=== PATIENT | male | born 1970 ===

== ENCOUNTER → 2020-02-16 08:06 | Outpatient (BNVA) | payer OTHER, SELFPAY | PROVIDERS: PCP Hospitalist; Referring Provider Internal Medicine; Visit Provider Family Medicine Adult Medicine | DX: M87.052 Idiopathic aseptic necrosis of left femur (principal); M87.051 Idiopathic aseptic necrosis of right femur; Z79.891 Long term (current) use of opiate analgesic | CPT/HCPCS: 99214 ==

== ENCOUNTER → 2020-03-15 09:11 | Outpatient (BNVA) | payer OTHER, SELFPAY | PROVIDERS: PCP Hospitalist; Visit Provider Family Medicine Adult Medicine | DX: M87.052 Idiopathic aseptic necrosis of left femur (principal); Z79.891 Long term (current) use of opiate analgesic | CPT/HCPCS: 99212 ==

== ENCOUNTER → 2020-04-26 12:19 | Outpatient (BNVA) | payer OTHER, SELFPAY | PROVIDERS: PCP Hospitalist; Visit Provider Family Medicine Adult Medicine | DX: M87.052 Idiopathic aseptic necrosis of left femur (principal); M87.051 Idiopathic aseptic necrosis of right femur | CPT/HCPCS: 99212 ==

== ENCOUNTER 2020-04-29 08:39 | Outpatient (REF) | payer OTHER, SELFPAY | END 2020-04-29 08:40 | disposition home or self-care (01) | LOC: HO.HOSX 08:39 | PROVIDERS: Visit Provider Orthopaedic Surgery | DX: Z13.89 Encounter for screening for other disorder (principal) ==

== ENCOUNTER → 2020-06-29 09:12 | Outpatient (BNVA) | payer OTHER, SELFPAY | PROVIDERS: PCP Internal Medicine Rheumatology; Visit Provider Family Medicine Adult Medicine | DX: M87.052 Idiopathic aseptic necrosis of left femur (principal); M87.051 Idiopathic aseptic necrosis of right femur | CPT/HCPCS: 99211 ==

== ENCOUNTER → 2020-07-28 10:29 | Outpatient (BNVA) | payer OTHER, SELFPAY | PROVIDERS: PCP Internal Medicine Rheumatology; Visit Provider Family Medicine Adult Medicine | DX: M87.052 Idiopathic aseptic necrosis of left femur (principal); M87.051 Idiopathic aseptic necrosis of right femur | CPT/HCPCS: 99212 ==

== ENCOUNTER → 2020-08-25 09:25 | Outpatient (BNVA) | payer OTHER, SELFPAY | PROVIDERS: PCP Hospitalist; Visit Provider Family Medicine Adult Medicine | DX: M87.052 Idiopathic aseptic necrosis of left femur (principal); M87.051 Idiopathic aseptic necrosis of right femur | CPT/HCPCS: 99212 ==

== ENCOUNTER 2020-11-01 12:43 | Outpatient (REF) | payer OTHER, SELFPAY ==
[2020-11-01 13:33] LABS: MANUAL DIFF FLAG NO
[2020-11-01 13:41] LABS: Basophils Percent Auto 0.4 % (0-2); Eosinophils Absolute Auto 0.1 X10*3/uL (0.0-0.4); Eosinophils Percent Auto 0.8 % (0-4); Hemoglobin 11.3 g/dl (14.0-18.0); Imm Gran Abs Auto 0.06 X10*3/uL (0.00-0.03); Imm Gran Pct Auto 0.8 % (0.0-0.4); Lymphocytes Absolute Auto 1.5 X10*3/uL (1.2-4.9); Lymphocytes Percent Auto 20.6 % (20-40); Mean Corpuscular HGB Conc 35.3 g/dl (31.0-36.0); Mean Corpuscular Hemoglobin 33.6 pg (27.0-33.0); Mean Corpuscular Volume 95.2 fL (80-98); Mean Platelet Volume 10.2 fL (9.4-12.4); Monocytes Absolute Auto 0.5 X10*3/uL (0.1-1.2); Monocytes Percent Auto 6.4 % (2-11); Neutrophils Absolute Auto 5.1 X10*3/uL (2.0-8.3); Platelet Count 438 X10*3/uL (160-400); Red Blood Count 3.36 X10*6/uL (4.60-5.80); Red Cell Distribution Width 10.7 % (11.0-16.0); White Blood Count 7.1 X10*3/uL (4.8-10.8)
[2020-11-01 14:20] LABS: Alanine Aminotransferase 17 U/L (0-40); Albumin Level 3.8 g/dL (3.5-5.0); Alkaline Phosphatase 83 U/L (39-117); Anion Gap 13 (12-20); Aspartate Amino Transferase 19 U/L (5-37); Bilirubin Total 0.6 mg/dL (0.0-1.0); Blood Urea Nitrogen 6 mg/dL (9-16); Calcium 9.1 mg/dL (8.4-10.2); Carbon Dioxide 27 mmol/L (22-29); Chloride 95 mmol/L (96-108); Estimated Glomerular Filt Rate > 60; Glucose Random 363 mg/dL (60-115); Lipase 18 U/L (8-78); Potassium 4.7 mmol/L (3.3-5.1); Sodium 130 mmol/L (135-145)
[2020-11-01 14:34] LABS: Thyroid Stimulating Hormone 0.22 uIU/mL (0.32-4.0)
== END 2020-11-01 12:44 | disposition home or self-care (01) ==
LOC: HO.WFDLNP 12:43
PROVIDERS: Visit Provider Family Medicine
DX: Z00.00 Encounter for general adult medical examination without abnormal findings (principal); R53.1 Weakness; E03.9 Hypothyroidism, unspecified; Z87.19 Personal history of other diseases of the digestive system
CPT/HCPCS: 80053; 83690; 84443; 85025

== ENCOUNTER 2020-11-18 10:32 | Outpatient (REF) | payer OTHER, SELFPAY ==
[2020-11-18 14:39] LABS: Alanine Aminotransferase 8 U/L (0-40); Albumin Level 4.3 g/dL (3.5-5.0); Alkaline Phosphatase 91 U/L (39-117); Anion Gap 15 (12-20); Aspartate Amino Transferase 13 U/L (5-37); Bilirubin Total 0.7 mg/dL (0.0-1.0); Blood Urea Nitrogen 10 mg/dL (9-16); Calcium 10.2 mg/dL (8.4-10.2); Carbon Dioxide 26 mmol/L (22-29); Chloride 101 mmol/L (96-108); Estimated Glomerular Filt Rate > 60; Glucose Random 371 mg/dL (60-115); Potassium 4.9 mmol/L (3.3-5.1); Sodium 137 mmol/L (135-145); Total Protein 7.3 g/dL (6.5-8.0)
[2020-11-18 14:40] LABS: Free T4 (Free Thyroxine) 1.02 ng/dL (0.71-1.85); Thyroid Stimulating Hormone 0.67 uIU/mL (0.32-4.0)
[2020-11-19 09:27] LABS: Triiodothyronine T3 Total 111 ng/dL (76-181)
== END 2020-11-18 10:33 | disposition home or self-care (01) ==
LOC: HO.WFDLDS 10:32
PROVIDERS: Visit Provider Family Medicine
DX: E03.9 Hypothyroidism, unspecified (principal); R73.9 Hyperglycemia, unspecified
CPT/HCPCS: 36415; 80053; 84439; 84443; 84480

== ENCOUNTER 2020-11-30 08:41 | Outpatient (REF) | payer OTHER, SELFPAY | END 2020-11-30 08:42 | disposition home or self-care (01) | LOC: HO.US 08:41 | PROVIDERS: Visit Provider Family Medicine | DX: Z13.89 Encounter for screening for other disorder (principal) ==

== ENCOUNTER 2021-03-29 13:29 | Outpatient (REF) | payer OTHER, SELFPAY ==
[2021-03-30 13:03] LABS: Amphetamine Screen Urine Not Detected (Not Detect); Barbiturates, Urine Not Detected (Not Detect); Benzodiazepines Screen Urine Not Detected (Not Detect); Cannabinoid Screen Urine POSITIVE (Not Detect); Cocaine Screen Urine Not Detected (Not Detect); Fentanyl, urine Not Detected (Not Detect); Opiate Screen Urine Not Detected (Not Detect); Phencyclidine Screen Urine Not Detected (Not Detect)
== END 2021-03-29 13:30 | disposition home or self-care (01) ==
LOC: HO.LAB 13:29
PROVIDERS: Visit Provider Hospitalist
DX: F19.10 Other psychoactive substance abuse, uncomplicated (principal); M25.559 Pain in unspecified hip; G89.29 Other chronic pain; F11.90 Opioid use, unspecified, uncomplicated; Z51.81 Encounter for therapeutic drug level monitoring
CPT/HCPCS: 80307

== ENCOUNTER 2021-05-08 10:01 | Outpatient (REF) | payer OTHER, SELFPAY ==
[2021-05-08 11:52] LABS: Estimated Average Glucose 103 mg/dL; Hemoglobin A1c % 5.2 %
[2021-05-08 12:00] LABS: Alanine Aminotransferase 30 U/L (0-40); Albumin Level 4.2 g/dL (3.5-5.0); Alkaline Phosphatase 69 U/L (39-117); Anion Gap 11 (12-20); Aspartate Amino Transferase 32 U/L (5-37); Bilirubin Total 0.4 mg/dL (0.0-1.0); Blood Urea Nitrogen 8 mg/dL (9-16); Calcium 9.7 mg/dL (8.4-10.2); Carbon Dioxide 27 mmol/L (22-29); Chloride 103 mmol/L (96-108); Cholesterol 239 mg/dL; Estimated Glomerular Filt Rate > 60; Glucose Fasting 157 mg/dL (60-99); HDL Cholesterol 64 mg/dL; LDL Cholesterol Calculated 132 mg/dl; Potassium 4.3 mmol/L (3.3-5.1); Sodium 137 mmol/L (135-145); Triglycerides 215 mg/dL
[2021-05-08 12:22] LABS: TSH reflex Free T4 0.77 uIU/mL (0.32-4.0)
== END 2021-05-08 10:02 | disposition home or self-care (01) ==
LOC: HO.WFDLDS 10:01
PROVIDERS: Visit Provider Family Medicine
DX: Z00.00 Encounter for general adult medical examination without abnormal findings (principal); R73.01 Impaired fasting glucose
CPT/HCPCS: 36415; 80053; 80061; 83036; 84443

== ENCOUNTER 2021-06-19 13:25 | Outpatient (REF) | payer OTHER, SELFPAY ==
[2021-06-19 14:16] LABS: Amphetamine Screen Urine Not Detected (Not Detect); Barbiturates, Urine Not Detected (Not Detect); Benzodiazepines Screen Urine POSITIVE (Not Detect); Cannabinoid Screen Urine Not Detected (Not Detect); Cocaine Screen Urine Not Detected (Not Detect); Fentanyl, urine Not Detected (Not Detect); Opiate Screen Urine Not Detected (Not Detect); Phencyclidine Screen Urine Not Detected (Not Detect)
== END 2021-06-19 13:26 | disposition home or self-care (01) ==
LOC: HO.LNP 13:25
PROVIDERS: Visit Provider Hospitalist
DX: F11.90 Opioid use, unspecified, uncomplicated (principal); G89.29 Other chronic pain; M25.559 Pain in unspecified hip
CPT/HCPCS: 80307

== ENCOUNTER 2021-07-19 09:14 | Outpatient (REF) | payer OTHER, SELFPAY ==
[2021-07-19 14:32] LABS: Amphetamine Screen Urine Not Detected (Not Detect); Barbiturates, Urine Not Detected (Not Detect); Benzodiazepines Screen Urine POSITIVE (Not Detect); Cannabinoid Screen Urine Not Detected (Not Detect); Cocaine Screen Urine Not Detected (Not Detect); Fentanyl, urine Not Detected (Not Detect); Opiate Screen Urine Not Detected (Not Detect); Phencyclidine Screen Urine Not Detected (Not Detect)
== END 2021-07-19 09:15 | disposition home or self-care (01) ==
LOC: HO.LAB 09:14
PROVIDERS: Visit Provider Hospitalist
DX: F19.10 Other psychoactive substance abuse, uncomplicated (principal)
CPT/HCPCS: 80307

== ENCOUNTER 2021-09-11 10:53 | Outpatient (REF) | payer OTHER, SELFPAY ==
[2021-09-11 13:42] LABS: Alanine Aminotransferase 54 U/L (0-40); Albumin Level 4.9 g/dL (3.5-5.0); Alkaline Phosphatase 65 U/L (39-117); Anion Gap 14 (12-20); Aspartate Amino Transferase 44 U/L (5-37); Bilirubin Total 1.4 mg/dL (0.0-1.0); Blood Urea Nitrogen 7 mg/dL (9-16); Calcium 10.6 mg/dL (8.4-10.2); Carbon Dioxide 28 mmol/L (22-29); Chloride 101 mmol/L (96-108); Estimated Glomerular Filt Rate > 60; Glucose Fasting 146 mg/dL (60-99); Potassium 4.6 mmol/L (3.3-5.1); Sodium 138 mmol/L (135-145); Total Protein 7.7 g/dL (6.5-8.0)
[2021-09-11 13:45] LABS: Appearance Urine HAZY; Color Urine YELLOW; Glucose Urine UA 100 MG/DL (NEG); Leukocyte Esterase Urine NEG (NEG); Nitrite Urine NEG (NEG); PH 6.5 (5.0-8.0); Specific Gravity - Urine 1.015 (1.005-1.025); Urine Blood NEG (NEG); Urine Ketones NEG (NEG); Urine Protein NEG (NEG-TRACE)
== END 2021-09-11 10:54 | disposition home or self-care (01) ==
LOC: HO.WFDLDS 10:53
PROVIDERS: Visit Provider Family Medicine
DX: Z00.00 Encounter for general adult medical examination without abnormal findings (principal); E11.9 Type 2 diabetes mellitus without complications
CPT/HCPCS: 36415; 80053; 81003

== ENCOUNTER 2021-09-21 09:14 | Outpatient (REF) | payer OTHER, SELFPAY ==
[2021-09-21 10:40] LABS: Hematocrit 44.3 % (42.0-52.0); Mean Corpuscular HGB Conc 36.1 g/dl (31.0-36.0); Mean Corpuscular Hemoglobin 33.2 pg (27.0-33.0); Mean Corpuscular Volume 91.9 fL (80.0-98.0); Mean Platelet Volume 10.9 fL (9.4-12.4); Platelet Count 186 X10*3/uL (160-400); Red Blood Count 4.82 X10*6/uL (4.60-5.80); Red Cell Distribution Width 11.9 % (11.0-16.0); White Blood Count 7.4 X10*3/uL (4.8-10.8)
[2021-09-21 10:56] LABS: Alanine Aminotransferase 29 U/L (0-40); Albumin Level 4.5 g/dL (3.5-5.0); Alkaline Phosphatase 70 U/L (39-117); Anion Gap 15 (12-20); Aspartate Amino Transferase 26 U/L (5-37); Bilirubin Total 0.7 mg/dL (0.0-1.0); Blood Urea Nitrogen 6 mg/dL (9-16); Calcium 10.4 mg/dL (8.4-10.2); Carbon Dioxide 25 mmol/L (22-29); Chloride 101 mmol/L (96-108); Cholesterol 223 mg/dL; Estimated Glomerular Filt Rate > 60; Glucose Fasting 190 mg/dL (60-99); HDL Cholesterol 50 mg/dL; LDL Cholesterol Calculated 133 mg/dl; Potassium 4.5 mmol/L (3.3-5.1); Sodium 136 mmol/L (135-145); Total Protein 7.1 g/dL (6.5-8.0); Triglycerides 203 mg/dL
[2021-09-21 11:18] LABS: TSH reflex Free T4 1.09 uIU/mL (0.32-4.0)
== END 2021-09-21 09:15 | disposition home or self-care (01) ==
LOC: HO.WFDLDS 09:14
PROVIDERS: Visit Provider Hospitalist
DX: Z00.00 Encounter for general adult medical examination without abnormal findings (principal); R10.9 Unspecified abdominal pain; Z13.220 Encounter for screening for lipoid disorders; Z13.29 Encounter for screening for other suspected endocrine disorder
CPT/HCPCS: 36415; 80053; 80061; 84443; 85027

== ENCOUNTER 2022-03-22 08:54 | Outpatient (REF) | payer OTHER, SELFPAY ==
--- NOTE | ~2022-03-22 | XR_ITS ---
EXAMINATION: XR pelvis 1-2V CLINICAL INFORMATION: Reason for Exam M25.559 - Pain in unspecified hip COMPARISON: Pelvis radiographs 03/09/2019, MR hip 06/01/2017 TECHNIQUE: One view of the pelvis FINDINGS: No acute fracture or dislocation. Similar appearance of ill-defined sclerosis in the left greater than right femoral heads which may reflect sequelae of avascular necrosis, the extent of which could be better evaluated with pelvic MR. Joint spaces are maintained without significant degenerative change. No soft tissue abnormality. XR/XR pelvis 1-2V IMPRESSION: 1. Similar appearance of ill-defined sclerosis in the left greater than right femoral heads which may reflect sequelae of avascular necrosis, the extent of which could be better evaluated with pelvic MR.
== END 2022-03-22 08:55 | disposition home or self-care (01) ==
LOC: HO.HOSX 08:54
PROVIDERS: Visit Provider Orthopaedic Surgery
DX: M25.551 Pain in right hip (principal); M25.552 Pain in left hip; M87.051 Idiopathic aseptic necrosis of right femur; M87.052 Idiopathic aseptic necrosis of left femur; E11.9 Type 2 diabetes mellitus without complications
CPT/HCPCS: 72170; 99212

== ENCOUNTER 2022-08-16 09:36 | Outpatient (REF) | payer OTHER, SELFPAY ==
[2022-08-16 12:06] LABS: Magnesium 1.8 mg/dL (1.6-2.6); Phosphorus 3.6 mg/dL (2.7-4.5)
[2022-08-16 12:15] LABS: Estimated Average Glucose 120 mg/dL; Hemoglobin A1c % 5.8 %
[2022-08-16 12:33] LABS: Vitamin B12 1178 pg/mL (200-900)
[2022-08-23 12:53] LABS: Vitamin D 25-OH, D2 <4 ng/mL; Vitamin D 25-OH, D3 22 ng/mL; Vitamin D 25-OH, Total 22 ng/mL (30-100)
== END 2022-08-16 09:37 | disposition home or self-care (01) ==
LOC: HO.HMGCLDS 09:36
PROVIDERS: PCP Hospitalist; Visit Provider Hospitalist
DX: Z12.5 Encounter for screening for malignant neoplasm of prostate (principal); R39.198 Other difficulties with micturition; E55.9 Vitamin D deficiency, unspecified; K21.9 Gastro-esophageal reflux disease without esophagitis; I10 Essential (primary) hypertension; E11.9 Type 2 diabetes mellitus without complications; Z86.2 Personal history of diseases of the blood and blood-forming organs and certain disorders involving the immune mechanism
CPT/HCPCS: 36415; 82306; 82607; 83036; 83735; 84100; 84153

== ENCOUNTER 2022-12-05 09:32 | Outpatient (AMB) | payer OTHER, SELFPAY ==
--- NOTE | 2022-12-05 09:34 | A.OFFPC_ITS ---
Vital Signs 12/05/22 09:37 Height 6 ft 1 in Weight 205 lb BMI 27.0 BP 124/62 Blood Pressure Location Rt brachial Position Sitting Respiration 14 Pulse 73 Pulse Source Pulse Oximeter Temp 98.6 F Temp Source Temporal Artery Scan Pulse Oximetry (%) 100 Oxygen Delivery Method Room Air Intake Visit Reasons: f/u diabetes Intake Note: Patient is here today to follow up with diabetes and discuss pain patches and alprazolam. Patient would like to request fluticasone nasal spray. Microarray Analyst Required: No Allergies aspirin [ASPIRIN] Allergy (Severe, Verified 12/05/22 09:42) SWELLING NSAIDS (Non-Steroidal Anti-Inflamma Allergy (Severe, Verified 12/05/22 09:42) infamation penicillin G [PENICILLIN G] Allergy (Severe, Verified 12/05/22 09:42) DIFFICULTY BREATHING Sulfa (Sulfonamide Antibiotics) [SULFA (SULFONAMIDE ANTIBIOTICS)] Allergy (Severe, Verified 12/05/22 09:42) ANAPHYLAXIS tramadol [TRAMADOL] Allergy (Severe, Verified 12/05/22 09:42) DIZZY Medication List - Last Reconciled 12/05/22 by Rico Hope MD adhesive remover As directed to remove adhesive from patches weekly albuterol sulfate 2.5 mg (3 mL) inhalation Q8H PRN 1 month albuterol sulfate 90 mcg/actuation (ProAir HFA) 1 puff inhalation Q4-6H PRN alprazolam 0.5 mg PO BID PRN 28 days amlodipine 10 mg PO DAILY 3 months atenolol 100 mg PO DAILY betamethasone dipropionate 0.05% 1 appl topical BID PRN blood sugar diagnostic (FreeStyle Lite Strips) USE 1 STRIP TWICE A DAY NEEDED...OR MAY USE 3 TIMES IF NEEDED blood-glucose sensor (FreeStyle Jay 3 Sensor device) As directed, 28 days buprenorphine 7.5 mcg/hour 1 patch transdermal Q7D buprenorphine 20 mcg/hour 1 patch topical QWEEK 28 days cholecalciferol (vitamin D3) 1,250 mcg PO QWEEK citalopram 20 mg (2 x 10 mg) PO DAILY 30 days cyclobenzaprine 10 mg PO BID fluticasone propion-salmeterol 113 mcg-14 mcg/actuation 1 inh inhalation BID 1 month fluticasone propionate 50 mcg/actuation 1 spray intranasal DAILY 1 month FreeStyle Lite Meter (blood-glucose meter) TEST blood sugar 2-3 TIMES DAILY NS hydrocortisone 1% (Anti-Itch (hydrocortisone)) 1 appl topical TID PRN insulin glargine (Lantus Solostar U-100 Insulin) 16 units (0.16 mL) subcut QPM lancets (FreeStyle Lancets) USE TO TEST BLOOD SUGAR THREE TIMES A DAY DIRECTED loratadine (Allergy Relief (loratadine)) 10 mg PO DAILY metformin 250 mg (1/2 x 500 mg) PO BID omeprazole 20 mg PO QAM pen needle, diabetic (UltiCare Pen Needle) USE DAILY DIRECTED pen needle, diabetic (Easy Touch) As directed repaglinide 0.5 mg PO BID 30 days tamsulosin (Flomax) 0.4 mg PO DAILY 30 days Tobacco use date assessed: 12/05/22 Dental Screening Dental Screen Date: 12/05/22 Did you have a dental visit in the last 12 months?: Yes Did you have a dental problem in the last 6 months where you did not have access to dental care?: No Was dental information given to patient?: Patient has dentist HPI f/u diabetes HPI Details 51 y/o male presents to f/u diabetes. A1c today 12/05/22 is 4.9%. He is on lantus 16 units and metformin 250mg b.i.d. had prescribed glipizide but changed this to repaglinide due to a sulfa allergy. He notes that this medication does make his blood sugars go low occasionally. He also reports metformin had been causing him some dry mouth but questions whether or not this could be due to patches. 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 Dominick Miller, Koki Buck, Mohan Beavers and colleagues, with an educational nanette from [employer]. Review of Systems Const Denies chills, Denies fatigue, Denies fever(s), Denies headache(s) and Denies weakness ENT Denies dizziness and Denies headache(s) Card Denies dyspnea Resp Denies cough, Denies dyspnea, Denies wheezing and Denies other (shortness of breath) Musc Denies numbness and Denies tingling Neuro Denies dizziness, Denies headache(s), Denies numbness, Denies tingling and Denies weakness Psych Denies anxiety and Denies depression Endo Denies fatigue Aller/Immun Denies wheezing Physical exam (Primary Care) Vital Signs: Last Vital Signs Temp 98.6 F 12/05/22 09:37 Pulse 73 12/05/22 09:37 Resp 14 12/05/22 09:37 BP 124/62 12/05/22 09:37 Pulse Ox 100 12/05/22 09:37 Oxygen Delivery Method Room Air 12/05/22 09:37 BMI result Body Mass Index 27.0 Tobacco/Smoking Status: Tobacco use Status Tobacco use date assessed 12/05/22 12/05/22 09:45 Patient Tobacco Use Status Never used Tobacco 12/05/22 09:49 e-Cigarette/Vaping Use Never Used 12/05/22 09:49 Thrive Assessment: Date of Thrive Assessment Date Thrive assessed 06/20/22 12/05/22 09:36 Const General: well developed; No acute distress Nutritional Appearance: well nourished Orientation/consciousness: patient oriented x3 HENMT Head: Yes normocephalic and Yes atraumatic Eyes General: appearance normal, both eyes and all related structures Pupils: Equal, round and reactive pupils present EOM: EOMs intact bilaterally Resp Effort & Inspection: normal respiratory effort Neuro General: patient oriented x3 and gait normal Cranial nerves: Yes Equal, round and reactive pupils present Psych Affect: normal affect Results AMB Hemoglobin A1c AMB Hemoglobin A1c 4.9 % Last Edit by Meme Maldonado on 12/05/22 09:5 4 Results Reviewed Results Reviewed: Laboratory Last Values Hgb A1c (Clinic) 4.9 % (4.0-6.0) 12/05/22 09:54 Assessment and Plan Assessment & Plan (1) Diabetes: Code(s): E11.9 - Type 2 diabetes mellitus without complications Plan: A1c 4.9% today and he has noted some low blood sugars. He will only use were pad: I had during the day and not in the evenings or at night. Discontinue metformin as he has not been taking this and does not need this added. Continue Lantus as prescribed Medications: Refilled alprazolam 0.5 mg PO BID PRN 14 tabs 0RF anxiety 28 days F41.0 - Panic disorder [episodic paroxysmal anxiety], F41.1 - Generalized anxiety disorder buprenorphine 20 mcg/hour Pt is prescribed both 20mcg patch and 7.5mcg patches concurrently. MassPat verified. Partial refill upon request. 1 patch topical QWEEK 4 patches 0RF 28 days G89.29 - Other chronic pain, M53.3 - Sacrococcygeal disorders, not elsewhere classified, M87.051 - Idiopathic aseptic necrosis of right femur, M87.052 - Idiopathic aseptic necrosis of left femur buprenorphine 7.5 mcg/hour Pt is prescribed both 20mcg patch and 7.5mcg patches concurrently. MassPat verified. Partial refill upon request. 1 patch transdermal Q7D 4 ea 0RF insulin glargine (Lantus Solostar U-100 Insulin) 16 units (0.16 mL) subcut QPM 15 mL 3RF Discontinued metformin Discontinued Reason: Patient no longer taking 250 mg (1/2 x 500 mg) PO BID 90 tabs 3RF Coding Level of Care Code Est Pt Level 3 (34472) Diagnoses Diabetes E11.9
[2022-12-05 09:37] VITALS: BP 124/62; PULSE 73; RESP 14; TEMP 37; O2SAT 100; BMI 27.0
== END 2022-12-05 10:18 | disposition home or self-care (01) ==
PROVIDERS: PCP Hospitalist; Visit Provider Family Medicine
DX: E11.9 Type 2 diabetes mellitus without complications (principal)
CPT/HCPCS: 99213

== ENCOUNTER 2023-01-09 08:09 | Outpatient (REF) | payer OTHER, SELFPAY ==
[2023-01-09 12:05] LABS: Hematocrit 41.5 % (42.0-52.0); Hemoglobin 14.8 g/dl (14.0-18.0); Mean Corpuscular HGB Conc 35.7 g/dl (31.0-36.0); Mean Corpuscular Hemoglobin 33.5 pg (27.0-33.0); Mean Corpuscular Volume 93.9 fL (80.0-98.0); Red Blood Count 4.42 X10*6/uL (4.60-5.80); Red Cell Distribution Width 12.1 % (11.0-16.0); White Blood Count 6.5 X10*3/uL (4.8-10.8)
[2023-01-09 12:25] LABS: Platelet Count 133 X10*3/uL (160-400)
[2023-01-09 12:26] LABS: Alanine Aminotransferase 117 U/L (0-40); Albumin Level 4.2 g/dL (3.5-5.0); Alkaline Phosphatase 62 U/L (39-117); Anion Gap 12 (12-20); Aspartate Amino Transferase 81 U/L (5-37); Bilirubin Total 0.6 mg/dL (0.0-1.0); Blood Urea Nitrogen 8 mg/dL (9-16); Calcium 9.9 mg/dL (8.4-10.2); Carbon Dioxide 28 mmol/L (22-29); Chloride 106 mmol/L (96-108); Cholesterol 229 mg/dL (<200); Estimated Glomerular Filt Rate > 60; Glucose Fasting 103 mg/dL (60-99); HDL Cholesterol 67 mg/dL (>40); LDL Cholesterol Calculated 121 mg/dL (<100); Sodium 142 mmol/L (135-145); Total Protein 6.9 g/dL (6.5-8.0); Triglycerides 208 mg/dL (<150)
[2023-01-09 12:27] LABS: TSH reflex Free T4 0.92 uIU/mL (0.32-4.0)
== END 2023-01-09 08:10 | disposition home or self-care (01) ==
LOC: HO.WFDLDS 08:09
PROVIDERS: Visit Provider Hospitalist
DX: I10 Essential (primary) hypertension (principal); Z86.2 Personal history of diseases of the blood and blood-forming organs and certain disorders involving the immune mechanism
CPT/HCPCS: 36415; 80053; 80061; 84443; 85027

== ENCOUNTER 2023-01-10 09:45 | Outpatient (AMB) | payer OTHER, SELFPAY ==
[2023-01-10 09:51] VITALS: BP 94/60; PULSE 59; RESP 12; TEMP 36.6; O2SAT 98; BMI 27.2
--- NOTE | 2023-01-10 09:51 | MHC.PC.OV ---
Vital Signs 01/10/23 09:51 Height 6 ft 1 in Weight 206 lb 4 oz BMI 27.2 BP 94/60 Blood Pressure Location Lt brachial Position Sitting Respiration 12 Pulse 59 Pulse Source Pulse Oximeter Temp 97.8 F Temp Source Temporal Artery Scan Pulse Oximetry (%) 98 Oxygen Delivery Method Room Air Intake Visit Reasons: f/u labs, Lyme disease Intake Note: Patient states that he needs refills on Citolopram, Vitamin D3, and Repaglinide. 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 Accompanied by: Self / Same As Patient Allergies aspirin [ASPIRIN] Allergy (Severe, Verified 01/10/23 09:56) SWELLING NSAIDS (Non-Steroidal Anti-Inflamma Allergy (Severe, Verified 01/10/23 09:56) infamation penicillin G [PENICILLIN G] Allergy (Severe, Verified 01/10/23 09:56) DIFFICULTY BREATHING Sulfa (Sulfonamide Antibiotics) [SULFA (SULFONAMIDE ANTIBIOTICS)] Allergy (Severe, Verified 01/10/23 09:56) ANAPHYLAXIS tramadol [TRAMADOL] Allergy (Severe, Verified 01/10/23 09:56) DIZZY Tobacco use date assessed: 12/05/22 Dental Screening Dental Screen Date: 01/10/23 Did you have a dental visit in the last 12 months?: Yes Did you have a dental problem in the last 6 months where you did not have access to dental care?: No Was dental information given to patient?: Patient has dentist HPI f/u labs, Lyme disease HPI Details 52 y/o male presents to f/u labs and lyme disease. Labs were drawn 01/09/23. Reviewed labs with pt. Triglycerides 208. TC 229. LDL 121. HDL 67. Elevated AST of 81 and ALT of 117. He is requesting lyme testing due to tick bites from a couple months ago. Pt reports he gets a lot of ticks and does work on prevention. He denies any rashes. He does report joint pain and fatigue - he has hip problems but did note significant ankle pain and knee joint pain. 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 Dominick Miller, Koki Buck, Mohan Beavers and colleagues, with an educational nanette from [employer]. Physical exam (Primary Care) Vital Signs: Last Vital Signs Temp 97.8 F 01/10/23 09:51 Pulse 59 01/10/23 09:51 Resp 12 01/10/23 09:51 BP 94/60 01/10/23 09:51 Pulse Ox 98 01/10/23 09:51 Oxygen Delivery Method Room Air 01/10/23 09:51 BMI result Body Mass Index 27.2 Tobacco/Smoking Status: Tobacco use Status Tobacco use date assessed 12/05/22 01/10/23 10:01 Patient Tobacco Use Status Never used Tobacco 01/10/23 10:01 e-Cigarette/Vaping Use Never Used 01/10/23 10:01 Thrive Assessment: Date of Thrive Assessment Date Thrive assessed 06/20/22 01/10/23 10:01 Assessment and Plan Assessment & Plan (1) Tick bite: Code(s): W57.XXXA - Bitten or stung by nonvenomous insect and other nonvenomous arthropods, initial encounter Plan: Patient gets frequent tick bites. He says he had some left over doxycycline and took this Check Lyme titers (2) Elevated liver enzymes: Code(s): R74.8 - Abnormal levels of other serum enzymes Plan: Patient takes about 1300 mg of Tylenol every day and drinks alcohol as well. Liver enzymes are elevated Advised decreasing Tylenol and alcohol intake. Advised he try to avoid taking both on the same days Will give him some diclofenac gel to help him decrease Tylenol intake (3) Polyarthralgia: Code(s): M25.50 - Pain in unspecified joint Plan: As above, will give him some diclofenac gel Checking Lyme titers Checking uric acid levels as he says he has a history of gout as well. Orders: Orders Lyme IgG/IgM w/reflex to WB Today W57.XXXA - Bitten or stung by nonvenomous insect and other nonvenomous arthropods, initial encounter Uric Acid Today M25.50 - Pain in unspecified joint Medications: Changed From repaglinide administer within 30 minutes of a meal or snack 0.5 mg PO BID 60 tabs 1RF 30 days To repaglinide administer within 30 minutes of a meal or snack 0.5 mg PO BID 180 tabs 2RF 90 days Refilled citalopram 20 mg (2 x 10 mg) PO DAILY 60 tabs 4RF 30 days E11.9 - Type 2 diabetes mellitus without complications cholecalciferol (vitamin D3) 1,250 mcg PO QWEEK 14 caps 1RF E55.9 - Vitamin D deficiency, unspecified repaglinide administer within 30 minutes of a meal or snack 0.5 mg PO BID 60 tabs 1RF 30 days Coding Level of Care Code Est Pt Level 4 (80624) Diagnoses Tick bite W57.XXXA Elevated liver enzymes R74.8 Polyarthralgia M25.50
== END 2023-01-10 10:29 | disposition home or self-care (01) ==
PROVIDERS: PCP Hospitalist; Visit Provider Family Medicine
DX: T63.481A Toxic effect of venom of other arthropod, accidental (unintentional), initial encounter (principal); R74.8 Abnormal levels of other serum enzymes; M25.50 Pain in unspecified joint
CPT/HCPCS: 99214

== ENCOUNTER 2023-01-10 10:32 | Outpatient (REF) | payer OTHER, SELFPAY ==
[2023-01-16 02:29] LABS: Lyme Abs Screen <0.90 index
== END 2023-01-10 10:33 | disposition home or self-care (01) ==
LOC: HO.WFDLDS 10:32
PROVIDERS: Visit Provider Family Medicine
DX: M25.50 Pain in unspecified joint (principal); T14.8XXA Other injury of unspecified body region, initial encounter; W57.XXXA Bitten or stung by nonvenomous insect and other nonvenomous arthropods, initial encounter; Y93.9 Activity, unspecified; Y92.9 Unspecified place or not applicable; Y99.9 Unspecified external cause status
CPT/HCPCS: 36415; 84550; 86617; 86618

== ENCOUNTER 2023-03-05 08:46 | Outpatient (AMB) | payer OTHER, SELFPAY ==
--- NOTE | 2023-03-05 08:52 | MHC.PC.OV ---
Vital Signs 03/05/23 08:55 Height 6 ft 1 in Weight 195 lb BMI 25.7 BP 122/76 Blood Pressure Location Rt brachial Position Sitting Respiration 13 Pulse 84 Pulse Source Pulse Oximeter Temp 97.6 F Temp Source Temporal Artery Scan Pulse Oximetry (%) 98 Oxygen Delivery Method Room Air Intake Visit Reasons: f/u diabetes, chronic conditions Intake Note: Patient states that his cats have been playing with mice and recently hooked onto his back and patient is worried that they may become infected. Patient would also need a work note. Patient states he stopped taking repaglinide due to him urinating blood, which stopped when he stopped taking it. Patient would also like a refill on his Alprazolam and his Lantus as well as the needles for insulin. [employer] Required: No Accompanied by: Self / Same As Patient Allergies aspirin [ASPIRIN] Allergy (Severe, Verified 03/05/23 09:00) SWELLING NSAIDS (Non-Steroidal Anti-Inflamma Allergy (Severe, Verified 03/05/23 09:00) infamation penicillin G [PENICILLIN G] Allergy (Severe, Verified 03/05/23 09:00) DIFFICULTY BREATHING Sulfa (Sulfonamide Antibiotics) [SULFA (SULFONAMIDE ANTIBIOTICS)] Allergy (Severe, Verified 03/05/23 09:00) ANAPHYLAXIS tramadol [TRAMADOL] Allergy (Severe, Verified 03/05/23 09:00) DIZZY Medication List - Last Reviewed 03/05/23 by Sophie Trevizo MA adhesive remover As directed to remove adhesive from patches weekly albuterol sulfate 2.5 mg (3 mL) inhalation Q8H PRN 1 month albuterol sulfate 90 mcg/actuation (ProAir HFA) 1 puff inhalation Q4-6H PRN alprazolam 0.5 mg PO BID PRN 28 days amlodipine 10 mg PO DAILY 3 months atenolol 100 mg PO DAILY betamethasone dipropionate 0.05% 1 appl topical BID PRN bisacodyl (Dulcolax (bisacodyl)) 20 mg (4 x 5 mg) PO ONCE 1 day blood sugar diagnostic (FreeStyle Lite Strips) USE 1 STRIP TWICE A DAY NEEDED...OR MAY USE 3 TIMES IF NEEDED blood-glucose sensor (FreeStyle Jay 3 Sensor device) As directed, 28 days buprenorphine 20 mcg/hour 1 patch topical QWEEK 28 days buprenorphine 7.5 mcg/hour 1 patch transdermal Q7D 28 days cholecalciferol (vitamin D3) 1,250 mcg PO QWEEK citalopram 20 mg (2 x 10 mg) PO DAILY 30 days cyclobenzaprine 10 mg PO BID fluticasone propion-salmeterol 113 mcg-14 mcg/actuation 1 inh inhalation BID 1 month fluticasone propionate 50 mcg/actuation 1 spray intranasal DAILY 1 month FreeStyle Lite Meter (blood-glucose meter) TEST blood sugar 2-3 TIMES DAILY NS hydrocortisone 1% (Anti-Itch (hydrocortisone)) 1 appl topical TID PRN insulin glargine (Lantus Solostar U-100 Insulin) 16 units (0.16 mL) subcut QPM lancets (FreeStyle Lancets) USE TO TEST BLOOD SUGAR THREE TIMES A DAY DIRECTED loratadine (Allergy Relief (loratadine)) 10 mg PO DAILY omeprazole 20 mg PO QAM peg 3350-electrolytes 236-22.74-6.74 -5.86 gram 240 mL PO Q10M pen needle, diabetic (UltiCare Pen Needle) USE DAILY DIRECTED pen needle, diabetic (Easy Touch) As directed tamsulosin (Flomax) 0.4 mg PO DAILY 30 days Tobacco use date assessed: 12/05/22 Dental Screening Dental Screen Date: 03/05/23 Did you have a dental visit in the last 12 months?: Yes Did you have a dental problem in the last 6 months where you did not have access to dental care?: No Was dental information given to patient?: Patient has dentist HPI f/u diabetes, chronic conditions HPI Details 52 y/o male presents to f/u diabetes and chronic conditions such as polysubstance abuse and polyarthralgias. A1c today 03/05/23 is 5.4%. He is on insulin glargine 16 units. He notes the day he is active he does not take insulin. He does note he is able to monitor his sugars carefully. Patient states that his cats have been playing with mice and recently hooked onto his back and patient is worried that they may become infected. Patient would also need a work note. Patient states he stopped taking repaglinide due to him urinating blood. He is requesting a flu shot today. Pt had elevated liver enzymes and lipids from labs drawn in December. 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 Dominick Miller, Koki Buck, Mohan Beavers and colleagues, with an educational nanette from [employer]. Review of Systems Const Denies chills, Denies fatigue, Denies fever(s), Denies headache(s) and Denies weakness ENT Denies dizziness and Denies headache(s) Card Denies chest pain, Denies lightheadedness, Denies dyspnea and Denies other (Palpitations) Resp Denies cough, Denies dyspnea, Denies wheezing and Denies other ( shortness of breath) Musc Denies numbness and Denies tingling Neuro Denies dizziness, Denies headache(s), Denies numbness, Denies tingling, Denies paresthesias and Denies weakness Psych Denies anxiety and Denies depression Endo Denies fatigue Aller/Immun Denies wheezing Physical exam (Primary Care) Vital Signs: Last Vital Signs Temp 97.6 F 03/05/23 08:55 Pulse 84 03/05/23 08:55 Resp 13 03/05/23 08:55 BP 122/76 03/05/23 08:55 Pulse Ox 98 03/05/23 08:55 Oxygen Delivery Method Room Air 03/05/23 08:55 BMI result Body Mass Index 25.7 Tobacco/Smoking Status: Tobacco use Status Tobacco use date assessed 12/05/22 03/05/23 08:55 Patient Tobacco Use Status Never used Tobacco 03/05/23 08:55 e-Cigarette/Vaping Use Never Used 03/05/23 08:55 Thrive Assessment: Date of Thrive Assessment Date Thrive assessed 06/20/22 03/05/23 08:55 Const General: no acute distress and well developed Nutritional Appearance: well nourished Orientation/consciousness: patient oriented x3 HENMT Head: Yes normocephalic and Yes atraumatic Eyes General: appearance normal, both eyes and all related structures Pupils: Equal, round and reactive pupils present EOM: EOMs intact bilaterally Resp Effort & Inspection: normal respiratory effort Auscultation: clear to auscultation bilaterally Cardio Rate: regular rate Rhythm: regular rhythm Heart sounds: S1 normal heart sound present, S2 normal heart sound present, no gallops, no murmurs and no rubs Neuro General: patient oriented x3 and gait normal Cranial nerves: Yes Equal, round and reactive pupils present Psych Affect: normal affect Results AMB Hemoglobin A1c AMB Hemoglobin A1c 5.4 % Last Edit by Meme Maldonado CMA on 03/05/23 09:15 Assessment and Plan Assessment & Plan (1) Diabetes: Code(s): E11.9 - Type 2 diabetes mellitus without complications Plan: A1c?5.4%?today.??Good?control.??Goal?is?less?than?7.0% Continue?current?regimen Recent?eye?exam.??He?is?up-to-date. (2) Wound of back: Code(s): S21.209A - Unspecified open wound of unspecified back wall of thorax without penetration into thoracic cavity, initial encounter Plan: Healing?well.??Does?not?appear?to?require?antibiotic He?can?let?me?know?if?any?worsening. (3) Hyperlipidemia: Code(s): E78.5 - Hyperlipidemia, unspecified Plan: Lipids?were?above?range?for?patient?with?diabetes. He?will?get?this?rechecked?prior?to?her?next?visit (4) Immunization counseling: Code(s): Z71.85 - Encounter for immunization safety counseling Plan: Flu?shot?today (5) Elevated liver enzymes: Code(s): R74.8 - Abnormal levels of other serum enzymes Plan: Liver?enzymes?have?been?elevated.??Will?recheck?this (6) History of gout: Code(s): Z87.39 - Personal history of other diseases of the musculoskeletal system and connective tissue Plan: Patient?has?been?on?allopurinol?300?mg?daily?in?the?past Getting?foot?pain?and?requests?allopurinol Will?start?at?lowest?dose He?will?let?me?know?if?he?has?any?flare-ups. Will?check?uric?acid?with?his?next?blood?draw Orders: Orders Comprehensive [place]. Panel Fast Today R74.8 - Abnormal levels of other serum enzymes, Z00.00 - Encounter for general adult medical examination without abnormal findings Influenza [id number] Immunization Today Z23 - Encounter for immunization, Z71.85 - Encounter for immunization safety counseling AMB Hemoglobin A1c Today Z13.9 - Encounter for screening, unspecified Medications: New allopurinol 100 mg PO DAILY 30 days 30 tabs 1RF flu vacc [id number] 6mos up(PF) 0.5 mL IM ONCE 0.5 mL 0RF Z23 - Encounter for immunization, Z71.85 - Encounter for immunization safety counseling Refilled alprazolam 0.5 mg PO BID 28 days PRN 14 tabs 0RF anxiety F41.0 - Panic disorder [episodic paroxysmal anxiety], F41.1 - Generalized anxiety disorder Coding Level of Care Code Est Pt Level 4 (42519) Diagnoses Diabetes E11.9 Wound of back S21.209A Hyperlipidemia E78.5 Immunization counseling Z71.85 Elevated liver enzymes R74.8 History of gout Z87.39
[2023-03-05 08:55] VITALS: BP 122/76; PULSE 84; RESP 13; TEMP 36.4; O2SAT 98; BMI 25.7
--- NOTE | 2023-03-05 09:36 | AM.OFFVISNUR ---
Intake Vital Signs 03/05/23 08:55 Height 6 ft 1 in Weight 195 lb BMI 25.7 BP 122/76 Blood Pressure Location Rt brachial Position Sitting Respiration 13 Pulse 84 Pulse Source Pulse Oximeter Temp 97.6 F Temp Source Temporal Artery Scan Pulse Oximetry (%) 98 Oxygen Delivery Method Room Air Intake Visit Reasons: f/u diabetes, chronic conditions Allergies aspirin [ASPIRIN] Allergy (Severe, Verified 03/05/23 09:00) SWELLING NSAIDS (Non-Steroidal Anti-Inflamma Allergy (Severe, Verified 03/05/23 09:00) infamation penicillin G [PENICILLIN G] Allergy (Severe, Verified 03/05/23 09:00) DIFFICULTY BREATHING Sulfa (Sulfonamide Antibiotics) [SULFA (SULFONAMIDE ANTIBIOTICS)] Allergy (Severe, Verified 03/05/23 09:00) ANAPHYLAXIS tramadol [TRAMADOL] Allergy (Severe, Verified 03/05/23 09:00) DIZZY Medication List - Last Reviewed 03/05/23 by Sophie Trevizo MA adhesive remover As directed to remove adhesive from patches weekly albuterol sulfate 2.5 mg (3 mL) inhalation Q8H PRN 1 month albuterol sulfate 90 mcg/actuation (ProAir HFA) 1 puff inhalation Q4-6H PRN alprazolam 0.5 mg PO BID PRN 28 days amlodipine 10 mg PO DAILY 3 months atenolol 100 mg PO DAILY betamethasone dipropionate 0.05% 1 appl topical BID PRN bisacodyl (Dulcolax (bisacodyl)) 20 mg (4 x 5 mg) PO ONCE 1 day blood sugar diagnostic (FreeStyle Lite Strips) USE 1 STRIP TWICE A DAY NEEDED...OR MAY USE 3 TIMES IF NEEDED blood-glucose sensor (FreeStyle Jay 3 Sensor device) As directed, 28 days buprenorphine 20 mcg/hour 1 patch topical QWEEK 28 days buprenorphine 7.5 mcg/hour 1 patch transdermal Q7D 28 days cholecalciferol (vitamin D3) 1,250 mcg PO QWEEK citalopram 20 mg (2 x 10 mg) PO DAILY 30 days cyclobenzaprine 10 mg PO BID fluticasone propion-salmeterol 113 mcg-14 mcg/actuation 1 inh inhalation BID 1 month fluticasone propionate 50 mcg/actuation 1 spray intranasal DAILY 1 month FreeStyle Lite Meter (blood-glucose meter) TEST blood sugar 2-3 TIMES DAILY NS hydrocortisone 1% (Anti-Itch (hydrocortisone)) 1 appl topical TID PRN insulin glargine (Lantus Solostar U-100 Insulin) 16 units (0.16 mL) subcut QPM lancets (FreeStyle Lancets) USE TO TEST BLOOD SUGAR THREE TIMES A DAY DIRECTED loratadine (Allergy Relief (loratadine)) 10 mg PO DAILY omeprazole 20 mg PO QAM peg 3350-electrolytes 236-22.74-6.74 -5.86 gram 240 mL PO Q10M pen needle, diabetic (UltiCare Pen Needle) USE DAILY DIRECTED pen needle, diabetic (Easy Touch) As directed tamsulosin (Flomax) 0.4 mg PO DAILY 30 days Office Procedures Flu Questionnaire Does the patient have a severe egg allergy?: No Does the patient have severe life threatening allergies?: No Does the patient have a fever or illness today?: No Has the patient ever had Guillain-[place] Syndrome?: No Has the patient ever had any past reaction to a flu shot?: No Results AMB Hemoglobin A1c AMB Hemoglobin A1c 5.4 % Last Edit by Meme Maldonado CMA on 03/05/23 09:15 Immunizations flu vacc [id number] 6mos up(PF) 60 mcg(15 mcgx4)/0.5 mL IM syringe Performing Provider: Rico Hope MD Performing Location: [facility] [place] [facility] [place] [facility] Administered by: Meme Maldonado CMA on 03/05/23 09:44 Dose Route Admin Location Dispensed Lot Number Expiration Date NDC [facility] 0.5 mL IM Right Deltoid 0.5 mL [id number] 11/10/23 [id number] [employer] VIS Given Date VIS Provided VIS Publication Date 03/05/23 Single Vaccine 20 Eligibility Eligibility Date Funding Source Not [facility] Eligible 03/05/23 Private Coding Diagnoses Diabetes E11.9 Wound of back S21.209A Hyperlipidemia E78.5 Immunization counseling Z71.85 Elevated liver enzymes R74.8 History of gout Z87.39 Assessment & Plan Assessment & Plan (1) Diabetes: Code(s): E11.9 - Type 2 diabetes mellitus without complications (2) Wound of back: Code(s): S21.209A - Unspecified open wound of unspecified back wall of thorax without penetration into thoracic cavity, initial encounter (3) Hyperlipidemia: Code(s): E78.5 - Hyperlipidemia, unspecified (4) Immunization counseling: Code(s): Z71.85 - Encounter for immunization safety counseling (5) Elevated liver enzymes: Code(s): R74.8 - Abnormal levels of other serum enzymes (6) History of gout: Code(s): Z87.39 - Personal history of other diseases of the musculoskeletal system and connective tissue Orders: Orders Comprehensive [place]. Panel Fast Today R74.8 - Abnormal levels of other serum enzymes, Z00.00 - Encounter for general adult medical examination without abnormal findings Influenza [id number] Immunization Today Z23 - Encounter for immunization, Z71.85 - Encounter for immunization safety counseling AMB Hemoglobin A1c Today Z13.9 - Encounter for screening, unspecified Medications: New allopurinol 100 mg PO DAILY 30 tabs 1RF 30 days Refilled alprazolam 0.5 mg PO BID PRN 14 tabs 0RF anxiety 28 days F41.0 - Panic disorder [episodic paroxysmal anxiety], F41.1 - Generalized anxiety disorder
== END 2023-03-05 09:30 | disposition home or self-care (01) ==
PROVIDERS: PCP Hospitalist; Visit Provider Family Medicine
DX: E11.9 Type 2 diabetes mellitus without complications (principal)
CPT/HCPCS: 83036; 90471; 90686; 99214

== ENCOUNTER 2023-03-26 09:30 | Outpatient (AMB) | payer OTHER, SELFPAY ==
[2023-03-26 09:32] VITALS: BP 120/82; PULSE 67; O2SAT 98; BMI 25.7
--- NOTE | 2023-03-26 09:32 | MHC.PC.OV ---
Vital Signs 03/26/23 09:32 Height 6 ft 1 in Weight 194 lb 8 oz BMI 25.7 BP 120/82 Blood Pressure Location Lt brachial Position Sitting Pulse 67 Pulse Source Pulse Oximeter Pulse Oximetry (%) 98 Oxygen Delivery Method Room Air Intake Visit Reasons: Shoulder pain Intake Note: Patient is here with right shoulder pain, due for a x-ray today. He also complains of right wrist pain. States he injured himself about 2 weeks ago. Allergies aspirin [ASPIRIN] Allergy (Severe, Verified 03/26/23 09:36) SWELLING NSAIDS (Non-Steroidal Anti-Inflamma Allergy (Severe, Verified 03/26/23 09:36) infamation penicillin G [PENICILLIN G] Allergy (Severe, Verified 03/26/23 09:36) DIFFICULTY BREATHING Sulfa (Sulfonamide Antibiotics) [SULFA (SULFONAMIDE ANTIBIOTICS)] Allergy (Severe, Verified 03/26/23 09:36) ANAPHYLAXIS tramadol [TRAMADOL] Allergy (Severe, Verified 03/26/23 09:36) DIZZY Tobacco use date assessed: 03/26/23 Dental Screening Dental Screen Date: 03/26/23 HPI Shoulder pain HPI Details 52 y/o male presents today with complaints of R shoulder pain. He also complains of right wrist pain. States he injured himself about 2 weeks ago. He notes he had been following up with orthopedics. He had injection therapy last week and states he did feel a couple days relief before symptoms came back. 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 Dominick Miller, Koki Buck, Mohan Beavers and colleagues, with an educational nanette from [employer] Review of Systems Const Denies chills, Denies fatigue, Denies fever(s), Denies headache(s) and Denies weakness ENT Denies dizziness and Denies headache(s) Card Denies dyspnea Resp Denies cough, Denies dyspnea, Denies wheezing and Denies other (shortness of breath) Musc Details: R shoulder pain Denies numbness and Denies tingling Neuro Denies dizziness, Denies headache(s), Denies numbness, Denies tingling and Denies weakness Psych Denies anxiety and Denies depression Endo Denies fatigue Aller/Immun Denies wheezing Physical exam (Primary Care) Vital Signs: Last Vital Signs Pulse 67 03/26/23 09:32 BP 120/82 03/26/23 09:32 Pulse Ox 98 03/26/23 09:32 Oxygen Delivery Method Room Air 03/26/23 09:32 BMI result Body Mass Index 25.7 Tobacco/Smoking Status: Tobacco use Status Tobacco use date assessed 03/26/23 03/26/23 09:37 Patient Tobacco Use Status Never used Tobacco 03/26/23 09:37 e-Cigarette/Vaping Use Never Used 03/26/23 09:37 Thrive Assessment: Date of Thrive Assessment Date Thrive assessed 06/20/22 03/26/23 09:37 Const General: well developed; No acute distress Nutritional Appearance: well nourished Orientation/consciousness: patient oriented x3 [facility] Head: Yes normocephalic and Yes atraumatic Eyes General: appearance normal, both eyes and all related structures Pupils: Equal, round and reactive pupils present EOM: EOMs intact bilaterally Resp Effort & Inspection: normal respiratory effort Neuro General: patient oriented x3 and gait normal Cranial nerves: Yes Equal, round and reactive pupils present Psych Affect: normal affect Assessment and Plan Assessment & Plan (1) Shoulder pain: Code(s): M25.519 - Pain in unspecified shoulder Plan: Right?shoulder?pain?at?AC?joint?after pushing?object?at?shoulder?level?forward. Likely?AC?joint?strain He?is?s/p shoulder?joint?injection?without?much?relief Will?give?him?a?sling?and?demonstrated?passive?[id number]?exercises Advised?ice/heat Sensitivities?to?NSAIDs Will?give?him?a?2?day?course?of?Percocet He?has?x-rays?ordered?by?Ortho?and?will?follow-up?with?them Medications: New oxycodone-acetaminophen 5-325 mg (Percocet) Partial Fill upon patient request. 1 tab PO BID PRN 4 tabs 0RF pain 2 days Coding Level of Care Code Est Pt Level 3 (69708) Diagnoses Shoulder pain M25.519
== END 2023-03-26 10:31 | disposition home or self-care (01) ==
PROVIDERS: PCP Hospitalist; Visit Provider Family Medicine
DX: M25.511 Pain in right shoulder (principal)
CPT/HCPCS: 99213

== ENCOUNTER 2023-05-29 11:08 | Outpatient (AMB) | payer OTHER, SELFPAY ==
[2023-05-29 11:15] VITALS: BP 132/78; PULSE 77; O2SAT 98; BMI 25.6
--- NOTE | 2023-05-29 11:15 | MHC.PC.OV ---
Vital Signs 05/29/23 11:15 Height 6 ft 1 in Weight 194 lb BMI 25.6 BP 132/78 Blood Pressure Location Rt brachial Position Sitting Pulse 77 Pulse Source Pulse Oximeter Pulse Oximetry (%) 98 Oxygen Delivery Method Room Air Intake Visit Reasons: discuss medication (per mandy) Intake Note: Patient is here to discuss medication. Naltrexone Also needs refill on Atenolol. Allergies aspirin [ASPIRIN] Allergy (Severe, Verified 05/29/23 11:18) SWELLING NSAIDS (Non-Steroidal Anti-Inflamma Allergy (Severe, Verified 05/29/23 11:18) infamation penicillin G [PENICILLIN G] Allergy (Severe, Verified 05/29/23 11:18) DIFFICULTY BREATHING Sulfa (Sulfonamide Antibiotics) [SULFA (SULFONAMIDE ANTIBIOTICS)] Allergy (Severe, Verified 05/29/23 11:18) ANAPHYLAXIS tramadol [TRAMADOL] Allergy (Severe, Verified 05/29/23 11:18) DIZZY Tobacco use date assessed: 03/26/23 HPI discuss medication (per mandy) HPI Details 52 y/o male presents today to discuss medications. Hx of chronic pain. Pt notes he has been self medicating with alcohol for his hip pain. He would like some help with alcohol control. He?is?planning?to?discontinue?drinking. He?has?significant?concerns?about?anxiety?as?well?as?withdrawal?from?alcohol. Pt reports he is on buprenorphine patches. Pt also reports he has left over oxycodone from his surgery. 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 Dominick Miller, Koki Buck, Mohan Beavers and colleagues, with an educational nanette from [employer]. Physical exam (Primary Care) Vital Signs: Last Vital Signs Pulse 77 05/29/23 11:15 BP 132/78 05/29/23 11:15 Pulse Ox 98 05/29/23 11:15 Oxygen Delivery Method Room Air 05/29/23 11:15 BMI result Body Mass Index 25.6 Tobacco/Smoking Status: Tobacco use Status Tobacco use date assessed 03/26/23 05/29/23 11:20 Patient Tobacco Use Status Never used Tobacco 05/29/23 11:20 e-Cigarette/Vaping Use Never Used 05/29/23 11:20 Thrive Assessment: Date of Thrive Assessment Date Thrive assessed 06/20/22 05/29/23 11:20 Assessment and Plan Assessment & Plan (1) Alcohol abuse: Code(s): F10.10 - Alcohol abuse, uncomplicated Plan: Patient?is?planning?to?discontinue?drinking?and?concerned?about?withdrawal?symptoms. He?currently?takes?Xanax.??Going?to?switch?this?to?lorazepam We?discussed?that?if?he?has?tremors?confusion?or?other?withdrawal?symptoms,?he?should?go?to?the?emergency?department. Offered?to?refer?him?to?the[facility]?but?he?wants?to?try?discontinuing?alcohol?on?his?own?1st He?has?appointment?next?week?for?close?follow-up (2) Hip pain: Code(s): M25.559 - Pain in unspecified hip Plan: Continue?buprenorphine Will?give?him?a?script?for?topical?diclofenac He?takes?Tylenol?and?should?discontinue?drinking Follow-up?with?ortho?and?I?recommended?he?follow-up?with?[facility]in[place]as?soon?as?possible. (3) Chronic pain: Code(s): G89.29 - Other chronic pain (4) Diabetes: Code(s): E11.9 - Type 2 diabetes mellitus without complications Orders: Orders Lipid Panel Today E78.5 - Hyperlipidemia, unspecified, Z00.00 - Encounter for general adult medical examination without abnormal findings Drug Screen Urine Today G89.29 - Other chronic pain Opiates GCMS Expanded, Ur Today G89.29 - Other chronic pain Comprehensive [facility]. Panel Fast Today R74.8 - Abnormal levels of other serum enzymes, Z00.00 - Encounter for general adult medical examination without abnormal findings Hemoglobin A1c Today E11.9 - Type 2 diabetes mellitus without complications, R73.01 - Impaired fasting glucose Referrals Physiatry Referral G89.29 - Other chronic pain, M25.559 - Pain in unspecified hip, M53.3 - Sacrococcygeal disorders, not elsewhere classified, M87.051 - Idiopathic aseptic necrosis of right femur, M87.052 - Idiopathic aseptic necrosis of left femur Medications: New lorazepam MassPat Verified. 1 mg PO BID PRN 60 tabs 0RF anxiety 30 days diclofenac sodium 1% apply to single elbow, wrist or hand; for hand includes palm/fingers/back of hand 4 grams topical QID PRN 100 grams 0RF pain 30 days Discontinued alprazolam Discontinued Reason: Doctor's Order 0.5 mg PO BID PRN 14 tabs 0RF anxiety 28 days F41.0 - Panic disorder [episodic paroxysmal anxiety], F41.1 - Generalized anxiety disorder Coding Level of Care Code Est Pt Level 4 (17409) Diagnoses Alcohol abuse F10.10 Hip pain M25.559 Chronic pain G89.29 Diabetes E11.9
== END 2023-05-29 11:45 | disposition home or self-care (01) ==
PROVIDERS: PCP Hospitalist; Visit Provider Family Medicine
DX: E11.9 Type 2 diabetes mellitus without complications (principal); F10.10 Alcohol abuse, uncomplicated; G89.29 Other chronic pain; M25.559 Pain in unspecified hip
CPT/HCPCS: 99214

== ENCOUNTER 2023-05-29 11:44 | Outpatient (REF) | payer OTHER, SELFPAY ==
[2023-05-29 15:12] LABS: Amphetamine Screen Urine Not Detected (Not Detect); Barbiturates, Urine Not Detected (Not Detect); Benzodiazepines Screen Urine Not Detected (Not Detect); Cannabinoid Screen Urine POSITIVE (Not Detect); Cocaine Screen Urine Not Detected (Not Detect); Fentanyl, urine Not Detected (Not Detect); Opiate Screen Urine Not Detected (Not Detect); Phencyclidine Screen Urine Not Detected (Not Detect)
== END 2023-05-29 11:45 | disposition home or self-care (01) ==
LOC: HO.LAB 11:44
PROVIDERS: Visit Provider Family Medicine
DX: G89.29 Other chronic pain (principal)
CPT/HCPCS: 80307

== ENCOUNTER 2023-07-22 08:38 | Outpatient (AMB) | payer OTHER, SELFPAY ==
[2023-07-22 08:41] VITALS: BP 134/86; PULSE 67; RESP 14; TEMP 36.5; O2SAT 99; BMI 25.4
--- NOTE | 2023-07-22 08:41 | A.OFFPC_ITS ---
Vital Signs 07/22/23 08:41 Height 6 ft 1 in Weight 192 lb 8 oz BMI 25.4 BP 134/86 Blood Pressure Location Rt brachial Position Sitting Respiration 14 Pulse 67 Pulse Source Pulse Oximeter Temp 97.7 F Temp Source Temporal Artery Scan Pulse Oximetry (%) 99 Oxygen Delivery Method Room Air Intake Visit Reasons: f/u elevated liver enzymes and lipids Policewoman Required: No Accompanied by: Self / Same As Patient Allergies aspirin [ASPIRIN] Allergy (Severe, Verified 07/22/23 08:47) SWELLING NSAIDS (Non-Steroidal Anti-Inflamma Allergy (Severe, Verified 07/22/23 08:47) infamation penicillin G [PENICILLIN G] Allergy (Severe, Verified 07/22/23 08:47) DIFFICULTY BREATHING Sulfa (Sulfonamide Antibiotics) [SULFA (SULFONAMIDE ANTIBIOTICS)] Allergy (Severe, Verified 07/22/23 08:47) ANAPHYLAXIS tramadol [TRAMADOL] Allergy (Severe, Verified 07/22/23 08:47) DIZZY Tobacco use date assessed: 07/22/23 Dental Screening Dental Screen Date: 07/22/23 Did you have a dental visit in the last 12 months?: Yes Did you have a dental problem in the last 6 months where you did not have access to dental care?: No Was dental information given to patient?: Patient has dentist HPI f/u elevated liver enzymes and lipids HPI Details Patient?was?scheduled?to?follow-up?elevated?liver?enzymes?and?lipids. Had?not?gotten?his?labs?drawn?at?his?last?visit?and?says?that?he?was?unable?do?s o?since?due?to?lack?of?vehicle. Got?a?ride?today. He?is?willing?to?get?his?labs?drawn?this?morning. Also?patient?strained?his?hip?while?moving?a?heavy?object.??Left?hip?pain?is?sev ere.??He?has?been?taking ?ibuprofen?and?is?already?on?buprenorphine?for?chronic?pain. 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 Dominick Miller, Koki Buck, Mohan Beavers and colleagues, with an educational nanette from [employer]. Review of Systems Const Denies chills, Denies fatigue, Denies fever(s), Denies headache(s) and Denies weakness ENT Denies dizziness and Denies headache(s) Card Denies chest pain, Denies lightheadedness, Denies dyspnea and Denies other (Palpitations) Resp Denies cough, Denies dyspnea, Denies wheezing and Denies other ( shortness of breath) Musc Details: Significant?pain?at?left?hip. Denies numbness and Denies tingling Neuro Denies dizziness, Denies headache(s), Denies numbness, Denies tingling, Denies paresthesias and Denies weakness Psych Denies anxiety and Denies depression Endo Denies fatigue Aller/Immun Denies wheezing Physical exam (Primary Care) Vital Signs: Last Vital Signs Temp 97.7 F 07/22/23 08:41 Pulse 67 07/22/23 08:41 Resp 14 07/22/23 08:41 BP 134/86 07/22/23 08:41 Pulse Ox 99 07/22/23 08:41 Oxygen Delivery Method Room Air 07/22/23 08:41 BMI result Body Mass Index 25.4 Tobacco/Smoking Status: Tobacco use Status Tobacco use date assessed 07/22/23 07/22/23 08:48 Patient Tobacco Use Status Never used Tobacco 07/22/23 08:48 e-Cigarette/Vaping Use Never Used 07/22/23 08:48 Thrive Assessment: Date of Thrive Assessment Date Thrive assessed 06/20/22 07/22/23 08:48 Const General: no acute distress and well developed Nutritional Appearance: well nourished Orientation/consciousness: patient oriented x3 [facility] Head: Yes normocephalic and Yes atraumatic Eyes General: appearance normal, both eyes and all related structures Pupils: Equal, round and reactive pupils present EOM: EOMs intact bilaterally Resp Effort & Inspection: normal respiratory effort Auscultation: clear to auscultation bilaterally Cardio Rate: regular rate Rhythm: regular rhythm Heart sounds: S1 normal heart sound present, S2 normal heart sound present, no gallops, no murmurs and no rubs Neuro General: patient oriented x3 and gait normal Cranial nerves: Yes Equal, round and reactive pupils present Extrem Other: Pain?decreased?range?of?motion?at?left?hip Psych Affect: normal affect Assessment and Plan Assessment & Plan (1) Hip pain: Code(s): M25.559 - Pain in unspecified hip Plan: Left?hip?strain And?patient?with?chronic?pain Continue?buprenorphine He?has?been?taking?ibuprofen?which?he?tolerates. Offered?a?script?for?800?mg?ibuprofen?and?he?says?he?will?take?these?at?home. Gave?him?a?short?script?of?Percocet?x5?days. Ice?and?heat Will?refer?to?ortho?if?not?improving. (2) Hyperlipidemia: Code(s): E78.5 - Hyperlipidemia, unspecified Plan: Patient?has?not?gotten?his?labs?drawn. Ordered?a?direct?LDL?and?he?will?get?this?done?today. (3) Elevated liver enzymes: Code(s): R74.8 - Abnormal levels of other serum enzymes Plan: Liver?enzymes?have?been?elevated.??Has? not?gotten?his?labs?drawn?but?will?do?so?today. Orders: Orders LDL Cholesterol Direct Today E78.5 - Hyperlipidemia, unspecified Comprehensive [place]. Panel Fast Today E78.5 - Hyperlipidemia, unspecified, Z00.00 - Encounter for general adult medical examination without abnormal findings Medications: New oxycodone-acetaminophen 5-325 mg (Percocet) MassPat Verified. Partial Fill upon patient request. 1 tab PO DAILY 5 days PRN 5 tabs 0RF pain Coding Level of Care Code Est Pt Level 3 (90070) Diagnoses Hip pain M25.559 Hyperlipidemia E78.5 Elevated liver enzymes R74.8
== END 2023-07-22 09:37 | disposition home or self-care (01) ==
PROVIDERS: PCP Hospitalist; Visit Provider Family Medicine
DX: M25.552 Pain in left hip (principal); E78.5 Hyperlipidemia, unspecified; R74.8 Abnormal levels of other serum enzymes
CPT/HCPCS: 99213

== ENCOUNTER 2023-07-22 09:46 | Outpatient (REF) | payer OTHER, SELFPAY ==
[2023-07-22 12:06] LABS: Estimated Average Glucose 105 mg/dL; Hemoglobin A1c % 5.3 % (<6.0)
[2023-07-22 13:01] LABS: Alanine Aminotransferase 21 U/L (0-40); Albumin Level 4.5 g/dL (3.5-5.0); Alkaline Phosphatase 59 U/L (39-117); Anion Gap 12 (12-20); Aspartate Amino Transferase 33 U/L (5-37); Bilirubin Total 0.7 mg/dL (0.0-1.0); Blood Urea Nitrogen 9 mg/dL (9-16); Calcium 9.7 mg/dL (8.4-10.2); Carbon Dioxide 28 mmol/L (22-29); Chloride 103 mmol/L (96-108); Estimated Glomerular Filt Rate > 60; Glucose Random 130 mg/dL (60-115); Potassium 3.9 mmol/L (3.3-5.1); Sodium 139 mmol/L (135-145)
[2023-07-23 19:34] LABS: LDL Cholesterol Direct 103 mg/dL (<100)
[2023-07-29 08:54] LABS: Codeine, Ur NEGATIVE; Hydrocodone, Ur NEGATIVE; Hydromorphone, Ur NEGATIVE; Morphine, Ur NEGATIVE; Norhydrocodone, Ur NEGATIVE; Noroxycodone, Ur NEGATIVE; Oxycodone, Ur NEGATIVE; Oxymorphone, Ur NEGATIVE
== END 2023-07-22 09:47 | disposition home or self-care (01) ==
LOC: HO.WFDLDS 09:46
PROVIDERS: Visit Provider Family Medicine
DX: E11.65 Type 2 diabetes mellitus with hyperglycemia (principal); E78.5 Hyperlipidemia, unspecified; G89.29 Other chronic pain
CPT/HCPCS: 80053; 80365; 83036; 83721; G0480

== ENCOUNTER 2023-08-08 07:37 | Day surgery (SDC) | payer OTHER, SELFPAY ==
[2023-08-06 10:25] VITALS: BMI 25.3
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
--- NOTE | 2023-08-08 06:25 | MHC.SHP ---
Pre-Procedural Eval Section A - 24 Hr Update-Section A only Date of Service: 08/08/23 Section B - Complete if H&P > 30 days Chief Complaint: screening Relevant Family History (Specify if Yes): No Relevant Social History: None Present Medications: see Short Stay Collaborative assessment Medical History: Significant History ( Chronic SI joint pain Alcoholic pancreatitis Neuropathy Diabetes Anxiety Asthma Polysubstance abuse Gout HTN (hypertension)) History of Previous Operations: Relevant previous surgery/procedure and date(s) (insertion of spinal cord stimulator History of hip surgery) Allergies: Allergies Allergy/AdvReac Type Severity Reaction Status Date / Time aspirin [ASPIRIN] Allergy Severe SWELLING Verified 07/22/23 08:47 NSAIDS (Non-Steroidal Allergy Severe inflamation Verified 08/06/23 10:13 Anti-Inflamma penicillin G [PENICILLIN G] Allergy Severe DIFFICULTY Verified 07/22/23 08:47 BREATHING Sulfa (Sulfonamide Allergy Severe ANAPHYLAXIS Verified 07/22/23 08:47 Antibiotics) [SULFA (SULFONAMIDE ANTIBIOTICS)] tramadol [TRAMADOL] Allergy Severe DIZZY Verified 07/22/23 08:47 Review of Systems Sugical H&P ROS: Negative: Constitution, Cardiovascular, Respiratory, Neurological, Psychiatric, Hem-Onc, Allergic/Immunologic, Gastrointestinal, Genitourinary, Musculoskeletal, Integumentary, Endocrine and Eyes/Ears/Nose/Throat Exam Surgical H&P Exam: Normal: HEENT, Normal: Heart, Normal: Lungs, Normal: Extremities, Normal: Abdomen, Normal: Skin and Normal: Neurological Plan Diagnosis/Plan: Unchanged I have reviewed the history and physical and performed a pertinent physical examination on my patient. No changes have occurred unless specified. Time Spent With Patient Time: Total time managing care of this patient today ____ minutes.
[2023-08-08 07:47] VITALS: BMI 24.6
[2023-08-08 07:51] VITALS: BP 141/84; PULSE 85; RESP 16; TEMP 37.2; O2SAT 99
[2023-08-08 08:02] LABS: Glucose, Whole Blood 109 mg/dL (60-115)
[2023-08-08] MEDS: Lactated Ringers 1,000 ML 100 ML IVCONT (08:03)
--- NOTE | 2023-08-08 08:38 | P.OP_ITS ---
Operative Note Operative Note Date of Service: 08/08/23 Narrative: Operative Information Procedure Description: Colonoscopy Indication: screening Anesthesia: MAC COLONOSCOPY Instrument: Olympus variable stiffness pediatric scope 190L Colonoscopy Monitoring: Vital signs and clinical assessment, continuous EKG monitoring, Pulse oximetry, Carbon Dioxide monitoring and blood pressure monitoring were done throughout the procedure. Colon withdrawal time was 10 minutes. Procedure: The patient was placed in the left lateral decubitis position and pre-procedure medications were administered. After a digital rectal examination of the ano-rectum, the video colonoscope was inserted into the rectum and advanced through the colon to the cecum/TI. The colonoscope was slowly withdrawn in a retrograde panoramic fashion and the colon mucosa was carefully examined including a retroflexed view of the rectum. Findings and interventions are described below. Procedure Difficulty: easy Findings: RECTAL EXAM: prostate enlarged and irregular Terminal Ileum-superficially intubated and normal Cecum:normal Ascending Colon: normal Transverse Colon -normal Descending Colon: few tics noted Sigmoid Colon: moderate diverticulosis Rectum: Retroflexion with medium sized internal hemorrhoids seen, grade II Anorectum - normal Intervention: none Colon preparation: Sidon Bowel Preparation Scale Right colon; 2 Transverse colon: 3 Left colon; 3 (0 = Unprepared colon segment with mucosa not seen due to solid stool that cannot be cleared. 1 = Portion of mucosa of the colon segment seen, but other areas of the colon segment not well seen due to staining, residual stool and/or opaque liquid. 2 = Minor amount of residual staining, small fragments of stool and/or opaque liquid, but mucosa of colon segment seen well. 3 = Entire mucosa of colon segment seen well with no residual staining, small fragments of stool or opaque liquid) Impression and Post Procedure Diagnosis: diverticulosis internal hemorrhoids Plan: High fiber diet leaflet Avoid straining at stool, epsom salts and sitz bath, anusol supps or cream Repeat Colonoscopy in 10 years or earlier if clinically indicated he has been having straining symptoms with urine, advised to see PCP, may need urology assessment and PSA check Above findings were reviewed with the patient and relevant handouts were provided if indicated.
[2023-08-08 09:13] VITALS: BP 108/69; PULSE 82; RESP 18; TEMP 36.3; O2SAT 99
[2023-08-08 09:18] VITALS: BP 113/78; PULSE 88; RESP 18; O2SAT 98
[2023-08-08 09:23] VITALS: BP 116/75; PULSE 87; RESP 18; O2SAT 98
[2023-08-08 09:28] VITALS: BP 115/74; PULSE 85; RESP 18; TEMP 36.8; O2SAT 98
== END 2023-08-08 09:55 | disposition home or self-care (01) ==
PROVIDERS: PCP Family Medicine; Visit Provider Internal Medicine Gastroenterology
PROC: 0DJD8ZZ Inspection of Lower Intestinal Tract, Via Natural or Artificial Opening Endoscopic (ICD-10-PCS; CPT 45378; principal; 2023-08-08 08:40)
DX: Z12.11 Encounter for screening for malignant neoplasm of colon (principal); K57.30 Diverticulosis of large intestine without perforation or abscess without bleeding; K64.1 Second degree hemorrhoids; N40.0 Benign prostatic hyperplasia without lower urinary tract symptoms; G89.29 Other chronic pain; M46.1 Sacroiliitis, not elsewhere classified; M25.552 Pain in left hip; K86.0 Alcohol-induced chronic pancreatitis; F19.10 Other psychoactive substance abuse, uncomplicated; I10 Essential (primary) hypertension; E78.5 Hyperlipidemia, unspecified; J45.909 Unspecified asthma, uncomplicated; E11.9 Type 2 diabetes mellitus without complications; G62.9 Polyneuropathy, unspecified; M10.9 Gout, unspecified; R74.8 Abnormal levels of other serum enzymes; F41.9 Anxiety disorder, unspecified; Z79.4 Long term (current) use of insulin; Z79.51 Long term (current) use of inhaled steroids; Z79.899 Other long term (current) drug therapy; Z88.0 Allergy status to penicillin; Z88.2 Allergy status to sulfonamides; Z88.8 Allergy status to other drugs, medicaments and biological substances; Z98.890 Other specified postprocedural states
CPT/HCPCS: 45378; 82947; J2250; J2704; J3010

== ENCOUNTER → 2023-08-08 07:37 | Outpatient (BNV) | payer OTHER, SELFPAY | PROVIDERS: PCP Family Medicine; Visit Provider Internal Medicine Gastroenterology | DX: Z12.11 Encounter for screening for malignant neoplasm of colon (principal); K57.90 Diverticulosis of intestine, part unspecified, without perforation or abscess without bleeding; K64.1 Second degree hemorrhoids | CPT/HCPCS: 45378 ==

== ENCOUNTER 2023-08-21 09:48 | Outpatient (AMB) | payer OTHER, SELFPAY ==
--- NOTE | 2023-08-21 09:51 | A.OFFPC_ITS ---
Vital Signs 08/21/23 09:52 Height 6 ft 1 in Weight 187 lb 6 oz BMI 24.7 BP 118/74 Blood Pressure Location Lt brachial Position Sitting Pulse 83 Pulse Source Pulse Oximeter Pulse Oximetry (%) 98 Oxygen Delivery Method Room Air Intake Visit Reasons: follow up labs,prostate exam Intake Note: Patient is here with follow up on labs and prostate exam. Allergies aspirin [ASPIRIN] Allergy (Severe, Verified 08/21/23 09:53) SWELLING NSAIDS (Non-Steroidal Anti-Inflamma Allergy (Severe, Verified 08/21/23 09:53) inflamation penicillin G [PENICILLIN G] Allergy (Severe, Verified 08/21/23 09:53) DIFFICULTY BREATHING Sulfa (Sulfonamide Antibiotics) [SULFA (SULFONAMIDE ANTIBIOTICS)] Allergy (Severe, Verified 08/21/23 09:53) ANAPHYLAXIS tramadol [TRAMADOL] Allergy (Severe, Verified 08/21/23 09:53) DIZZY Medication List - Last Reconciled 08/21/23 by Rico Hope MD adhesive remover As directed to remove adhesive from patches weekly albuterol sulfate 2.5 mg (3 mL) inhalation Q8H PRN 1 month albuterol sulfate 90 mcg/actuation (ProAir HFA) 1 puff inhalation Q4-6H PRN allopurinol 100 mg PO DAILY 90 days alprazolam 0.5 mg PO BID PRN amlodipine 10 mg PO DAILY 3 months atenolol 100 mg PO DAILY betamethasone dipropionate 0.05% 1 appl topical BID PRN bisacodyl (Dulcolax (bisacodyl)) 20 mg (4 x 5 mg) PO ONCE 1 day blood sugar diagnostic (FreeStyle Lite Strips) USE 1 STRIP TWICE A DAY NEEDED...OR MAY USE 3 TIMES IF NEEDED blood-glucose sensor (FreeStyle Jay 3 Sensor device) As directed, 28 days buprenorphine 7.5 mcg/hour 1 patch transdermal Q7D 28 days buprenorphine 20 mcg/hour 1 patch topical QWEEK 28 days cholecalciferol (vitamin D3) 1,250 mcg PO QWEEK citalopram 20 mg (2 x 10 mg) PO DAILY 30 days cyclobenzaprine 10 mg PO BID diclofenac sodium 1% 4 grams topical QID PRN 30 days fluticasone propion-salmeterol 113 mcg-14 mcg/actuation 1 inh inhalation BID 1 month fluticasone propionate 50 mcg/actuation 1 spray intranasal DAILY 1 month FreeStyle Lite Meter (blood-glucose meter) TEST blood sugar 2-3 TIMES DAILY NS hydrocortisone 1% (Anti-Itch (hydrocortisone)) 1 appl topical TID PRN insulin glargine (Lantus Solostar U-100 Insulin) 16 units (0.16 mL) subcut QPM 90 days lancets (FreeStyle Lancets) USE TO TEST BLOOD SUGAR THREE TIMES A DAY DIRECTED loratadine (Allergy Relief (loratadine)) 10 mg PO DAILY omeprazole 20 mg PO QAM peg 3350-electrolytes 236-22.74-6.74 -5.86 gram 240 mL PO Q10M pen needle, diabetic (UltiCare Pen Needle) USE DAILY DIRECTED pen needle, diabetic (Easy Touch) As directed tamsulosin (Flomax) 0.4 mg PO DAILY 30 days Tobacco use date assessed: 07/22/23 Dental Screening Dental Screen Date: 07/22/23 HPI follow up labs,prostate exam HPI Details 52 y/o male presents to f/u labs. Also follow up chronic pain. Labs were drawn 07/22/23. Reviewed labs with pt. Liver enzymes are fine - AST 33 and ALT 21. LDL direct 103. Pt especially stressed today due to pain. He continues to struggle with EtOH abuse. Pt reports bladder is not emptying. He also reports blood in urine. [facility] Medical History Chronic SI joint pain Alcoholic pancreatitis Neuropathy Diabetes Anxiety Asthma Polysubstance abuse Gout HTN (hypertension) Surgical History S/P insertion of spinal cord stimulator History of hip surgery Family History Other No pertinent family history Social History Housing: House Alcohol intake: never Patient Tobacco Use Status: Never used Tobacco e-Cigarette/Vaping Use: Never Used service: No Current occupational status: 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 1. Little interest or pleasure in doing things: not at all 2. Feeling down, depressed, or hopeless: not at all 3. Trouble falling or staying asleep, or sleeping too much: not at all 4. Feeling tired or having little energy: not at all 5. Poor appetite or overeating: not at all 6. Feeling bad about yourself - or that you are a failure or have let yourself or your family down: not at all 7. Trouble concentrating on things, such as reading the newspaper or watching television: not at all 8. Moving or speaking so slowly that other people could have noticed. Or the opposite - being so fidgety or restless that you have been moving around a lot more than usual: not at all 9. Thoughts that you would be better off or of hurting yourself in some way: not at all Total score: 0 Depression Screening Interpretation: Negative Depression Screening Done: Yes 58911 - PHQ-9 Billing: Yes Source: Developed by Drs. Dominick Miller, Koki Buck, Mohan Beavers and colleagues, with an educational nanette from [employer]. Thrive Questionnaire Date Thrive assessed: 06/20/22 TUNDE-7 AMB Questionnaire TUNDE-7 Date TUNDE - 7 assessed: 08/21/23 Feeling nervous, anxious, or on edge: 1 = Several days Not being able to stop or control worryin = Several days Worrying too much about different things: 1 = Several days Trouble relaxin = Several days Being so restless that it is hard to sit still: 2 = More than half the days Becoming easily annoyed or irritable: 3 = Nearly every day Feeling afraid as if something awful might happen: 0 = Not at all Total TUNDE-7 score (0-4 normal; 5-9 mild; 10-14 moderate; 15-21 severe): 9 Source: Developed by Drs. Dominick Miller, Koki Buck, Mohan Beavers and colleagues, with an educational nanette from [employer]. TUNDE-7 Assessment Billing TUNDE-7 Assessment Tool: TUNDE-7 Assessment 71460 Review of Systems Const Denies chills, Denies fatigue, Denies fever(s), Denies headache(s) and Denies weakness ENT Denies dizziness and Denies headache(s) Card Denies dyspnea Resp Denies cough, Denies dyspnea, Denies wheezing and Denies other (shortness of breath) Musc Denies numbness and Denies tingling Neuro Denies dizziness, Denies headache(s), Denies numbness, Denies tingling and Denies weakness Psych Reports anxiety and Denies depression Endo Denies fatigue Aller/Immun Denies wheezing Physical exam (Primary Care) Vital Signs: Last Vital Signs Pulse 83 08/21/23 09:52 BP 118/74 08/21/23 09:52 Pulse Ox 98 08/21/23 09:52 Oxygen Delivery Method Room Air 08/21/23 09:52 BMI result Body Mass Index 24.7 Tobacco/Smoking Status: Tobacco use Status Tobacco use date assessed 07/22/23 08/21/23 09:56 Patient Tobacco Use Status Never used Tobacco 08/21/23 09:56 e-Cigarette/Vaping Use Never Used 08/21/23 09:56 PHQ-9: PHQ-9 Score PHQ-9: Total score 0 08/21/23 10:11 Depression Screening Interpretation: Negative Thrive Assessment: Date of Thrive Assessment Date Thrive assessed 06/20/22 08/21/23 09:56 Const General: well developed; No acute distress Nutritional Appearance: well nourished Orientation/consciousness: patient oriented x3 HENMT Head: Yes normocephalic and Yes atraumatic Eyes General: appearance normal, both eyes and all related structures Pupils: Equal, round and reactive pupils present EOM: EOMs intact bilaterally Resp Effort & Inspection: normal respiratory effort Auscultation: clear to auscultation bilaterally Cardio Rate: regular rate Rhythm: regular rhythm Heart sounds: S1 normal heart sound present, S2 normal heart sound present, no gallops, no murmurs and no rubs Neuro General: patient oriented x3 and gait normal Cranial nerves: Yes Equal, round and reactive pupils present Psych Affect: normal affect Assessment and Plan Assessment & Plan (1) Elevated liver enzymes: Code(s): R74.8 - Abnormal levels of other serum enzymes Plan: These?have?improved?and?are?back?within?normal?range Patient?is?still?struggling?with?alcohol?abuse. Encouraged?weaning?and?cessation.??Referred?him?to?the?comprehensive?[facility] Discussed?with?patient?that?although?he?hays s?anxiety?and?benzodiazepine?lorazepam?has?been?use?in?the?past, this?is?not?meant?to?be?an?appropriate?substitute?for cessation?of?alcohol?and?that?I?think?he?needs?supervised?help?with?weaning?and? cessation.??I?referred?him?to?the?comprehensive?Care?Clinic?as?above. (2) Chronic, continuous use of opioids: Code(s): F11.90 - Opioid use, unspecified, uncomplicated Plan: History?of?avascular?necrosis?of?the?hips?and?severe?pain?bilateral?hips?and?thi ghs. Continuing?buprenorphine Will?give?him?a?short?course?of?oxycodone?for?breakthrough?pain We?discussed?that?if?he?continues?to?need?additional?pain?medication?however?jennifer t?I?would?be?referring?him?to?pain?management?for?re-evaluatio n?for?other?modes?of?pain?control. Rechecking?urine?drug?screen?with?GC?MS?for?opiates?and?also?a?buprenorphine?parish t?as?well. (3) Hematuria: Code(s): R31.9 - Hematuria, unspecified Plan: Complaint?of?hematuria?and?some?hesitation. Referred?to?Urology Check?urinalysis?and?urine?culture Check?PSA (4) Anxiety: Code(s): F41.9 - Anxiety disorder, unspecified Plan: Ongoing?anxiety Continue?citalopram?20?mg?daily Last?prescription?for?lorazepam?was?in?May. Had?checked?benzodiazepine?level?in?July?and?this?was?negative?as?is?to?be?expe cted?since?he?has?been?out?of?this. Will?send?a?new?script?for?lorazepam Patient?had?alprazolam?on?his?med?list?but?no?recent?prescriptions (5) Alcohol abuse: Code(s): F10.10 - Alcohol abuse, uncomplicated Plan: As?above (6) Slow urinary stream: Code(s): R39.198 - Other difficulties with micturition Plan: As?above,?referred?to?Urology (7) Hematuria: Code(s): R31.9 - Hematuria, unspecified Plan: Checking?urine?studies?and?referred?to?Urology Orders: Orders Opiates GCMS Expanded, Ur Today F11.90 - Opioid use, unspecified, uncomplicated UA and rflx microscopic Today Z00.00 - Encounter for general adult medical examination without abnormal findings Drug Screen Urine Today F11.90 - Opioid use, unspecified, uncomplicated, M87.051 - Idiopathic aseptic necrosis of right femur, M87.052 - Idiopathic aseptic necrosis of left femur Benzodiazepine,GC/MS Urine Today F11.90 - Opioid use, unspecified, uncomplicated, F19.10 - Other psychoactive substance abuse, uncomplicated, F41.9 - Anxiety disorder, unspecified Urine Culture Today R31.9 - Hematuria, unspecified Prostate Specific Antigen Scr Today Z12.5 - Encounter for screening for malignant neoplasm of prostate Buprenorphine Today F11.90 - Opioid use, unspecified, uncomplicated Referrals Nurse Navigator Referral F41.9 - Anxiety disorder, unspecified Addiction Medicine Referral F19.10 - Other psychoactive substance abuse, uncomplicated Urology Referral R31.9 - Hematuria, unspecified, R39.11 - Hesitancy of micturition Medications: Refilled lorazepam [facility] Verified. 1 mg PO BID 30 days PRN 60 tabs 0RF anxiety oxycodone-acetaminophen 5-325 mg (Percocet) [facility] Verified. Partial Fill upon patient request. 1 tab PO DAILY 5 days PRN 5 tabs 0RF pain Coding Level of Care Code Est Pt Level 4 (91140) Diagnoses Elevated liver enzymes R74.8 Chronic, continuous use of opioids F11.90 Hematuria R31.9 Anxiety F41.9 Alcohol abuse F10.10 Slow urinary stream R39.198 Additional Codes TUNDE-7 Assessment Billing - TUNDE-7 Assessment Tool: TUNDE-7 Assessment [id number] ([id number])
[2023-08-21 09:52] VITALS: BP 118/74; PULSE 83; O2SAT 98; BMI 24.7
== END 2023-08-21 10:47 | disposition home or self-care (01) ==
PROVIDERS: PCP Family Medicine; Visit Provider Family Medicine
DX: R74.8 Abnormal levels of other serum enzymes (principal); F11.90 Opioid use, unspecified, uncomplicated; R31.9 Hematuria, unspecified; F41.9 Anxiety disorder, unspecified; F10.10 Alcohol abuse, uncomplicated; R39.198 Other difficulties with micturition
CPT/HCPCS: 99214

== ENCOUNTER 2023-08-21 10:40 | Outpatient (REF) | payer OTHER, SELFPAY | END 2023-08-21 10:41 | disposition home or self-care (01) | LOC: HO.LAB 10:40 | PROVIDERS: Visit Provider Family Medicine | DX: Z13.89 Encounter for screening for other disorder (principal) ==

== ENCOUNTER 2023-08-22 09:43 | Outpatient (REF) | payer OTHER, SELFPAY ==
[2023-08-22 11:37] LABS: Appearance Urine Clear; Color Urine Yellow; Glucose Urine UA Negative (Negative); Leukocyte Esterase Urine Negative (Negative); Nitrite Urine Negative (Negative); PH 6.5 (5.0-9.0); Specific Gravity - Urine <= 1.005 (1.005-1.025); Urine Blood Negative (Negative); Urine Ketones Negative (Negative); Urine Protein Negative (Neg-Trace)
[2023-08-22 11:46] LABS: Amphetamine Screen Urine Not Detected (Not Detect); Barbiturates, Urine Not Detected (Not Detect); Benzodiazepines Screen Urine Not Detected (Not Detect); Cannabinoid Screen Urine Not Detected (Not Detect); Cocaine Screen Urine Not Detected (Not Detect); Fentanyl, urine Not Detected (Not Detect); Opiate Screen Urine Not Detected (Not Detect); Phencyclidine Screen Urine Not Detected (Not Detect)
[2023-08-22 12:24] LABS: Prostate Specific Antigen Scr 1.16 ng/mL (<0.05-4.0)
[2023-08-28 11:44] LABS: Naloxone NEGATIVE
[2023-08-28 11:50] LABS: Alphahydroxymidazolam,GCMS Ur NEGATIVE; Alphahydroxytriazolam, GCMS Ur NEGATIVE; Alprazolam, GCMS Urine NEGATIVE; Aminoclonazepam, GCMS Urine NEGATIVE; Codeine, Ur NEGATIVE; Flurazepam Metabolite,GCMS Ur NEGATIVE; Hydrocodone, Ur NEGATIVE; Hydromorphone, Ur NEGATIVE; Morphine, Ur NEGATIVE; Nordiazepam, GCMS Urine NEGATIVE; Norhydrocodone, Ur NEGATIVE; Noroxycodone, Ur NEGATIVE; Oxazepam, GCMS Urine NEGATIVE; Oxycodone, Ur NEGATIVE; Oxymorphone, Ur NEGATIVE; Temazepam, GCMS Urine NEGATIVE
== END 2023-08-22 09:44 | disposition home or self-care (01) ==
LOC: HO.WFDLDS 09:43
PROVIDERS: Visit Provider Family Medicine
DX: Z00.00 Encounter for general adult medical examination without abnormal findings (principal); F11.90 Opioid use, unspecified, uncomplicated; F41.9 Anxiety disorder, unspecified; F19.10 Other psychoactive substance abuse, uncomplicated; M87.051 Idiopathic aseptic necrosis of right femur; M87.052 Idiopathic aseptic necrosis of left femur; Z12.5 Encounter for screening for malignant neoplasm of prostate
CPT/HCPCS: 80307; 80346; 80348; 80362; 80365; 81003; 84153; 87086; G0480

== ENCOUNTER 2023-09-25 08:38 | Outpatient (AMB) | payer OTHER, SELFPAY ==
--- NOTE | 2023-09-25 08:42 | A.OFFPC_ITS ---
Vital Signs 09/25/23 08:44 Height 6 ft 1 in Weight 187 lb BMI 24.7 BP 130/70 Blood Pressure Location Lt brachial Position Sitting Pulse 76 Pulse Source Pulse Oximeter Pulse Oximetry (%) 97 Oxygen Delivery Method Room Air Intake Visit Reasons: f/u chronic pain, anxiety Intake Note: Patient is here for follow up on pain and anxiety. Patient would like refills of Oxycodone, Lorazapam, and would like doxycycline due to tick bite. Allergies aspirin [ASPIRIN] Allergy (Severe, Verified 09/25/23 08:44) SWELLING NSAIDS (Non-Steroidal Anti-Inflamma Allergy (Severe, Verified 09/25/23 08:44) inflamation penicillin G [PENICILLIN G] Allergy (Severe, Verified 09/25/23 08:44) DIFFICULTY BREATHING Sulfa (Sulfonamide Antibiotics) [SULFA (SULFONAMIDE ANTIBIOTICS)] Allergy (Severe, Verified 09/25/23 08:44) ANAPHYLAXIS tramadol [TRAMADOL] Allergy (Severe, Verified 09/25/23 08:44) DIZZY Medication List - Last Reconciled 09/25/23 by Rico Hope MD adhesive remover As directed to remove adhesive from patches weekly albuterol sulfate 2.5 mg (3 mL) inhalation Q8H PRN 1 month albuterol sulfate 90 mcg/actuation (ProAir HFA) 1 puff inhalation Q4-6H PRN allopurinol 100 mg PO DAILY 90 days amlodipine 10 mg PO DAILY 3 months atenolol 100 mg PO DAILY betamethasone dipropionate 0.05% 1 appl topical BID PRN bisacodyl (Dulcolax (bisacodyl)) 20 mg (4 x 5 mg) PO ONCE 1 day blood sugar diagnostic (FreeStyle Lite Strips) USE 1 STRIP TWICE A DAY NEEDED...OR MAY USE 3 TIMES IF NEEDED blood-glucose sensor (FreeStyle Jay 3 Sensor device) As directed, 28 days buprenorphine 20 mcg/hour 1 patch topical QWEEK 28 days buprenorphine 7.5 mcg/hour 1 patch transdermal Q7D 28 days cholecalciferol (vitamin D3) 1,250 mcg PO QWEEK citalopram 20 mg (2 x 10 mg) PO DAILY 30 days cyclobenzaprine 10 mg PO BID diclofenac sodium 1% 4 grams topical QID PRN 30 days fluticasone propion-salmeterol 113 mcg-14 mcg/actuation 1 inh inhalation BID 1 month fluticasone propionate 50 mcg/actuation 1 spray intranasal DAILY 1 month FreeStyle Lite Meter (blood-glucose meter) TEST blood sugar 2-3 TIMES DAILY NS hydrocortisone 1% (Anti-Itch (hydrocortisone)) 1 appl topical TID PRN insulin glargine (Lantus Solostar U-100 Insulin) 16 units (0.16 mL) subcut QPM 90 days lancets (FreeStyle Lancets) USE TO TEST BLOOD SUGAR THREE TIMES A DAY DIRECTED loratadine (Allergy Relief (loratadine)) 10 mg PO DAILY lorazepam 1 mg PO BID PRN 30 days omeprazole 20 mg PO QAM peg 3350-electrolytes 236-22.74-6.74 -5.86 gram 240 mL PO Q10M pen needle, diabetic (UltiCare Pen Needle) USE DAILY DIRECTED pen needle, diabetic (Easy Touch) As directed tamsulosin (Flomax) 0.4 mg PO DAILY 30 days Tobacco use date assessed: 09/25/23 Dental Screening Dental Screen Date: 09/25/23 Did you have a dental visit in the last 12 months?: Yes Did you have a dental problem in the last 6 months where you did not have access to dental care?: No Was dental information given to patient?: Patient has dentist HPI f/u chronic pain, anxiety HPI Details 52 y/o male presents to f/u chronic pain , anxiety, and alcohol addiction. Recent urine drug test appropriate. He is on buprenorphine - he notes he has hip surgery scheduled in a few weeks with [facility]. Had referred him to a comprehensive care clinic for alcohol abuse/anxiety. He states no one has gotten back to him in 2 weeks. Pt reports a tick bite. He states he had 3 ticks on him yesterday. Pt states he is on Lantus 16 units. He notes his Jay sensor had recorded a rising A1c of 6.8% and is concerned about this. He has not been able to exercise with his hips/back. 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 80809 - PHQ-9 Billing: Patient declined-do not bill Source: Developed by Drs. Dominick Miller, Mohan Sarah and colleagues, with an educational nanette from [employer]. Thrive Questionnaire Date Thrive assessed: 06/20/22 TUNDE-7 AMB Questionnaire TUNDE-7 Date TUNDE - 7 assessed: 09/25/23 Feeling nervous, anxious, or on edge: 3 = Nearly every day Not being able to stop or control worryin = More than half the days Worrying too much about different things: 0 = Not at all Trouble relaxin = More than half the days Being so restless that it is hard to sit still: 1 = Several days Becoming easily annoyed or irritable: 3 = Nearly every day Feeling afraid as if something awful might happen: 3 = Nearly every day Total TUNDE-7 score (0-4 normal; 5-9 mild; 10-14 moderate; 15-21 severe): 14 Source: Developed by Drs. Dominick Miller, Mohan Sarah and colleagues, with an educational nanette from [employer]. Review of Systems Const Denies chills, Denies fatigue, Denies fever(s), Denies headache(s) and Denies weakness ENT Denies dizziness and Denies headache(s) Card Denies dyspnea Resp Denies cough, Denies dyspnea, Denies wheezing and Denies other (shortness of breath) Musc Denies numbness and Denies tingling Neuro Denies dizziness, Denies headache(s), Denies numbness, Denies tingling and Denies weakness Psych Reports anxiety and Denies depression Endo Denies fatigue Aller/Immun Denies wheezing Physical exam (Primary Care) Vital Signs: Last Vital Signs Pulse 76 09/25/23 08:44 BP 130/70 09/25/23 08:44 Pulse Ox 97 09/25/23 08:44 Oxygen Delivery Method Room Air 09/25/23 08:44 BMI result Body Mass Index 24.7 Tobacco/Smoking Status: Tobacco use Status Tobacco use date assessed 09/25/23 09/25/23 08:52 Patient Tobacco Use Status Never used Tobacco 09/25/23 08:43 e-Cigarette/Vaping Use Never Used 09/25/23 08:43 Thrive Assessment: Date of Thrive Assessment Date Thrive assessed 06/20/22 09/25/23 08:43 Const General: well developed; No acute distress Nutritional Appearance: well nourished Orientation/consciousness: patient oriented x3 HENMT Head: Yes normocephalic and Yes atraumatic Eyes General: appearance normal, both eyes and all related structures Pupils: Equal, round and reactive pupils present EOM: EOMs intact bilaterally Resp Effort & Inspection: normal respiratory effort Neuro General: patient oriented x3 and gait normal Cranial nerves: Yes Equal, round and reactive pupils present Psych Affect: normal affect Assessment and Plan Assessment & Plan (1) Chronic, continuous use of opioids: Code(s): F11.90 - Opioid use, unspecified, uncomplicated Plan: Patient?is?on?buprenorphine?for?a?chronic?pain?and?has?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 He?had?complained?of?greater?pain?at?last?visit?and?I?gave?him?a?short?course?of ?Percocet?as?well?but?explained?that?if?he?needed?further?increased?pain?control ,?he?would?need?a?referral?to?pain?management. Patient?became?angry.??We?had?a?back?and?forth?discussion?about?this?and?I?will? continue?his?buprenorphine?but?if?he?wants?additional?pain?medication,?he?can?di scuss?this?with?his?surgeon?as?he?is?about?to?undergo?surgery?in?about?2?weeks. Furthermore,?patient?says?that?I?interfered?with?a?referral?to?pain?management?a t?[place]?which?does?not?make?any?sense?to?me. Ultimately,?I?will?continue?managing?his?buprenorphine?but?reiterated?that?I?estuardo l?not?be?increasing?this.??Also?explained?to?patient?that?I?would?still?be?bryant ble?to?referring?him?to?pain?manageme nt?if?needed.??At?present?he?should?discuss?further?pain?control?with?his?surgeo n. His?recent?urine?drug?screen?was?appropriate. Will?recheck?this?at?his?next?visit. (2) Alcohol abuse: Code(s): F10.10 - Alcohol abuse, uncomplicated Plan: Had?referred?him?to?the?comprehensive?Care?Clinic. ??He?says?that?he?was?contract?in?once?and?not?contacted?again.??It?is?unclear?w hy?he?does?not?have?an?appointment. Will?ask?the?office?to?help?him?arrange?an?appointment (3) Chronic pain: Code(s): G89.29 - Other chronic pain Plan: As?above,?patient?will?undergo?surgery?in?2?weeks. Pain?control?as?described?above (4) Anxiety: Code(s): F41.9 - Anxiety disorder, unspecified Plan: Had?resumed?lorazepam?for?patient. He?also?has?some?difficulties?with?alcohol?and?I?referred?him?to?the?comprehensi ve?Care?Clinic?as?above Will?recheck?urine?drug?screen?at?next?visit (5) Tick bite: Code(s): W57.XXXA - Bitten or stung by nonvenomous insect and other nonvenomous arthropods, initial encounter Plan: Patient?has?had?a?couple?of?tick?bites?yesterday Will?give?him?a?script?for?prophylaxis?doxycycline Checking?Lyme?titers?and?he?can?come?in?for?this?in?about?a?week (6) Maceration of skin: Code(s): L98.8 - Other specified disorders of the skin and subcutaneous tissue Plan: Maceration?of?skin?on?right?foot. Patient?says?that?his foot?was?in?a?shoe?and?sock?that?stayed?wet?for?a?long?period?of?time. Advised?he?avoid?this?of?course. Should?resolve No?evidence?of?fungal?infection?at?this?time (7) Foot callus: Code(s): L84 - Corns and callosities Plan: Callus?on?medial?aspect?of?his?great?toe Patient?does?have?a?history?of?diabetes?and?I?offered?to?refer?him?to?Podiatry.? ?He?will?think?about?this Orders: Orders Lyme IgG/IgM w/reflex to [facility] Today W57.XXXA - Bitten or stung by nonvenomous insect and other nonvenomous arthropods, initial encounter Medications: New doxycycline hyclate 200 mg (2 x 100 mg) PO ONCE 1 day 2 tabs 0RF Refilled lorazepam [facility] Verified. 1 mg PO BID 30 days PRN 60 tabs 0RF anxiety Coding Level of Care Code Est Pt Level 4 (45210) Diagnoses Chronic, continuous use of opioids F11.90 Alcohol abuse F10.10 Chronic pain G89.29 Anxiety F41.9 Tick bite W57.XXXA Maceration of skin L98.8 Foot callus L84
[2023-09-25 08:44] VITALS: BP 130/70; PULSE 76; O2SAT 97; BMI 24.7
== END 2023-09-25 10:03 | disposition home or self-care (01) ==
LOC: HO.HMGFM 08:38
PROVIDERS: PCP Family Medicine; Visit Provider Family Medicine
DX: G89.29 Other chronic pain (principal); F11.90 Opioid use, unspecified, uncomplicated; F10.10 Alcohol abuse, uncomplicated; F41.9 Anxiety disorder, unspecified; W57.XXXA Bitten or stung by nonvenomous insect and other nonvenomous arthropods, initial encounter; L98.8 Other specified disorders of the skin and subcutaneous tissue; L84 Corns and callosities
CPT/HCPCS: 99214

== ENCOUNTER 2023-10-06 17:01 | Emergency (ER) | payer OTHER, SELFPAY ==
[2023-10-06 17:28] VITALS: BP 141/93; PULSE 97; RESP 18; TEMP 36.6; O2SAT 97; BMI 24.8
--- NOTE | 2023-10-06 17:37 | ED.GENADULT ---
HPI - General Adult General Chief complaint: Animal Bite Stated complaint: Possible exposed to rabies? Time Seen by Provider: 10/06/23 17:29 Source: patient, RN notes reviewed and old records reviewed Mode of arrival: ambulatory Limitations: no limitations History of Present Illness HPI narrative: 62-year-old male presents for evaluation of ?I would like the rabies series. ? Patient was working on a roof for the last 3 days. He reports that there is a bat infestation. He states that there have been at least 3 bats in the house He does not believe he was bit at any time but did catch 1 of the bats with his bare hands He does complain of a headache but no other symptoms The patient has no other complaints or concerns at this time Related Data Home Medications ?Medication ?Instructions ?Recorded ?Confirmed pen needle, diabetic 32 gauge x #50 ea 06/20/22 09/25/2307/26 (Easy Touch) Previous Rx's ?Medication ?Instructions ?Recorded albuterol sulfate 2.5 mg/3 mL 2.5 mg (3 mL) inhalation Q8H PRN 07/04/20 (0.083 %) solution for nebulization shortness of breath or wheezing 1 month #270 mL betamethasone dipropionate 0.05 % 1 appl topical BID PRN skin 07/11/21 topical ointment irritation #15 grams fluticasone 113mcg-salmeterol 1 inh inhalation BID 1 month #1 ea 07/13/21 14mcg/actuation breath act,powder sensor hydrocortisone 1 % topical cream 1 appl topical TID PRN skin 08/15/21 (Anti-Itch (hydrocortisone)) irritation #28.35 grams adhesive remover #50 ea 09/21/21 loratadine 10 mg tablet (Allergy 10 mg PO DAILY #90 tabs 09/21/21 Relief (loratadine)) FreeStyle Lite Meter #1 ea 10/11/21 (blood-glucose meter) blood sugar diagnostic (FreeStyle #100 strips 01/29/22 Lite Strips) lancets 28 gauge (FreeStyle #300 ea 07/31/22 Lancets) fluticasone propionate 50 1 spray intranasal DAILY 1 month 08/13/22 mcg/actuation nasal #9.9 mL spray,suspension cholecalciferol (vitamin D3) 1,250 1,250 mcg PO QWEEK #14 caps 01/10/23 mcg (50,000 unit) capsule albuterol sulfate 90 mcg/actuation 1 puff inhalation Q4-6H PRN for 01/17/23 aerosol inhaler (ProAir HFA) wheezing #8.5 grams bisacodyl 5 mg tablet,delayed 20 mg (4 x 5 mg) PO ONCE 1 day #4 02/04/23 release (Dulcolax (bisacodyl)) tabs omeprazole 20 mg capsule,delayed 20 mg PO QAM #90 caps 02/04/23 release peg 3350-electrolytes 236 240 ml PO Q10M #4,000 mL 02/04/23 gram-22.74 gram-6.74 gram-5.86 gram solution insulin glargine 100 unit/mL (3 16 unit (0.16 mL) subcut QPM 90 03/05/23 mL) subcutaneous pen (Lantus days #15 mL Solostar U-100 Insulin) pen needle, diabetic 32 gauge x #200 ea 03/06/2305/16 (UltiCare Pen Needle) blood-glucose sensor (FreeStyle #2 ea 03/28/23 Jay 3 Sensor device) allopurinol 100 mg tablet 100 mg PO DAILY 90 days #90 tabs 05/09/23 atenolol 100 mg tablet 100 mg PO DAILY #90 tabs 05/29/23 amlodipine 10 mg tablet 10 mg PO DAILY 3 months #90 tabs 06/20/23 citalopram 10 mg tablet 20 mg (2 x 10 mg) PO DAILY 30 days 08/07/23 #60 tabs diclofenac sodium 1 % topical gel 4 g topical QID PRN pain 30 days 08/13/23 #100 grams cyclobenzaprine 10 mg tablet 10 mg PO BID #180 tabs 09/02/23 tamsulosin 0.4 mg capsule (Flomax) 0.4 mg PO DAILY 30 days #30 caps 09/19/23 buprenorphine 20 mcg/hour weekly 1 patch topical QWEEK 28 days #4 09/20/23 transdermal patch patches buprenorphine 7.5 mcg/hour weekly 1 patch transdermal Q7D 28 days #4 09/20/23 transdermal patch ea doxycycline hyclate 100 mg tablet 200 mg (2 x 100 mg) PO ONCE 1 day 09/25/23 #2 tabs lorazepam 1 mg tablet 1 mg PO BID PRN anxiety 30 days 09/25/23 #60 tabs Allergies Allergy/AdvReac Type Severity Reaction Status Date / Time aspirin [ASPIRIN] Allergy Severe SWELLING Verified 10/06/23 17:31 NSAIDS (Non-Steroidal Allergy Severe inflamation Verified 10/06/23 17:31 Anti-Inflamma penicillin G [PENICILLIN G] Allergy Severe DIFFICULTY Verified 10/06/23 17:31 BREATHING Sulfa (Sulfonamide Allergy Severe ANAPHYLAXIS Verified 10/06/23 17:31 Antibiotics) [SULFA (SULFONAMIDE ANTIBIOTICS)] tramadol [TRAMADOL] Allergy Severe DIZZY Verified 10/06/23 17:31 Review of Systems Constitutional: Constitutional: Denies body ache(s), Denies chills, Denies fever(s) and Reports headache(s) Eyes: Eyes: Denies blurry vision, Denies exophthalmos and Denies change in vision ENT: Reports headache(s) and Denies sore throat Cardiovascular: Cardiovascular: Denies chest pain and Denies dyspnea Respiratory: Respiratory: Denies cough and Denies dyspnea Gastrointestinal: Gastrointestinal: Denies abdominal pain, Denies nausea and Denies vomiting Musculoskeletal: Musculoskeletal: Denies back pain Integumentary/Breasts: Skin/Breast: Denies rash Neurologic: Reports headache(s) [facility] Past Medical History Medical History Chronic SI joint pain Alcoholic pancreatitis Neuropathy Diabetes Anxiety Asthma Polysubstance abuse Gout HTN (hypertension) Surgical History S/P insertion of spinal cord stimulator History of hip surgery Family History Family History Other No pertinent family history Social History Social History Housing: House Alcohol intake: never Patient Tobacco Use Status: Never used Tobacco e-Cigarette/Vaping Use: Never Used Advance Directives: No Advance Directives Information Provided: No Do you have a plan to hurt others: No Plan service: No Current occupational status: 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: Yes Hearing needs: No Vision needs: No Physical Exam ED Vital Signs: Vital Signs - 24 hr 10/06/23 17:28 10/06/23 19:54 Temperature 97.9 F 98 F Pulse Rate 97 89 Respiratory Rate 18 19 Blood Pressure 141/93 H 134/88 Pulse Oximetry 97 97 Oxygen Delivery Method Room Air Room Air BMI result Body Mass Index 24.8 Const General: healthy appearing, comfortable, no acute distress, alert and awake Nutritional Appearance: well nourished Orientation/consciousness: patient oriented x3 HENMT Head: Yes normocephalic and Yes atraumatic Throat: Yes posterior oropharynx normal Eyes Eyelids: Yes eyelids normal Conjunctivae: conjunctivae normal Sclerae: sclerae normal Corneas: corneas normal Pupils: Equal, round and reactive pupils present EOM: EOMs intact bilaterally Neck Neck: Yes full ROM Resp Effort & Inspection: normal respiratory effort, able to speak in complete sentences and not labored Skin General skin exam: elasticity normal Neuro General: patient oriented x3 Cranial nerves: Yes CN's II-XII intact bilaterally, Yes Equal, round and reactive pupils present and Yes Bilaterally intact EOM present Cognition (Neuro): normal cognition Extrem Other: Moving all extremities well without any obvious deformities Medical Decision Making Medical Decision Making MDM Narrative: 52-year-old male presents for evaluation requesting rabies vaccine. Given that there were 3 bats in the house and the patient touched 1 of them, I feel it is appropriate to treat the patient with the rabies vaccine and immunoglobulin. Differential Diagnosis Differential Diagnoses: The differential diagnosis associated with the presentation includes Rabies exposure Bat exposure Rabies virus Well visit Discharge Plan Discharge Clinical Impression: Exposure to rabies Patient Disposition: Home, Self-Care Instructions: Rabies (ED) Additional Instructions: You need to return on days 3, 7, 14 from today for the remainder of the rabies series Rabies follow up with the [facility] Infusion Center: Upon discharge from the ED today, you will be contacted by the Infusion Center to schedule your follow up Rabies vaccines. You will need a total of 3 more injections. If for some reason you do not receive a call, please call the Infusion Center directly at [phone]. Follow up with your primary care provider after completion of the vaccine to have a titer drawn to ensure the vaccines effectiveness. Prescriptions: No Action fluticasone propion-salmeterol 113 mcg-14 mcg/actuation aero powdr breath act w/sensor 1 inh inhalation BID 30 Days Qty: 1 6RF (DME) blood-glucose meter [FreeStyle Lite Meter] Kit See Rx Instructions .ROUTE .MEDSUPPLY Qty: 1 0RF Rx Instructions: TEST blood sugar 2-3 TIMES DAILY (DME) FreeStyle Lite Strips Strip See Rx Instructions .ROUTE .COMPLEX Qty: 100 11RF Dose Instruction: USE 1 STRIP TWICE A DAY NEEDED...OR MAY USE 3 TIMES IF NEEDED Rx Instructions: USE 1 STRIP TWICE A DAY NEEDED...OR MAY USE 3 TIMES IF NEEDED (DME) lancets [FreeStyle Lancets] 28 gauge misc See Rx Instructions .ROUTE .COMPLEX Qty: 300 0RF Dose Instruction: USE TO TEST BLOOD SUGAR THREE TIMES A DAY DIRECTED Rx Instructions: USE TO TEST BLOOD SUGAR THREE TIMES A DAY DIRECTED fluticasone propionate 50 mcg/actuation spray,suspension 1 spray intranasal DAILY 30 Days Qty: 9.9 11RF Rx Instructions: administer into each nostril albuterol sulfate [ProAir HFA] 90 mcg/actuation HFA aerosol inhaler 1 puff inhalation Q4-6H PRN (Reason: for wheezing) Qty: 8.5 6RF bisacodyl [Dulcolax (bisacodyl)] 5 mg tablet,delayed release (DR/EC) 20 mg PO ONCE 1 Days Qty: 4 0RF Rx Instructions: take at noon the day before colonoscopy peg 3350-electrolytes 236-22.74-6.74 -5.86 gram recon soln 240 ml PO Q10M Qty: 4000 0RF Rx Instructions: Refer to prep instructions given/ mailed to you from GI OFFICE. drink until fecal effluent is clear omeprazole 20 mg capsule,delayed release(DR/EC) 20 mg PO QAM Qty: 90 2RF (DME) pen needle, diabetic [UltiCare Pen Needle] 32 gauge x 1/4 needle See Rx Instructions .ROUTE .COMPLEX Qty: 200 11RF Dose Instruction: USE DAILY DIRECTED Rx Instructions: USE DAILY DIRECTED (DME) FreeStyle Jay 3 Sensor Device See Rx Instructions .Route Qty: 2 8RF Rx Instructions: As directed, 28 days allopurinol 100 mg tablet 100 mg PO DAILY 90 Days Qty: 90 0RF amlodipine 10 mg tablet 10 mg PO DAILY 90 Days Qty: 90 0RF citalopram 10 mg tablet 20 mg PO DAILY 30 Days Qty: 60 4RF diclofenac sodium 1 % gel 4 g topical QID PRN (Reason: pain) 30 Days Qty: 100 0RF Rx Instructions: apply to single elbow, wrist or hand; for hand includes palm/fingers/back of hand cyclobenzaprine 10 mg tablet 10 mg PO BID Qty: 180 1RF tamsulosin [Flomax] 0.4 mg capsule 0.4 mg PO DAILY 30 Days Qty: 30 2RF buprenorphine 7.5 mcg/hour patch weekly 1 patch transdermal Q7D 28 Days Qty: 4 0RF Rx Instructions: Pt is prescribed both 20mcg patch and 7.5mcg patches concurrently. [facility]Pat verified. Partial refill upon request. buprenorphine 20 mcg/hour patch weekly 1 patch topical QWEEK 28 Days Qty: 4 0RF Rx Instructions: Pt is prescribed both 20mcg patch and 7.5mcg patches concurrently. [facility]Pat verified. Partial refill upon request. albuterol sulfate 2.5 mg /3 mL (0.083 %) solution for nebulization 2.5 mg inhalation Q8H PRN (Reason: shortness of breath or wheezing) 30 Days Qty: 270 4RF (DME) pen needle, diabetic [Easy Touch] 32 gauge x 3/16 needle See Rx Instructions .ROUTE .MEDSUPPLY Qty: 50 Rx Instructions: As directed cholecalciferol (vitamin D3) 1,250 mcg (50,000 unit) capsule 1,250 mcg PO QWEEK Qty: 14 1RF doxycycline hyclate 100 mg tablet 200 mg PO ONCE 1 Days Qty: 2 0RF lorazepam 1 mg tablet 1 mg PO BID PRN (Reason: anxiety) 30 Days Qty: 60 0RF Rx Instructions: [facility]Pat Verified. betamethasone dipropionate 0.05 % ointment 1 appl topical BID PRN (Reason: skin irritation) Qty: 15 5RF hydrocortisone [Anti-Itch (HC)] 1 % cream 1 appl topical TID PRN (Reason: skin irritation) Qty: 28.35 0RF (DME) adhesive remover Misc See Rx Instructions .Route Qty: 50 11RF Rx Instructions: As directed to remove adhesive from patches weekly loratadine [Allergy Relief (loratadine)] 10 mg tablet 10 mg PO DAILY Qty: 90 3RF insulin glargine [Lantus Solostar U-100 Insulin] 100 unit/mL (3 mL) insulin pen 16 unit subcut QPM 90 Days Qty: 15 3RF atenolol 100 mg tablet 100 mg PO DAILY Qty: 90 5RF Print Language: Bahamian
[2023-10-06 19:54] VITALS: BP 134/88; PULSE 89; RESP 19; TEMP 36.6; O2SAT 97
[2023-10-06] MEDS: Acetaminophen 325 MG TABLET 975 MG PO (20:26)
[2023-10-06] MEDS: Rabies Vaccine, Human Diploid (Imovax) 1 ML VIAL IM (20:31)
[2023-10-06] MEDS: Rabies Immune Globulin/PF 900 UNIT/3 ML VIAL 1705.5 UNIT IM (20:33)
[2023-10-06 20:47] VITALS: BP 134/88; PULSE 89; RESP 19; TEMP 36.7; O2SAT 97
== END 2023-10-06 20:49 | disposition home or self-care (01) ==
PROVIDERS: Emergency Provider Internal Medicine; PCP Family Medicine
DX: Z20.3 Contact with and (suspected) exposure to rabies (principal); R51.9 Headache, unspecified; E11.8 Type 2 diabetes mellitus with unspecified complications; I10 Essential (primary) hypertension; J45.909 Unspecified asthma, uncomplicated; Z79.4 Long term (current) use of insulin; Z79.84 Long term (current) use of oral hypoglycemic drugs; Z23 Encounter for immunization
CPT/HCPCS: 90375; 90471; 90675; 96372; 99283; 99284

== ENCOUNTER 2023-10-22 08:50 | Outpatient (AMB) | payer OTHER, SELFPAY ==
--- NOTE | 2023-10-22 09:05 | MHC.OFFVIS ---
Intake Visit Reasons: unspecified hematuria and hesitancy of micturition Intake Note: New Patient presents today for initial visit to establish treatment for : Hematuria Smoker: Never Urology Medications: none Allergies to Antibiotic: PCN and Sulfa Blood Thinner: PVR: 212ml's Nursery Hand Required: No Accompanied by: Self / Same As Patient Allergies aspirin [ASPIRIN] Allergy (Severe, Verified 10/22/23 09:45) SWELLING NSAIDS (Non-Steroidal Anti-Inflamma Allergy (Severe, Verified 10/22/23 09:45) inflamation penicillin G [PENICILLIN G] Allergy (Severe, Verified 10/22/23 09:45) DIFFICULTY BREATHING Sulfa (Sulfonamide Antibiotics) [SULFA (SULFONAMIDE ANTIBIOTICS)] Allergy (Severe, Verified 10/22/23 09:45) ANAPHYLAXIS tramadol [TRAMADOL] Allergy (Severe, Verified 10/22/23 09:45) DIZZY Medication List - Last Reconciled 10/22/23 by SAMAN Nath adhesive remover As directed to remove adhesive from patches weekly albuterol sulfate 2.5 mg (3 mL) inhalation Q8H PRN 1 month albuterol sulfate 90 mcg/actuation (ProAir HFA) 1 puff inhalation Q4-6H PRN allopurinol 100 mg PO DAILY 90 days amlodipine 10 mg PO DAILY 3 months apixaban (Eliquis) 2.5 mg PO BID atenolol 100 mg PO DAILY betamethasone dipropionate 0.05% 1 appl topical BID PRN blood sugar diagnostic (FreeStyle Lite Strips) USE 1 STRIP TWICE A DAY NEEDED...OR MAY USE 3 TIMES IF NEEDED blood-glucose sensor (FreeStyle Jay 3 Sensor device) As directed, 28 days buprenorphine 20 mcg/hour 1 patch topical QWEEK 28 days buprenorphine 7.5 mcg/hour 1 patch transdermal Q7D 28 days cholecalciferol (vitamin D3) 1,250 mcg PO QWEEK citalopram 20 mg (2 x 10 mg) PO DAILY 30 days cyclobenzaprine 10 mg PO BID diclofenac sodium 1% 4 grams topical QID PRN 30 days fluticasone propion-salmeterol 113 mcg-14 mcg/actuation 1 inh inhalation BID 1 month fluticasone propionate 50 mcg/actuation 1 spray intranasal DAILY 1 month FreeStyle Lite Meter (blood-glucose meter) TEST blood sugar 2-3 TIMES DAILY NS hydrocortisone 1% (Anti-Itch (hydrocortisone)) 1 appl topical TID PRN insulin glargine (Lantus Solostar U-100 Insulin) 16 units (0.16 mL) subcut QPM 90 days lancets (FreeStyle Lancets) USE TO TEST BLOOD SUGAR THREE TIMES A DAY DIRECTED lorazepam 1 mg PO BID PRN 30 days omeprazole 20 mg PO QAM pen needle, diabetic (UltiCare Pen Needle) USE DAILY DIRECTED pen needle, diabetic (Easy Touch) As directed HPI Comments Details: Holger is a very pleasant 52-year-old male patient of Dr. Hope. He has a past medical history of chronic SI joint pain, alcoholic pancreatitis, neuropathy, diabetes, anxiety, asthma, polysubstance abuse, gout, and hypertension. He presents to the office today as a new patient for ongoing lower urinary tract symptoms. In discussion with the patient today reports lower urinary tract symptoms have been present for quite some time however feels they are worsening. He reports having had a recent right-sided hip replacement approximately 1 week ago. He reports having been started on Flomax with his PCP however stopped taking this medication as he felt like he was taking too many medications. In office urinalysis results reviewed with the patient today. PVR 212 mL. Discussed at length potential causes and affects of incomplete bladder emptying. He discusses having had an episode of gross hematuria approximately 6 months ago however has not had any other episodes. He also reports a history of microscopic hematuria. He reports a proximally 3 years ago when having had pancreatitis he had an indwelling Salas. He reports feeling of incomplete bladder emptying, nocturia 3 times per night, and weak urinary stream. In review of patient's chart it appears PSA 09/03 1.2. MICHELLE offered however deferred. He otherwise denies any other issues or concerns at this time. 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: Yes Hearing needs: No Vision needs: No Review of Systems Const Reports no additional complaints Eyes Reports no additional complaints ENT Reports no additional complaints Card Reports as per [facility] Resp Reports as per [facility] GI Reports as per [facility] Reports as per [facility] Musc Reports as per [facility] Neuro Reports as per HPI Psych Reports as per HPI Endo Reports as per HPI Charles/Lymph Reports no additional complaints Aller/Immun Reports no additional complaints Physical Exam Const General: cooperative, comfortable, no acute distress, well developed, alert and awake Orientation/consciousness: patient oriented x3 Limitations: no limitations HEENT Head: Yes normal to inspection, Yes normocephalic and Yes atraumatic Ears: hearing grossly normal bilaterally Eyes General: appearance normal, both eyes and all related structures Neck Neck: Yes normal visual inspection and Yes trachea midline Chest Chest palpation & inspection: normal inspection of the chest Resp Effort & Inspection: normal respiratory effort and able to speak in complete sentences Cardio Rate: regular rate GI Inspection: Yes normal to inspection General: Yes no CVA tenderness Back/Spine/Pelvis Back: no CVA tenderness Skin General skin exam: no rashes or lesions noted Neuro General: patient oriented x3 Extrem General: Yes normal to inspection Psych Appearance: grossly normal and well kempt Mental Status: mental status grossly normal Speech and movement: Normal speech and movement present and Clear speech present Affect: normal affect Attitude: cooperative Thought process: Normal thought process present Thought content: Normal thought content present Insight: Fair insight present (Psych) Judgement: Fair judgement present (Psych) Office Procedures Post Void Residual Post Residual Void Post Void Residual (PVR): 212 [id number]-Hfto Void Residual by ultrasound Results AMB Urinalysis, Automated UA Leukoctes 0 Corazon/uL Last Edit by Yani Guillen on 10/22/23 09:29 UA Nitrite Negative Last Edit by Yani Guillen on 10/22/23 09:29 UA Urobilinogen 0.2 mg/dL Last Edit by Yani Guillen on 10/22/23 09:29 UA Protein 0 mg/dL Last Edit by Yani Guillen on 10/22/23 09:29 UA pH 6.0 Last Edit by Pollouche Okeeferonald on 10/22/23 09:29 UA Blood 0 Justin/uL Last Edit by Yani Saryronald on 10/22/23 09:29 UA Specific [place] 1.010 Last Edit by Yani Guillen on 10/22/23 09:29 UA Ketone Negative Last Edit by Yani Saryronald on 10/22/23 09:29 UA Bilirubin 0 mg/dL Last Edit by Yani Saryronald on 10/22/23 09:29 UA Glucose 0 mg/dL Last Edit by Yani Guillen on 10/22/23 09:29 Results Reviewed Results Reviewed: Laboratory Last Values Urine pH (Auto) 6.0 10/22/23 09:13 Specific [place] (Auto) 1.010 10/22/23 09:13 Urine Protein (Auto) 0 mg/dL 10/22/23 09:13 Glucose (UA)(Auto) 0 mg/dL 10/22/23 09:13 Urine Ketones (Auto) Negative 10/22/23 09:13 Urine Blood (Auto) 0 Justin/uL 10/22/23 09:13 Urine Nitrite (Auto) Negative 10/22/23 09:13 Urine Bilirubin (Auto) 0 mg/dL 10/22/23 09:13 Urine Urobilinogen (Auto) 0.2 mg/dL 10/22/23 09:13 Leukocyte Esterase (Auto) 0 Corazon/uL 10/22/23 09:13 Assessment & Plan Assessment & Plan (1) Hematuria: Code(s): R31.9 - Hematuria, unspecified Category: Medical (2) Incomplete bladder emptying: Code(s): R33.9 - Retention of urine, unspecified Category: Medical Plan In office urinalysis results reviewed with the patient today; as noted above; will send for urine cytology. Discussed at length potential causes of hematuria; discussed further workup to include CT urogram, in office cystoscopy, and urine cytology; however patient declines at this time. Will obtain retroperitoneal ultrasound for further assessment evaluation. Discussed at length causes and affects of incomplete bladder emptying. Start flomax as discussed and prescribed. Discussed lifestyle modifications to assist with incomplete bladder emptying. Discussed at length further treatment options of incomplete bladder emptying. Discussed, educated, and stressed the importance of managing diabetes for improvement in lower urinary tract symptoms as well as overall health and well-being. Follow-up in 1-3 months with imaging to be completed prior; or sooner with any issues, concerns, and or questions. Orders: Orders US retroperitoneal comp Today R31.9 - Hematuria, unspecified, R33.9 - Retention of urine, unspecified AMB Urinalysis Automated Today Z13.9 - Encounter for screening, unspecified AMB Post Void Residual by ultrasound Today R39.198 - Other difficulties with micturition Urine Cytology Today R31.9 - Hematuria, unspecified Patient Instructions: The patient had an opportunity to ask questions regarding the treatment plan. All questions were answered. Physical exam, labs, and imaging were discussed and reviewed in detail. As well as risks, benefits, and discussion of treatment choices. No major barriers to understanding were identified. The patient expressed understanding and agreement with the above treatment plan. The patient was made aware they should contact our office by phone for worsening of their current condition, the appearance of new symptoms, or with any questions or concerns. Compliance is encouraged with any medications and follow up testing that is ordered. It is a privilege to be allowed the opportunity to participate in? your urological care.? Again, if you have any questions or concerns If you have any questions or concerns please do not hesitate to contact me. The office is [phone]. This note is constructed using voice recognition software. While every effort has been made to ensure accuracy director of workforce development errors may have been included. Yours sincerely, SAMAN Nath Coding Level of Care Code New Pt Level 4 (61553) Diagnoses Hematuria R31.9 Incomplete bladder emptying R33.9 CPT Codes Post Residual Void - PVR CPT Code: 96805-Yuem Void Residual by ultrasound ([id number]) Time Spent (min) 30
== END 2023-10-22 09:47 | disposition home or self-care (01) ==
PROVIDERS: PCP Family Medicine; Visit Provider Nurse Practitioner Family
DX: R31.9 Hematuria, unspecified (principal); R33.9 Retention of urine, unspecified; Z13.9 Encounter for screening, unspecified
CPT/HCPCS: 99204

== ENCOUNTER 2023-10-22 08:50 | Outpatient (REF) | payer OTHER, SELFPAY ==
[2023-10-22 17:08] LABS: Urine Cytology See Pathology rpt
== END 2023-10-22 08:51 | disposition home or self-care (01) ==
LOC: HO.LNP 08:50
PROVIDERS: PCP Family Medicine; Visit Provider Nurse Practitioner Family
DX: R31.9 Hematuria, unspecified (principal); R39.11 Hesitancy of micturition; R33.9 Retention of urine, unspecified; R39.198 Other difficulties with micturition
CPT/HCPCS: 51798; 81003; 88112; 99202

== ENCOUNTER 2023-11-06 09:15 | Outpatient (AMB) | payer OTHER, SELFPAY ==
--- NOTE | 2023-11-06 09:20 | AM.OFFVISNUR ---
Intake Intake Visit Reasons: urinalysis and PVR Allergies aspirin [ASPIRIN] Allergy (Severe, Verified 10/22/23 09:45) SWELLING NSAIDS (Non-Steroidal Anti-Inflamma Allergy (Severe, Verified 10/22/23 09:45) inflamation penicillin G [PENICILLIN G] Allergy (Severe, Verified 10/22/23 09:45) DIFFICULTY BREATHING Sulfa (Sulfonamide Antibiotics) [SULFA (SULFONAMIDE ANTIBIOTICS)] Allergy (Severe, Verified 10/22/23 09:45) ANAPHYLAXIS tramadol [TRAMADOL] Allergy (Severe, Verified 10/22/23 09:45) DIZZY Office Procedures Post Void Residual Post Residual Void Details: Patient presents to office for urinalysis and PVR bladder scan. Patient able to give urine sample, urinalysis unremarkable. Bladder scanned for 672 mls. Reviewed with Lilliana DAVISON to have patient given option of orozco catheter or [facility]IC. Presented options to patient- patient choosing CIC. Patient had urge to urinate again, used bathroom to void and requested another bladder scan. Bladder scanned for 182 mls Reviewed again with Lilliana DAVISON, have patient begin to double void. Offer trazasoin 5mg or increasing tamsulosin to BID. Patient presented with both options, patient choosing to stay on tamsulosin as he has medication already and it would be easier to stay on a medication he already has and knows . Patient understood all information from visit, has scheduled follow up appointment at this time and will call office with any questions or concerns between now and follow up appointment. Patient agreeable with plan Post Void Residual (PVR): 182 [id number]-Zfxa Void Residual by ultrasound Results AMB Urinalysis, Automated UA Leukoctes 0 Corazon/uL Last Edit by Osbaldo Duff LPN on 11/06/23 09:59 UA Nitrite Negative Last Edit by Osbaldo Duff LPN on 11/06/23 09:59 UA Urobilinogen 0 mg/dL Last Edit by Osbaldo Duff LPN on 11/06/23 09:59 UA Protein 0 mg/dL Last Edit by Osbaldo Duff LPN on 11/06/23 09:59 UA pH 6.0 Last Edit by Osbaldo Duff LPN on 11/06/23 09:59 UA Blood 0 Justin/uL Last Edit by Osbaldo Duff LPN on 11/06/23 09:59 UA Specific [place] 1.010 Last Edit by Osbaldo Duff LPN on 11/06/23 09:59 UA Ketone Last Edit by Osbaldo Duff LPN on 11/06/23 09:59 UA Bilirubin 0 mg/dL Last Edit by Osbaldo Duff LPN on 11/06/23 09:59 UA Glucose 0 mg/dL Last Edit by Osbaldo Duff LPN on 11/06/23 09:59 Coding CPT Codes Post Residual Void - PVR CPT Code: 73968-Pobr Void Residual by ultrasound ([id number]) Assessment & Plan Assessment & Plan Orders: Orders AMB Urinalysis Automated Today R31.9 - Hematuria, unspecified, R33.9 - Retention of urine, unspecified, R39.11 - Hesitancy of micturition, R39.198 - Other difficulties with micturition AMB Post Void Residual by ultrasound Today R31.9 - Hematuria, unspecified, R33.9 - Retention of urine, unspecified, R39.198 - Other difficulties with micturition
== END 2023-11-06 10:21 | disposition home or self-care (01) ==
PROVIDERS: PCP Family Medicine; Visit Provider Nurse Practitioner Family
DX: R33.9 Retention of urine, unspecified (principal); R31.9 Hematuria, unspecified; R39.11 Hesitancy of micturition; R39.198 Other difficulties with micturition

== ENCOUNTER → 2023-11-06 09:15 | Outpatient (BNVA) | payer OTHER, SELFPAY | PROVIDERS: PCP Family Medicine; Visit Provider Nurse Practitioner Family | DX: R31.9 Hematuria, unspecified (principal); R33.9 Retention of urine, unspecified; R39.11 Hesitancy of micturition; R39.198 Other difficulties with micturition | CPT/HCPCS: 51798; 81003 ==

== ENCOUNTER 2023-11-11 09:17 | Outpatient (AMB) | payer OTHER, SELFPAY ==
--- NOTE | 2023-11-11 09:46 | MHC.AM.SUB ---
Vital Signs 11/11/23 09:50 BP 150/80 H Blood Pressure Location Lt brachial Position Sitting Respiration 19 Pulse 98 Pulse Source Pulse Oximeter Pulse Oximetry (%) 93 Oxygen Delivery Method Room Air Intake Visit Reasons: Intake Allergies aspirin [ASPIRIN] Allergy (Severe, Verified 10/22/23 09:45) SWELLING NSAIDS (Non-Steroidal Anti-Inflamma Allergy (Severe, Verified 10/22/23 09:45) inflamation penicillin G [PENICILLIN G] Allergy (Severe, Verified 10/22/23 09:45) DIFFICULTY BREATHING Sulfa (Sulfonamide Antibiotics) [SULFA (SULFONAMIDE ANTIBIOTICS)] Allergy (Severe, Verified 10/22/23 09:45) ANAPHYLAXIS tramadol [TRAMADOL] Allergy (Severe, Verified 10/22/23 09:45) DIZZY HPI HPI Intake: Details: Patient referred for intake by PCP for alcohol use patient reporting significant pain realted to recent hip replacement Very focused on pain and what he feels is poor management of his sx requiring redirection to discuss alcohol use Reports he has been drinking daily for the last 5 years as a way to manage pain Several nips per day --but on average a pint daily He reports he is on several pain medications and is aware he can not have Naltrexone at this time--although he also feels he can take both together because he has done it in the past. Discussed tapering alcohol use as a way to start working towards goal of abstinence --patient agreeable, but also unsure if he is ready to start that yet [facility] Medical History Chronic SI joint pain Alcoholic pancreatitis Neuropathy Diabetes Anxiety Asthma Polysubstance abuse Gout HTN (hypertension) Surgical History S/P insertion of spinal cord stimulator History of hip surgery Family History Other No pertinent family history Social History Housing: House Alcohol intake: never Patient Tobacco Use Status: Never used Tobacco e-Cigarette/Vaping Use: Never Used service: No Current occupational status: 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: 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 Hearing needs: No Vision needs: No Review of Systems Const Details: Pain in hips Reports as per HPI, Reports difficulty sleeping and Reports lethargy Physical Exam Vital Signs: Last Vital Signs Pulse 98 11/11/23 09:50 Resp 19 11/11/23 09:50 BP 150/80 H 11/11/23 09:50 Pulse Ox 93 11/11/23 09:50 Oxygen Delivery Method Room Air 11/11/23 09:50 Const General: alert and awake Nutritional Appearance: average body habitus Limitations: ambulation with cane Psych Speech and movement: Clear speech present Affect: Irritable affect present Attitude: Guarded attititude/behavior present Thought process: Tangential thought process present Thought content: Depressive thoughts present Insight: Fair insight present (Psych) Judgement: Fair judgement present (Psych) Assessment & Plan Assessment & Plan (1) Alcohol use disorder, severe, dependence: Code(s): F10.20 - Alcohol dependence, uncomplicated Category: Medical Plan: risk reduction discussion follow up 6 weeks due to current opioid pain medications, naltrexone not advised MAT Intake Nursing Intake Reason for visit: AUD What are you taking?: Vodka When was your last use?: yesterday How much?: 2 nips Current PCP: Dr Hope Date of last visit: within the month Referral Source: Dr Hope Details: Patient was hesitant to answer many and most questions that I asked him, refusing many, would respond with one word answers and/or 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 Substance Abuse History Details: refused to answer these questions Medical Conditions Endocarditis?: No Skin Infection: No Seizure related to withdrawal or overdose: No Head or brain injury: No Hepatitis A (if yes, have you been treated?): No Hepatitis B (if yes, have you been treated?): No Hepatitis C (if yes, have you been treated?): No HIV (if yes, have you been treated?): No TB (if yes, have you been treated?): No Do you have any chronic pain conditions?: Hip pain, HTN and diabetes
[2023-11-11 09:50] VITALS: BP 150/80; PULSE 98; RESP 19; O2SAT 93
== END 2023-11-11 10:08 | disposition home or self-care (01) ==
PROVIDERS: PCP Family Medicine; Visit Provider Nurse Practitioner Psychiatric/Mental Health
DX: F10.20 Alcohol dependence, uncomplicated (principal)
CPT/HCPCS: 99204

== ENCOUNTER → 2023-11-11 09:17 | Outpatient (BNVA) | payer OTHER, SELFPAY | PROVIDERS: PCP Family Medicine; Visit Provider Nurse Practitioner Psychiatric/Mental Health | DX: F10.20 Alcohol dependence, uncomplicated (principal) | CPT/HCPCS: 99202 ==

== ENCOUNTER 2023-11-19 08:57 | Outpatient (AMB) | payer OTHER, SELFPAY ==
--- NOTE | 2023-11-19 08:51 | MHC.PC.OV ---
Intake Visit Reasons: bad sunbrurn call twice bad service Intake Note: Patient is calling due to really bad sunburn, with blisters upper chest area. Patient tried Aloe vera with no relief. Allergies aspirin [ASPIRIN] Allergy (Severe, Verified 11/19/23 08:55) SWELLING NSAIDS (Non-Steroidal Anti-Inflamma Allergy (Severe, Verified 11/19/23 08:55) inflamation penicillin G [PENICILLIN G] Allergy (Severe, Verified 11/19/23 08:55) DIFFICULTY BREATHING Sulfa (Sulfonamide Antibiotics) [SULFA (SULFONAMIDE ANTIBIOTICS)] Allergy (Severe, Verified 11/19/23 08:55) ANAPHYLAXIS tramadol [TRAMADOL] Allergy (Severe, Verified 11/19/23 08:55) DIZZY Tobacco use date assessed: 11/19/23 Dental Screening Dental Screen Date: 09/25/23 HPI bad sunbrurn call twice bad service HPI Details 52 y/o male presents today via telemedicine with complaints of a sunburn. He reports blisters upper chest area and has trialed Aloe vera with no relief along with cold showers. Also has complaints of swelling in legs & had hip surgery a couple weeks ago. 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 Dominick Miller, Koki Buck, Mohan Beavers and colleagues, with an educational nanette from [employer]. Review of Systems Const Denies chills, Denies fatigue, Denies fever(s), Denies headache(s) and Denies weakness ENT Denies dizziness and Denies headache(s) Card Denies dyspnea Resp Denies cough, Denies dyspnea, Denies wheezing and Denies other (shortness of breath) Musc Denies numbness and Denies tingling Neuro Denies dizziness, Denies headache(s), Denies numbness, Denies tingling and Denies weakness Psych Denies anxiety and Denies depression Endo Denies fatigue Aller/Immun Denies wheezing Physical exam (Primary Care) Tobacco/Smoking Status: Tobacco use Status Tobacco use date assessed 11/19/23 11/19/23 08:57 Patient Tobacco Use Status Never used Tobacco 11/19/23 08:57 e-Cigarette/Vaping Use Never Used 11/19/23 08:57 Thrive Assessment: Date of Thrive Assessment Date Thrive assessed 06/20/22 11/19/23 08:57 Telehealth Telehealth Telehealth Platform: Telephone Location of provider rendering services: practice address Location of patient: other Patient Identification confirmed using: Name, : Yes Telehealth method: voice only Patient verbally consented to treatment: Yes Patient verbally consented to billing insurance company: Yes Patient informed of any privacy concerns related to visit: Yes Minutes spent on Phone/Video with Pt.: 11 Assessment and Plan Assessment & Plan (1) Sunburn: Code(s): L55.9 - Sunburn, unspecified Plan: Moderately?severe?some?burn?with?blistering.??Has?already?been?using?aloe?vera?and?cold?showers. Advised?he?can?continue?using?aloe?vera?or?use?aloe?vera?with?lidocaine?and?continue?cold?showers. Advised?he?increase?hydration He?notes?that?this?is?already?improving.??However?if?this?were?to?worsen?or?improvement?stalls,?he?should?get?checked?out?at?the?ED (2) Swelling of lower extremity: Code(s): M79.89 - Other specified soft tissue disorders Plan: Recent?hip?surgeries Elevate?legs Call?or?return?to?office?if?not?improving (3) Hip pain: Code(s): M25.559 - Pain in unspecified hip Plan: He?is?still?on?buprenorphine Patient?has?been?seen?at?[facility]?and?has?a?follow-up?appointment. He?had?ask?today?for?naloxone?to?help?wean?off?of?alcohol?and?opioids?but?I?recommended?he?follow?the?[facility]?recommendations?as?starting?medication?like?that?when?he?is?still?on?high?doses?of?opioids?could?cause?a?significant?withd amaury.??Patient?understands. Coding Level of Care Code Tele Est Pt Level 2 (69956) Diagnoses Sunburn L55.9 Swelling of lower extremity M79.89 Hip pain M25.559
== END 2023-11-19 10:10 | disposition home or self-care (01) ==
LOC: HO.HMGFM 08:58
PROVIDERS: PCP Family Medicine; Visit Provider Family Medicine
DX: L55.9 Sunburn, unspecified (principal); M79.89 Other specified soft tissue disorders; M25.559 Pain in unspecified hip
CPT/HCPCS: 99212

== ENCOUNTER 2023-12-18 11:07 | Outpatient (AMB) | payer OTHER, SELFPAY ==
--- NOTE | 2023-12-16 13:28 | MHC.AM.SUB ---
Intake Visit Reasons: MAT Tele Follow up Allergies aspirin [ASPIRIN] Allergy (Severe, Verified 11/19/23 08:55) SWELLING NSAIDS (Non-Steroidal Anti-Inflamma Allergy (Severe, Verified 11/19/23 08:55) inflamation penicillin G [PENICILLIN G] Allergy (Severe, Verified 11/19/23 08:55) DIFFICULTY BREATHING Sulfa (Sulfonamide Antibiotics) [SULFA (SULFONAMIDE ANTIBIOTICS)] Allergy (Severe, Verified 11/19/23 08:55) ANAPHYLAXIS tramadol [TRAMADOL] Allergy (Severe, Verified 11/19/23 08:55) DIZZY HPI HPI MAT Tele Follow up: Details: Follow up via telehealth for AUD Reporting worsening pain drank beer yesterday due to pain continues to request naltrexone -t/w declining to prescribe discussed medically supervised withdrawal tx program --patient states he did not think that was an option for him would like to trial Campral first [facility] Medical History Chronic SI joint pain Alcoholic pancreatitis Neuropathy Diabetes Anxiety Asthma Polysubstance abuse Gout HTN (hypertension) Surgical History S/P insertion of spinal cord stimulator History of hip surgery Family History Other No pertinent family history Social History Housing: House Alcohol intake: never Patient Tobacco Use Status: Never used Tobacco e-Cigarette/Vaping Use: Never Used service: No Current occupational status: 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: Yes Hearing needs: No Vision needs: No Review of Systems Const Reports as per HPI Telehealth Telehealth Telehealth Platform: Telephone Location of provider rendering services: practice address Location of patient: address on file Patient Identification confirmed using: Name, : Yes Telehealth method: voice only Patient verbally consented to treatment: Yes Patient verbally consented to billing insurance company: Yes Minutes spent on Phone/Video with Pt.: 20 Assessment & Plan Assessment & Plan (1) Alcohol use disorder, severe, dependence: Code(s): F10.20 - Alcohol dependence, uncomplicated Category: Medical Plan: risk reduction discussion trial campral follow up 4 weeks Medications: New acamprosate 666 mg (2 x 333 mg) PO TID 180 tabs 1RF
== END 2023-12-18 11:09 | disposition home or self-care (01) ==
LOC: HO.HCC 11:07
PROVIDERS: PCP Family Medicine; Visit Provider Nurse Practitioner Psychiatric/Mental Health
DX: F10.20 Alcohol dependence, uncomplicated (principal)
CPT/HCPCS: 99214

== ENCOUNTER → 2023-12-18 11:07 | Outpatient (BNVA) | payer OTHER, SELFPAY | PROVIDERS: PCP Family Medicine; Visit Provider Nurse Practitioner Psychiatric/Mental Health ==

== ENCOUNTER 2023-12-27 10:32 | Outpatient (AMB) | payer OTHER, SELFPAY ==
--- NOTE | 2023-12-27 10:48 | MHC.AM.SUB ---
Intake Visit Reasons: Med Review Allergies aspirin [ASPIRIN] Allergy (Severe, Verified 11/19/23 08:55) SWELLING NSAIDS (Non-Steroidal Anti-Inflamma Allergy (Severe, Verified 11/19/23 08:55) inflamation penicillin G [PENICILLIN G] Allergy (Severe, Verified 11/19/23 08:55) DIFFICULTY BREATHING Sulfa (Sulfonamide Antibiotics) [SULFA (SULFONAMIDE ANTIBIOTICS)] Allergy (Severe, Verified 11/19/23 08:55) ANAPHYLAXIS tramadol [TRAMADOL] Allergy (Severe, Verified 11/19/23 08:55) DIZZY HPI HPI Med Review: Details: Patient presents for follow up Could not tolerate Acamprosate --GI upset No patch since last Saturday Current alcohol intake 1/2 pint and 4 nips Would like trial the nalrexone-very aware of risk of precipitated withdrawal related to ongoing opioid use. Denies. Has not picked up patches Discussed measuring alcohol and tapering gradulally Agreeable to gabapentin to assist with anxiety Much less circumstantial today, less focus on pain. 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: Yes Hearing needs: No Vision needs: No Review of Systems Const Reports as per HPI Physical Exam Const General: alert and awake Nutritional Appearance: average body habitus Limitations: ambulation with cane Psych Speech and movement: Clear speech present Insight: Fair insight present (Psych) Judgement: Fair judgement present (Psych) Assessment & Plan Assessment & Plan (1) Alcohol use disorder, severe, dependence: Code(s): F10.20 - Alcohol dependence, uncomplicated Category: Medical Plan: discussed tapering alcohol every 3-4 days by one shot encouraged to present to ED if withdrawal sx present discussed ATS admission which patient declines at this time gabapetin 100mg TID PRN for anxiety naltrexone 50mg QD Medications: New naltrexone take 1/2 tab daily for 3 days then increase to one tab daily 50 mg PO DAILY 30 tabs 0RF gabapentin 100 mg PO TID 21 caps 0RF Discontinued acamprosate Discontinued Reason: Patient no longer taking 666 mg (2 x 333 mg) PO TID 180 tabs 1RF
== END 2023-12-27 11:04 | disposition home or self-care (01) ==
PROVIDERS: PCP Family Medicine; Visit Provider Nurse Practitioner Psychiatric/Mental Health
DX: F10.20 Alcohol dependence, uncomplicated (principal)
CPT/HCPCS: 99214

== ENCOUNTER → 2023-12-27 10:32 | Outpatient (BNVA) | payer OTHER, SELFPAY | PROVIDERS: PCP Family Medicine; Visit Provider Nurse Practitioner Psychiatric/Mental Health | DX: Z51.81 Encounter for therapeutic drug level monitoring (principal); Z79.899 Other long term (current) drug therapy | CPT/HCPCS: 99212 ==

== ENCOUNTER → 2024-01-10 10:14 | Outpatient (BNVA) | payer OTHER, SELFPAY | PROVIDERS: PCP Family Medicine; Visit Provider Nurse Practitioner Psychiatric/Mental Health ==

== ENCOUNTER 2024-01-23 09:30 | Inpatient (IN) | payer OTHER, SELFPAY ==
--- NOTE | ~2024-01-23 | XR_ITS ---
EXAMINATION: XR CHEST CLINICAL INFORMATION: Fever COMPARISON: Prior chest radiographs, most recently 06/07/2019 TECHNIQUE: Frontal view of the chest was obtained. FINDINGS: No significant abnormality is noted involving the heart, lungs, mediastinum, bony thorax or soft tissues. Incidental note is made of calcific tendinopathy of the right rotator insertion.. XR/XR chest 1V IMPRESSION: No acute findings. Electronically signed by: Anshul Webb MD 01/23/2024 04:04 PM EDT
--- NOTE | ~2024-01-23 | CT_ITS ---
EXAMINATION: CT HEAD WITHOUT CONTRAST CLINICAL INFORMATION: Hallucinations. Agitation. COMPARISON: None available. TECHNIQUE: Contiguous axial imaging was performed from the skull base to vertex without intravenous administration of contrast. This CT examination was performed using dose optimization techniques as appropriate, variously including the following: *Automated exposure control *Adjustment of mA and/or kV according to patient size (this includes techniques or standardized protocols for targeted exams where dose is matched to indication/reason for exam; i.e. extremities or head) *Use of iterative reconstruction technique DLP: 657 mGy-cm FINDINGS: There is no acute intracranial hemorrhage. There is no evidence of acute/subacute cerebral or cerebellar infarction. There is no midline shift or mass effect. No extra-axial fluid collection. The ventricles are normal in size. The orbits are symmetric and within normal limits. There is a mucosal retention cyst within the left maxillary sinus. The visualized paranasal sinuses are otherwise clear. Mastoid air cells are clear. CT/CT head/brain wo IV con IMPRESSION: No acute intracranial pathology. Electronically signed by: Marlon Hardwick DO 01/23/2024 04:49 PM EDT
--- NOTE | ~2024-01-23 | CT_ITS ---
EXAMINATION: CT CHEST, ABDOMEN AND PELVIS WITH CONTRAST CLINICAL INFORMATION: Fever of unknown origin COMPARISON: Chest radiograph 01/23/2024 TECHNIQUE: Multidetector volumetric imaging was performed of the chest, abdomen and pelvis following administration of 85 mL Omnipaque 350 intravenous contrast. Oral contrast was administered. Sagittal and coronal reformatted images were obtained on the technologist's workstation. This CT examination was performed using dose optimization techniques as appropriate, variously including the following: *Automated exposure control *Adjustment of mA and/or kV according to patient size (this includes techniques or standardized protocols for targeted exams where dose is matched to indication/reason for exam; i.e. extremities or head) *Use of iterative reconstruction technique DLP: 660 mGy-cm FINDINGS: CHEST: LUNGS: Tiny left upper lobe pulmonary micronodule, 10:84. PLEURA: No pleural effusion. MEDIASTINUM: No cardiomegaly. Aorta and pulmonary artery normal in caliber. No mediastinal lymphadenopathy. No hilar lymphadenopathy. CORONARY ARTERY CALCIFICATION: Coronary artery calcification is present. CHEST WALL/AXILLA: No axillary or internal mammary lymphadenopathy. ABDOMEN AND PELVIS: ABDOMINAL AND PELVIC WALL: Unremarkable. LIVER AND BILIARY TREE: Unremarkable. GALLBLADDER: Unremarkable. PANCREAS: Unremarkable. SPLEEN: Spleen is enlarged measuring 14.7 cm in span. ADRENAL GLANDS: Unremarkable. KIDNEYS AND URETERS: Striations of the bilateral renal nephrograms with right renal parenchymal edema suspicious for bilateral pyelonephritis. There is mild bilateral hydroureteronephrosis with urothelial thickening and enhancement with the ureters dilated to the level of the pelvis however the ureterovesicular junctions are obscured by streak artifact from bilateral hip arthroplasties limiting evaluation in this region. No appreciable obstructive ureterolithiasis where visualized. GASTROINTESTINAL TRACT: Colonic diverticulosis without evidence of diverticulitis. Appendix is normal in caliber. VASCULAR: Multiple dilated mesenteric collateral vessels. LYMPH NODES: No lymphadenopathy. FREE FLUID: No free fluid. BLADDER: Urinary bladder is thick-walled and trabeculated, recommend correlation with symptoms of cystitis and chronic bladder outlet obstruction. Urinary bladder is moderately distended. PELVIC VISCERA: Unremarkable. OSSEOUS STRUCTURES: Status post bilateral total hip arthroplasties. CT/CT abdomen pelvis w IV con IMPRESSION: 1. Striations of the bilateral renal nephrograms with right renal parenchymal edema suspicious for bilateral pyelonephritis. There is mild bilateral hydroureteronephrosis with urothelial thickening and enhancement with the ureters dilated to the level of the pelvis however the ureterovesicular junctions are obscured by streak artifact from bilateral hip arthroplasties limiting evaluation in this region. No appreciable obstructive ureterolithiasis where visualized. 2. Urinary bladder is thick-walled and trabeculated, recommend correlation with symptoms of cystitis and chronic bladder outlet obstruction. Urinary bladder is moderately distended. 3. Tiny left upper lobe pulmonary micronodule. Assuming patient has no history of malignancy, recommend follow-up per Fleischner Society recommendations. According to the UPDATED 2017 Fleischner Society recommendations, the advised follow-up imaging for nodules <6mm in the upper lobes is not necessarily required in low-risk patients. In high-risk patients with a nodule in the upper lobe and/or demonstrating suspicious morphology, an optional CT follow-up at 12 months may be obtained. If stable at 12 months, no further follow-up is recommended. 4. Findings suggesting portal hypertension with splenomegaly and dilated mesenteric collateral vessels. Electronically signed by: Mana Bolivar MD 01/26/2024 12:50 PM EDT
[2024-01-23 09:39] VITALS: BP 110/75; PULSE 80; RESP 20; TEMP 37.5; O2SAT 96; BMI 24.1
[2024-01-23 10:09] LABS: MANUAL DIFF FLAG NO
[2024-01-23 10:14] LABS: Basophils Absolute Auto 0.1 X10*3/uL (0.0-0.2); Basophils Percent Auto 0.5 % (0-2); Eosinophils Percent Auto 0.1 % (0-4); Hematocrit 36.4 % (42.0-52.0); Hemoglobin 13.2 g/dl (14.0-18.0); Imm Gran Abs Auto 0.08 X10*3/uL (0.00-0.03); Imm Gran Pct Auto 0.8 % (0.0-0.4); Lymphocytes Absolute Auto 0.6 X10*3/uL (1.2-4.9); Lymphocytes Percent Auto 6.3 % (20-40); Mean Corpuscular HGB Conc 36.3 g/dl (31.0-36.0); Mean Corpuscular Hemoglobin 30.9 pg (27.0-33.0); Mean Corpuscular Volume 85.2 fL (80.0-98.0); Mean Platelet Volume 11.4 fL (9.4-12.4); Monocytes Percent Auto 9.6 % (2-11); Neutrophils Absolute Auto 8.4 x10*3/uL (2.0-8.3); Neutrophils Percent Auto 82.7 % (45-73); Platelet Count 102 X10*3/uL (160-400); Red Blood Count 4.27 X10*6/uL (4.60-5.80); Red Cell Distribution Width 11.8 % (11.0-16.0); White Blood Count 10.1 X10*3/uL (4.8-10.8)
[2024-01-23 10:16] LABS: Appearance Urine Clear; Color Urine Yellow; Glucose Urine UA Negative (Negative); Leukocyte Esterase Urine Small (1+) (Negative); Nitrite Urine Negative (Negative); Specific Gravity - Urine 1.015 (1.005-1.025); UMIC TRIGGER UACC YES; Urine Blood Negative (Negative); Urine Ketones 15 mg/dL (Negative); Urine Protein 30 (1+) mg/dL (Neg-Trace)
[2024-01-23 10:30] LABS: Bacteria Urine Trace (None Seen); Hyaline Casts Urine 0-2 /LPF (0-2); RBC Urine 0-2 /HPF (0-2); Squamous Epithelial Cell Urine 0-2 /HPF (0-2); UACC Culture Trigger YES
[2024-01-23 10:38] LABS: Alanine Aminotransferase 42 U/L (0-40); Albumin Level 3.6 g/dL (3.5-5.0); Alkaline Phosphatase 80 U/L (39-117); Aspartate Amino Transferase 53 U/L (5-37); Bilirubin Direct 0.4 mg/dL (0.0-0.5); Blood Urea Nitrogen 17 mg/dL (9-16); Calcium 9.5 mg/dL (8.4-10.2); Creatinine Clr Calc Pharmacy 82.7; Estimated Glomerular Filt Rate > 60; Ethanol < 10 mg/dL; Glucose Random 165 mg/dL (60-115); Lipase 28 U/L (8-78); Total Protein 6.7 g/dL (6.5-8.0)
[2024-01-23 10:51] LABS: Influenza A PCR NEGATIVE (Negative); Influenza B PCR NEGATIVE (Negative); Resp Syncy Virus RNA Qual PCR NEGATIVE (Negative); SARS COV2 PCR INHOUSE NEGATIVE (Negative)
[2024-01-23 10:56] LABS: Anion Gap 15 (12-20); Carbon Dioxide 26 mmol/L (22-29); Chloride 91 mmol/L (96-108); Potassium 3.3 mmol/L (3.3-5.1); Sodium 129 mmol/L (135-145)
[2024-01-23 13:55] VITALS: BP 117/77; PULSE 68; RESP 16; O2SAT 100
[2024-01-23 14:16] LABS: Magnesium 1.6 mg/dL (1.6-2.6)
[2024-01-23 14:47] LABS: Venous Blood Gas Refer to POC result
[2024-01-23 14:50] LABS: VBG Base Excess 6.5 mmol/L; VBG HCO3 30 mmol/L (22-26); VBG pCO2 41 mmHg; VBG pH 7.47 (7.32-7.43); VBG pO2 38 mmHg
[2024-01-23] MEDS: Lactated Ringers 500 ML 999 ML IV (14:59)
[2024-01-23 15:04] LABS: Salicylate < 5.0 mg/dL (15-30)
[2024-01-23 15:42] LABS: Amphetamine Screen Urine Not Detected (Not Detect); Barbiturates, Urine Not Detected (Not Detect); Benzodiazepines Screen Urine Not Detected (Not Detect); Buprenorphine Scr Positive (Not Detect); Cannabinoid Screen Urine Not Detected (Not Detect); Cocaine Screen Urine Not Detected (Not Detect); Fentanyl, urine Not Detected (Not Detect); Methadone Screen, Urine Not Detected (Not Detect); Opiate Screen Urine Not Detected (Not Detect); Oxycodone Screen Urine Not Detected (Not Detect); Phencyclidine Screen Urine Not Detected (Not Detect)
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
[2024-01-23 15:45] LABS: Ammonia 25 umol/L (13-55)
[2024-01-23 15:46] VITALS: TEMP 36.8
[2024-01-23 16:11] LABS: Creatinine Urine 103.18 mg/dL
[2024-01-23] MEDS: Acetaminophen 325 MG TABLET 650 MG PO (17:02)
[2024-01-23 17:13] LABS: Lactic Acid 2.2 mmol/L (0.5-2.0)
[2024-01-23 17:31] VITALS: BP 149/88; PULSE 76; RESP 20; TEMP 39.3; O2SAT 96
[2024-01-23] MEDS: Lactated Ringers 1,000 ML 100 ML IVCONT (17:32)
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
[2024-01-23] MEDS: levoFLOXacin/D5W 750 MG/150 ML PIGGYBACK 100 MG IV (17:37)
[2024-01-23 18:51] LABS: Reflex Lactate? Lactic Acid Added
[2024-01-23 18:58] VITALS: BP 149/88; PULSE 81; RESP 18; TEMP 39.3; O2SAT 99
[2024-01-23] MEDS: LORazepam 1 MG TABLET 2 MG PO (19:29)
--- NOTE | 2024-01-23 19:50 | PC.NURSE ---
this RN asked pt when his last drink was. He refused to answer.
[2024-01-23] MEDS: Enoxaparin Sodium 40 MG/0.4 ML SYRINGE SUBCUT (20:04)
[2024-01-23] MEDS: cefTRIAXone sodium 1 GM in 0.9 % Sodium Chloride 50 ML IV (20:06)
[2024-01-23] MEDS: vancomycin/NS 2,000 MG/500 ML PLAST..BAG 250 MG IV (21:03)
[2024-01-23 21:27] LABS: Glucose, Whole Blood 199 mg/dL (60-115)
[2024-01-23] MEDS: Insulin Lispro 100 UNIT/ML 3 ML VIAL SUBCUT (21:33)
[2024-01-23] MEDS: Melatonin 3 MG TABLET 6 MG PO (21:40)
--- NOTE | 2024-01-23 22:19 | PHA.MEDREC ---
Pharmacy Consult ? Medication Reconciliation Pharmacy has completed the medication reconciliation. Spoke to patient and confirmed medication list. Patient verified that he is taking butran 20 mcg and 7.5 mcg patches, last application was a few days ago . He said he has been using lantus more (up to 20 units now) because he's not taking good care of his diabetes. He confirmed that he takes tamsulosin bid. He doesn't take eliquis 2.5 mg anymore because it was only for his hip surgery months ago. He also doesn't take acamprosate because it makes him feel sick.
--- NOTE | 2024-01-23 22:29 | PHA.PROG ---
Admission Date/Time: January 23, 2024 18:31 Indication: OTHER Weight in k.9 kg Adjusted body weight in Kg: [place]y body weight in Kg: Obesity Dosing Indication % IBW: Serum Creatinine - Last 168 Hours 01/23/24 10:05 Creatinine 1.18 Estimated CrCl and GFR - Last 168 Hours 01/23/24 10:05 Estim Creat Clear Calc 82.7 Estimated GFR > 60 Vancomycin Loading Dose: 2000 MG Current Vancomycin Dosing Regimen: 1000 MG Q12H Vancomycin Monitoring using AUC goal of 400 - 600 range with trough as surrogate marker: JQT=204 TROUGH=18.7 Date and Time for next Vancomycin Level to be drawn: 01/25/24 @0700 Pharmacist Comments on Vancomycin Plan: Vancomycin dosing will take advantage of [employer] as a clinical decision support tool that uses Bayesian modeling to calculate individual patient's pharmacokinetic parameters and forecast the patient's drug concentration time course with the target goal AUC 24 range of 400 - 600 mg/L/hr.
--- NOTE | 2024-01-23 23:16 | MHC.EDTECH ---
walked into pt room to have him sign belongings list, pt had iv ripped out and leaking on the floor. pt was putting things into the sharps container. pt states its that time of the day assisted the patient back into bed and RN informed.
[2024-01-23 23:57] VITALS: BP 150/78; PULSE 88; RESP 27; TEMP 39.1; O2SAT 99
--- NOTE | 2024-01-23 23:59 | MHC.EDTECH ---
This pct assumed care of f patient at 2300 ,vitals taken Patient was re connected to cleaner laboratory equipment KASSANDRA Vilchis is aware of patient temp of 102.4 ,Telle camera was Placed into Patient room for safety reason .and red sock put on and red sock on wall .
[2024-01-24] VITALS (11 sets, daily range): BP systolic 110–164; BP diastolic 59–93; PULSE 72–91; RESP 15–30; TEMP 36.4–39.9; O2SAT 96–100; BMI 24.1
--- NOTE | 2024-01-24 00:30 | PC.NURSE ---
pt requesting to leave, called his partner to tell her he was discharged and to come get him. he was not. hospitalist here to speak to pt. pt is confused. partner states he is normally a nice man, this is not him . section [address] camera at bedside
--- NOTE | 2024-01-24 00:32 | PC.NURSE ---
pt self removed IV to L forearm, new IV placed. 20g L forearm, RAC still intact.
--- NOTE | 2024-01-24 01:38 | MHC.EDTECH ---
Patient urine sample collected and sent to lab.
[2024-01-24 01:41] LABS: Appearance Urine Clear; Color Urine Yellow; Glucose Urine UA 100 mg/dL (Negative); Leukocyte Esterase Urine Trace (Negative); Nitrite Urine Negative (Negative); PH 6.5 (5.0-9.0); Specific Gravity - Urine <= 1.005 (1.005-1.025); UMIC TRIGGER UACC YES; Urine Blood Negative (Negative); Urine Ketones Negative (Negative); Urine Protein Negative (Neg-Trace)
[2024-01-24 01:46] LABS: Bacteria Urine None Seen (None Seen); Hyaline Casts Urine 0-2 /LPF (0-2); RBC Urine 0-2 /HPF (0-2); Squamous Epithelial Cell Urine 0-2 /HPF (0-2); WBC Urine 0-5 /HPF (0-5)
--- NOTE | 2024-01-24 01:52 | PM.EVENT ---
Event Note Date of Service: 01/24/24 Event Note: The patient is confused with a fever and has threatened to leave against medical advice. His reports that he is not at his baseline mental status. He is not lucid enough to make a sound medical decision, and therefore, a Section 12 was singed for safety and further evaluation Time Spent With Patient Time: Total time managing care of this patient today ____ minutes.
--- NOTE | 2024-01-24 02:17 | MHC.EDTECH ---
0200 rounding done ,vitals taken ,Patient awake ,but resting in bed ,Vitals taken ,RN Mame is aware of Patient high temp od 103 .8 and high resp .all safety measure in Place .
[2024-01-24] MEDS: LORazepam 1 MG TABLET 2 MG PO ×3 (02:41→17:26)
[2024-01-24] MEDS: Lactated Ringers 1,000 ML 100 ML IVCONT ×2 (02:44→13:13)
--- NOTE | 2024-01-24 02:53 | PC.NURSE ---
MD aware of elevated temp >103
--- NOTE | 2024-01-24 04:20 | MHC.EDTECH ---
0400 rounding done ,patient attempting to climb out of bed vitals ,RN beatrice aware of pt high temp and resp ,Patient was incontinent of urine ,care given and bedding change ,gown change ,all safety measure in Place .
--- NOTE | 2024-01-24 04:35 | PC.NURSE ---
provider at bedside to eval high temp and increasing AMS. noticed sores on mouth and nose at this time.
[2024-01-24 04:54] LABS: Anion Gap 14 (12-20); Blood Urea Nitrogen 15 mg/dL (9-16); Calcium 8.9 mg/dL (8.4-10.2); Carbon Dioxide 24 mmol/L (22-29); Chloride 97 mmol/L (96-108); Creatinine Clr Calc Pharmacy 109.7; Estimated Glomerular Filt Rate > 60; Glucose Random 208 mg/dL (60-115); Potassium 3.2 mmol/L (3.3-5.1); Sodium 132 mmol/L (135-145)
[2024-01-24] MEDS: Acetaminophen 1,000 MG/100 ML PIGGYBACK 400 MG IV (05:01)
--- NOTE | 2024-01-24 05:16 | MHC.EDTECH ---
This pct set up and assist Provider Stokes with Patient lp ,sample collected and sent to lab .Per Dr Duffy Patient was hooked up to cooling blanket to decrease Pt fever .
--- NOTE | 2024-01-24 05:19 | PM.EVENT ---
Event Note Date of Service: 01/24/24 Event Note: Pt has been persistently febrile and confused, fever presently 102.9, reevaluated and noted some blisters on lips (see pic) and tip of nose, raising concern for herpes encephalitis. ED doc has performed a bed side LP, adding Acyclovir 10 mg/ke q8. IV tylenol, cooling blanket and ID consult Time Spent With Patient Time: Total time managing care of this patient today ____ minutes.
--- NOTE | 2024-01-24 05:24 | PC.NURSE ---
LP done at bedside by MD venegas. samples sent to lab. cooling blanket initiated, rectal probe in place. temp 102.0, 10 mins after IV Tylenol infusion and cooling blanket. 3rd IV placed to R upper arm, 20g
[2024-01-24 05:34] LABS: Glucose CSF 104 mg/dL; Total Protein CSF 26.6 mg/dL (15-45)
[2024-01-24 05:43] LABS: CSF Appearance Clear, Colorless; CSF Tube # 2
[2024-01-24 05:55] LABS: Appearance CSF CLEAR; CSF Tube # 1; Color CSF COLORLESS; Lymphocytes CSF 100 %; Red Blood Cell CSF 3 MM*3; White Blood Cell CSF 1 MM*3
[2024-01-24 05:56] LABS: Appearance CSF CLEAR; CSF Tube # 4; Color CSF COLORLESS; Red Blood Cell CSF 0 MM*3; White Blood Cell CSF 0 MM*3
--- NOTE | 2024-01-24 05:57 | PC.NURSE ---
pt incont of urine, trying to get out of bed, assist with changing and washing, assist back into bed. pt more alert at this time. knows the month and year compared to earlier when he did not. temp 101.1 according to cooling blanket
--- NOTE | 2024-01-24 05:59 | PC.NURSE ---
CIWA done, disorientation and sweating could be d/t fever. scored 6
[2024-01-24] MEDS: Potassium Chloride Packet 20 MEQ PACKET 40 MEQ PO (06:05)
[2024-01-24 06:35] LABS: Cryptococcus neoformans/gattii Not Detected (Not Detect.); Enterovirus Not Detected (Not Detect.); Escherichia coli K1 Not Detected (Not Detect.); Haemophilus influenzae Not Detected (Not Detect.); Herpes simplex virus 1 Not Detected (Not Detect.); Herpes simplex virus 2 Not Detected (Not Detect.); Human herpesvirus 6 Not Detected (Not Detect.); Human parechovirus Not Detected (Not Detect.); Listeria monocytogenes Not Detected (Not Detect.); Neisseria meningitidis Not Detected (Not Detect.); Streptococcus agalactiae Not Detected (Not Detect.); Streptococcus pneumoniae Not Detected (Not Detect.); Varicella zoster virus Not Detected (Not Detect.)
--- NOTE | 2024-01-24 07:05 | PC.NURSE ---
spoke with pt's partner. she is concerned about his alcohol w/d hallucinations, and would also like him to see urology while here. reports he had an appt on Saturday but they did not go because of his high fever. reporting inability to empty bladder and is newly incontinent at night . she also thinks he is taking to many medications at home for pain for old surgeries that he no longer needs . she will be in later today to see pt.
--- NOTE | 2024-01-24 07:11 | PC.NURSE ---
temp 99.6
--- NOTE | 2024-01-24 07:21 | PC.NURSE ---
Assumed care of patient, patient had slid cooling blanket out from under him. Cooling blanket placed back under patient. Asked patient about any pain patches he uses at home states i took patches off a few days ago states did not put new ones on because he has not been home for weeks. Patient alert but slow to respond. VSS
[2024-01-24 07:33] LABS: Glucose, Whole Blood 195 mg/dL (60-115)
[2024-01-24] MEDS: Insulin Lispro 100 UNIT/ML 3 ML VIAL SUBCUT ×4 (08:04→21:36)
[2024-01-24] MEDS: Escitalopram Oxalate 5 MG TABLET PO (08:05)
[2024-01-24] MEDS: atenoloL 100 MG TABLET PO (08:05)
[2024-01-24] MEDS: 0.9 % Sodium Chloride Flush 3 ML SYRINGE IVFLUSH ×2 (08:05→17:26)
[2024-01-24] MEDS: Tamsulosin HCL 0.4 MG CAPSULE PO ×2 (08:06→21:36)
[2024-01-24] MEDS: allopurinoL 100 MG TABLET PO (08:06)
[2024-01-24] MEDS: Naltrexone HCl 50 MG TABLET PO (08:08)
[2024-01-24] MEDS: vancomycin HCL 1,000 MG in 0.9 % Sodium Chloride 250 ML 270 MG IV ×2 (09:09→22:40)
--- NOTE | 2024-01-24 09:25 | PC.NURSE ---
Patients gf called stating patient caught a bat in his hands in july and received the rabies series. states that she is also concerned that he could have an infection in his hip after his last hip surgery. also stating he needs to be seen by urology. Provider at bedside aware of gf`s requests.Gf called to bring in home medication patches- stating she will bring them in when she come to visit
--- NOTE | 2024-01-24 10:56 | P.PNIM_ITS ---
Subjective Subjective Date of Service: 01/24/24 Interval History: fevers overnight, increased confusion Physical Exam 2 Vital Signs: Vital Signs: Last Vital Signs Temp 99 F 01/24/24 07:20 Pulse 76 01/24/24 08:33 Resp 15 01/24/24 08:33 BP 116/65 01/24/24 07:20 Pulse Ox 98 01/24/24 08:33 O2 Del Method Room Air 01/24/24 08:33 BMI result Body Mass Index 24.1 alert, strange affect, not participatory, no focal deficit, refusing to answer questions Objective Data Active Medications Acetaminophen (Acetaminophen 325 Mg Tablet) 650 mg PO Q6H PRN PRN Reason: Pain, Mild (Pain Scale 1-3), fever or headache Allopurinol (Allopurinol 100 Mg Tablet) 100 mg PO DAILY [facility] Last Admin: 01/24/24 08:06 Dose: 100 mg Documented By: MICHELLE Atenolol (Atenolol 100 Mg Tablet) 100 mg PO DAILY [facility]; Protocol Last Admin: 01/24/24 08:05 Dose: 100 mg Documented By: MICHELLE Benzonatate (Benzonatate 100 Mg Capsule) 100 mg PO TID PRN PRN Reason: Cough Cyclobenzaprine HCl (Cyclobenzaprine Hcl 10 Mg Tablet) 10 mg PO BID PRN PRN Reason: Muscle Spasm Enoxaparin Sodium (Enoxaparin Sodium 40 Mg/0.4 Ml Syringe) 40 mg SUBCUT Q24H [facility] Last Admin: 01/23/24 20:04 Dose: 40 mg Documented By: RAIZA Escitalopram Oxalate (Escitalopram Oxalate 5 Mg Tablet) 5 mg PO DAILY [facility] Last Admin: 01/24/24 08:05 Dose: 5 mg Documented By: MICHELLE Fluticasone/Vilanterol (Fluticasone/Vilanterol 100/25 Blst.W.Dev) 1 puff INHALE RDAILY [facility] Glucose (Glucose Gel 15 Gm Gel..Gram.) 15 gm PO Q15M PRN; Protocol PRN Reason: per Hypoglycemia Standing Ord. Lactated Ringer's (Lr) 1,000 mls @ 100 mls/hr IVCONT .Q10H [facility] Last Admin: 01/24/24 02:44 Dose: 100 mls/hr Documented By: RAIZA Ceftriaxone Sodium 1 gm/ (Sodium Chloride) 50 mls @ 100 mls/hr IV Q24H [facility] Last Infusion: 01/23/24 21:03 Dose: Infused Documented By: RAIZA Dextrose (D10) 250 mls @ 750 mls/hr IV Q15M PRN; Protocol PRN Reason: per Hypoglycemia Standing Ord. Vancomycin HCl 1,000 mg/ (Sodium Chloride) 270 mls @ 270 mls/hr IV Q12H [facility] Last Infusion: 01/24/24 10:22 Dose: Infused Documented By: MICHELLE Insulin Human Lispro (Insulin Lispro 100 Unit/Ml 3 Ml Vial) 0 unit SUBCUT QIDACHS [facility]; Protocol Last Admin: 01/24/24 08:04 Dose: 2 unit Documented By: MICHELLE Lorazepam (Lorazepam 1 Mg Tablet) 2 mg PO Q8H [facility] Last Admin: 01/24/24 02:41 Dose: 2 mg Documented By: RAIZA Magnesium Hydroxide (Milk Of Magnesia 30 Ml Oral.Susp) 30 ml PO DAILY PRN PRN Reason: Constipation Melatonin (Melatonin 3 Mg Tablet) 6 mg PO BEDTIME PRN PRN Reason: Insomnia Last Admin: 01/23/24 21:40 Dose: 6 mg Documented By: RAIZA Non-Formulary Medication (Buprenorphine) 1 patch TOPICAL Q7D [facility] Non-Formulary Medication (Buprenorphine) 1 patch TRANSDERMA Q7D [facility] Omeprazole (Omeprazole 20 Mg Capsule.Dr) 20 mg PO DAILY@0630 [facility] Ondansetron HCl (Ondansetron Hcl 4 Mg/2 Ml Vial) 4 mg IVPUSH Q8H PRN PRN Reason: Nausea and Vomiting Pharmacy Consult (Consult Rx Vancomycin Dosing) 1 each MISCELLANE DAILY PRN PRN Reason: Consult order Sodium Chloride (0.9 % Sodium Chloride Flush 3 Ml Syringe) 3 ml IVFLUSH QSHIFT [facility] Last Admin: 01/24/24 08:05 Dose: 3 ml Documented By: MICHELLE Tamsulosin HCl (Tamsulosin Hcl 0.4 Mg Capsule) 0.4 mg PO BID [facility] Last Admin: 01/24/24 08:06 Dose: 0.4 mg Documented By: MICHELLE Labs 01/23/24 10:05 01/24/24 04:32 Labs: Laboratory Results - last 24 hr 01/23/24 01/23/24 01/23/24 10:05 14:41 14:46 Hold Purple Top SEE NOTE VBG pH 7.47 H VBG pCO2 41 VBG pO2 38 VBG HCO3 30 H VBG O2 Saturation 69.0 VBG Base Excess 6.5 Anion Gap 15 Estim Creat Clear Calc Estimated GFR POC Glucose Random Glucose Lactic Acid Lactic Acid F/U @ 2Hr Calcium Magnesium 1.6 Ammonia Urine Color Yellow Urine Appearance Clear Urine pH 6.0 Ur Specific [place] 1.015 Urine Protein 30 (1+) H Urine Glucose (UA) Negative Urine Ketones 15 Urine Blood Negative Urine Nitrite Negative Ur Leukocyte Esterase Small (1+) H Urine RBC 0-2 Urine WBC 6-10 H Ur Squamous Epith Cells 0-2 Urine Bacteria Trace Hyaline Casts 0-2 Ur Random Sodium 51.0 Urine Creatinine 103.18 CSF Tube Number CSF Volume CSF Appearance CSF Color CSF WBC CSF RBC CSF Lymphocytes CSF Appearance (b) CSF Glucose CSF Total Protein CSF C.neoform/gat PCR CSF CMV DNA (PCR) CSF Enterovirus (PCR) CSF E. coli K1 (PCR) CSF H. influenzae (PCR) CSF HSV I (PCR) CSF HSV II (PCR) CSF HHV 6 (PCR) CSF L.monocytogenes PCR CSF N. meningitidis PCR CSF Parechovirus (PCR) CSF S. agalactiae (PCR) CSF S. pneumoniae (PCR) CSF VZV (PCR) Salicylates < 5.0 L Urine Opiates Screen Not Detected Ur Buprenorphine Scrn Positive H Ur Oxycodone Screen Not Detected Urine Methadone Screen Not Detected Urine Fentanyl Screen Not Detected Ur Barbiturates Screen Not Detected Ur Phencyclidine Scrn Not Detected Ur Amphetamines Screen Not Detected U Benzodiazepines Scrn Not Detected Urine Cocaine Screen Not Detected U Marijuana (THC) Screen Not Detected 01/23/24 01/23/24 01/23/24 15:24 16:46 19:07 Hold Purple Top VBG pH VBG pCO2 VBG pO2 VBG HCO3 VBG O2 Saturation VBG Base Excess Anion Gap Estim Creat Clear Calc Estimated GFR POC Glucose Random Glucose Lactic Acid 2.2 H* Lactic Acid F/U @ 2Hr 1.0 Calcium Magnesium Ammonia 25 Urine Color Urine Appearance Urine pH Ur Specific [place] Urine Protein Urine Glucose (UA) Urine Ketones Urine Blood Urine Nitrite Ur Leukocyte Esterase Urine RBC Urine WBC Ur Squamous Epith Cells Urine Bacteria Hyaline Casts Ur Random Sodium Urine Creatinine CSF Tube Number CSF Volume CSF Appearance CSF Color CSF WBC CSF RBC CSF Lymphocytes CSF Appearance (b) CSF Glucose CSF Total Protein CSF C.neoform/gat PCR CSF CMV DNA (PCR) CSF Enterovirus (PCR) CSF E. coli K1 (PCR) CSF H. influenzae (PCR) CSF HSV I (PCR) CSF HSV II (PCR) CSF HHV 6 (PCR) CSF L.monocytogenes PCR CSF N. meningitidis PCR CSF Parechovirus (PCR) CSF S. agalactiae (PCR) CSF S. pneumoniae (PCR) CSF VZV (PCR) Salicylates Urine Opiates Screen Ur Buprenorphine Scrn Ur Oxycodone Screen Urine Methadone Screen Urine Fentanyl Screen Ur Barbiturates Screen Ur Phencyclidine Scrn Ur Amphetamines Screen U Benzodiazepines Scrn Urine Cocaine Screen U Marijuana (THC) Screen 01/23/24 01/24/24 01/24/24 21:24 01:33 04:32 Hold Purple Top VBG pH VBG pCO2 VBG pO2 VBG HCO3 VBG O2 Saturation VBG Base Excess Anion Gap 14 Estim Creat Clear Calc 109.7 Estimated GFR > 60 POC Glucose 199 H Random Glucose 208 H Lactic Acid Lactic Acid F/U @ 2Hr Calcium 8.9 D Magnesium Ammonia Urine Color Yellow Urine Appearance Clear Urine pH 6.5 Ur Specific [place] <= 1.005 Urine Protein Negative Urine Glucose (UA) 100 H Urine Ketones Negative Urine Blood Negative Urine Nitrite Negative Ur Leukocyte Esterase Trace H Urine RBC 0-2 Urine WBC 0-5 Ur Squamous Epith Cells 0-2 Urine Bacteria None Seen Hyaline Casts 0-2 Ur Random Sodium Urine Creatinine CSF Tube Number CSF Volume CSF Appearance CSF Color CSF WBC CSF RBC CSF Lymphocytes CSF Appearance (b) CSF Glucose CSF Total Protein CSF C.neoform/gat PCR CSF CMV DNA (PCR) CSF Enterovirus (PCR) CSF E. coli K1 (PCR) CSF H. influenzae (PCR) CSF HSV I (PCR) CSF HSV II (PCR) CSF HHV 6 (PCR) CSF L.monocytogenes PCR CSF N. meningitidis PCR CSF Parechovirus (PCR) CSF S. agalactiae (PCR) CSF S. pneumoniae (PCR) CSF VZV (PCR) Salicylates Urine Opiates Screen Ur Buprenorphine Scrn Ur Oxycodone Screen Urine Methadone Screen Urine Fentanyl Screen Ur Barbiturates Screen Ur Phencyclidine Scrn Ur Amphetamines Screen U Benzodiazepines Scrn Urine Cocaine Screen U Marijuana (THC) Screen 01/24/24 01/24/24 01/24/24 04:54 04:54 04:55 Hold Purple Top VBG pH VBG pCO2 VBG pO2 VBG HCO3 VBG O2 Saturation VBG Base Excess Anion Gap Estim Creat Clear Calc Estimated GFR POC Glucose Random Glucose Lactic Acid Lactic Acid F/U @ 2Hr Calcium Magnesium Ammonia Urine Color Urine Appearance Urine pH Ur Specific [place] Urine Protein Urine Glucose (UA) Urine Ketones Urine Blood Urine Nitrite Ur Leukocyte Esterase Urine RBC Urine WBC Ur Squamous Epith Cells Urine Bacteria Hyaline Casts Ur Random Sodium Urine Creatinine CSF Tube Number 2 1 4 CSF Volume 3.0 3.0 CSF Appearance CLEAR CLEAR CSF Color COLORLESS COLORLESS CSF WBC 1 0 CSF RBC 3 0 CSF Lymphocytes 100 CSF Appearance (b) Clear, Colorless CSF Glucose 104 CSF Total Protein 26.6 CSF C.neoform/gat PCR Not Detected CSF CMV DNA (PCR) Not Detected CSF Enterovirus (PCR) Not Detected CSF E. coli K1 (PCR) Not Detected CSF H. influenzae (PCR) Not Detected CSF HSV I (PCR) Not Detected CSF HSV II (PCR) Not Detected CSF HHV 6 (PCR) Not Detected CSF L.monocytogenes PCR Not Detected CSF N. meningitidis PCR Not Detected CSF Parechovirus (PCR) Not Detected CSF S. agalactiae (PCR) Not Detected CSF S. pneumoniae (PCR) Not Detected CSF VZV (PCR) Not Detected Salicylates Urine Opiates Screen Ur Buprenorphine Scrn Ur Oxycodone Screen Urine Methadone Screen Urine Fentanyl Screen Ur Barbiturates Screen Ur Phencyclidine Scrn Ur Amphetamines Screen U Benzodiazepines Scrn Urine Cocaine Screen U Marijuana (THC) Screen 01/24/24 07:28 Hold Purple Top VBG pH VBG pCO2 VBG pO2 VBG HCO3 VBG O2 Saturation VBG Base Excess Anion Gap Estim Creat Clear Calc Estimated GFR POC Glucose 195 H Random Glucose Lactic Acid Lactic Acid F/U @ 2Hr Calcium Magnesium Ammonia Urine Color Urine Appearance Urine pH Ur Specific [place] Urine Protein Urine Glucose (UA) Urine Ketones Urine Blood Urine Nitrite Ur Leukocyte Esterase Urine RBC Urine WBC Ur Squamous Epith Cells Urine Bacteria Hyaline Casts Ur Random Sodium Urine Creatinine CSF Tube Number CSF Volume CSF Appearance CSF Color CSF WBC CSF RBC CSF Lymphocytes CSF Appearance (b) CSF Glucose CSF Total Protein CSF C.neoform/gat PCR CSF CMV DNA (PCR) CSF Enterovirus (PCR) CSF E. coli K1 (PCR) CSF H. influenzae (PCR) CSF HSV I (PCR) CSF HSV II (PCR) CSF HHV 6 (PCR) CSF L.monocytogenes PCR CSF N. meningitidis PCR CSF Parechovirus (PCR) CSF S. agalactiae (PCR) CSF S. pneumoniae (PCR) CSF VZV (PCR) Salicylates Urine Opiates Screen Ur Buprenorphine Scrn Ur Oxycodone Screen Urine Methadone Screen Urine Fentanyl Screen Ur Barbiturates Screen Ur Phencyclidine Scrn Ur Amphetamines Screen U Benzodiazepines Scrn Urine Cocaine Screen U Marijuana (THC) Screen Microbiology Microbiology Results: Microbiology 01/23/24 Unknown Urine Culture - Preliminary Urine clean catch - Clean Catch Midstream Culture in progress. 01/24/24 04:54 Gram Stain - Final Cerebrospinal Fluid CSF Examination - Final Fluid Description - Final CSF Culture - Preliminary No growth after 1 day Assessment and Plan (1) OZZIE (acute kidney injury): Status: Acute Plan 53M PMH hypertension, diabetes, gout, mild intermittent asthma, alcohol dependence, polysubstance dependence, mood disorder presented with fevers and hallucinations Acute toxic metabolic encephalopathy Differential includes urinary tract infection, unspecified viral infection, arthropod borne CSF essentially negative, acyclovir discontinued Continue vancomycin and ceftriaxone Follow-up cultures and ID Alcohol dependence with withdrawal Taper ativan OZZIE Improved DM insulin dvt prophylaxis - lovenox full code reason for continued hospitalization:ams, fevers Quality Stroke Does the patient have a stroke diagnosis?: No VTE Prior VTE?: No VTE Risk Level:: Medical - moderate - high VTE Device Contraindication: Treatment Not Indicated VTE Drug Contraindication: N/A - Med Ordered
[2024-01-24 11:22] LABS: Glucose, Whole Blood 261 mg/dL (60-115)
--- NOTE | 2024-01-24 11:51 | PC.NURSE ---
Girlfriend at bedside , patient continues to be impulsive and needing frequent re-direction, had episode of fecal incontinence while using urinal , has periods of confusion where he states he needs to go upstairs , able to be re-directed for short periods of time
--- NOTE | 2024-01-24 12:53 | PC.NURSE ---
Repositioned in recliner chair, patient calm and cooperative at this time
[2024-01-24 13:24] LABS: Glucose, Whole Blood 239 mg/dL (60-115)
--- NOTE | 2024-01-24 14:31 | PC.NURSE ---
Patient reports that for the last few months he has been having a harder time swallowing meds and food. Provider aware
--- NOTE | 2024-01-24 16:29 | PC.NURSE ---
infection control recommends respiratory viral panel, Dr. Peng stating to swab in ED and patient okay to be admitted upstairs after being swabbed
[2024-01-24 17:37] LABS: Glucose, Whole Blood 223 mg/dL (60-115)
[2024-01-24 21:14] LABS: Lyme Abs Screen <0.90 index
[2024-01-24 21:26] LABS: Glucose, Whole Blood 197 mg/dL (60-115)
[2024-01-24] MEDS: LORazepam 0.5 MG TABLET 1.5 MG PO (21:35)
[2024-01-24] MEDS: Enoxaparin Sodium 40 MG/0.4 ML SYRINGE SUBCUT (21:35)
[2024-01-24] MEDS: cefTRIAXone sodium 1 GM in 0.9 % Sodium Chloride 50 ML IV (21:36)
[2024-01-25 02:53] LABS: A. Phagocytphilium DNA,RT-PCR NOT DETECTED (NOT DETECTED); Babesia Microti DNA, RT-PCR NOT DETECTED (NOT DETECTED); Borrelia Miyamotoi,DNA RT-PCR NOT DETECTED (NOT DETECTED); E.Chaffeensis DNA RT-PCR NOT DETECTED (NOT DETECTED); Lyme(Borrelia ssp)DNA RT-PCR NOT DETECTED (NOT DETECTED)
[2024-01-25 03:33] VITALS: BP 139/82; PULSE 84; RESP 20; TEMP 38.3; O2SAT 97
[2024-01-25] MEDS: LORazepam 0.5 MG TABLET 1.5 MG PO (05:40)
[2024-01-25] MEDS: Acetaminophen 325 MG TABLET 650 MG PO (05:40)
[2024-01-25] MEDS: Omeprazole 20 MG CAPSULE.DR PO (05:40)
[2024-01-25 06:40] VITALS: TEMP 37.3
[2024-01-25 07:27] LABS: Hematocrit 31.3 % (42.0-52.0); Hemoglobin 11.3 g/dl (14.0-18.0); Mean Corpuscular HGB Conc 36.1 g/dl (31.0-36.0); Mean Corpuscular Hemoglobin 30.7 pg (27.0-33.0); Mean Corpuscular Volume 85.1 fL (80.0-98.0); Mean Platelet Volume 10.6 fL (9.4-12.4); Platelet Count 125 X10*3/uL (160-400); Red Blood Count 3.68 X10*6/uL (4.60-5.80); Red Cell Distribution Width 11.9 % (11.0-16.0); White Blood Count 7.6 X10*3/uL (4.8-10.8)
[2024-01-25 07:39] LABS: Glucose, Whole Blood 257 mg/dL (60-115)
[2024-01-25] MEDS: allopurinoL 100 MG TABLET PO (07:48)
[2024-01-25] MEDS: atenoloL 100 MG TABLET PO (07:48)
[2024-01-25] MEDS: Lactated Ringers 1,000 ML 100 ML IVCONT ×2 (07:48)
[2024-01-25] MEDS: Tamsulosin HCL 0.4 MG CAPSULE PO ×2 (07:48→20:20)
[2024-01-25] MEDS: Insulin Lispro 100 UNIT/ML 3 ML VIAL SUBCUT ×4 (07:49→21:21)
[2024-01-25] MEDS: 0.9 % Sodium Chloride Flush 3 ML SYRINGE IVFLUSH ×3 (07:49→20:21)
[2024-01-25] MEDS: Escitalopram Oxalate 5 MG TABLET PO (07:49)
[2024-01-25 07:54] VITALS: BP 155/91; PULSE 74; RESP 18; TEMP 37.3; O2SAT 97
[2024-01-25 07:59] LABS: Alanine Aminotransferase 39 U/L (0-40); Albumin Level 2.7 g/dL (3.5-5.0); Alkaline Phosphatase 61 U/L (39-117); Anion Gap 12 (12-20); Aspartate Amino Transferase 36 U/L (5-37); Bilirubin Direct 0.3 mg/dL (0.0-0.5); Bilirubin Total 0.6 mg/dL (0.0-1.0); Blood Urea Nitrogen 11 mg/dL (9-16); Calcium 8.7 mg/dL (8.4-10.2); Carbon Dioxide 25 mmol/L (22-29); Chloride 102 mmol/L (96-108); Creatinine Clr Calc Pharmacy 116.2; Estimated Glomerular Filt Rate > 60; Glucose Fasting 289 mg/dL (60-99); Glucose Random 287 mg/dL (60-115); Potassium 3.2 mmol/L (3.3-5.1); Sodium 136 mmol/L (135-145); Total Protein 5.2 g/dL (6.5-8.0)
[2024-01-25 08:30] LABS: Lactate Dehydrogenase 157 U/L (118-273)
--- NOTE | 2024-01-25 10:59 | P.PNIM_ITS ---
Subjective Subjective Date of Service: 01/25/24 Interval History: fevers overnight, increased confusion Physical Exam 2 Vital Signs: Vital Signs: Last Vital Signs Temp 99.2 F 01/25/24 07:54 Pulse 74 01/25/24 07:54 Resp 18 01/25/24 07:54 BP 155/91 H 01/25/24 07:54 Pulse Ox 97 01/25/24 07:54 O2 Del Method Room Air 01/25/24 07:54 BMI result Body Mass Index 24.1 alert, strange affect, not participatory, no focal deficit, refusing to answer questions Objective Data Active Medications Acetaminophen (Acetaminophen 325 Mg Tablet) 650 mg PO Q6H PRN PRN Reason: Pain, Mild (Pain Scale 1-3), fever or headache Last Admin: 01/25/24 05:40 Dose: 650 mg Documented By: RELL Allopurinol (Allopurinol 100 Mg Tablet) 100 mg PO DAILY [facility] 234 BEDS AT THE [facility] Last Admin: 01/25/24 07:48 Dose: 100 mg Documented By: RICKEY Atenolol (Atenolol 100 Mg Tablet) 100 mg PO DAILY [facility]S [facility]CLUDE 234 BEDS AT THE [facility]; Protocol Last Admin: 01/25/24 07:48 Dose: 100 mg Documented By: RICKEY Benzonatate (Benzonatate 100 Mg Capsule) 100 mg PO TID PRN PRN Reason: Cough Cyclobenzaprine HCl (Cyclobenzaprine Hcl 10 Mg Tablet) 10 mg PO BID PRN PRN Reason: Muscle Spasm Enoxaparin Sodium (Enoxaparin Sodium 40 Mg/0.4 Ml Syringe) 40 mg SUBCUT Q24H [facility]S INCLUDE 234 BEDS AT THE [facility] Last Admin: 01/24/24 21:35 Dose: 40 mg Documented By: RELL Escitalopram Oxalate (Escitalopram Oxalate 5 Mg Tablet) 5 mg PO DAILY [facility]S [facility]CLUDE 234 BEDS AT THE [facility] Last Admin: 01/25/24 07:49 Dose: 5 mg Documented By: RICKEY Fluticasone/Vilanterol (Fluticasone/Vilanterol 100/25 Blst.W.Dev) 1 puff INHALE RDAILY [facility]S [facility]CLUDE 234 BEDS AT THE [facility] Last Admin: 01/25/24 07:53 Dose: Not Given Documented By: PAOLO Non-Admin Reason: Med Not Available Glucose (Glucose Gel 15 Gm Gel..Gram.) 15 gm PO Q15M PRN; Protocol PRN Reason: per Hypoglycemia Standing Ord. Lactated Ringer's (Lr) 1,000 mls @ 100 mls/hr IVCONT .Q10H [facility]S [facility]CLUDE 234 BEDS AT THE [facility] Last Admin: 01/25/24 07:48 Dose: 100 mls/hr Documented By: RICKEY Dextrose (D10) 250 mls @ 750 mls/hr IV Q15M PRN; Protocol PRN Reason: per Hypoglycemia Standing Ord. Ceftriaxone Sodium 1 gm/ (Sodium Chloride) 50 mls @ 100 mls/hr IV Q24H [facility]S INCLUDE 234 BEDS AT THE [facility] Last Infusion: 01/24/24 23:37 Dose: Infused Documented By: RELL Insulin Human Lispro (Insulin Lispro 100 Unit/Ml 3 Ml Vial) 0 unit SUBCUT QIDACHS COUNTS INCLUDE 234 BEDS AT THE [facility]; Protocol Last Admin: 01/25/24 07:49 Dose: 6 unit Documented By: RICKEY Lorazepam (Lorazepam 0.5 Mg Tablet) 1.5 mg PO Q8H [facility]S INCLUDE 234 BEDS AT THE [facility] Last Admin: 01/25/24 05:40 Dose: 1.5 mg Documented By: RELL Magnesium Hydroxide (Milk Of Magnesia 30 Ml Oral.Susp) 30 ml PO DAILY PRN PRN Reason: Constipation Melatonin (Melatonin 3 Mg Tablet) 6 mg PO BEDTIME PRN PRN Reason: Insomnia Last Admin: 01/23/24 21:40 Dose: 6 mg Documented By: RAIZA Non-Formulary Medication (Buprenorphine) 1 patch TOPICAL Q7D COUNTS INCLUDE 234 BEDS AT THE [facility] Non-Formulary Medication (Buprenorphine) 1 patch TRANSDERMA Q7D COUNTS INCLUDE 234 BEDS AT THE [facility] Omeprazole (Omeprazole 20 Mg Capsule.Dr) 20 mg PO DAILY@0630 COUNTS INCLUDE 234 BEDS AT THE [facility] Last Admin: 01/25/24 05:40 Dose: 20 mg Documented By: RELL Ondansetron HCl (Ondansetron Hcl 4 Mg/2 Ml Vial) 4 mg IVPUSH Q8H PRN PRN Reason: Nausea and Vomiting Sodium Chloride (0.9 % Sodium Chloride Flush 3 Ml Syringe) 3 ml IVFLUSH QSHIFT COUNTS INCLUDE 234 BEDS AT THE [facility] Last Admin: 01/25/24 07:49 Dose: 3 ml Documented By: RICKEY Tamsulosin HCl (Tamsulosin Hcl 0.4 Mg Capsule) 0.4 mg PO BID COUNTS INCLUDE 234 BEDS AT THE [facility] Last Admin: 01/25/24 07:48 Dose: 0.4 mg Documented By: RICKEY Valacyclovir HCl (Valacyclovir Hcl 1,000 Mg Tablet) 1,000 mg PO Q8H [facility] 01/25/24 07:06 01/25/24 07:06 Labs: Laboratory Results - last 24 hr 01/23/24 01/24/24 01/24/24 14:41 11:18 13:08 MCV MCH MCHC RDW Plt Count MPV Absolute Nucleated RBC Nucleated RBC % (auto) Anion Gap Estim Creat Clear Calc Estimated GFR POC Glucose 261 H 239 H Random Glucose Fasting Glucose Calcium Total Bilirubin Direct Bilirubin AST ALT Alkaline Phosphatase Lactate Dehydrogenase Total Protein Albumin Random Vancomycin A.phagocytophil DNA PCR NOT DETECTED Babesia microti DNA PCR NOT DETECTED Borrelia sp DNA (PCR) NOT DETECTED Lyme Screen IgG & IgM <0.90 Borrelia miyamotoi (PCR) NOT DETECTED E.chaffeensis DNA (PCR) NOT DETECTED Tick-borne Disease PCR SEE NOTE 01/24/24 01/24/24 01/25/24 17:16 21:18 07:06 MCV 85.1 MCH 30.7 MCHC 36.1 H RDW 11.9 Plt Count 125 L MPV 10.6 Absolute Nucleated RBC 0.000 Nucleated RBC % (auto) 0.0 Anion Gap 12 Estim Creat Clear Calc 116.2 Estimated GFR > 60 POC Glucose 223 H 197 H Random Glucose 287 H Fasting Glucose 289 H Calcium 8.7 Total Bilirubin 0.6 Direct Bilirubin 0.3 AST 36 ALT 39 Alkaline Phosphatase 61 Lactate Dehydrogenase 157 Total Protein 5.2 L Albumin 2.7 L Random Vancomycin 8.0 L A.phagocytophil DNA PCR Babesia microti DNA PCR Borrelia sp DNA (PCR) Lyme Screen IgG & IgM Borrelia miyamotoi (PCR) E.chaffeensis DNA (PCR) Tick-borne Disease PCR 01/25/24 07:14 MCV MCH MCHC RDW Plt Count MPV Absolute Nucleated RBC Nucleated RBC % (auto) Anion Gap Estim Creat Clear Calc Estimated GFR POC Glucose 257 H Random Glucose Fasting Glucose Calcium Total Bilirubin Direct Bilirubin AST ALT Alkaline Phosphatase Lactate Dehydrogenase Total Protein Albumin Random Vancomycin A.phagocytophil DNA PCR Babesia microti DNA PCR Borrelia sp DNA (PCR) Lyme Screen IgG & IgM Borrelia miyamotoi (PCR) E.chaffeensis DNA (PCR) Tick-borne Disease PCR Microbiology Microbiology Results: Microbiology 01/23/24 Unknown Urine Culture - Preliminary Urine clean catch - Clean Catch Midstream Enterococcus/Streptococcus sp 01/24/24 04:54 Gram Stain - Final Cerebrospinal Fluid CSF Examination - Final Fluid Description - Final CSF Culture - Preliminary No growth after 2 days 01/23/24 16:46 Blood Culture - Preliminary Blood - Venous No growth after 24 hours. 01/23/24 16:46 Blood Culture - Preliminary Blood - Venous No growth after 24 hours. Assessment and Plan (1) OZZIE (acute kidney injury): Status: Acute Plan 53M PMH hypertension, diabetes, gout, mild intermittent asthma, alcohol dependence, polysubstance dependence, mood disorder presented with fevers and hallucinations Acute toxic metabolic encephalopathy Differential includes urinary tract infection, unspecified viral infection, arthropod borne - tick screen negative CSF essentially negative, acyclovir discontinued Continue ceftriaxone blood cultures negative - vancomycin stopped ID check gladis, RF, ct abd pelvis and chest herpes oralis valacyclovir Alcohol dependence with withdrawal Taper ativan OZZIE Improved DM insulin dvt prophylaxis - lovenox full code reason for continued hospitalization:ams, fevers Quality Stroke Does the patient have a stroke diagnosis?: No VTE Prior VTE?: No VTE Risk Level:: Medical - moderate - high VTE Device Contraindication: Treatment Not Indicated VTE Drug Contraindication: N/A - Med Ordered
[2024-01-25 11:20] LABS: Adenovirus PCR Not Detected (Not Detect.); Bordetella parapertussis PCR Not Detected (Not Detect.); Bordetella pertussis PCR Not Detected (Not Detect.); Chlamydia pneumoniae PCR Not Detected (Not Detect.); Coronavirus 229E PCR Not Detected (Not Detect.); Coronavirus HKU1 PCR Not Detected (Not Detect.); Coronavirus NL63 PCR Not Detected (Not Detect.); Coronavirus OC43 PCR Not Detected (Not Detect.); Human metapneumovirus PCR Not Detected (Not Detect.); Influenza A PCR Not Detected (Not Detect.); Influenza B PCR Not Detected (Not Detect.); Mycoplasma pneumoniae PCR Not Detected (Not Detect.); Parainfluenza 1 PCR Not Detected (Not Detect.); Parainfluenza 2 PCR Not Detected (Not Detect.); Parainfluenza 3 PCR Not Detected (Not Detect.); Parainfluenza 4 PCR Not Detected (Not Detect.); RSV PCR Not Detected (Not Detect.); Rhino/Enterovirus PCR Not Detected (Not Detect.)
[2024-01-25 11:29] LABS: SARS-CoV-2 PCR Not Detected (Not Detect.)
[2024-01-25 11:33] LABS: Glucose, Whole Blood 211 mg/dL (60-115)
[2024-01-25 12:00] VITALS: BP 123/71; PULSE 72; RESP 20; TEMP 37.4; O2SAT 96
[2024-01-25] MEDS: LORazepam 1 MG TABLET PO ×2 (12:12→20:20)
[2024-01-25] MEDS: valACYclovir HCL 1,000 MG TABLET 1000 MG PO ×2 (12:12→20:20)
[2024-01-25] MEDS: iohexoL 350 MG/ML 75 ML INFUS..BTL 85 ML IV (13:42)
[2024-01-25 15:18] LABS: Lyme (B. burgdorferi) PCR NOT DETECTED (NOT DETECTED)
[2024-01-25 15:41] VITALS: BP 159/90; PULSE 80; RESP 19; TEMP 37.6; O2SAT 97
[2024-01-25 16:30] LABS: Glucose, Whole Blood 235 mg/dL (60-115)
[2024-01-25 19:17] VITALS: BP 157/90; PULSE 81; RESP 18; TEMP 36.6; O2SAT 96
[2024-01-25] MEDS: cefTRIAXone sodium 1 GM in 0.9 % Sodium Chloride 50 ML IV (20:20)
[2024-01-25] MEDS: Enoxaparin Sodium 40 MG/0.4 ML SYRINGE SUBCUT (20:21)
[2024-01-25 21:02] LABS: Glucose, Whole Blood 192 mg/dL (60-115)
[2024-01-26] VITALS (7 sets, daily range): BP systolic 114–172; BP diastolic 70–91; PULSE 71–89; RESP 17–22; TEMP 36.1–36.9; O2SAT 96–100
[2024-01-26] MEDS: valACYclovir HCL 1,000 MG TABLET 1000 MG PO ×3 (03:16→21:00)
[2024-01-26] MEDS: LORazepam 1 MG TABLET PO (03:16)
[2024-01-26] MEDS: Omeprazole 20 MG CAPSULE.DR PO (05:53)
[2024-01-26 06:26] LABS: Hematocrit 32.9 % (42.0-52.0); Hemoglobin 11.4 g/dl (14.0-18.0); Mean Corpuscular HGB Conc 34.7 g/dl (31.0-36.0); Mean Corpuscular Hemoglobin 30.2 pg (27.0-33.0); Mean Platelet Volume 10.5 fL (9.4-12.4); Platelet Count 158 X10*3/uL (160-400); Red Blood Count 3.78 X10*6/uL (4.60-5.80); Red Cell Distribution Width 11.7 % (11.0-16.0)
[2024-01-26 07:42] LABS: Rheumatoid Factor < 13.0 IU/mL (<15.0)
[2024-01-26 07:47] LABS: Alanine Aminotransferase 48 U/L (0-40); Albumin Level 2.7 g/dL (3.5-5.0); Alkaline Phosphatase 68 U/L (39-117); Anion Gap 15 (12-20); Aspartate Amino Transferase 40 U/L (5-37); Bilirubin Direct 0.3 mg/dL (0.0-0.5); Bilirubin Total 0.7 mg/dL (0.0-1.0); Blood Urea Nitrogen 10 mg/dL (9-16); C Reactive Protein 15.46 mg/dL (< or = 0.50); Calcium 8.4 mg/dL (8.4-10.2); Carbon Dioxide 24 mmol/L (22-29); Chloride 101 mmol/L (96-108); Creatinine Clr Calc Pharmacy 107.3; Estimated Glomerular Filt Rate > 60; Glucose Fasting 187 mg/dL (60-99); Magnesium 1.4 mg/dL (1.6-2.6); Potassium 3.1 mmol/L (3.3-5.1); Sodium 137 mmol/L (135-145); Total Protein 5.4 g/dL (6.5-8.0)
[2024-01-26 07:59] LABS: Glucose, Whole Blood 190 mg/dL (60-115)
[2024-01-26] MEDS: Fluticasone/Vilanterol 100/25 BLST.W.DEV 1 PUFF INHALE (07:59)
[2024-01-26] MEDS: Magnesium Sulfate/H2O 2 GM/50 ML PIGGYBACK IV (08:21)
[2024-01-26] MEDS: 0.9 % Sodium Chloride Flush 3 ML SYRINGE IVFLUSH ×3 (08:21→20:58)
[2024-01-26] MEDS: Insulin Lispro 100 UNIT/ML 3 ML VIAL SUBCUT ×4 (08:21→21:00)
[2024-01-26] MEDS: Escitalopram Oxalate 5 MG TABLET PO (08:21)
[2024-01-26] MEDS: atenoloL 100 MG TABLET PO (08:22)
[2024-01-26] MEDS: allopurinoL 100 MG TABLET PO (08:22)
[2024-01-26] MEDS: Tamsulosin HCL 0.4 MG CAPSULE PO ×2 (08:22→21:00)
[2024-01-26 09:20] LABS: Thyroid Stimulating Hormone 0.16 uIU/mL (0.32-4.0)
--- NOTE | 2024-01-26 09:28 | HO.PM.IMPN ---
Subjective Subjective Date of Service: 01/26/24 Interval History: still confused, 24hr afebrile Review of Systems Review of Systems: Yes all other systems are reviewed and are negative Physical Exam Vital Signs: Vital Signs: Last Vital Signs Temp 98.5 F 01/26/24 08:00 Pulse 89 01/26/24 08:03 Resp 17 01/26/24 08:03 BP 152/91 H 01/26/24 08:00 Pulse Ox 96 01/26/24 08:00 O2 Del Method Room Air 01/26/24 08:00 BMI result Body Mass Index 24.1 alert, strange affect, not participatory, no focal deficit, refusing to answer questions Objective Data Active Medications Acetaminophen (Acetaminophen 325 Mg Tablet) 650 mg PO Q6H PRN PRN Reason: Pain, Mild (Pain Scale 1-3), fever or headache Last Admin: 01/25/24 05:40 Dose: 650 mg Documented By: RELL Allopurinol (Allopurinol 100 Mg Tablet) 100 mg PO DAILY [facility] Last Admin: 01/26/24 08:22 Dose: 100 mg Documented By: RICKEY Atenolol (Atenolol 100 Mg Tablet) 100 mg PO DAILY [facility]; Protocol Last Admin: 01/26/24 08:22 Dose: 100 mg Documented By: RICKEY Benzonatate (Benzonatate 100 Mg Capsule) 100 mg PO TID PRN PRN Reason: Cough Cyclobenzaprine HCl (Cyclobenzaprine Hcl 10 Mg Tablet) 10 mg PO BID PRN PRN Reason: Muscle Spasm Enoxaparin Sodium (Enoxaparin Sodium 40 Mg/0.4 Ml Syringe) 40 mg SUBCUT Q24H [facility] Last Admin: 01/25/24 20:21 Dose: 40 mg Documented By: RELL Escitalopram Oxalate (Escitalopram Oxalate 5 Mg Tablet) 5 mg PO DAILY [facility] Last Admin: 01/26/24 08:21 Dose: 5 mg Documented By: RICKEY Fluticasone/Vilanterol (Fluticasone/Vilanterol 100/25 Blst.W.Dev) 1 puff INHALE RDAILY [facility] Last Admin: 01/26/24 07:59 Dose: 1 puff Documented By: RAFA Glucose (Glucose Gel 15 Gm Gel..Gram.) 15 gm PO Q15M PRN; Protocol PRN Reason: per Hypoglycemia Standing Ord. Dextrose (D10) 250 mls @ 750 mls/hr IV Q15M PRN; Protocol PRN Reason: per Hypoglycemia Standing Ord. Ceftriaxone Sodium 1 gm/ (Sodium Chloride) 50 mls @ 100 mls/hr IV Q24H [facility] Last Infusion: 01/25/24 21:22 Dose: Infused Documented By: RELL Magnesium Sulfate (Magnesium Sulfate/H2o) 2 gm in 50 mls @ 25 mls/hr IV ONCE ONE Stop: 01/26/24 09:45 Last Admin: 01/26/24 08:21 Dose: 25 mls/hr Documented By: RICKEY Insulin Human Lispro (Insulin Lispro 100 Unit/Ml 3 Ml Vial) 0 unit SUBCUT QIDACHS [facility]; Protocol Last Admin: 01/26/24 08:21 Dose: 2 unit Documented By: RICKEY Lorazepam (Lorazepam 1 Mg Tablet) 1 mg PO Q8H [facility] Last Admin: 01/26/24 03:16 Dose: 1 mg Documented By: RELL Magnesium Hydroxide (Milk Of Magnesia 30 Ml Oral.Susp) 30 ml PO DAILY PRN PRN Reason: Constipation Melatonin (Melatonin 3 Mg Tablet) 6 mg PO BEDTIME PRN PRN Reason: Insomnia Last Admin: 01/23/24 21:40 Dose: 6 mg Documented By: RAIZA Non-Formulary Medication (Buprenorphine) 1 patch TOPICAL Q7D [facility] Non-Formulary Medication (Buprenorphine) 1 patch TRANSDERMA Q7D [facility] Omeprazole (Omeprazole 20 Mg Capsule.) 20 mg PO DAILY@0630 [facility] Last Admin: 01/26/24 05:53 Dose: 20 mg Documented By: RELL Ondansetron HCl (Ondansetron Hcl 4 Mg/2 Ml Vial) 4 mg IVPUSH Q8H PRN PRN Reason: Nausea and Vomiting Sodium Chloride (0.9 % Sodium Chloride Flush 3 Ml Syringe) 3 ml IVFLUSH QSHIFT [facility] Last Admin: 01/26/24 08:21 Dose: 3 ml Documented By: RICKEY Tamsulosin HCl (Tamsulosin Hcl 0.4 Mg Capsule) 0.4 mg PO BID [facility] Last Admin: 01/26/24 08:22 Dose: 0.4 mg Documented By: RICKEY Valacyclovir HCl (Valacyclovir Hcl 1,000 Mg Tablet) 1,000 mg PO Q8H [facility] Last Admin: 01/26/24 03:16 Dose: 1,000 mg Documented By: RELL Labs 01/26/24 05:53 01/26/24 05:53 Labs: Laboratory Results - last 24 hr 01/24/24 01/24/24 01/25/24 04:54 16:37 11:01 MCV MCH MCHC RDW Plt Count MPV Absolute Nucleated RBC Nucleated RBC % (auto) Anion Gap Estim Creat Clear Calc Estimated GFR POC Glucose 211 H Fasting Glucose Calcium Magnesium Total Bilirubin Direct Bilirubin AST ALT Alkaline Phosphatase C-Reactive Protein Total Protein Albumin TSH Fld Lyme DNA (PCR) Rheumatoid Factor Respiratory Panel Hall See Note Adenovirus (Rapid PCR) Not Detected B.pert (TEM-PCR) Not Detected B.parapertussis DNA PCR Not Detected Lyme Disease DNA (PCR) NOT DETECTED C. pneumoniae DNA (PCR) Not Detected Coronavirus OC43 (PCR) Not Detected Coronavirus HKU1 (PCR) Not Detected Coronavirus 229E (PCR) Not Detected Coronavirus NL63 (PCR) Not Detected Human Metapneumovir PCR Not Detected Influenza A (RT-PCR) Not Detected Influenza B (RT-PCR) Not Detected M. pneumoniae (PCR) Not Detected Parainfluenza 1 (PCR) Not Detected Parainfluenza 2 (PCR) Not Detected Parainfluenza 3 (PCR) Not Detected Parainfluenza 4 (PCR) Not Detected RSV (PCR) Not Detected Entero/Rhino (PCR) Not Detected SARS-CoV-2 RNA (RT-PCR) Not Detected 01/25/24 01/25/24 01/26/24 16:16 20:58 05:53 MCV 87.0 MCH 30.2 MCHC 34.7 RDW 11.7 Plt Count 158 L D MPV 10.5 Absolute Nucleated RBC 0.000 Nucleated RBC % (auto) 0.0 Anion Gap 15 Estim Creat Clear Calc 107.3 Estimated GFR > 60 POC Glucose 235 H 192 H Fasting Glucose 187 H Calcium 8.4 Magnesium 1.4 L* Total Bilirubin 0.7 Direct Bilirubin 0.3 AST 40 H ALT 48 H Alkaline Phosphatase 68 C-Reactive Protein 15.46 H Total Protein 5.4 L Albumin 2.7 L TSH 0.16 L Fld Lyme DNA (PCR) Rheumatoid Factor < 13.0 Respiratory Panel Hall Adenovirus (Rapid PCR) B.pert (TEM-PCR) B.parapertussis DNA PCR Lyme Disease DNA (PCR) C. pneumoniae DNA (PCR) Coronavirus OC43 (PCR) Coronavirus HKU1 (PCR) Coronavirus 229E (PCR) Coronavirus NL63 (PCR) Human Metapneumovir PCR Influenza A (RT-PCR) Influenza B (RT-PCR) M. pneumoniae (PCR) Parainfluenza 1 (PCR) Parainfluenza 2 (PCR) Parainfluenza 3 (PCR) Parainfluenza 4 (PCR) RSV (PCR) Entero/Rhino (PCR) SARS-CoV-2 RNA (RT-PCR) 01/26/24 07:21 MCV MCH MCHC RDW Plt Count MPV Absolute Nucleated RBC Nucleated RBC % (auto) Anion Gap Estim Creat Clear Calc Estimated GFR POC Glucose 190 H Fasting Glucose Calcium Magnesium Total Bilirubin Direct Bilirubin AST ALT Alkaline Phosphatase C-Reactive Protein Total Protein Albumin TSH Fld Lyme DNA (PCR) Rheumatoid Factor Respiratory Panel Hall Adenovirus (Rapid PCR) B.pert (TEM-PCR) B.parapertussis DNA PCR Lyme Disease DNA (PCR) C. pneumoniae DNA (PCR) Coronavirus OC43 (PCR) Coronavirus HKU1 (PCR) Coronavirus 229E (PCR) Coronavirus NL63 (PCR) Human Metapneumovir PCR Influenza A (RT-PCR) Influenza B (RT-PCR) M. pneumoniae (PCR) Parainfluenza 1 (PCR) Parainfluenza 2 (PCR) Parainfluenza 3 (PCR) Parainfluenza 4 (PCR) RSV (PCR) Entero/Rhino (PCR) SARS-CoV-2 RNA (RT-PCR) Microbiology Microbiology Results: Microbiology 01/23/24 Unknown Urine Culture - Final Urine clean catch - Clean Catch Midstream Enterococcus faecalis 01/23/24 16:46 Blood Culture - Preliminary Blood - Venous No growth after 48 hours. 01/23/24 16:46 Blood Culture - Preliminary Blood - Venous No growth after 48 hours. 01/24/24 04:54 Gram Stain - Final Cerebrospinal Fluid CSF Examination - Final Fluid Description - Final CSF Culture - Preliminary No growth after 2 days Assessment and Plan (1) OZZIE (acute kidney injury): Status: Acute Plan 53M PMH hypertension, diabetes, gout, mild intermittent asthma, alcohol dependence, polysubstance dependence, mood disorder presented with fevers and hallucinations Acute toxic metabolic encephalopathy Differential includes urinary tract infection, unspecified viral infection, arthropod borne - tick screen negative CSF essentially negative, acyclovir discontinued Continue ceftriaxone urine culture - e faecalis blood cultures negative - vancomycin stopped ID eval check gladis, RF, ct abd pelvis and chest tsh mildly low, check t4 crp elevated - 15 herpes oralis valacyclovir Alcohol dependence with withdrawal Taper ativan OZZIE Improved DM insulin dvt prophylaxis - lovenox full code reason for continued hospitalization:ams Quality Stroke Does the patient have a stroke diagnosis?: No VTE Prior VTE?: No VTE Risk Level:: Medical - moderate - high VTE Device Contraindication: Treatment Not Indicated VTE Drug Contraindication: N/A - Med Ordered
[2024-01-26] MEDS: Potassium Chloride ER 20 MEQ TAB.ER.PRT 40 MEQ PO (09:45)
[2024-01-26 10:41] LABS: Free T4 (Free Thyroxine) 1.24 ng/dL (0.71-1.85)
--- NOTE | 2024-01-26 10:47 | MHC.CM.PN ---
Pt confused at this time, from record, he lives with sig. other, he does not have home health services or DME. No HCP on file, CM to approach later for pt to complete if he is willing and confusion is cleared. DCP: home via family transport, self care. CM to follow for DC needs.
[2024-01-26 11:49] LABS: Glucose, Whole Blood 199 mg/dL (60-115)
[2024-01-26] MEDS: Doxycycline Monohydrate 100 MG CAPSULE PO ×2 (12:58→21:00)
[2024-01-26] MEDS: LORazepam 0.5 MG TABLET PO ×2 (12:58→21:00)
[2024-01-26 16:16] LABS: Glucose, Whole Blood 220 mg/dL (60-115)
[2024-01-26 20:51] LABS: Glucose, Whole Blood 166 mg/dL (60-115)
[2024-01-26] MEDS: cefTRIAXone sodium 1 GM in 0.9 % Sodium Chloride 50 ML IV (20:56)
[2024-01-26] MEDS: Benzonatate 100 MG CAPSULE PO (20:59)
[2024-01-26] MEDS: Enoxaparin Sodium 40 MG/0.4 ML SYRINGE SUBCUT (20:59)
[2024-01-26] MEDS: Melatonin 3 MG TABLET 6 MG PO (20:59)
[2024-01-26] MEDS: Acetaminophen 325 MG TABLET 650 MG PO (20:59)
[2024-01-26] MEDS: Cyclobenzaprine HCl 10 MG TABLET PO (20:59)
[2024-01-27] VITALS (8 sets, daily range): BP systolic 108–165; BP diastolic 60–93; PULSE 66–79; RESP 16–20; TEMP 36.2–37.6; O2SAT 96–98
[2024-01-27] MEDS: valACYclovir HCL 1,000 MG TABLET 1000 MG PO ×2 (05:34→11:29)
[2024-01-27] MEDS: Omeprazole 20 MG CAPSULE.DR PO (05:34)
[2024-01-27 06:27] LABS: Hematocrit 32.3 % (42.0-52.0); Hemoglobin 11.4 g/dl (14.0-18.0); Mean Corpuscular HGB Conc 35.3 g/dl (31.0-36.0); Mean Corpuscular Hemoglobin 30.6 pg (27.0-33.0); Mean Corpuscular Volume 86.6 fL (80.0-98.0); Mean Platelet Volume 10.2 fL (9.4-12.4); Platelet Count 187 X10*3/uL (160-400); Red Blood Count 3.73 X10*6/uL (4.60-5.80); Red Cell Distribution Width 11.7 % (11.0-16.0); White Blood Count 7.8 X10*3/uL (4.8-10.8)
[2024-01-27 06:39] LABS: Anion Gap 13 (12-20); Blood Urea Nitrogen 10 mg/dL (9-16); Calcium 8.5 mg/dL (8.4-10.2); Carbon Dioxide 25 mmol/L (22-29); Chloride 102 mmol/L (96-108); Creatinine Clr Calc Pharmacy 109.7; Estimated Glomerular Filt Rate > 60; Glucose Fasting 223 mg/dL (60-99); Magnesium 1.6 mg/dL (1.6-2.6); Potassium 3.4 mmol/L (3.3-5.1); Sodium 137 mmol/L (135-145)
[2024-01-27 07:28] LABS: Glucose, Whole Blood 204 mg/dL (60-115)
[2024-01-27] MEDS: Fluticasone/Vilanterol 100/25 BLST.W.DEV 1 PUFF INHALE (07:59)
[2024-01-27 08:53] LABS: HIV AB/AG Nonreactive (Nonreactive); HIV Num 1 0.15 S/CO (0.00-0.99)
[2024-01-27 08:56] LABS: Syphilis Screen Nonreactive (Nonreactive)
[2024-01-27] MEDS: atenoloL 100 MG TABLET PO (09:07)
[2024-01-27] MEDS: 0.9 % Sodium Chloride Flush 3 ML SYRINGE IVFLUSH ×3 (09:07→23:04)
[2024-01-27] MEDS: Escitalopram Oxalate 5 MG TABLET PO (09:07)
[2024-01-27] MEDS: allopurinoL 100 MG TABLET PO (09:07)
[2024-01-27] MEDS: Tamsulosin HCL 0.4 MG CAPSULE PO ×2 (09:07→21:21)
[2024-01-27] MEDS: Insulin Lispro 100 UNIT/ML 3 ML VIAL SUBCUT ×4 (09:07→21:24)
[2024-01-27 11:08] LABS: Glucose, Whole Blood 280 mg/dL (60-115)
--- NOTE | 2024-01-27 11:20 | P.PNIM_ITS ---
Subjective Subjective Date of Service: 01/27/24 Interval History: waxing and waning mental status, but overall improved, afebrile Physical Exam 2 Vital Signs: Vital Signs: Last Vital Signs Temp 98.4 F 01/27/24 10:53 Pulse 77 01/27/24 10:53 Resp 18 01/27/24 10:53 BP 108/60 01/27/24 10:53 Pulse Ox 97 01/27/24 10:53 O2 Del Method Room Air 01/27/24 10:53 O2 Flow Rate 1.5 01/26/24 12:00 BMI result Body Mass Index 24.1 alert, strange affect, much more conversational, though at times confused Objective Data Active Medications Acetaminophen (Acetaminophen 325 Mg Tablet) 650 mg PO Q6H PRN PRN Reason: Pain, Mild (Pain Scale 1-3), fever or headache Last Admin: 01/26/24 20:59 Dose: 650 mg Documented By: SAEID Allopurinol (Allopurinol 100 Mg Tablet) 100 mg PO DAILY [facility] BY [facility] Last Admin: 01/27/24 09:07 Dose: 100 mg Documented By: RICKEY Atenolol (Atenolol 100 Mg Tablet) 100 mg PO DAILY [facility]; Protocol Last Admin: 01/27/24 09:07 Dose: 100 mg Documented By: RICKEY Benzonatate (Benzonatate 100 Mg Capsule) 100 mg PO TID PRN PRN Reason: Cough Last Admin: 01/26/24 20:59 Dose: 100 mg Documented By: SAEID Cyclobenzaprine HCl (Cyclobenzaprine Hcl 10 Mg Tablet) 10 mg PO BID PRN PRN Reason: Muscle Spasm Last Admin: 01/26/24 20:59 Dose: 10 mg Documented By: SAEID Doxycycline Monohydrate (Doxycycline Monohydrate 100 Mg Capsule) 100 mg PO Q12H [facility]PL[facility] BY [facility] Last Admin: 01/26/24 21:00 Dose: 100 mg Documented By: SAEID Enoxaparin Sodium (Enoxaparin Sodium 40 Mg/0.4 Ml Syringe) 40 mg SUBCUT Q24H [facility] Last Admin: 01/26/24 20:59 Dose: 40 mg Documented By: SAEID Escitalopram Oxalate (Escitalopram Oxalate 5 Mg Tablet) 5 mg PO DAILY [facility] Last Admin: 01/27/24 09:07 Dose: 5 mg Documented By: RICKEY Fluticasone/Vilanterol (Fluticasone/Vilanterol 100/25 Blst.W.Dev) 1 puff INHALE RDAILY REPL[facility] BY [facility] Last Admin: 01/27/24 07:59 Dose: 1 puff Documented By: RAFA Glucose (Glucose Gel 15 Gm Gel..Gram.) 15 gm PO Q15M PRN; Protocol PRN Reason: per Hypoglycemia Standing Ord. Dextrose (D10) 250 mls @ 750 mls/hr IV Q15M PRN; Protocol PRN Reason: per Hypoglycemia Standing Ord. Ceftriaxone Sodium 1 gm/ (Sodium Chloride) 50 mls @ 100 mls/hr IV Q24H [facility] Last Infusion: 01/26/24 23:03 Dose: Infused Documented By: SAEID Insulin Human Lispro (Insulin Lispro 100 Unit/Ml 3 Ml Vial) 0 unit SUBCUT QIDACHS [facility]; Protocol Last Admin: 01/27/24 09:07 Dose: 4 unit Documented By: RICKEY Lorazepam (Lorazepam 0.5 Mg Tablet) 0.5 mg PO Q8H [facility] Last Admin: 01/27/24 04:55 Dose: Not Given Documented By: SAEID Non-Admin Reason: Patient Refused Magnesium Hydroxide (Milk Of Magnesia 30 Ml Oral.Susp) 30 ml PO DAILY PRN PRN Reason: Constipation Melatonin (Melatonin 3 Mg Tablet) 6 mg PO BEDTIME PRN PRN Reason: Insomnia Last Admin: 01/26/24 20:59 Dose: 6 mg Documented By: SAEID Non-Formulary Medication (Buprenorphine) 1 patch TOPICAL Q7D [facility] BY [facility] Non-Formulary Medication (Buprenorphine) 1 patch TRANSDERMA Q7D REPLAC[facility] BY [facility] Omeprazole (Omeprazole 20 Mg Capsule.Dr) 20 mg PO DAILY@0630 [facility] Last Admin: 01/27/24 05:34 Dose: 20 mg Documented By: SAEID Ondansetron HCl (Ondansetron Hcl 4 Mg/2 Ml Vial) 4 mg IVPUSH Q8H PRN PRN Reason: Nausea and Vomiting Sodium Chloride (0.9 % Sodium Chloride Flush 3 Ml Syringe) 3 ml IVFLUSH QSHIFT REPLACED BY [facility] Last Admin: 01/27/24 09:07 Dose: 3 ml Documented By: RICKEY Tamsulosin HCl (Tamsulosin Hcl 0.4 Mg Capsule) 0.4 mg PO BID REPL[facility]ED BY [facility] Last Admin: 01/27/24 09:07 Dose: 0.4 mg Documented By: RICKEY Valacyclovir HCl (Valacyclovir Hcl 1,000 Mg Tablet) 1,000 mg PO Q8H [facility]PL[facility] BY [facility] Last Admin: 01/27/24 05:34 Dose: 1,000 mg Documented By: SAEID Labs 01/27/24 06:09 01/27/24 06:09 Labs: Laboratory Results - last 24 hr 01/26/24 01/26/24 01/26/24 11:22 15:50 20:43 MCV MCH MCHC RDW Plt Count MPV Absolute Nucleated RBC Nucleated RBC % (auto) Anion Gap Estim Creat Clear Calc Estimated GFR POC Glucose 199 H 220 H 166 H Fasting Glucose Calcium Magnesium T.pallidum Ab (EIA) HIV 1&2 Ab/P24 Ag 4thGn 01/27/24 01/27/24 01/27/24 06:09 07:13 10:53 MCV 86.6 MCH 30.6 MCHC 35.3 RDW 11.7 Plt Count 187 MPV 10.2 Absolute Nucleated RBC 0.000 Nucleated RBC % (auto) 0.0 Anion Gap 13 Estim Creat Clear Calc 109.7 Estimated GFR > 60 POC Glucose 204 H 280 H Fasting Glucose 223 H Calcium 8.5 Magnesium 1.6 T.pallidum Ab (EIA) Nonreactive HIV 1&2 Ab/P24 Ag 4thGn Nonreactive Microbiology Microbiology Results: Microbiology 01/24/24 04:54 Gram Stain - Final Cerebrospinal Fluid CSF Examination - Final Fluid Description - Final CSF Culture - Final No growth after 3 days. 01/23/24 Unknown Urine Culture - Final Urine clean catch - Clean Catch Midstream Enterococcus faecalis Assessment and Plan (1) OZZIE (acute kidney injury): Status: Acute Plan 53M PMH hypertension, diabetes, gout, mild intermittent asthma, alcohol dependence, polysubstance dependence, mood disorder presented with fevers and hallucinations Acute toxic metabolic encephalopathy and SIRS Differential includes urinary tract infection, unspecified viral infection, arthropod borne - tick screen negative but added empiric doxy CSF essentially negative, acyclovir discontinued Continue ceftriaxone urine culture - e faecalis blood cultures negative - vancomycin stopped ID eval check gladis, RF crp elevated - 15 herpes oralis valacyclovir Alcohol dependence with withdrawal Taper ativan OZZIE Improved DM insulin dvt prophylaxis - lovenox full code reason for continued hospitalization:ams Quality Stroke Does the patient have a stroke diagnosis?: No VTE Prior VTE?: No VTE Risk Level:: Medical - moderate - high VTE Device Contraindication: Treatment Not Indicated VTE Drug Contraindication: N/A - Med Ordered
[2024-01-27] MEDS: Doxycycline Monohydrate 100 MG CAPSULE PO (11:29)
--- NOTE | 2024-01-27 11:51 | MHC.CLN ---
NUTRITION CONSULT FOR POOR PO. CONTRIBUTORS TO DECREASE IN PO INCLUDE CHANGE IN MENTAL STATUS, ETOH WD AND ORAL HERPES. DIET=DIABETIC 2000 KCALS. ADDING ENSURE MAX PROTEIN BID TO IMPROVE NUTRITIONAL INTAKE. SUPPLEMENT PROVIDES 300 KCALS, [address] TO MONITOR WEEKLY.
--- NOTE | 2024-01-27 13:37 | MHC.CM.PN ---
EMR reviewed and per MD rounds, pt is not medically cleared for discharge due to ongoing management of altered mental status and ETOH withdrawl.
--- NOTE | 2024-01-27 14:07 | HO.WOUND ---
Wound Consult: Initial 53yr old?[place] [facility] [place] - See progress notes and H&P for detailed history.? Wound consult placed for Injury to lip and nose.? Patient agreeable to assessment and photo documentation.? Patient reports he was unaware they were present - no pain or tenderness noted. Dried stable scabs noted to tip of nose and lower lip. There are no vesicles or blisters noted. No open wounds and no moisture. 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 No topical treatments needed at this time. Re-consult wound care Nurse for wound deterioration or wound changes.
[2024-01-27 15:49] LABS: Glucose, Whole Blood 198 mg/dL (60-115)
[2024-01-27] MEDS: Magnesium Oxide 400 MG TABLET PO (16:30)
[2024-01-27] MEDS: Linezolid 600 MG TABLET PO (16:30)
--- NOTE | 2024-01-27 16:38 | P.CNID_ITS ---
History of Present Illness Data of Consult Service Date: 01/27/24 Requesting physician: Joe Peng Primary Care Provider: Rico Hope MD HPI Reason for consult: fever of unknown origin He presents with fever and confusion. He was exposed to rabies possibly from bat in September but received immune globulins and full shot series. He has urine enterococcus faecalis but no urinary symptoms now. He is HIV negative. He had temperature last two days ago and temperature had been 102.9 with tachycardia. Review of Systems 2 Review of Systems: Yes all other systems are reviewed and are negative [facility] Past Medical History Medical History Chronic SI joint pain Alcoholic pancreatitis Neuropathy Diabetes Anxiety Asthma Polysubstance abuse Gout HTN (hypertension) Family History Family History Other No pertinent family history Surgical History Surgical History S/P insertion of spinal cord stimulator History of hip surgery Social History Social History Household Members: Significant Other Housing: House Do you presently have visiting nurse or other home services: No Alcohol intake: never Patient Tobacco Use Status: Never used Tobacco e-Cigarette/Vaping Use: Never Used service: No Current occupational status: 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: Yes Hearing needs: No Vision needs: No Meds Allergies Allergy/AdvReac Type Severity Reaction Status Date / Time aspirin [ASPIRIN] Allergy Severe SWELLING Verified 01/23/24 09:48 NSAIDS (Non-Steroidal Allergy Severe inflamation Verified 01/23/24 09:48 Anti-Inflamma penicillin G [PENICILLIN G] Allergy Severe DIFFICULTY Verified 01/23/24 09:48 BREATHING Sulfa (Sulfonamide Allergy Severe ANAPHYLAXIS Verified 01/23/24 09:48 Antibiotics) [SULFA (SULFONAMIDE ANTIBIOTICS)] tramadol [TRAMADOL] Allergy Severe DIZZY Verified 01/23/24 09:48 Active Medications: Current Medications Acetaminophen (Acetaminophen 325 Mg Tablet) 650 mg PO Q6H PRN PRN Reason: Pain, Mild (Pain Scale 1-3), fever or headache Last Admin: 01/26/24 20:59 Dose: 650 mg Allopurinol (Allopurinol 100 Mg Tablet) 100 mg PO DAILY [facility] Last Admin: 01/27/24 09:07 Dose: 100 mg Atenolol (Atenolol 100 Mg Tablet) 100 mg PO DAILY [facility]; Protocol Last Admin: 01/27/24 09:07 Dose: 100 mg Benzonatate (Benzonatate 100 Mg Capsule) 100 mg PO TID PRN PRN Reason: Cough Last Admin: 01/26/24 20:59 Dose: 100 mg Cyclobenzaprine HCl (Cyclobenzaprine Hcl 10 Mg Tablet) 10 mg PO BID PRN PRN Reason: Muscle Spasm Last Admin: 01/26/24 20:59 Dose: 10 mg Enoxaparin Sodium (Enoxaparin Sodium 40 Mg/0.4 Ml Syringe) 40 mg SUBCUT Q24H [facility] Last Admin: 01/26/24 20:59 Dose: 40 mg Escitalopram Oxalate (Escitalopram Oxalate 5 Mg Tablet) 5 mg PO DAILY [facility] Last Admin: 01/27/24 09:07 Dose: 5 mg Fluticasone/Vilanterol (Fluticasone/Vilanterol 100/25 Blst.W.Dev) 1 puff INHALE RDAILY [facility] Last Admin: 01/27/24 07:59 Dose: 1 puff Glucose (Glucose Gel 15 Gm Gel..Gram.) 15 gm PO Q15M PRN; Protocol PRN Reason: per Hypoglycemia Standing Ord. Dextrose (D10) 250 mls @ 750 mls/hr IV Q15M PRN; Protocol PRN Reason: per Hypoglycemia Standing Ord. Insulin Human Lispro (Insulin Lispro 100 Unit/Ml 3 Ml Vial) 0 unit SUBCUT QIDACHS [facility]; Protocol Last Admin: 01/27/24 16:30 Dose: 2 unit Linezolid (Linezolid 600 Mg Tablet) 600 mg PO Q12H [facility] Last Admin: 01/27/24 16:30 Dose: 600 mg Lorazepam (Lorazepam 0.5 Mg Tablet) 0.5 mg PO Q12H [facility] Last Admin: 01/27/24 11:36 Dose: Not Given Magnesium Hydroxide (Milk Of Magnesia 30 Ml Oral.Susp) 30 ml PO DAILY PRN PRN Reason: Constipation Magnesium Oxide (Magnesium Oxide 400 Mg Tablet) 400 mg PO BIDPC [facility] Last Admin: 01/27/24 16:30 Dose: 400 mg Melatonin (Melatonin 3 Mg Tablet) 6 mg PO BEDTIME PRN PRN Reason: Insomnia Last Admin: 01/26/24 20:59 Dose: 6 mg Non-Formulary Medication (Buprenorphine) 1 patch TOPICAL Q7D [facility] Non-Formulary Medication (Buprenorphine) 1 patch TRANSDERMA Q7D [facility] Omeprazole (Omeprazole 20 Mg Capsule.) 20 mg PO DAILY@06 [facility] Last Admin: 01/27/24 05:34 Dose: 20 mg Ondansetron HCl (Ondansetron Hcl 4 Mg/2 Ml Vial) 4 mg IVPUSH Q8H PRN PRN Reason: Nausea and Vomiting Sodium Chloride (0.9 % Sodium Chloride Flush 3 Ml Syringe) 3 ml IVFLUSH QSHIFT [facility] Last Admin: 01/27/24 16:30 Dose: 3 ml Tamsulosin HCl (Tamsulosin Hcl 0.4 Mg Capsule) 0.4 mg PO BID [facility] Last Admin: 01/27/24 09:07 Dose: 0.4 mg Home Medications ?Medication ?Instructions ?Recorded ?Confirmed ?Last Taken ?Type pen needle, diabetic 32 gauge x #50 ea 06/20/22 09/25/23 Unknown History 07/26 (Easy Touch) albuterol sulfate 90 mcg/actuation 1 inh inhalation QID PRN Shortness 01/23/24 01/23/24 Unknown History aerosol inhaler Of Breath Or Wheezing cholecalciferol (vitamin D3) 10 10 mcg PO DAILY 01/23/24 01/23/24 01/22/24 History mcg (400 unit) tablet (Vitamin D3) cyclobenzaprine 10 mg tablet 10 mg PO BID PRN Muscle Spasm 01/23/24 01/23/24 Unknown History fluticasone 113mcg-salmeterol 1 inh inhalation BID PRN Shortness 01/23/24 01/23/24 Unknown History 14mcg/actuation breath act,powder Of Breath Or Wheezing sensor insulin glargine 100 unit/mL (3 20 unit subcut QNOON 01/23/24 01/23/24 01/22/24 History mL) subcutaneous pen (Lantus Solostar U-100 Insulin) omeprazole 20 mg capsule,delayed 20 mg PO DAILY@0630 01/23/24 01/23/24 01/22/24 History release Physical Exam 2 Vital Signs: Vital Signs: Last Vital Signs Temp 97.1 F 01/27/24 16:00 Pulse 66 01/27/24 16:00 Resp 18 01/27/24 16:00 BP 165/93 H 01/27/24 16:00 Pulse Ox 97 01/27/24 16:00 O2 Del Method Room Air 01/27/24 16:00 O2 Flow Rate 1.5 01/26/24 12:00 BMI result Body Mass Index 24.1 Const: General: cooperative HEENT: Head: Yes normal to inspection Face and sinus: Yes normal facial exam Mouth: Normal oral and palatal mucosa present Teeth and gingiva: d entition normal Eyes: General: appearance normal, both eyes and all related structures P upils: Equal, round and reactive pupils present Resp: Effort & Inspection: normal respiratory effort Cardio: Rate: regular rate Rhythm: regular rhythm GI: Palpation (GI): Soft to palpation and nontender : General: Yes no CVA tenderness Back/Spine/Pelvis: Back: no CVA tenderness Skin: Other: some herpes labialis lips General skin exam: no rashes or lesions noted Neuro: General: moves all extremities Cranial nerves: Yes Equal, round and reactive pupils present Extrem: General: Yes normal to inspection Psych: Appearance: grossly normal Results Labs 01/27/24 06:09 01/27/24 06:09 Labs: Short CBC 01/27/24 Range/Units 06:09 WBC 7.8 (4.8-10.8) X10*3/uL Hgb 11.4 L (14.0-18.0) g/dl Hct 32.3 L (42.0-52.0) % Plt Count 187 (160-400) X10*3/uL BMP 01/27/24 06:09 Sodium 137 Potassium 3.4 Chloride 102 Carbon Dioxide 25 BUN 10 Creatinine 0.89 Calcium 8.5 Microbiology Microbiology Results: Microbiology 01/24/24 04:54 Cerebrospinal Fluid Gram Stain - Final 01/24/24 04:54 Cerebrospinal Fluid CSF Examination - Final 01/24/24 04:54 Cerebrospinal Fluid Fluid Description - Final 01/24/24 04:54 Cerebrospinal Fluid CSF Culture - Final No growth after 3 days. 01/23/24 Unknown Urine clean catch - Clean Catch Midstream Urine Culture - Final Enterococcus faecalis 01/23/24 16:46 Blood - Venous Blood Culture - Preliminary No growth after 48 hours. 01/23/24 16:46 Blood - Venous Blood Culture - Preliminary No growth after 48 hours. Assessment and Plan (1) OZZIE (acute kidney injury): Status: Acute (2) Fever: Status: Acute (3) Hallucination, visual: Status: Acute Plan Possible enterococcus UTI. ?alcohol w/d or other cause of fever HIV is negative Would give po Linezolid 600 mg bid for 10 d Neurology if not improving,no neurologic infection seen particularly/
[2024-01-27 21:12] LABS: Glucose, Whole Blood 194 mg/dL (60-115)
[2024-01-27] MEDS: Enoxaparin Sodium 40 MG/0.4 ML SYRINGE SUBCUT (21:21)
[2024-01-27] MEDS: Cyclobenzaprine HCl 10 MG TABLET PO (21:21)
[2024-01-27] MEDS: Insulin Glargine,Hum.rec.anlog 100 UNIT/ML 10 ML VIAL 20 UNIT SUBCUT (21:23)
[2024-01-27] MEDS: Acetaminophen 325 MG TABLET 650 MG PO (21:35)
[2024-01-27] MEDS: LORazepam 0.5 MG TABLET PO (23:01)
[2024-01-28] MEDS: Linezolid 600 MG TABLET PO (03:42)
[2024-01-28 04:00] VITALS: BP 122/73; PULSE 68; RESP 20; TEMP 36.6; O2SAT 97
[2024-01-28] MEDS: Omeprazole 20 MG CAPSULE.DR PO (06:34)
--- NOTE | 2024-01-28 06:36 | PC.NURSE ---
Patient AAOX4 with no complaints overnight. Observed walking in the hallway with stand by assist before going to bed. Mental status and behavior have improved over 24 hours. Afebrile. VSS. Insulin Glargine (Lantus ) 20 units given at HS. No signs and symptoms of respiratory distress noted.
[2024-01-28 07:17] LABS: Folate 12.2 ng/mL (> or = 4.0)
[2024-01-28 07:18] LABS: Vitamin B12 > 2000 pg/mL (200-900)
[2024-01-28 07:49] LABS: Glucose, Whole Blood 197 mg/dL (60-115)
[2024-01-28] MEDS: Insulin Lispro 100 UNIT/ML 3 ML VIAL SUBCUT (07:54)
[2024-01-28 08:00] VITALS: BP 149/85; PULSE 69; RESP 16; TEMP 36.4; O2SAT 97
--- NOTE | 2024-01-28 08:33 | PM.EVENT ---
Event Note Date of Service: 01/28/24 Event Note: mental status at baseline, can dc sitter Time Spent With Patient Time: Total time managing care of this patient today ____ minutes.
[2024-01-28] MEDS: Escitalopram Oxalate 5 MG TABLET PO (09:06)
[2024-01-28] MEDS: allopurinoL 100 MG TABLET PO (09:06)
[2024-01-28] MEDS: 0.9 % Sodium Chloride Flush 3 ML SYRINGE IVFLUSH (09:06)
[2024-01-28] MEDS: Magnesium Oxide 400 MG TABLET PO (09:06)
[2024-01-28] MEDS: Tamsulosin HCL 0.4 MG CAPSULE PO (09:06)
[2024-01-28] MEDS: atenoloL 100 MG TABLET PO (09:06)
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
[2024-01-28 11:00] VITALS: BP 105/70; PULSE 66; RESP 16; TEMP 36.4; O2SAT 98
[2024-01-28 11:04] LABS: Glucose, Whole Blood 226 mg/dL (60-115)
--- NOTE | 2024-01-28 11:59 | MHC.CM.PN ---
Pt is medically cleared for discharge home self-care today, he will transport home via family transport.
[2024-01-29 13:13] LABS: Anti Nuclear Antibody Screen NEGATIVE (NEGATIVE)
== END 2024-01-28 11:45 | disposition home or self-care (01) | DRG 463 ==
LOC: HO.ED 16:18 → HO.EDOVER 18:48 → HO.IMC 01-24 13:28
PROVIDERS: Emergency Medicine; Internal Medicine; Admitting Provider Student in an Organized Health Care Education/Training Program; Emergency Provider Internal Medicine; PCP Family Medicine; Visit Provider Internal Medicine
DX: N10 Acute pyelonephritis (principal); G92.8 Other toxic encephalopathy; N17.9 Acute kidney failure, unspecified; E87.1 Hypo-osmolality and hyponatremia; E87.20 Acidosis, unspecified; E11.40 Type 2 diabetes mellitus with diabetic neuropathy, unspecified; B00.1 Herpesviral vesicular dermatitis; B95.2 Enterococcus as the cause of diseases classified elsewhere; F10.239 Alcohol dependence with withdrawal, unspecified; J45.20 Mild intermittent asthma, uncomplicated; E86.0 Dehydration; Z79.4 Long term (current) use of insulin; Z79.899 Other long term (current) drug therapy
CPT/HCPCS: 0241U; 36415; 70450; 71045; 71260; 74177; 80048; 80076; 80179; 80202; 80307; 81001; 82140; 82570; 82607; 82746; 82803; 82945; 82947; 83605; 83615; 83690; 83735; 84157; 84300; 84439; 84443; 85025; 85027; 86038; 86140; 86431; 86617; 86618; 86780; 87015; 87040; 87070; 87086; 87088; 87186; 87205; 87389; 87468; 87469; 87476; 87478; 87483; 87484; 87633; 87798; 89051; 99285; J0131; J0133; J0696; J1650; J1956; J3370; J3475; J7120; Q9967

== ENCOUNTER → 2024-01-23 18:31 | Outpatient (BNV) | payer OTHER, SELFPAY | PROVIDERS: Admitting Provider Student in an Organized Health Care Education/Training Program; Emergency Provider Internal Medicine; PCP Family Medicine; Visit Provider Internal Medicine | DX: N17.9 Acute kidney failure, unspecified (principal); R50.9 Fever, unspecified; R44.1 Visual hallucinations | CPT/HCPCS: 99222 ==

== ENCOUNTER → 2024-01-23 18:31 | Outpatient (BNV) | payer OTHER, SELFPAY | PROVIDERS: Admitting Provider Student in an Organized Health Care Education/Training Program; Emergency Provider Internal Medicine; PCP Family Medicine; Visit Provider Internal Medicine | DX: N17.9 Acute kidney failure, unspecified (principal) | CPT/HCPCS: 99223; 99232; 99239; 99499 ==

== ENCOUNTER 2024-01-30 10:29 | Outpatient (REF) | payer OTHER, SELFPAY ==
--- NOTE | ~2024-01-30 | US_ITS ---
EXAMINATION: US RETROPERITONEAL COMPLETE (RENAL) CLINICAL INFORMATION: Retention of urine. COMPARISON: CT scan of 01/25/2024. TECHNIQUE: Real-time imaging of the kidneys and bladder. FINDINGS: RIGHT KIDNEY: 12.6 x 6.8 x 5.7 cm (SAG x AP x TRV). The right kidney is prominent with indistinctness of the cortical medullary junction, which can be seen with pyelonephritis. There is collecting system fullness with dilated proximal ureter. No calculi or focal parenchymal lesions. LEFT KIDNEY: 13.0 x 6.3 x 7.0 cm (SAG x AP x TRV). Left kidney is prominent in size with indistinctness of the cortical medullary junction. No calculi or focal parenchymal lesions. No hydronephrosis. BLADDER: Bladder wall is trabeculated and thickened to about 1 cm in diameter and there is fluid seen within the wall. There is an echogenic mass present about the bladdder wall measuring 2.5 x 1.6 x 2.0 cm in size. Bilateral ureteral jets are demonstrated. Prevoid bladder volume is 205 mL. Postvoid bladder volume is 49 mL. 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 No focal mass identified. Mild right hydronephrosis. Thickened gallbladder wall with some fluid within it as well as an echogenic mass measuring 2.5 x 1.6 x 2.0 cm in size. Small postvoid residual. Electronically signed by: French Dc MD 01/30/2024 03:42 PM EDT
== END 2024-01-30 10:30 | disposition home or self-care (01) ==
LOC: HO.US 10:29
PROVIDERS: PCP Family Medicine; Visit Provider Nurse Practitioner Family
DX: R33.9 Retention of urine, unspecified (principal); R31.9 Hematuria, unspecified
CPT/HCPCS: 76770

== ENCOUNTER 2024-01-31 08:35 | Outpatient (AMB) | payer OTHER, SELFPAY ==
--- NOTE | 2024-01-31 08:46 | A.OFFPC_ITS ---
Vital Signs 01/31/24 08:57 Height 6 ft 1 in Weight 176 lb 4 oz BMI 23.3 BP 89/56 L Blood Pressure Location Rt brachial Position Sitting Respiration 16 Pulse 74 Pulse Source Pulse Oximeter Temp 98.6 F Temp Source Tympanic Pulse Oximetry (%) 99 Oxygen Delivery Method Room Air Intake Visit Reasons: follow up chronic conditions Intake Note: follow chronic pain and diabetes pt was also discharged from the hospital on 01/28/24 Allergies aspirin [ASPIRIN] Allergy (Severe, Verified 01/31/24 08:51) SWELLING NSAIDS (Non-Steroidal Anti-Inflamma Allergy (Severe, Verified 01/31/24 08:51) inflamation penicillin G [PENICILLIN G] Allergy (Severe, Verified 01/31/24 08:51) DIFFICULTY BREATHING Sulfa (Sulfonamide Antibiotics) [SULFA (SULFONAMIDE ANTIBIOTICS)] Allergy (Severe, Verified 01/31/24 08:51) ANAPHYLAXIS tramadol [TRAMADOL] Allergy (Severe, Verified 01/31/24 08:51) DIZZY Tobacco use date assessed: 11/19/23 Dental Screening Dental Screen Date: 09/25/23 HPI follow up chronic conditions HPI Details 53 y/o male [facility] Had been to hospital 01/28/24 for acute toxic metabolic encephalopathy. Most of workup was negative. CT abdomen and pelvis showed evidence of bilateral acute pyelonephritis and urine culture grew Enterococcus faecalis. Gave him 10 days of Zyvox for the UTI. For acute kidney injury, resolved with IV fluids. Blood pressure today is 89/56. He is on atenolol 100mg, amlodipine 10mg daily. Fever has resolved. A1c today 01/31/24 6.7%. Per Hospital d/c summary: Patient was admitted for acute toxic metabolic encephalopathy, fever of unknown origin. Underwent extensive workup including lumbar puncture, CT abdomen pelvis and chest, tick screen, cultures, autoimmune workup. Was put on broad-spectrum antibiotics. Most of workup was negative, CT abdomen and pelvis did show evidence of bilateral acute pyelonephritis and urine culture grew Enterococcus faecalis. This was likely source of fever. Altered mental status was likely due to fever in the background of underlying mild cognitive impairment due to chronic alcohol dependence. Patient was seen by infectious disease who recommended 10 days of linezolid. That time of discharge patient's fevers have resolved and his mental status has returned to baseline. He is able to demonstrate full understanding of his course of hospitalization is no longer having delusions or hallucinations. For alcohol dependence with withdrawal was given Ativan taper and this has resolved. For acute kidney injury, this resolved with IV fluids. For diabetes he was given insulin sliding scale. Patient is back to baseline and will be discharged home. HPI Comments History of Present Illness Details Documentation assistance for Rico Hope MD, was provided by Feliciano Hartmann,? Obstetrics Teacher on 01/31/2024 at 9:35 AM EST. I, Dr. Hope, have read, observ ed, and verified documentation. [facility] Medical History Chronic SI joint pain Alcoholic pancreatitis Neuropathy Diabetes Anxiety Asthma Polysubstance abuse Gout HTN (hypertension) Surgical History S/P insertion of spinal cord stimulator History of hip surgery Family History Other No pertinent family history Social History Household Members: Significant Other Housing: House Do you presently have visiting nurse or other home services: No Alcohol intake: never Patient Tobacco Use Status: Never used Tobacco e-Cigarette/Vaping Use: Never Used service: No Current occupational status: 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: Yes Hearing needs: No Vision needs: No Questionnaire Thrive Questionnaire Date Thrive assessed: 01/26/24 TUNDE-7 AMB Questionnaire TUNDE-7 Date TUNDE - 7 assessed: 09/25/23 Source: Developed by Drs. Dominick Miller, Koki Buck, Mohan Beavers and colleagues, with an educational nanette from [employer]. Physical exam (Primary Care) Vital Signs: Last Vital Signs Temp 98.6 F 01/31/24 08:57 Pulse 74 01/31/24 08:57 Resp 16 01/31/24 08:57 BP 89/56 L 01/31/24 08:57 Pulse Ox 99 01/31/24 08:57 Oxygen Delivery Method Room Air 01/31/24 08:57 BMI result Body Mass Index 23.3 Tobacco/Smoking Status: Tobacco use Status Tobacco use date assessed 11/19/23 01/31/24 08:46 Patient Tobacco Use Status Never used Tobacco 01/31/24 08:46 e-Cigarette/Vaping Use Never Used 01/31/24 08:46 Thrive Assessment: Date of Thrive Assessment Date Thrive assessed 01/26/24 01/31/24 08:46 Assessment and Plan Assessment & Plan (1) UTI (urinary tract infection): Code(s): N39.0 - Urinary tract infection, site not specified Plan: UTI?with?pyelonephritis?and?patient?was?discharged?on?linezolid?whic h?he?is?completing. No?further?fevers Resolved/resolving Finish?all?antibiotic (2) HTN (hypertension): Code(s): I10 - Essential (primary) hypertension Qualifiers: Hypertension type: essential hypertension Qualified Code(s): I10 - Es sential (primary) hypertension Plan: Blood?pressure?is?low?in?this?may?be?partly?due?to?recent?illness and?consequent?weight?loss. Will?have?him?decrease?atenolol from 100?mg?daily?to?50?mg?daily He?follows?his?blood?pressures?at?home?as?well?and?will?let?me?know?if?he?has?a? problem. (3) Alcohol use disorder, severe, dependence: Code(s): F10.20 - Alcohol dependence, uncomplicated Plan: Still?working?on?this?with?the?comprehensive?Care?Clinic Follow-up?as?recommended (4) Polysubstance abuse: Code(s): F19.10 - Other psychoactive substance abuse, uncomplicated Plan: As?above (5) Diabetes: Code(s): E11.9 - Type 2 diabetes mellitus without complications Plan: A1c?6.7%.??Patient?notes?that?his?blood?sugars?were?not?well?controlled?while?in ?the?hospital?but?patient?had?significant?infection Continue?current?diabetes?medication?regimen (6) Elevated liver enzymes: Code(s): R74.8 - Abnormal levels of other serum enzymes Plan: Mild?elevation?in?his?liver?enzymes. History?of?alcohol?abuse?and?also?recent?illness?and?significant?swings?in?his?w eight. Recheck?liver?enzyme (7) Avascular necrosis of bones of both hips: Code(s): M87.051 - Idiopathic aseptic necrosis of right femur; M87.052 - Idiopathic aseptic necrosis of left femur Plan: Now?s/p?hip?replacement?and?pain?is?improved Follow-up?with?ortho?as?recommended (8) Chronic pain: Code(s): G89.29 - Other chronic pain Plan: As?above,?pain?is?improved?though?still?has?significant?pain?at?bilateral?hips?a nd?low?back He?has?been?off?buprenorphine?due?to?antibiotic Had?been?on?doses?greater?than?20?mcg?per?weekly?patches When?he?is?off?the?antibiotic?he?may?resume?the?7.5mcg patch. He?is also?followed?at?physiatry?for?pain?management. Orders: Orders Comprehensive Met. Panel Today N17.9 - Acute kidney failure, unspecified Complete Blood Count Auto Diff Today R50.9 - Fever, unspecified, Z00.00 - Encounter for general adult medical examination without abnormal findings UA and rflx microscopic Today N39.0 - Urinary tract infection, site not specified, Z00.00 - Encounter for general adult medical examination without abnormal findings Medications: Changed From atenolol 100 mg PO DAILY 90 tabs 5RF I10 - Essential (primary) hypertension To atenolol 50 mg (1/2 x 100 mg) PO DAILY 90 tabs 5RF I10 - Essential (primary) hypertension Refilled lorazepam MassPat Verified. 1 mg PO BID 30 days PRN 60 tabs 0RF anxiety Discontinued buprenorphine 20 mcg/hour Pt is prescribed both 20mcg patch and 7.5mcg patches concurrently. MassPat verified. Partial refill upon request. Discontinued Reason: Patient no longer taking 1 patch topical QWEEK 28 days 4 patches 0RF G89.29 - Other chronic pain, M53.3 - Sacrococcygeal disorders, not elsewhere classified, M87.051 - Idiopathic aseptic necrosis of right femur, M87.052 - Idiopathic aseptic necrosis of left femur Coding Level of Care Code Est Pt Level 4 (91345) Diagnoses UTI (urinary tract infection) N39.0 Essential hypertension I10 Hypertension type: essential hypertension Alcohol use disorder, severe, dependence F10.20 Polysubstance abuse F19.10 Diabetes E11.9 Elevated liver enzymes R74.8 Avascular necrosis of bones of both hips M87.051; M87.052 Chronic pain G89.29
[2024-01-31 08:57] VITALS: BP 89/56; PULSE 74; RESP 16; TEMP 37; O2SAT 99; BMI 23.3
== END 2024-01-31 09:30 | disposition home or self-care (01) ==
PROVIDERS: PCP Family Medicine; Visit Provider Family Medicine
DX: E11.9 Type 2 diabetes mellitus without complications (principal); F10.20 Alcohol dependence, uncomplicated; F19.10 Other psychoactive substance abuse, uncomplicated; M87.051 Idiopathic aseptic necrosis of right femur; M87.052 Idiopathic aseptic necrosis of left femur; N39.0 Urinary tract infection, site not specified; I10 Essential (primary) hypertension; R74.8 Abnormal levels of other serum enzymes; G89.29 Other chronic pain

== ENCOUNTER → 2024-01-31 08:35 | Outpatient (BNVA) | payer OTHER, SELFPAY | PROVIDERS: PCP Family Medicine; Visit Provider Family Medicine | DX: N39.0 Urinary tract infection, site not specified (principal); G89.29 Other chronic pain; I10 Essential (primary) hypertension; E11.9 Type 2 diabetes mellitus without complications; R74.8 Abnormal levels of other serum enzymes | CPT/HCPCS: 99212 ==

== ENCOUNTER 2024-01-31 09:40 | Outpatient (REF) | payer OTHER, SELFPAY ==
[2024-01-31 11:20] LABS: MANUAL DIFF FLAG NO
[2024-01-31 11:33] LABS: Appearance Urine Clear; Color Urine Yellow; Glucose Urine UA Negative (Negative); Leukocyte Esterase Urine Moderate (2+) (Negative); Nitrite Urine Negative (Negative); UMIC TRIGGER UA YES; Urine Blood Moderate (2+) (Negative); Urine Ketones Negative (Negative); Urine Protein Trace mg/dL (Neg-Trace)
[2024-01-31 11:38] LABS: Basophils Absolute Auto 0.1 X10*3/uL (0.0-0.2); Basophils Percent Auto 0.5 % (0-2); Eosinophils Absolute Auto 0.2 X10*3/uL (0.0-0.4); Eosinophils Percent Auto 1.7 % (0-4); Hematocrit 37.5 % (42.0-52.0); Hemoglobin 12.8 g/dl (14.0-18.0); Imm Gran Abs Auto 0.08 X10*3/uL (0.00-0.03); Imm Gran Pct Auto 0.9 % (0.0-0.4); Lymphocytes Absolute Auto 1.8 X10*3/uL (1.2-4.9); Lymphocytes Percent Auto 19.5 % (20-40); Mean Corpuscular HGB Conc 34.1 g/dl (31.0-36.0); Mean Corpuscular Hemoglobin 30.3 pg (27.0-33.0); Mean Corpuscular Volume 88.7 fL (80.0-98.0); Mean Platelet Volume 9.9 fL (9.4-12.4); Monocytes Absolute Auto 0.4 X10*3/uL (0.1-1.2); Monocytes Percent Auto 4.8 % (2-11); Neutrophils Absolute Auto 6.7 x10*3/uL (2.0-8.3); Neutrophils Percent Auto 72.6 % (45-73); Platelet Count 464 X10*3/uL (160-400); Red Blood Count 4.23 X10*6/uL (4.60-5.80); Red Cell Distribution Width 11.9 % (11.0-16.0); White Blood Count 9.2 X10*3/uL (4.8-10.8)
[2024-01-31 11:53] LABS: Bacteria Urine Trace (None Seen); Hyaline Casts Urine 0-2 /LPF (0-2); RBC Urine 0-2 /HPF (0-2); Squamous Epithelial Cell Urine 0-2 /HPF (0-2); WBC Urine 21-50 /HPF (0-5)
[2024-01-31 12:08] LABS: Alanine Aminotransferase 50 U/L (0-40); Albumin Level 3.6 g/dL (3.5-5.0); Alkaline Phosphatase 71 U/L (39-117); Anion Gap 12 (12-20); Aspartate Amino Transferase 35 U/L (5-37); Bilirubin Total 0.5 mg/dL (0.0-1.0); Blood Urea Nitrogen 7 mg/dL (9-16); Calcium 9.9 mg/dL (8.4-10.2); Carbon Dioxide 27 mmol/L (22-29); Chloride 102 mmol/L (96-108); Estimated Glomerular Filt Rate > 60; Glucose Random 195 mg/dL (60-115); Potassium 4.4 mmol/L (3.3-5.1); Sodium 137 mmol/L (135-145); Total Protein 7.5 g/dL (6.5-8.0)
== END 2024-01-31 09:41 | disposition home or self-care (01) ==
LOC: HO.WFDLDS 09:40
PROVIDERS: Visit Provider Family Medicine
DX: Z00.00 Encounter for general adult medical examination without abnormal findings (principal); N17.9 Acute kidney failure, unspecified; R50.9 Fever, unspecified
CPT/HCPCS: 36415; 80053; 81001; 85025

== ENCOUNTER 2024-03-11 07:38 | Outpatient (AMB) | payer OTHER, SELFPAY ==
--- NOTE | 2024-03-11 07:44 | A.OFFVIS_ITS ---
Intake Visit Reasons: Med Review f/up/ US(set) Intake Note: Patient presents today for follow up visit on: Hematuria, incomplete bladder emptying, and ultrasound results Imaging Completed: 01/30/24 Smoker: Never Urology Medications: Tamsulosin Allergies to Antibiotic: PCN and Sulfa Blood Thinner: PVR: 186ml's L Securities Settlement Processor Required: No Accompanied by: Unknown Allergies aspirin [ASPIRIN] Allergy (Severe, Verified 03/11/24 09:36) SWELLING NSAIDS (Non-Steroidal Anti-Inflamma Allergy (Severe, Verified 03/11/24 09:36) inflamation penicillin G [PENICILLIN G] Allergy (Severe, Verified 03/11/24 09:36) DIFFICULTY BREATHING Sulfa (Sulfonamide Antibiotics) [SULFA (SULFONAMIDE ANTIBIOTICS)] Allergy (Severe, Verified 03/11/24 09:36) ANAPHYLAXIS tramadol [TRAMADOL] Allergy (Severe, Verified 03/11/24 09:36) DIZZY Medication List - Last Reconciled 03/11/24 by SAMAN Nath adhesive remover As directed to remove adhesive from patches weekly albuterol sulfate 90 mcg/actuation 1 inh inhalation QID PRN albuterol sulfate 2.5 mg (3 mL) inhalation Q8H PRN 1 month allopurinol 100 mg PO DAILY 90 days amlodipine 10 mg PO DAILY 3 months atenolol 50 mg (1/2 x 100 mg) PO DAILY betamethasone dipropionate 0.05% 1 appl topical BID PRN blood sugar diagnostic (FreeStyle Lite Strips) USE 1 STRIP TWICE A DAY NEEDED...OR MAY USE 3 TIMES IF NEEDED blood-glucose sensor (FreeStyle Jay 3 Sensor device) As directed, 28 days buprenorphine 7.5 mcg/hour 1 patch transdermal Q7D 28 days cholecalciferol (vitamin D3) (Vitamin D3) 10 mcg PO DAILY citalopram 20 mg (2 x 10 mg) PO DAILY 30 days cyclobenzaprine 10 mg PO BID PRN 90 days fluticasone propion-salmeterol 113 mcg-14 mcg/actuation 1 inh inhalation BID PRN fluticasone propionate 50 mcg/actuation 1 spray intranasal DAILY 1 month FreeStyle Lite Meter (blood-glucose meter) TEST blood sugar 2-3 TIMES DAILY NS insulin glargine (Lantus Solostar U-100 Insulin) 20 units subcut QNOON lancets (FreeStyle Lancets) USE TO TEST BLOOD SUGAR THREE TIMES A DAY DIRECTED linezolid 600 mg PO Q12H lorazepam 1 mg PO BID PRN 30 days magnesium oxide 400 mg PO BIDPC omeprazole 20 mg PO DAILY@0630 pen needle, diabetic (UltiCare Pen Needle) USE DAILY DIRECTED pen needle, diabetic (Easy Touch) As directed terazosin 5 mg PO BEDTIME 90 days HPI Comments Details: Holger is a very pleasant 52-year-old male patient of Dr. Hope. He has a past medical history of chronic SI joint pain, alcoholic pancreatitis, neuropathy, diabetes, anxiety, asthma, polysubstance abuse, gout, and hypertension. He presents to the office today for a follow up. Of note, janneth was seen approximately 4 months ago as a new patient for ongoing lower urinary tract symptoms at which time a retroperitoneal ultrasound was ordered for further assessment evaluation in the patient's Flomax was increased to 0.8 mg daily due to incomplete bladder emptying. In discussion with the patient today reports since his last office visit here 4 months ago he was hospitalized for acute toxic metabolic encephalopathy with fever of unknown origin. He underwent extensive workup including lumbar puncture, CT of the abdomen and pelvis and chest, tick screen, cultures, autoimmune workup. Was put on broad-spectrum antibiotics. Most of workup was negative, CT abdomen and pelvis did show evidence of bilateral acute pyelonephritis and urine culture grew Enterococcus faecalis. This was likely source of fever per hospital records. Altered mental status was likely due to fever in the background of underlying mild cognitive impairment due to chronic alcohol dependence. Patient was seen by infectious disease who recommended 10 days of linezolid. That time of discharge patient's fevers have resolved and his mental status has returned to baseline. Patient reports status post hospitalization he has been doing and feeling well. He continues to experience incomplete bladder emptying as well as nocturia up to 3 times per night. In office urinalysis results reviewed with the patient today. PVR 186 mL. We discussed change in alpha-brian to assist with incomplete bladder emptying. Recent retroperitoneal ultrasound results reviewed with the patient today. 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 The bladder wall is trabeculated and thickened to about 1 cm in diameter and there is fluid seen within the wall. There is a echogenic mass present about the bladder wall measuring 2.5 cm in size. Bilateral ureteral jets are demonstrated. Pre void bladder volume is approximately 200 mL. Postvoid bladder volume is approximately 50 mL. Prostate volume is approximately 30 mL. PSA 09/03 1.2. Urine cytology 11/03 Negative for high-grade urothelial carcinoma. Patient with recent CT imaging 02/03 while hospitalized that noted mild bilateral hydroureteronephrosis with no appreciable obstructive urolithiasis. The urinary bladder is thick walled and trabeculated recommendations for correlation with symptoms of cystitis or chronic bladder outlet obstruction. We discussed in office cystoscopy for further assessment evaluation given retroperitoneal ultrasound noting potential for bladder mass. He otherwise denies visible/gross hematuria, dysuria, foul smelling urine, changes to urinary stream, flank pain, fever, and or chills. Patient does discuss episodes of gross hematuria a proximally 10 months ago. He otherwise denies any other issues or concerns at this time. 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: Yes Hearing needs: No Vision needs: No Review of Systems Const Reports no additional complaints Eyes Reports no additional complaints ENT Reports no additional complaints Card Reports as per HPI Resp Reports as per HPI GI Reports as per HPI Reports as per HPI Musc Reports as per HPI Neuro Reports as per HPI Psych Reports as per HPI Endo Reports as per HPI Charles/Lymph Reports no additional complaints Aller/Immun Reports no additional complaints Physical Exam Const General: cooperative, healthy appearing, comfortable, no acute distress, well developed, alert and awake Orientation/consciousness: patient oriented x3 Limitations: no limitations HEENT Head: Yes normal to inspection, Yes normocephalic and Yes atraumatic Ears: hearing grossly normal bilaterally Eyes General: appearance normal, both eyes and all related structures Neck Neck: Yes normal visual inspection and Yes trachea midline Chest Chest palpation & inspection: normal inspection of the chest Resp Effort & Inspection: normal respiratory effort and able to speak in complete sen tences Cardio Rate: regular rate GI Inspection: Yes normal to inspection General: Yes no CVA tenderness Back/Spine/Pelvis Back: no CVA tenderness Skin General skin exam: no rashes or lesions noted Neuro General: patient oriented x3 Extrem General: Yes normal to inspection Psych Appearance: grossly normal and well kempt Mental Status: mental status grossly normal Speech and movement: Normal speech and movement present and Clear speech present Affect: normal affect Attitude: cooperative Thought process: Normal thought process present Thought content: Normal thought content present Insight: Fair insight present (Psych) Judgement: Fair judgement present (Psych) Office Procedures Post Void Residual Post Residual Void Post Void Residual (PVR): 186 [id number] Void Residual by ultrasound Results AMB Urinalysis, Automated UA Leukoctes 15 Corazon/uL Last Edit by [employer] on 03/11/24 07:50 UA Nitrite Last Edit by [employer] on 03/11/24 07:50 UA Urobilinogen 0.2 mg/dL Last Edit by [employer] on 03/11/24 07:50 UA Protein 0 mg/dL Last Edit by [employer] on 03/11/24 07:50 UA pH 6.0 Last Edit by [employer] on 03/11/24 07:50 UA Blood 0 Justin/uL Last Edit by [employer] on 03/11/24 07:50 UA Specific [place] 1.020 Last Edit by [employer] on 03/11/24 07:50 UA Ketone Last Edit by [employer] on 03/11/24 07:50 UA Bilirubin 0 mg/dL Last Edit by [employer] on 03/11/24 07:50 UA Glucose 0 mg/dL Last Edit by [employer] on 03/11/24 07:50 Results Reviewed Results Reviewed: Laboratory Last Values Urine pH (Auto) 6.0 03/11/24 07:49 Specific [place] (Auto) 1.020 03/11/24 07:49 Urine Protein (Auto) 0 mg/dL 03/11/24 07:49 Glucose (UA)(Auto) 0 mg/dL 03/11/24 07:49 Urine Blood (Auto) 0 Justin/uL 03/11/24 07:49 Urine Bilirubin (Auto) 0 mg/dL 03/11/24 07:49 Urine Urobilinogen (Auto) 0.2 mg/dL 03/11/24 07:49 Leukocyte Esterase (Auto) 15 Corazon/uL 03/11/24 07:49 Date of Service: 01/30/24 EXAMINATION: US RETROPERITONEAL COMPLETE (RENAL) FINDINGS: RIGHT KIDNEY: 12.6 x 6.8 x 5.7 cm (SAG x AP x TRV). The right kidney is prominent with indistinctness of the cortical medullary junction, which can be seen with pyelonephritis. There is collecting system fullness with dilated proximal ureter. No calculi or focal parenchymal lesions. LEFT KIDNEY: 13.0 x 6.3 x 7.0 cm (SAG x AP x TRV). Left kidney is prominent in size with indistinctness of the cortical medullary junction. No calculi or focal parenchymal lesions. No hydronephrosis. BLADDER: Bladder wall is trabeculated and thickened to about 1 cm in diameter and there is fluid seen within the wall. There is an echogenic mass present about the bladdder wall measuring 2.5 x 1.6 x 2.0 cm in size. Bilateral ureteral jets are demonstrated. Prevoid bladder volume is 205 mL. Postvoid bladder volume is 49 mL. 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 No focal mass identified. Mild right hydronephrosis. Thickened gallbladder wall with some fluid within it as well as an echogenic mass measuring 2.5 x 1.6 x 2.0 cm in size. Small postvoid residual. Assessment & Plan Assessment & Plan (1) Incomplete bladder emptying: Code(s): R33.9 - Retention of urine, unspecified Category: Medical (2) Hematuria: Code(s): R31.9 - Hematuria, unspecified Category: Medical (3) History of pyelonephritis: Code(s): Z87.448 - Personal history of other diseases of urinary system Category: Medical (4) Bladder wall thickening: Code(s): N32.89 - Other specified disorders of bladder Category: Medical (5) Bladder trabeculation: Code(s): N32.89 - Other specified disorders of bladder Category: Medical Plan In office urinalysis results reviewed with the patient today; as noted above. Recent CT and retroperitoneal ultrasound results reviewed with the patient today; as noted above. We discussed at length potential causes of pyelonephritis, gross hematuria, and incomplete bladder emptying. Discussed obtaining in office cystoscopy for further assessment evaluation. Stop Flomax Start terazosin 5 mg as discussed and prescribed. Discussed possible initiation of finasteride given prostate enlargement on r etroperitoneal ultrasound Previous urine cytology results reviewed with the patient today; as noted above. Discussed, educated, and stressed the importance of adequate hydration in relation to history of pyelonephritis as well as overall health and well-being. Orders: Orders AMB Urinalysis Automated Today Z13.9 - Encounter for screening, unspecified AMB Post Void Residual by ultrasound Today R33.9 - Retention of urine, unspecified Medications: New terazosin 5 mg PO BEDTIME 90 days 90 caps 0RF N40.1 - Benign prostatic hyperplasia with lower urinary tract symptoms, R35.0 - Frequency of micturition Discontinued tamsulosin (Flomax) Discontinued Reason: Doctor's Order 0.4 mg PO BID 30 days 60 caps 2RF Patient Instructions: The patient had an opportunity to ask questions regarding the treatment plan. All questions were answered. Physical exam, labs, and imaging were discussed and reviewed in detail. As well as risks, benefits, and discussion of treatment choices. No major barriers to understanding were identified. The patient exp ressed understanding and agreement with the above treatment plan. The patient was made aware they should contact our office by phone for worsening of their current condition, the appearance of new symptoms, or with any questions or concerns. Compliance is encouraged with any medications and follow up testing that is ordered. It is a privilege to be allowed the opportunity to participate in? your urological care.? Again, if you have any questions or concerns If you have any questions or concerns please do not hesitate to contact me. The office is [phone]. This note is constructed using voice recognition software. While every effort has been made to ensure accuracy pipe caulker errors may have been included. Yours sincerely, SAMAN Nath Coding Level of Care Code Est Pt Level 4 (66004) Complex EM visit Add On G2211 Diagnoses Incomplete bladder emptying R33.9 Hematuria R31.9 History of pyelonephritis Z87.448 Bladder wall thickening N32.89 Bladder trabeculation N32.89 CPT Codes Post Residual Void - PVR CPT Code: 97496-Lspr Void Residual by ultrasound ([id number])
== END 2024-03-11 08:28 | disposition home or self-care (01) ==
LOC: HO.HUSH 07:39
PROVIDERS: PCP Family Medicine; Visit Provider Nurse Practitioner Family
DX: R33.9 Retention of urine, unspecified (principal); R31.9 Hematuria, unspecified; Z87.448 Personal history of other diseases of urinary system; N32.89 Other specified disorders of bladder; Z13.9 Encounter for screening, unspecified
CPT/HCPCS: 99214; G2211

== ENCOUNTER → 2024-03-11 07:38 | Outpatient (BNVA) | payer OTHER, SELFPAY | PROVIDERS: PCP Family Medicine; Visit Provider Nurse Practitioner Family | DX: N40.1 Benign prostatic hyperplasia with lower urinary tract symptoms (principal); R31.9 Hematuria, unspecified; R33.8 Other retention of urine; N32.89 Other specified disorders of bladder; R35.0 Frequency of micturition; Z87.448 Personal history of other diseases of urinary system | CPT/HCPCS: 51798; 81003; 99212 ==

== ENCOUNTER 2024-04-15 09:45 | Outpatient (AMB) | payer OTHER, SELFPAY ==
--- NOTE | 2024-04-15 09:50 | A.OFFVIS_ITS ---
Intake Visit Reasons: cysto Intake Note: Patient is present for Cystoscopy Urology Medication:ALLOPURINOL,TERAZOSIN Antibiotic Allergy:PENICILLIN,SULFA Blood Thinner:NONE Lot:[id number] Exp:03/16/27 Volunteer Services Coordinator Required: No Allergies aspirin [ASPIRIN] Allergy (Severe, Verified 04/15/24 09:52) SWELLING NSAIDS (Non-Steroidal Anti-Inflamma Allergy (Severe, Verified 04/15/24 09:52) inflamation penicillin G [PENICILLIN G] Allergy (Severe, Verified 04/15/24 09:52) DIFFICULTY BREATHING Sulfa (Sulfonamide Antibiotics) [SULFA (SULFONAMIDE ANTIBIOTICS)] Allergy (Severe, Verified 04/15/24 09:52) ANAPHYLAXIS tramadol [TRAMADOL] Allergy (Severe, Verified 04/15/24 09:52) DIZZY HPI Comments Details: Holger is a very pleasant 52-year-old male patient of Dr. Hope. He has a past medical history of chronic SI joint pain, alcoholic pancreatitis, neuropathy, diabetes, anxiety, asthma, polysubstance abuse, gout, and hypertension. He presents to the office today for a follow up. Of note, janneth was seen approximately 4 months ago as a new patient for ongoing lower urinary tract symptoms at which time a retroperitoneal ultrasound was ordered for further assessment evaluation in the patient's Flomax was increased to 0.8 mg daily due to incomplete bladder emptying. In discussion with the patient today reports since his last office visit here 4 months ago he was hospitalized for acute toxic metabolic encephalopathy with fever of unknown origin. He underwent extensive workup including lumbar puncture, CT of the abdomen and pelvis and chest, tick screen, cultures, autoimmune workup. Was put on broad-spectrum antibiotics. Most of workup was negative, CT abdomen and pelvis did show evidence of bilateral acute pyelonephritis and urine culture grew Enterococcus faecalis. This was likely source of fever per hospital records. Altered mental status was likely due to fever in the background of underlying mild cognitive impairment due to chronic alcohol dependence. Patient was seen by infectious disease who recommended 10 days of linezolid. That time of discharge patient's fevers have resolved and his mental status has returned to baseline. Patient reports status post hospitalization he has been doing and feeling well. He continues to experience incomplete bladder emptying as well as nocturia up to 3 times per night. In office urinalysis results reviewed with the patient today. PVR 186 mL. We discussed change in alpha-brian to assist with incomplete bladder emptying. Recent retroperitoneal ultrasound results reviewed with the patient today. 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 The bladder wall is trabeculated and thickened to about 1 cm in diameter and there is fluid seen within the wall. There is a echogenic mass present about the bladder wall measuring 2.5 cm in size. Bilateral ureteral jets are demonstrated. Pre void bladder volume is approximately 200 mL. Postvoid bladder volume is approximately 50 mL. Prostate volume is approximately 30 mL. PSA 09/03 1.2. Urine cytology 11/03 Negative for high-grade urothelial carcinoma. Patient with recent CT imaging 02/03 while hospitalized t [facility] noted mild bilateral hydroureteronephrosis with no appreciable obstructive urolithiasis. The urinary bladder is thick walled and trabeculated recommendations for correlation with symptoms of cystitis or chronic bladder outlet obstruction. We discussed in office cystoscopy for further assessment evaluation given retroperitoneal ultrasound noting potential for bladder mass. He otherwise denies visible/gross hematuria, dysuria, foul smelling urine, changes to urinary stream, flank pain, fever, and or chills. Patient does discuss episodes of gross hematuria a proximally 10 months ago. He otherwise denies any other issues or concerns at this time. Large prostate polyp [facility] Medical History Chronic SI joint pain Alcoholic pancreatitis Neuropathy Diabetes Anxiety Asthma Polysubstance abuse Gout HTN (hypertension) Surgical History S/P insertion of spinal cord stimulator History of hip surgery Family History Other No pertinent family history Social History Household Members: Significant Other Housing: House Do you presently have visiting nurse or other home services: No Alcohol intake: never Patient Tobacco Use Status: Never used Tobacco e-Cigarette/Vaping Use: Never Used service: No Current occupational status: 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: Yes Hearing needs: No Vision needs: No Results AMB Urinalysis, Automated UA Leukoctes 0 Corazon/uL Last Edit by [employer]TAR [employer] on 04/15/24 10:10 UA Nitrite Negative Last Edit by [employer]TAR [employer]iz on 04/15/24 10:10 UA Urobilinogen 0.2 mg/dL Last Edit by [employer]iz on 04/15/24 10:1 0 UA Protein 0 mg/dL Last Edit by [employer]TAR Veliz on 04/15/24 10:10 UA pH 6.0 Last Edit by Kiet Gan CCM on 04/15/24 10:10 UA Blood 0 Justin/uL Last Edit by Kiet Gan CCM on 04/15/24 10:10 UA Specific [place] 1.015 Last Edit by AVTAR Veliz on 04/15/24 10: 10 UA Ketone Positive Last Edit by [employer]TAR Veliz on 04/15/24 10:10 UA Bilirubin 0 mg/dL Last Edit by [employer]TAR Veliz on 04/15/24 10:10 UA Glucose 0 mg/dL Last Edit [facility] on 04/15/24 10:10 Results Reviewed Results Reviewed: Laboratory Last Values Urine pH (Auto) 6.0 04/15/24 10:10 Specific [place] (Auto) 1.015 04/15/24 10:10 Urine Protein (Auto) 0 mg/dL 04/15/24 10:10 Glucose (UA)(Auto) 0 mg/dL 04/15/24 10:10 Urine Ketones (Auto) Positive 04/15/24 10:10 Urine Blood (Auto) 0 Justin/uL 04/15/24 10:10 Urine Nitrite (Auto) Negative 04/15/24 10:10 Urine Bilirubin (Auto) 0 mg/dL 04/15/24 10:10 Urine Urobilinogen (Auto) 0.2 mg/dL 04/15/24 10:10 Leukocyte Esterase (Auto) 0 Corazon/uL 04/15/24 10:10 Assessment & Plan Assessment & Plan Orders: Orders AMB Urinalysis Automated Today Z13.9 - Encounter for screening, unspecified Coding
== END 2024-04-15 10:53 | disposition home or self-care (01) ==
PROVIDERS: PCP Family Medicine; Visit Provider Urology
DX: Z13.9 Encounter for screening, unspecified (principal)

== ENCOUNTER → 2024-04-15 09:45 | Outpatient (BNVA) | payer OTHER, SELFPAY | PROVIDERS: PCP Family Medicine; Visit Provider Urology | DX: N40.1 Benign prostatic hyperplasia with lower urinary tract symptoms (principal); N13.8 Other obstructive and reflux uropathy; N32.89 Other specified disorders of bladder | CPT/HCPCS: 52000; 81003; 99212 ==

== ENCOUNTER 2024-05-15 11:50 | Outpatient (AMB) | payer OTHER, SELFPAY ==
--- NOTE | 2024-05-15 12:25 | MHC.PC.OV ---
Vital Signs 05/15/24 12:35 Height 6 ft 1 in Weight 209 lb 8 oz BMI 27.6 BP 100/70 Blood Pressure Location Rt brachial Position Sitting Respiration 16 Pulse 71 Pulse Source Pulse Oximeter Pulse Oximetry (%) 97 Oxygen Delivery Method Room Air Intake Visit Reasons: DM & Chronic?conditions Intake Note: dm f/u Allergies aspirin [ASPIRIN] Allergy (Severe, Verified 04/15/24 09:52) SWELLING NSAIDS (Non-Steroidal Anti-Inflamma Allergy (Severe, Verified 04/15/24 09:52) inflamation penicillin G [PENICILLIN G] Allergy (Severe, Verified 04/15/24 09:52) DIFFICULTY BREATHING Sulfa (Sulfonamide Antibiotics) [SULFA (SULFONAMIDE ANTIBIOTICS)] Allergy (Severe, Verified 04/15/24 09:52) ANAPHYLAXIS tramadol [TRAMADOL] Allergy (Severe, Verified 04/15/24 09:52) DIZZY Tobacco use date assessed: 11/19/23 Dental Screening Dental Screen Date: 09/25/23 HPI DM & Chronic?conditions HPI Details 53 y/o male presents to f/u diabetes & chronic conditions. Blood pressure today 100/70, 71p. He is on amlodipine 10mg, atenolol 50mg daily. Prior A1c in July 5.3%. Pt notes blood sugar control had worsened. A1c today 05/15/24 is 6.0%. He states he is unable to exercise much due to back pain. HPI Comments History of Present Illness Details Documentation assistance for Rico Hope MD, was provided by Feliciano Hartmann, Nurse Manager on 05/15/2024 at 1:11 PM EST. I, Dr. Hope, have read, observed, and verified documentation. 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: Yes Hearing needs: No Vision needs: No Questionnaire Thrive Questionnaire Date Thrive assessed: 01/26/24 I am a: Patient What is your living situation today?: I have a steady place to live Within the past 12 months, did the food you bought not last and you didn't have the money to get more?: Sometimes True Within the past 12 months, did you worry whether your food would run out before you got money to buy more?: Often true Do you have trouble paying for medicines?: No Do you have trouble getting transportation to medical appointments?: Yes Do you have trouble paying your heating and electricity bill?: Yes Do you have trouble taking care of your child, family member or friend?: I choose not to answer this question Do you have trouble with day-to-day activities such as bathing, preparing meals, shopping, managing finances, etc.?: Yes Are you currently unemployed and looking for a job?: Yes Are you interested in more education?: Yes Please select the resources that you would like help with: Housing/Detention, Transportation, Utilities and Job search/training Currently or been in a relationship where the following occur: No concerns reported THRIVE Score: 4 AUDIT C Alcohol Use Questionnaire (AUDIT-C) 1. How often do you have a drink containing alcohol?: Monthly or less 2. How many drinks containing alcohol do you have on a typical day when you are drinking?: 1 or 2 3. How often do you have six or more drinks on one occasion?: Never Total Score: 1 TUDNE-7 AMB Questionnaire TUNDE-7 Date TUNDE - 7 assessed: 09/25/23 Feeling nervous, anxious, or on edge: 1 = Several days Not being able to stop or control worryin = Several days Worrying too much about different things: 1 = Several days Trouble relaxin = Several days Being so restless that it is hard to sit still: 1 = Several days Becoming easily annoyed or irritable: 0 = Not at all Feeling afraid as if something awful might happen: 1 = Several days Total TUNDE-7 score (0-4 normal; 5-9 mild; 10-14 moderate; 15-21 severe): 6 Source: Developed by Drs. Dominick Miller, Koki Buck, Mohan Beavers and colleagues, with an educational nanette from [employer]. Review of Systems Const Denies chills, Denies fatigue, Denies fever(s), Denies headache(s) and Denies weakness ENT Denies dizziness and Denies headache(s) Card Denies dyspnea Resp Denies cough, Denies dyspnea, Denies wheezing and Denies other (shortness of breath) Musc Reports back pain, Denies numbness and Denies tingling Neuro Denies dizziness, Denies headache(s), Denies numbness, Denies tingling and Denies weakness Psych Denies anxiety and Denies depression Endo Denies fatigue Aller/Immun Denies wheezing Physical exam (Primary Care) Vital Signs: Last Vital Signs Pulse 71 05/15/24 12:35 Resp 16 05/15/24 12:35 BP 100/70 05/15/24 12:35 Pulse Ox 97 05/15/24 12:35 Oxygen Delivery Method Room Air 05/15/24 12:35 BMI result Body Mass Index 27.6 Tobacco/Smoking Status: Tobacco use Status Tobacco use date assessed 11/19/23 05/15/24 12:26 Patient Tobacco Use Status Never used Tobacco 05/15/24 12:26 e-Cigarette/Vaping Use Never Used 05/15/24 12:26 Thrive Assessment: Date of Thrive Assessment Date Thrive assessed 01/26/24 05/15/24 12:26 Currently or been in a relationship where the following occur: No concerns reported Const General: well developed; No acute distress Nutritional Appearance: well nourished Orientation/consciousness: patient oriented x3 HENMT Head: Yes normocephalic and Yes atraumatic Eyes General: appearance normal, both eyes and all related structures Pupils: Equal, round and reactive pupils present EOM: EOMs intact bilaterally Resp Effort & Inspection: normal respiratory effort Neuro General: patient oriented x3 and gait normal Cranial nerves: Yes Equal, round and reactive pupils present Psych Affect: normal affect Coding Level of Care Code Est Pt Level 4 (21990) Diagnoses Diabetes E11.9 Back pain M54.9 Essential hypertension I10 Hypertension type: essential hypertension Alcohol abuse F10.10 Assessment & Plan Assessment & Plan (1) Diabetes: Code(s): E11.9 - Type 2 diabetes mellitus without complications Category: Medical Plan: Patient?is?struggling?with?fluctuating?blood?sugars. He?notes?blood?sugars?are?rather?high?and?various?times?a?day,?especially?when?he?does?not?get?a?chance?to?walker?exercise. He?can?try?glipizide?when?blood?sugars?are?high?and?with?high?carbohydrate?meals Continue?Lantus Referred?to?endocrinology?for?fluctuating?blood?sugars. (2) Back pain: Code(s): M54.9 - Dorsalgia, unspecified Category: Medical Plan: Patient?continues?buprenorphine. He?is?followed?by?[facility]?and?they?intend?a?nerve?ablation (3) HTN (hypertension): Code(s): I10 - Essential (primary) hypertension Category: Medical Qualifiers: Hypertension type: essential hypertension Qualified Code(s): I10 - Essential (primary) hypertension Plan: Blood?pressure?is?controlled.??It?was?too?low?at?last?visit?and?released?off?his?atenolol. Hydrate?well Continue?current?medication?regimen (4) Alcohol abuse: Code(s): F10.10 - Alcohol abuse, uncomplicated Category: Social Hx Plan Patient?requests?naltrexone?for?alcohol?abuse. We?discussed?that?he?is?on?buprenorphine?and?naltrexone?could?interfere?with?its?effect.??Patient?has?been?on?both?same?time?for?understands?this?possibility. Discussed?with?patient?that?if?he?is?having?worse?control?of?his?pain?management?that?we?would?discontinue?the?naltrexone?rather?increasing?the?buprenorphine.?? Furthermore?would?refer?him?the?comprehensive?Care?Clinic?to?help?with?alcohol?abuse. Orders: Referrals Endocrinology Referral E11.9 - Type 2 diabetes mellitus without complications Medications: New naltrexone 50 mg PO DAILY 30 days 30 tabs 0RF glipizide 2.5 mg PO DAILY 30 days 30 tabs 0RF Changed From insulin glargine (Lantus Solostar U-100 Insulin) 20 units subcut QNOON To insulin glargine (Lantus Solostar U-100 Insulin) 22 units (0.22 mL) subcut DAILY 30 days 9 mL 2RF
[2024-05-15 12:35] VITALS: BP 100/70; PULSE 71; RESP 16; O2SAT 97; BMI 27.6
== END 2024-05-15 16:00 | disposition home or self-care (01) ==
PROVIDERS: PCP Family Medicine; Visit Provider Family Medicine
DX: E11.9 Type 2 diabetes mellitus without complications (principal); M54.9 Dorsalgia, unspecified; I10 Essential (primary) hypertension; F10.10 Alcohol abuse, uncomplicated

== ENCOUNTER → 2024-05-15 11:50 | Outpatient (BNVA) | payer OTHER, SELFPAY | PROVIDERS: PCP Family Medicine; Visit Provider Family Medicine | DX: E11.9 Type 2 diabetes mellitus without complications (principal); M54.9 Dorsalgia, unspecified; I10 Essential (primary) hypertension; F10.10 Alcohol abuse, uncomplicated | CPT/HCPCS: 83036; 99212 ==

== ENCOUNTER 2024-05-22 08:58 | Outpatient (AMB) | payer OTHER, SELFPAY ==
--- NOTE | 2024-05-22 09:02 | MHC.OFFVIS ---
Vital Signs 05/22/24 09:05 Height 6 ft 1 in Weight 208 lb 12.444 oz BMI 27.5 BP 110/76 Blood Pressure Location Lt brachial Position Sitting Pulse 76 Pulse Source Pulse Oximeter Intake Visit Reasons: T2DM w/o complications Intake Note: New patient internally referred by PCP for T2DM. Last Diabetic Eye exam: Due, almost 2 years Last Podiatry Visit: Does not see a Investment Broker Random Glucose: 161 mg/dl, patient declined Jay view. 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 Required: No Accompanied by: Self / Same As Patient Allergies aspirin [ASPIRIN] Allergy (Severe, Verified 05/22/24 09:06) SWELLING NSAIDS (Non-Steroidal Anti-Inflamma Allergy (Severe, Verified 05/22/24 09:06) inflamation penicillin G [PENICILLIN G] Allergy (Severe, Verified 05/22/24 09:06) DIFFICULTY BREATHING Sulfa (Sulfonamide Antibiotics) [SULFA (SULFONAMIDE ANTIBIOTICS)] Allergy (Severe, Verified 05/22/24 09:06) ANAPHYLAXIS tramadol [TRAMADOL] Allergy (Severe, Verified 05/22/24 09:06) DIZZY HPI Comments Details: This is a 53-year-old male with a past medical history of pyelonephritis, portal hypertension, type 2 diabetes, severe alcohol use disorder, avascular necrosis of the hips, hematuria, hyperlipidemia, GERD, pancreatitis, asthma and hypertension presenting for diabetic management. This is his initial consult. He was diagnosed with diabetes three years ago when he had pacreatitis. Denies family history of diabetes. I reviewed today's CGM download: GMI x 14 days is 6.8% Very high (>250): 1% High (181-250): 8% Target range (70-180): 91% Low (55-69): 0% Very low (<55): 0% Trend: postprandial hyperglycemia Hemoglobin A1c 05/15/2024 is 6%. Current medication regimen: Lantus 22 units every evening, he's used short acting insulin in the past but not currently, never started glipizide which was prescribed recently due to fluctuations in blood sugar Past medication: Patient tried metformin but it was discontinued because it caused excessive thirst. No weight loss. Diet: low carb Breakfast- eggs and 1 piece of toast, decaf coffee (creamer and milk) Lunch-soups Dinner-protein and veggies Snacks/desserts: hummus and carrots, peppers, celery, sometimes cheese and crackers He does try to exercise. He is limited by chronic back pain. The patient admits he is still abusing alcohol. His concern is higher sugars that he sees after eating sometimes. Hypoglycemia symptoms: rarely Hyperglycemia symptoms: vision Eye exam: overdue, eye exam is scheduled Microvascular complications: neuropathy Macrovascular complications: Diabetic ulcers, CAD, CVA, PAD Patient's last TSH level is low. Denies history of thyroid disease. Denies dysphagia. Denies sweating, palpitations, dizziness or increased anxiety. ROS: Constitutional: No fevers or chills Cardiovascular: No chest pain or pedal edema. Gastrointestinal: No anorexia, nausea, vomiting or diarrhea. No abdominal pain Neurologic: No headache, dizziness, syncope. +numbness and tingling in his feet Endocrine: No cold or heat intolerance. No polyuria or polydipsia. Physical exam: Constitutional: Alert, in no distress. Head: Normocephalic. Neck: Supple, Full range of motion. No lymphadenopathy. No palpable thyroid masses. Respiratory: Clear to auscultation. Cardiovascular: S1 S2 regular. No murmurs. Right foot: Warm and well perfused. No clubbing, cyanosis or edema. DP pulse 3+. moderately decreased vibratory sensation. Intact sensation to monofilament. No open wounds. Left foot: Warm and well perfused. No clubbing, cyanosis or edema. DP pulse 3+. moderaly decreased vibratory sensation. Intact sensation to monofilament. No open wounds. [facility] Medical History (Updated 05/22/24 @ 11:58 by KEILA Obregon) Type II diabetes with long-term use of insulin Type II diabetes mellitus Chronic SI joint pain Alcoholic pancreatitis Neuropathy Diabetes Anxiety Asthma Polysubstance abuse Gout HTN (hypertension) Surgical History S/P insertion of spinal cord stimulator History of hip surgery Family History Other No pertinent family history Social History Household Members: Significant Other Housing: House Do you presently have visiting nurse or other home services: No Alcohol intake: never Patient Tobacco Use Status: Never used Tobacco e-Cigarette/Vaping Use: Never Used service: No Current occupational status: 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: Yes Hearing needs: No Vision needs: No Physical Exam Vital Signs: Last Vital Signs Pulse 76 05/22/24 09:05 BP 110/76 05/22/24 09:05 BMI result Body Mass Index 27.5 Office Procedures Glucose Monitoring Details Details: See HPI 83442 - Glucose monitoring, continuous-physician I&R Procedure code (CPT) selection complete Results Reviewed Results Reviewed: Laboratory Tests 11/01/20 11/18/20 07/19/21 12:48 10:40 09:09 Creatinine Estimated GFR Hgb A1c (Clinic) 5.9 5.0 AST ALT Alkaline Phosphatase Triglycerides Cholesterol LDL Cholesterol Direct HDL Cholesterol Total T3 111 TSH Free T4 01/18/22 12/05/22 01/09/23 09:51 09:54 08:15 Creatinine Estimated GFR Hgb A1c (Clinic) 5.8 4.9 AST ALT Alkaline Phosphatase Triglycerides 208 H Cholesterol 229 H LDL Cholesterol Direct HDL Cholesterol 67 Total T3 TSH 0.92 Free T4 03/05/23 07/22/23 01/26/24 09:14 09:49 05:53 Creatinine Estimated GFR Hgb A1c (Clinic) 5.4 AST ALT Alkaline Phosphatase Triglycerides Cholesterol LDL Cholesterol Direct 103 H HDL Cholesterol Total T3 TSH 0.16 L Free T4 1.24 01/31/24 05/15/24 09:43 16:40 Creatinine 1.14 Estimated GFR > 60 Hgb A1c (Clinic) 6.0 AST 35 ALT 50 H Alkaline Phosphatase 71 Triglycerides Cholesterol LDL Cholesterol Direct HDL Cholesterol Total T3 TSH Free T4 Assessment & Plan Assessment & Plan (1) Type II diabetes mellitus: Code(s): E11.9 - Type 2 diabetes mellitus without complications Category: Medical Qualifiers: Diabetes mellitus long-term insulin use: with long-term use Diabetes mellitus complication status: with neurologic complications Diabetes mellitus complication detail: with autonomic neuropathy Qualified Code(s): E11.43 - Type 2 diabetes mellitus with diabetic autonomic (poly)neuropathy; Z79.4 - adjunct faculty for medical terminology (current) use of insulin Plan: In summary this is a 53-year-old male with diabetes with possible prior pancreatic injury (history of pancreatitis and severe alcohol abuse). Check C-peptide. I also ordered islet cell and TUNDE antibodies given lack of family history of diabetes and relatively normal BMI. He is also due for testing for microalbumin. Ordered. Patient has concerns about the fluctuations in blood sugars. We will switch him from Lantus to Tresiba 22 units daily. He is not a candidate for GLP 1 given history of pancreatitis. Metformin discontinued in the past due to excessive thirst and would increase risk of lactic acidosis with active alcohol use disorder.. He will hold off on initiating glipizide and use sliding scale for Humalog to improve postprandial fluctuations. Written sliding scale provided to patient. Refer to prosthodontist/educator. Prescribed backup glucometer. Prescribed glucose tablets. If you experience low blood sugar, treat this by eating a chewable fruit candy like skittles or jelly beans (about 8 pieces), 4 ounces (1/2 cup) of fruit juice (not diet), 1 tablespoon of honey or 4 glucose tablets. If your blood sugar is under 50, take double the amount of one of the above. Recheck your blood sugar in 15 minutes. Discussed pathophysiology of Type II Diabetes Mellitus with the patient in detail.? I explained the director long term care risks and complications associated with uncontrolled diabetes including nephropathy, neuropathy, peripheral vascular disease, retinopathy, increased risk of heart disease and stroke.? Follow up in 4-6 weeks for diabetes. (2) Low TSH level: Code(s): R79.89 - Other specified abnormal findings of blood chemistry Category: Medical Plan: Repeat TSH/reflux T4. Plan Follow up in 4-6 weeks for type 2 diabetes. Orders: Orders Microalbumin, Random (w Creat) Today E11.9 - Type 2 diabetes mellitus without complications Glutamic acid decarboxylase Ab Today E11.9 - Type 2 diabetes mellitus without complications TSH reflex Free T4 Today E11.9 - Type 2 diabetes mellitus without complications Islet Cell Antibody Scrn/Titer Today E11.9 - Type 2 diabetes mellitus without complications C Peptide Today E11.9 - Type 2 diabetes mellitus without complications AMB Glucose Monitoring Today E11.9 - Type 2 diabetes mellitus without complications Referrals Diabetes Education Referral E11.65 - Type 2 diabetes mellitus with hyperglycemia Medications: New glucose (Dex4 Glucose) until blood sugar is >70 16 grams (4 x 4 gram) PO Q15M PRN 10 tabs 3RF hypoglycemia (hipoglucemia) insulin degludec (Tresiba FlexTouch U-100 insulin) Replaces Lantus. 22 units (0.22 mL) subcut BEDTIME 15 mL 5RF blood-glucose meter (FreeStyle Lite Meter kit) To check glucose three times daily 1 ea 0RF E11.9 - Type 2 diabetes mellitus without complications, Z79.4 - FDC (current) use of insulin insulin lispro (Humalog KwikPen (U-100) Insulin) 1 sliding scale dose subcut .before meals 15 mL 5RF Changed From blood sugar diagnostic (FreeStyle Lite Strips) USE 1 STRIP TWICE A DAY NEEDED...OR MAY USE 3 TIMES IF NEEDED 100 strips 11RF E11.9 - Type 2 diabetes mellitus without complications, Z79.4 - adjunct faculty for medical terminology (current) use of insulin To blood sugar diagnostic (FreeStyle Lite Strips) use three times daily to check blood sugar 100 strips 5RF E11.9 - Type 2 diabetes mellitus without complications, Z79.4 - adjunct faculty for medical terminology (current) use of insulin Refilled lancets (FreeStyle Lancets) USE TO TEST BLOOD SUGAR THREE TIMES A DAY DIRECTED 300 ea 5RF E11.9 - Type 2 diabetes mellitus without complications, Z79.4 - FDC (current) use of insulin Discontinued glipizide Discontinued Reason: Doctor's Order 2.5 mg PO DAILY 30 days 30 tabs 0RF Patient Instructions: If you experience low blood sugar, treat this by eating a chewable fruit candy like skittles or jelly beans (about 8 pieces), 4 ounces (1/2 cup) of fruit juice (not diet), 1 tablespoon of honey or 4 glucose tablets. If your blood sugar is under 50, take double the amount of one of the above. Recheck your blood sugar in 15 minutes. Switch Lantus to Tresiba 22 units daily. Blood sugar under 150 mg/dL: take no Humalog Blood sugar 150-199 mg/dL take 2 units Blood sugar 200-249 mg/dL take 4 units Blood sugar 250-299 mg/dL take 6 units Blood sugar 300-349 mg/dL take 8 units Blood sugar 350-399 mg/dL take 10 units Blood sugar >/=400 mg /dL take 12 units Administration timing of short-acting/mealtime insulin Insulin Lispro Humalog: Administer within 15 minutes before a meal. Coding Level of Care Code New Pt Level 4 (80847) Diagnoses Type 2 diabetes mellitus with diabetic autonomic neuropathy, with long-term current use of insulin E11.43; Z79.4 Diabetes mellitus director long term care insulin use: with director long term care use Diabetes mellitus complication status: with neurologic complications Diabetes mellitus complication detail: with autonomic neuropathy Low TSH level R79.89 CPT Codes Details - CPT: 15816 - Glucose monitoring, continuous-physician I&R ([id number])
[2024-05-22 09:05] VITALS: BP 110/76; PULSE 76; BMI 27.5
== END 2024-05-22 10:01 | disposition home or self-care (01) ==
PROVIDERS: PCP Family Medicine; Visit Provider Physician Assistant Medical
DX: E11.43 Type 2 diabetes mellitus with diabetic autonomic (poly)neuropathy (principal); Z79.4 Long term (current) use of insulin; R79.89 Other specified abnormal findings of blood chemistry

== ENCOUNTER → 2024-05-22 08:58 | Outpatient (BNVA) | payer OTHER, SELFPAY | PROVIDERS: PCP Family Medicine; Visit Provider Physician Assistant Medical | DX: E11.43 Type 2 diabetes mellitus with diabetic autonomic (poly)neuropathy (principal); R79.89 Other specified abnormal findings of blood chemistry; Z79.4 Long term (current) use of insulin | CPT/HCPCS: 99202 ==

== ENCOUNTER 2024-06-01 09:04 | Day surgery (SDC) | payer OTHER, SELFPAY ==
[2024-05-28 12:04] VITALS: BMI 27.6
[2024-06-01 10:16] LABS: Glucose, Whole Blood 123 mg/dL (60-115)
[2024-06-01 10:17] VITALS: BP 133/89; PULSE 58; RESP 18; TEMP 36.9; O2SAT 96; BMI 26.4
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
[2024-06-01] MEDS: Lactated Ringers 1,000 ML 100 ML IVCONT (11:35)
--- NOTE | 2024-06-01 11:44 | MHC.SHP ---
Pre-Procedural Eval Section A - 24 Hr Update-Section A only Date of Service: 06/01/24 The patient is an INPATIENT: No Changes since office visit: No Cold of Flu in the past 2 weeks, No New Medical Problems, No Changes in Medication and No Patient answered all questions The patient has been examined within 24 hours of the surgical procedure. The History & Physical has been completed within 30 days and I have reviewed it.: Yes Section B - Complete if H&P > 30 days Chief Complaint: Benign neoplasm of prostate Details of Present Illness: Prostate polyp, Plan for bipolar resection with plasma button Relevant Family History (Specify if Yes): No Present Medications: see Short Stay Collaborative assessment Medical History: No relevant PMH History of Previous Operations: No relevant previous surgery Allergies: Allergies Allergy/AdvReac Type Severity Reaction Status Date / Time aspirin [ASPIRIN] Allergy Severe SWELLING Verified 05/22/24 09:06 NSAIDS (Non-Steroidal Allergy Severe inflamation Verified 05/22/24 09:06 Anti-Inflamma penicillin G [PENICILLIN G] Allergy Severe DIFFICULTY Verified 05/22/24 09:06 BREATHING Sulfa (Sulfonamide Allergy Severe ANAPHYLAXIS Verified 05/22/24 09:06 Antibiotics) [SULFA (SULFONAMIDE ANTIBIOTICS)] tramadol [TRAMADOL] Allergy Severe DIZZY Verified 05/22/24 09:06 Review of Systems Sugical H&P ROS: Negative: Constitution, Cardiovascular, Respiratory, Neurological, Psychiatric, Hem-Onc, Allergic/Immunologic, Gastrointestinal, Genitourinary, Musculoskeletal, Integumentary, Endocrine and Eyes/Ears/Nose/Throat Exam Surgical H&P Exam: Normal: HEENT, Normal: Heart, Normal: Lungs, Normal: Extremities, Normal: Abdomen, Normal: Skin and Normal: Neurological Plan Diagnosis/Plan: Unchanged (As above) I have reviewed the history and physical and performed a pertinent physical examination on my patient. No changes have occurred unless specified. Time Spent With Patient Time: Total time managing care of this patient today ____ minutes.
--- NOTE | 2024-06-01 12:55 | P.OP_ITS ---
Operative Note Operative Note Date of Service: 06/01/24 Narrative: PreOperative Diagnosis: Prostatic polyp Post Operative Diagnosis: Bladder neck polyp - Tumor size 5 cm, location midline bladder neck Procedure: TURBT - bipolar prostate plasma button Surgeon: Dr Mac Caceres Anesthesia: general Indications for procedure: Initial presentation with obstructive voiding symptoms. Failure to respond to tamsulosin. Office cystoscopy showed large 5 cm x 2 cm bladder neck prostate polyp. Recommend resection. Procedure: After informed consent was verified the patient was brought to the operating room and placed in a supine position. Anesthesia was administered per protocol. The patient was placed in a modified dorsal lithotomy position and prepped and draped in a sterile fashion. Safety pause time-out was performed. Antibiotics were confirmed. A 26 Upper [place] continuous flow resectoscope was inserted per urethra. The visual obturator was used in order to minimize potential for urethral damage. Using the bipolar prostate plasma button the polyp was resected and ablated. We ended up initially working on the distal aspect before taking it off at the root which was in the midline of the bladder neck. Specimen was collected. Prostatic polyp tissue was removed and sent for pathology. The patient tolerated the procedure well. They were extubated in the operating room and transferred in stable condition to the recovery area. Pathology: Prostate polyp Drains: []
[2024-06-01 13:05] VITALS: BP 152/97; PULSE 62; RESP 16; TEMP 36.4; O2SAT 98
[2024-06-01 13:10] VITALS: BP 147/93; PULSE 65; RESP 16; O2SAT 98
[2024-06-01 13:15] VITALS: BP 145/91; PULSE 65; RESP 16; O2SAT 98
[2024-06-01] MEDS: Phenazopyridine HCL 100 MG TABLET PO (13:19)
[2024-06-01 13:20] VITALS: BP 147/85; PULSE 65; RESP 16; O2SAT 98
[2024-06-01 13:27] VITALS: BP 150/92; PULSE 59; RESP 16; O2SAT 98
== END 2024-06-01 14:22 | disposition home or self-care (01) ==
PROVIDERS: Visit Provider Urology
PROC: 0VT08ZZ Resection of Prostate, Via Natural or Artificial Opening Endoscopic (ICD-10-PCS; CPT 52601; principal; 2024-06-01 11:20)
DX: D29.1 Benign neoplasm of prostate (principal); N32.89 Other specified disorders of bladder; K85.20 Alcohol induced acute pancreatitis without necrosis or infection; E11.9 Type 2 diabetes mellitus without complications; J45.909 Unspecified asthma, uncomplicated; I10 Essential (primary) hypertension; G62.9 Polyneuropathy, unspecified; M10.9 Gout, unspecified; Z96.82 Presence of neurostimulator; F19.10 Other psychoactive substance abuse, uncomplicated; F10.90 Alcohol use, unspecified, uncomplicated; Z79.899 Other long term (current) drug therapy; Z79.4 Long term (current) use of insulin; Z88.0 Allergy status to penicillin; Z88.2 Allergy status to sulfonamides; Z88.6 Allergy status to analgesic agent; Z88.8 Allergy status to other drugs, medicaments and biological substances; Z98.890 Other specified postprocedural states
CPT/HCPCS: 52601; 82947; 88305; A4649; J0131; J1100; J1956; J2003; J2250; J2405; J2704; J3010

== ENCOUNTER → 2024-06-01 09:04 | Outpatient (BNV) | payer OTHER, SELFPAY | PROVIDERS: Visit Provider Urology | DX: D30.3 Benign neoplasm of bladder (principal) | CPT/HCPCS: 52235 ==

== ENCOUNTER → 2024-06-17 10:53 | Outpatient (BNVA) | payer OTHER, SELFPAY | PROVIDERS: PCP Family Medicine; Visit Provider Urology ==

== ENCOUNTER 2024-07-02 12:34 | Outpatient (REF) | payer OTHER, SELFPAY ==
--- OUTSIDE RECORDS SUMMARY | 2024-07-02 13:28 | XMS_ITS | Clinical Summary ---
Author Organization [facility] Address [address] [facility] [address] [place] [address] Phone Care Team Providers Care Herbologist Name Role Phone Alia Arellano NP Primary Care Provider [phone] Medications ProAir HFA 108 (90 Base) MCG/ACT inhaler 12/08/2020 Act maria ines allopurinol (ZYLOPRIM) 300 MG tablet 11/25/2020 Active ALPRAZolam (XANAX) 0.5 MG tablet 11/07/2020 Active atenolol (TENORMIN) 100 MG tablet 09/19/2020 Active Buprenorphine 7.5 MCG/HR patch weekly 12/14/2020 Active Belbuca 300 MCG film 10/03/2020 Active fluticasone (FLONASE) 50 MCG/ACT nasal spray 11/30/2020 Active glipiZIDE (GLUCOTROL) 5 MG tablet TAKE 1 TABLET BY MOUTH TWICE DAILY 15 MINUTES BEFORE MEALS 11/04/2020 Active FREESTYLE LITE test strip 11/25/2020 Active indomethacin (INDOCIN) 50 MG capsule 12/03/2020 Active Lantus SoloStar 100 UNIT/ML injection 11/19/2020 Active metFORMIN (GLUCOPHAGE) 500 MG tablet Take 250 mg by mouth 2 (two) times a day 12/15/2020 Active omeprazole (PriLOSEC) [address] capsule 12/10/2020 Activ e oxyCODONE-aceta minophen (PERCOCET) 5-325 MG per tablet 09/19/2020 Active Social History Tobacco Use Types Packs/Day Years Used Date Smoking Tobacco: Never Assessed Sex and Gender Information Value Date Recorded Sex Assigned at Not on file Legal Sex Male 11:52 AM EDT Gender Identity Not on file Sexual Orientation Not on file Plan of Treatment Health Maintenance Due Date Last Done Comments Hepatitis B Vaccine (1 of 3 - 19+ 3-dose series) 12/20/1990 Colorectal Cancer Screening: Annual FOBT 12/20/2020 Colorectal Cancer Screening: Colonoscopy 12/20/2020 Colorectal Cancer Screening: Sigmoidoscopy 12/20/2020 Influenza Vaccine (#1) 2024 Pneumococcal Vaccine: Pediat rics (0 to 5 Years) and At-Risk Patients (6 to 64 Years) Aged Out No longer eligible b ased on patient's age to complete this topic Insurance Care Teams Herbologist Relationship Specialty Start Date End Date Alia Arellano NP [address] [place] [id number] PCP - General Nurse Practitioner 12/22/20
[2024-07-10 15:38] LABS: Testosterone, Free 89.3 pg/mL (35.0-155.0); Testosterone, Total 744 ng/dL (250-1100)
== END 2024-07-02 12:35 | disposition home or self-care (01) ==
LOC: HO.WFDLDS 12:34
PROVIDERS: Visit Provider Urology
DX: N32.89 Other specified disorders of bladder (principal)
CPT/HCPCS: 36415; 84402; 84403

== ENCOUNTER 2024-09-02 08:36 | Outpatient (AMB) | payer OTHER, SELFPAY ==
--- NOTE | 2024-09-02 08:40 | A.OFFPC_ITS ---
Vital Signs 09/02/24 08:49 Height 6 ft 0.75 in Weight 213 lb BMI 28.3 BP 110/70 Blood Pressure Location Rt brachial Position Sitting Respiration 14 Pulse 63 Pulse Source Pulse Oximeter Temp 97.4 F Temp Source Oral Pulse Oximetry (%) 99 Oxygen Delivery Method Room Air Intake Visit Reasons: f/u diabetes, chronic conditions Intake Note: patient is scheduled for dm follow Business Machines Teacher Required: No Allergies penicillin G [PENICILLIN G] Allergy (Severe, Verified 09/02/24 08:46) DIFFICULTY BREATHING Sulfa (Sulfonamide Antibiotics) [SULFA (SULFONAMIDE ANTIBIOTICS)] Allergy (Severe, Verified 09/02/24 08:46) ANAPHYLAXIS Medication List - Last Reconciled 09/02/24 by Rico Hope MD adhesive remover As directed to remove adhesive from patches weekly albuterol sulfate 90 mcg/actuation 1 inh inhalation QID PRN albuterol sulfate 2.5 mg (3 mL) inhalation Q8H PRN 1 month amlodipine 10 mg PO DAILY 3 months atenolol 50 mg (1/2 x 100 mg) PO DAILY betamethasone dipropionate 0.05% 1 appl topical BID PRN blood sugar diagnostic (FreeStyle Lite Strips) use three times daily to check blood sugar blood-glucose meter (FreeStyle Lite Meter kit) To check glucose three times daily blood-glucose sensor (FreeStyle Jay 3 Sensor device) As directed, 28 days buprenorphine 7.5 mcg/hour 1 patch transdermal Q7D 28 days cholecalciferol (vitamin D3) (Vitamin D3) 10 mcg PO DAILY citalopram 20 mg (2 x 10 mg) PO DAILY 30 days cyclobenzaprine 10 mg PO BID PRN 90 days fluticasone propion-salmeterol 113 mcg-14 mcg/actuation 1 inh inhalation BID PRN fluticasone propionate 50 mcg/actuation 1 spray intranasal DAILY 1 month FreeStyle Lite Meter (blood-glucose meter) TEST blood sugar 2-3 TIMES DAILY NS glucose (Dex4 Glucose) 16 grams (4 x 4 gram) PO Q15M PRN insulin degludec (Tresiba FlexTouch U-100 insulin) 22 units (0.22 mL) subcut BEDTIME insulin lispro (Humalog KwikPen (U-100) Insulin) Administer SC TID 15 minutes before meals per sliding scale: Blood sugar under 150 mg/dL take 0 units; Blood sugar 150-199 mg/dL take 2 units; Blood sugar 200-249 mg/dL take 4 units; Blood sugar 250-299 mg/dL take 6 units; Blood sugar 300-349 mg/dL take 8 units; Blood sugar 350-399 mg/dL take 10 units; Blood sugar >/=400 mg /dL take 12 units lancets (FreeStyle Lancets) USE TO TEST BLOOD SUGAR THREE TIMES A DAY DIRECTED lorazepam 1 mg PO BID PRN magnesium oxide 400 mg PO BIDPC omeprazole 20 mg PO DAILY@0630 pen needle, diabetic (Easy Touch) Use as directed to inject insulin 4 times daily. pen needle, diabetic (Comfort EZ Pen [place]) As directed to inject insulin 4 times daily tadalafil 5 mg PO DAILY 90 days Tobacco use date assessed: 11/19/23 Dental Screening Dental Screen Date: 09/25/23 [facility] Medical History GERD (gastroesophageal reflux disease) Hyperlipidemia Type II diabetes with exterminator use of insulin Chronic SI joint pain Alcoholic pancreatitis Neuropathy Diabetes Anxiety Asthma Polysubstance abuse Gout HTN (hypertension) Surgical History H/O colonoscopy S/P insertion of spinal cord stimulator History of hip surgery Family History Other No pertinent family history Social History Household Members: Significant Other Housing: House Do you presently have visiting nurse or other home services: No Alcohol intake: never Patient Tobacco Use Status: Never used Tobacco e-Cigarette/Vaping Use: Never Used service: No Current occupational status: 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 1. Little interest or pleasure in doing things: several days 2. Feeling down, depressed, or hopeless: several days 3. Trouble falling or staying asleep, or sleeping too much: nearly every day 4. Feeling tired or having little energy: more than half the days 5. Poor appetite or overeating: several days 6. Feeling bad about yourself - or that you are a failure or have let yourself or your family down: several days 7. Trouble concentrating on things, such as reading the newspaper or watching television: nearly every day 8. Moving or speaking so slowly that other people could have noticed. Or the opposite - being so fidgety or restless that you have been moving around a lot more than usual: nearly every day 9. Thoughts that you would be better off or of hurting yourself in some way: not at all Total score: 15 Source: Developed by Drs. Dominick Miller, Koki Buck, Mohan Beavers and colleagues, with an educational nanette from [employer]. Thrive Questionnaire Date Thrive assessed: 05/15/24 I am a: Patient What is your living situation today?: I have a steady place to live Within the past 12 months, did the food you bought not last and you didn't have the money to get more?: Sometimes True Within the past 12 months, did you worry whether your food would run out before you got money to buy more?: Often true Do you have trouble paying for medicines?: No Do you have trouble getting transportation to medical appointments?: Yes Do you have trouble paying your heating and electricity bill?: Yes Do you have trouble taking care of your child, family member or friend?: I choose not to answer this question Do you have trouble with day-to-day activities such as bathing, preparing meals, shopping, managing finances, etc.?: Yes Are you currently unemployed and looking for a job?: Yes Are you interested in more education?: Yes Currently or been in a relationship where the following occur: No concerns reported THRIVE Score: 4 TUNDE-7 AMB Questionnaire TUNDE-7 Date TUNDE - 7 assessed: 09/25/23 Source: Developed by Drs. Dominick Miller, Koki Buck, Mohan Beavers and colleagues, with an educational nanette from [employer]. Physical exam (Primary Care) Vital Signs: Last Vital Signs Temp 97.4 F 09/02/24 08:49 Pulse 63 09/02/24 08:49 Resp 14 09/02/24 08:49 BP 110/70 09/02/24 08:49 Pulse Ox 99 09/02/24 08:49 Oxygen Delivery Method Room Air 09/02/24 08:49 BMI result Body Mass Index 28.3 Tobacco/Smoking Status: Tobacco use Status Tobacco use date assessed 11/19/23 09/02/24 08:41 Patient Tobacco Use Status Never used Tobacco 09/02/24 08:41 e-Cigarette/Vaping Use Never Used 09/02/24 08:41 PHQ-9: PHQ-9 Score PHQ-9: Total score 15 09/02/24 08:41 Thrive Assessment: Date of Thrive Assessment Date Thrive assessed 05/15/24 09/02/24 08:41 Currently or been in a relationship where the following occur: No concerns reported Coding Level of Care Code Est Pt Level 5 (07291) Diagnoses Back pain M54.9 Right shoulder pain M25.511 Essential hypertension I10 Hypertension type: essential hypertension Type II diabetes with usp use of insulin E11.9; Z79.4 Assessment & Plan Assessment & Plan (1) Back pain: Code(s): M54.9 - Dorsalgia, unspecified Category: Medical Plan: About?1?week?s/p L3, L4 and L5 medial branch radiofrequency neurotomy with radiofrequency ablation. Complaints?of?worsened?back?pain. He?says?much?of?his?pain?is?at?SI?joints?when?walking. He?is?also?on buprenorphine?7.5?mcg patches. Continue?buprenorphine?7.5?mcg?patches Will?add?tramadol?1?tablet?daily?p.r.n.?breakthrough?pain. He?will?also?use?some?diclofenac or?pain?and?swelling?and?SI?joints. He?says?when?he?takes?this?mo re?than?a?few?days?in?row?he?gets?adverse?effects.??He?will?use?for?up?to?3?days ?at?a?time?and?in?take?a?holiday?from it. (2) Right shoulder pain: Code(s): M25.511 - Pain in right shoulder Category: Medical Plan: Anterior?right?shoulder?pain. Possible?AC?joint?strain Referred?for?physical?therapy Pain?medications?as?above (3) HTN (hypertension): Code(s): I10 - Essential (primary) hypertension Category: Medical Qualifiers: Hypertension type: essential hypertension Qualified Code(s): I10 - Essential (primary) hypertension Plan: Blood?pressure?is?controlled.??Goal?is?less?than?140/90 Continue?amlodipine (4) Type II diabetes with exterminator use of insulin: Code(s): E11.9 - Type 2 diabetes mellitus without complications; Z79.4 - extermination supervisor (current) use of insulin Category: Medical Plan: A1c?is?5.9%.??Good?control.??Goal?is?less?than?7.0% Continue?current?medications Orders: Orders PT Evaluation and Treatment Today M25.511 - Pain in right shoulder Comprehensive Met. Panel Today E11.43 - Type 2 diabetes mellitus with diabetic autonomic (poly)neuropathy, Z79.4 - extermination supervisor (current) use of insulin TSH reflex Free T4 Today E11.43 - Type 2 diabetes mellitus with diabetic autonomic (poly)neuropathy, Z00.00 - Encounter for general adult medical examination without abnormal findings, Z79.4 - extermination supervisor (current) use of insulin UA CC w/rflx Micro + Cult Today E11.43 - Type 2 diabetes mellitus with diabetic autonomic (poly)neuropathy, Z00.00 - Encounter for general adult medical examination without abnormal findings, Z79.4 - extermination supervisor (current) use of insulin Complete Blood Count Auto Diff Today Z00.00 - Encounter for general adult medical examination without abnormal findings Microalbumin, Random (w Creat) Today E11.43 - Type 2 diabetes mellitus with diabetic autonomic (poly)neuropathy, I10 - Essential (primary) hypertension, Z79.4 - extermination supervisor (current) use of insulin Medications: New diclofenac potassium 50 mg PO BID 90 days PRN 180 tabs 3RF pain tramadol [facility]Pat Verified. Partial Refill on Request 50 mg PO DAILY 30 days PRN 30 tabs 0RF pain Changed From buprenorphine 7.5 mcg/hour Pt is prescribed both 20mcg patch and 7.5mcg patches concurrently. MassPat verified. Partial refill upon request. 1 patch transdermal Q7D 28 days 4 ea 0RF To buprenorphine 7.5 mcg/hour [facility]Pat verified. Partial refill upon request. 1 patch transdermal Q7D 28 days 4 ea 0RF
[2024-09-02 08:49] VITALS: BP 110/70; PULSE 63; RESP 14; TEMP 36.3; O2SAT 99; BMI 28.3
--- OUTSIDE RECORDS SUMMARY | 2024-09-02 08:59 | XMS_ITS | Clinical Summary ---
Author Organization [facility] Address [address] [facility] [address] [place] [address] Phone Care Team Providers Care Certified Court/Medical Interpreter Name Role Phone Alia Arellano NP Primary Care Provider [phone] Medications ProAir HFA 108 (90 Base) MCG/ACT [...] (1 of 3 - 19+ 3-dose series) 12/20 Colorectal Cancer Screening: Annual FOBT 12/20/2020 Colorectal Cancer Screening: Colonoscopy 12/20/2020 Colorectal Cancer Screening: Sigmoidoscopy 12/20/2020 Pneumococcal Vaccine: 50+ Years (1 of 1 - PCV) 022 Influenza Vaccine (Season Ended) 2025 Insurance [place] [address] [place] [address] Medicaid [place] [id number]/Medical Interpreter Relationship Specialty Start Date End Date Alia Arellano NP [address] [place] [id number] PCP - General Nurse Practitioner 12/22/20
== END 2024-09-02 09:17 | disposition home or self-care (01) ==
LOC: HO.HMCFM 08:37
PROVIDERS: PCP Family Medicine; Visit Provider Family Medicine
DX: M54.9 Dorsalgia, unspecified (principal); E11.9 Type 2 diabetes mellitus without complications; Z79.4 Long term (current) use of insulin; M25.511 Pain in right shoulder; I10 Essential (primary) hypertension

== ENCOUNTER → 2024-09-02 08:36 | Outpatient (BNVA) | payer OTHER, SELFPAY | PROVIDERS: PCP Family Medicine; Visit Provider Family Medicine | DX: M54.9 Dorsalgia, unspecified (principal); M25.511 Pain in right shoulder; I10 Essential (primary) hypertension; E11.9 Type 2 diabetes mellitus without complications; Z79.4 Long term (current) use of insulin; Z79.899 Other long term (current) drug therapy | CPT/HCPCS: 99212 ==

== ENCOUNTER 2024-09-02 09:28 | Outpatient (REF) | payer OTHER, SELFPAY ==
--- OUTSIDE RECORDS SUMMARY | 2024-09-02 10:30 | XMS_ITS | Clinical Summary ---
Author Organization [facility] Address [address] [facility] [address] [place] [address] Phone Care Team Providers Care Wood Machinist Name Role Phone Alia Arellano NP Primary Care Provider [phone]- [phone] Medications ProAir HFA 108 (90 Base) MCG/ACT [...] 022 Influenza Vaccine (Season Ended) 2025 Insurance [place] [address] [place] [address] Medicaid [place] [id number] Care Teams Wood Machinist Relationship Specialty Start Date End Date Alia Arellano NP [address] [place] [id number] PCP - General Nurse Practitioner 12/22/20
[2024-09-02 11:43] LABS: MANUAL DIFF FLAG NO
[2024-09-02 11:52] LABS: Basophils Percent Auto 0.6 % (0-2); Eosinophils Absolute Auto 0.3 X10*3/uL (0.0-0.4); Eosinophils Percent Auto 5.7 % (0-4); Hematocrit 42.7 % (42.0-52.0); Hemoglobin 14.4 g/dl (14.0-18.0); Imm Gran Abs Auto 0.02 X10*3/uL (0.00-0.03); Imm Gran Pct Auto 0.4 % (0.0-0.4); Mean Corpuscular HGB Conc 33.7 g/dl (31.0-36.0); Mean Corpuscular Hemoglobin 29.8 pg (27.0-33.0); Mean Corpuscular Volume 88.2 fL (80.0-98.0); Mean Platelet Volume 10.4 fL (9.4-12.4); Monocytes Absolute Auto 0.3 X10*3/uL (0.1-1.2); Monocytes Percent Auto 6.2 % (2-11); Neutrophils Absolute Auto 2.3 x10*3/uL (2.0-8.3); Neutrophils Percent Auto 47.1 % (45-73); Platelet Count 171 X10*3/uL (160-400); Red Blood Count 4.84 X10*6/uL (4.60-5.80); White Blood Count 4.9 X10*3/uL (4.8-10.8)
[2024-09-02 11:55] LABS: Appearance Urine Clear; Color Urine Yellow; Glucose Urine UA Negative (Negative); Leukocyte Esterase Urine Negative (Negative); Nitrite Urine Negative (Negative); Specific Gravity - Urine <= 1.005 (1.005-1.025); Urine Blood Negative (Negative); Urine Ketones Negative (Negative); Urine Protein Negative (Neg-Trace)
[2024-09-02 12:22] LABS: Alanine Aminotransferase 28 U/L (0-40); Albumin Level 4.6 g/dL (3.5-5.0); Alkaline Phosphatase 64 U/L (39-117); Anion Gap 12 (12-20); Aspartate Amino Transferase 42 U/L (5-37); Bilirubin Total 0.4 mg/dL (0.0-1.0); Blood Urea Nitrogen 11 mg/dL (9-16); Calcium 9.7 mg/dL (8.4-10.2); Carbon Dioxide 26 mmol/L (22-29); Chloride 105 mmol/L (96-108); Estimated Glomerular Filt Rate > 60; Glucose Random 109 mg/dL (60-115); Potassium 3.9 mmol/L (3.3-5.1); Sodium 139 mmol/L (135-145); Total Protein 7.3 g/dL (6.5-8.0)
[2024-09-02 12:24] LABS: TSH reflex Free T4 1.27 uIU/mL (0.32-4.0)
[2024-09-02 12:26] LABS: Creatinine Urine 24.74 mg/dL; Microalbumin Urine < 5.0 mg/L
[2024-09-03 07:58] LABS: C Peptide 2.18 ng/mL (0.80-3.85)
[2024-09-03 09:04] LABS: Lyme Abs Screen <0.90 index
[2024-09-05 16:04] LABS: Glutamic acid decarboxylase Ab <5 IU/mL (<5)
[2024-09-08 23:08] LABS: Islet Cell Antibody Screen NEGATIVE (NEGATIVE)
== END 2024-09-02 09:29 | disposition home or self-care (01) ==
LOC: HO.WFDLDS 09:28
PROVIDERS: Referring Provider Physician Assistant Medical; Visit Provider Family Medicine
DX: Z00.00 Encounter for general adult medical examination without abnormal findings (principal); E11.9 Type 2 diabetes mellitus without complications; E11.43 Type 2 diabetes mellitus with diabetic autonomic (poly)neuropathy; I10 Essential (primary) hypertension; M25.511 Pain in right shoulder; T14.8XXA Other injury of unspecified body region, initial encounter; W57.XXXA Bitten or stung by nonvenomous insect and other nonvenomous arthropods, initial encounter; Y93.9 Activity, unspecified; Y92.9 Unspecified place or not applicable; Y99.9 Unspecified external cause status; Z79.4 Long term (current) use of insulin
CPT/HCPCS: 36415; 80053; 81003; 82043; 82570; 84443; 84681; 85025; 86341; 86617; 86618

== ENCOUNTER 2024-09-15 08:55 | Outpatient (AMB) | payer OTHER, SELFPAY ==
--- NOTE | 2024-09-15 08:56 | MHC.OFFVIS ---
Intake Visit Reasons: 3M testosterone follow up Intake Note: Patient is present for 3M/TESTOSTERONE F/U Urology Medication:TADALAFIL Antibiotic Allergy:PENICILLING,SULFA Blood Thinner:NONE Network Director Required: No Allergies penicillin G [PENICILLIN G] Allergy (Severe, Verified 09/15/24 08:57) DIFFICULTY BREATHING Sulfa (Sulfonamide Antibiotics) [SULFA (SULFONAMIDE ANTIBIOTICS)] Allergy (Severe, Verified 09/15/24 08:57) ANAPHYLAXIS HPI Comments Details: Alpesh is a pleasant male. He is seen for the following urologic conditions - lower urinary tract symptoms - pyelonephritis - erectile dysfunction in setting of diabetes mellitus Telemedicine Evaluation 15 min Consultation [facility] On daily tadalafil Significantly improved voiding function Good response for ED Erectile dysfunction in setting of diabetes Initiate tadalafil Testosterone 07/07 744 Lower urinary tract symptoms Prior pyelonephritis Imaging shows thickened bladder wall with increased postvoid residual, mild hydro uretero nephrosis bilateral 30 cc prostate Cytology negative PFSH Medical History GERD (gastroesophageal reflux disease) Hyperlipidemia Type II diabetes with long term care pharmacist use of insulin Chronic SI joint pain Alcoholic pancreatitis Neuropathy Diabetes Anxiety Asthma Polysubstance abuse Gout HTN (hypertension) Surgical History H/O colonoscopy S/P insertion of spinal cord stimulator History of hip surgery Family History Other No pertinent family history Social History Household Members: Significant Other Housing: House Do you presently have visiting nurse or other home services: No Alcohol intake: never Patient Tobacco Use Status: Never used Tobacco e-Cigarette/Vaping Use: Never Used service: No Current occupational status: 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: Yes Hearing needs: No Vision needs: No Review of Systems Const All systems reviewed & are unremarkable except as noted in HPI and below Reports no additional complaints Resp Reports no additional complaints GI Reports no additional complaints Reports as per HPI Musc Reports no additional complaints Physical Exam Telemedicine evaluation Appropriate responses Regular breathing rate and rhythm HEENT Head: Yes normal to inspection Ears: hearing grossly normal bilaterally Eyes General: appearance normal, both eyes and all related structures Neck Neck: Yes normal visual inspection Chest Chest palpation & inspection: normal inspection of the chest Resp Effort & Inspection: normal respiratory effort and able to speak in complete sentences Telehealth Telehealth Location of provider rendering services: practice address Location of patient: address on file Patient Identification confirmed using: Name, : Yes Telehealth method: voice only Patient verbally consented to treatment: Yes Patient verbally consented to billing insurance company: Yes Patient informed of any privacy concerns related to visit: Yes Assessment & Plan Assessment & Plan (1) Bladder trabeculation: Code(s): N32.89 - Other specified disorders of bladder Category: Medical (2) Bladder outlet obstruction: Code(s): N32.0 - Bladder-neck obstruction Category: Medical Plan 6m f/u PVR Orders: Orders Prostate Specific Antigen 6 Months R33.9 - Retention of urine, unspecified Medications: Refilled tadalafil 5 mg PO DAILY 90 days 90 tabs 1RF N32.0 - Bladder-neck obstruction, N32.89 - Other specified disorders of bladder Patient Instructions: This note is constructed using voice recognition software. While every effort has been made to ensure accuracy director regulatory affairs errors may have been included. Imaging studies, laboratory and physical exam results were discussed and reviewed in detail. No major barriers to patient understanding were identified. An opportunity to ask questions regarding the treatment plan was provided. All questions were answered. The patient expressed understanding and agreement with the above treatment plan. The patient is aware they should contact our office by phone for worsening of their current condition or the appearance of new urologic symptoms. Compliance is encouraged with any medications and followup testing that is ordered. It is a privilege to participate in the urologic care of your patient. If you have any questions or concerns regarding treatment for the above conditions, or other urologic issues, please do not hesitate to contact me. The office telephone contact is [phone]. Sincerely, Dr Mac Caceres MD, [facility] - Urology Compassionate Specialist Care for the Genitourinary System Coding Level of Care Code Tele Est Pt Level 3 (09715) Complex EM visit Add On G2211 Diagnoses Bladder trabeculation N32.89 Bladder outlet obstruction N32.0
--- OUTSIDE RECORDS SUMMARY | 2024-09-15 09:28 | XMS_ITS | Clinical Summary ---
Author Organization [facility] Address [address] [facility] [address] [place] [address] Phone Care Team Providers Care Flower Machine Operator Name Role Phone Alia Arellano NP Primary Care Provider [phone] Medications ProAir HFA 108 (90 Base) MCG/ACT [...] 022 Influenza Vaccine (Season Ended) 2025 [place] [address] [place] [address] Medicaid [place] [id number] Care Teams Flower Machine Operator Relationship Specialty Start Date End Date Alia Arellano NP [address] [place] [id number] PCP - General Nurse Practitioner 12/22/20
== END 2024-09-15 09:54 | disposition home or self-care (01) ==
LOC: HO.HUSH 08:55
PROVIDERS: PCP Family Medicine; Visit Provider Urology
DX: N32.89 Other specified disorders of bladder (principal); N32.0 Bladder-neck obstruction
CPT/HCPCS: 99213; G2211

== ENCOUNTER 2024-09-18 08:10 | Outpatient (AMB) | payer OTHER, SELFPAY ==
--- OUTSIDE RECORDS SUMMARY | 2024-09-18 08:13 | XMS_ITS | Clinical Summary ---
Author Organization [facility] Address [address] [facility] [address] [place] [address] Phone Care Team Providers Care Thread Spooler Name Role Phone Alia Arellano NP Primary Care Provider [phone] Medications ProAir HFA 108 (90 Base) MCG/ACT [...] 022 Influenza Vaccine (Season Ended) 2025 Insurance [place] [address] [place] [address] Medicaid [place] [id number] Care Teams Thread Spooler Relationship Specialty Start Date End Date Alia Arellano NP [address] [place] [id number] PCP - General Nurse Practitioner 12/22/20
--- NOTE | 2024-09-18 08:26 | A.OFFVIS_ITS ---
Intake Visit Reasons: medication questions Allergies penicillin G [PENICILLIN G] Allergy (Severe, Verified 09/15/24 08:57) DIFFICULTY BREATHING Sulfa (Sulfonamide Antibiotics) [SULFA (SULFONAMIDE ANTIBIOTICS)] Allergy (Severe, Verified 09/15/24 08:57) ANAPHYLAXIS HPI Comments Details: Alpesh is a pleasant male. He is seen for the following urologic conditions - lower urinary tract symptoms - pyelonephritis - erectile dysfunction in setting of diabetes mellitus Telemedicine Evaluation 15 min Consultation [facility] Follow-up from September visit Had questions regarding medications Confirmed good effect from daily tadalafil Had also noted benefit from daily tamsulosin would like to go back on medications Prescriptions refilled Erectile dysfunction in setting of diabetes Initiate tadalafil Testosterone 07/07 744 Lower urinary tract symptoms Prior pyelonephritis Imaging shows thickened bladder wall with increased postvoid residual, mild hydro uretero nephrosis bilateral 30 cc prostate Cytology negative [facility] Medical History GERD (gastroesophageal reflux disease) Hyperlipidemia Type II diabetes with prison use of insulin Chronic SI joint pain Alcoholic pancreatitis Neuropathy Diabetes Anxiety Asthma Polysubstance abuse Gout HTN (hypertension) Surgical History H/O colonoscopy S/P insertion of spinal cord stimulator History of hip surgery Family History Other No pertinent family history Social History Household Members: Significant Other Housing: House Do you presently have visiting nurse or other home services: No Alcohol intake: never Patient Tobacco Use Status: Never used Tobacco e-Cigarette/Vaping Use: Never Used service: No Current occupational status: 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: Yes Hearing needs: No Vision needs: No Review of Systems Const All systems reviewed & are unremarkable except as noted in HPI and below Reports no additional complaints Resp Reports no additional complaints GI Reports no additional complaints Reports as per HPI Musc Reports no additional complaints Physical Exam Telemedicine evaluation Appropriate responses Regular breathing rate and rhythm HEENT Head: Yes normal to inspection Ears: hearing grossly normal bilaterally Eyes General: appearance normal, both eyes and all related structures Neck Neck: Yes normal visual inspection Chest Chest palpation & inspection: normal inspection of the chest Resp Effort & Inspection: normal respiratory effort and able to speak in complete sentences Telehealth Telehealth Telehealth Platform: [facility] Location of provider rendering services: practice address Location of patient: address on file Patient Identification confirmed using: Name, : Yes Telehealth method: video Patient verbally consented to treatment: Yes Patient verbally consented to billing insurance company: Yes Patient informed of any privacy concerns related to visit: Yes Minutes spent on Phone/Video with Pt.: 15 Assessment & Plan Assessment & Plan (1) Slow urinary stream: Code(s): R39.198 - Other difficulties with micturition Category: Medical (2) Bladder trabeculation: Code(s): N32.89 - Other specified disorders of bladder Category: Medical Plan Six-month follow-up with plan Patient Instructions: This note is constructed using voice recognition software. While every effort has been made to ensure accuracy hydroelectric station operator errors may have been included. Imaging studies, laboratory and physical exam results were discussed and reviewed in detail. No major barriers to patient understanding were identified. An opportunity to ask questions regarding the treatment plan was provided. All questions were answered. The patient expressed understanding and agreement with the above treatment plan. The patient is aware they should contact our office by phone for worsening of their current condition or the appearance of new urologic symptoms. Compliance is encouraged with any medications and followup testing that is ordered. It is a privilege to participate in the urologic care of your patient. If you have any questions or concerns regarding treatment for the above conditions, or other urologic issues, please do not hesitate to contact me. The office telephone contact is [phone]. Sincerely, Dr Mac Caceres MD, [facility] - Urology Compassionate Specialist Care for the Genitourinary System Coding Level of Care Code Tele Est Pt Level 3 (86742) Diagnoses Slow urinary stream R39.198 Bladder trabeculation N32.89
== END 2024-09-18 09:37 | disposition home or self-care (01) ==
LOC: HO.HUSH 08:10
PROVIDERS: PCP Family Medicine; Visit Provider Urology
DX: R39.198 Other difficulties with micturition (principal); N32.89 Other specified disorders of bladder
CPT/HCPCS: 99213

== ENCOUNTER 2024-10-09 08:31 | Outpatient (AMB) | payer OTHER, SELFPAY ==
--- OUTSIDE RECORDS SUMMARY | 2024-10-09 08:34 | XMS_ITS | Clinical Summary ---
Author Organization [facility] Address [address] [facility] [address] [place] [address] Phone Care Team Providers Care Reprographics Associate Name Role Phone Alia Arellano NP Primary Care Provider [phone] Medications ProAir HFA 108 (90 Base) MCG/ACT [...] 022 Influenza Vaccine (Season Ended) 2025 Insurance [place] [address] [place] [address] Medicaid [place] [id number] Care Teams Reprographics Associate Relationship Specialty Start Date End Date Alia Arellano NP [address] [place] [id number] PCP - General Nurse Practitioner 12/22/20
--- NOTE | 2024-10-09 08:38 | MHC.OFFVIS ---
Vital Signs 10/09/24 08:39 Height 6 ft 0.7 in Weight 211 lb 10.3 oz BMI 28.2 BP 124/82 Blood Pressure Location Rt brachial Position Sitting Pulse 66 Pulse Oximetry (%) 98 Oxygen Delivery Method Room Air Intake Visit Reasons: Diabetes Type 2 Intake Note: Patient presents today for a follow-up on Type 2 Diabetes Mellitus: Last Diabetic Eye exam: 07/05/2024 [facility] Last Podiatry Visit: Does not see a Telemarketing Agent Random Glucose: 121 mg/dl HgA1C: 5.8%, 10/09/2024 Photolettering Machine Operator Required: No Accompanied by: Self / Same As Patient Allergies penicillin G [PENICILLIN G] Allergy (Severe, Verified 09/15/24 08:57) DIFFICULTY BREATHING Sulfa (Sulfonamide Antibiotics) [SULFA (SULFONAMIDE ANTIBIOTICS)] Allergy (Severe, Verified 09/15/24 08:57) ANAPHYLAXIS Medication List - Last Reconciled 10/09/24 by KEILA Obregon adhesive remover As directed to remove adhesive from patches weekly albuterol sulfate 2.5 mg (3 mL) inhalation Q8H PRN 1 month albuterol sulfate 90 mcg/actuation 1 inh inhalation QID PRN amlodipine 10 mg PO DAILY 3 months atenolol 50 mg (1/2 x 100 mg) PO DAILY betamethasone dipropionate 0.05% 1 appl topical BID PRN blood sugar diagnostic (FreeStyle Lite Strips) use three times daily to check blood sugar blood-glucose meter (FreeStyle Lite Meter kit) To check glucose three times daily blood-glucose sensor (FreeStyle Jay 3 Plus Sensor device) Apply 1 new sensor every 15 days as directed to monitor blood glucose continuously. blood-glucose,director of restaurant operations,cont (FreeStyle Jay 3 Hanson) Use daily to monitor blood glucose levels continuously. buprenorphine 7.5 mcg/hour 1 patch transdermal Q7D 28 days cholecalciferol (vitamin D3) (Vitamin D3) 10 mcg PO DAILY citalopram 20 mg (2 x 10 mg) PO DAILY 30 days cyclobenzaprine 10 mg PO BID PRN 90 days diclofenac potassium 50 mg PO BID PRN 90 days doxycycline hyclate 200 mg (2 x 100 mg) PO ONCE 1 day fluticasone propion-salmeterol 113 mcg-14 mcg/actuation 1 inh inhalation BID PRN fluticasone propionate 50 mcg/actuation 1 spray intranasal DAILY 1 month FreeStyle Lite Meter (blood-glucose meter) TEST blood sugar 2-3 TIMES DAILY NS glucose (Dex4 Glucose) 16 grams (4 x 4 gram) PO Q15M PRN insulin degludec (Tresiba FlexTouch U-100 insulin) 25 units subcut BEDTIME insulin lispro (Humalog KwikPen (U-100) Insulin) Administer SC TID 15 minutes before meals per sliding scale: Blood sugar under 150 mg/dL take 0 units; Blood sugar 150-199 mg/dL take 2 units; Blood sugar 200-249 mg/dL take 4 units; Blood sugar 250-299 mg/dL take 6 units; Blood sugar 300-349 mg/dL take 8 units; Blood sugar 350-399 mg/dL take 10 units; Blood sugar >/=400 mg /dL take 12 units lancets (FreeStyle Lancets) USE TO TEST BLOOD SUGAR THREE TIMES A DAY DIRECTED lorazepam 1 mg PO BID PRN magnesium oxide 400 mg PO BIDPC omeprazole 20 mg PO DAILY@0630 pen needle, diabetic (Easy Touch) Use as directed to inject insulin 4 times daily. pen needle, diabetic (Comfort EZ Pen [place]) As directed to inject insulin 4 times daily tadalafil 5 mg PO DAILY 90 days tamsulosin (Flomax) 0.4 mg PO BEDTIME 90 days tramadol 50 mg PO DAILY PRN 30 days HPI Comments Details: This is a 53-year-old male with a past medical history of pyelonephritis, portal hypertension, type 2 diabetes, severe alcohol use disorder, avascular necrosis of the hips, hematuria, hyperlipidemia, GERD, pancreatitis, asthma and hypertension presenting for diabetic management. He was diagnosed with diabetes three years ago. Denies family history of diabetes. He was seen in the emergency department this month for abdominal pain and urinary frequency. He had a CT of the abdomen and pelvis which showed possible sequela of pancreatitis however MRI of the abdomen could be considered for further evaluation. He has an appointment with his primary care provider next week for follow up. He denies abdominal pain today, fevers, chills, vomiting or diarrhea. I reviewed today's CGM download x last 14 days: 88% active sensor GMI x 14 days is 6.3% Very high (>250): 1% High (181-250): 10% Target range (70-180): 89% Low (55-69): 0% Very low (<55): 0% Trend: postprandial hyperglycemia occasionally, but the majority of sugars are in target range Hemoglobin A1c Today is 5.8%. Current medication regimen: Tresiba 25 units and Humalog sliding scale: Blood sugar under 150 mg/dL: take no Humalog Blood sugar 150-199 mg/dL take 2 units Blood sugar 200-249 mg/dL take 4 units Blood sugar 250-299 mg/dL take 6 units Blood sugar 300-349 mg/dL take 8 units Blood sugar 350-399 mg/dL take 10 units Blood sugar >/=400 mg /dL take 12 units Past medication: Metformin was discontinued due to excessive thirst. Lantus switch to Tresiba due to fluctuations in blood sugar on Lantus. Diet: low carb Breakfast- eggs and 1 piece of toast, decaf coffee (creamer and milk) Lunch-soups Dinner-protein and veggies Snacks/desserts: hummus and carrots, peppers, celery, sometimes cheese and crackers He does try to exercise. He is limited by chronic back pain. The patient is still abusing alcohol. We discussed a referral to addiction Medicine, but he says he has gone through this before, and it does not help him anymore. Hypoglycemia symptoms: None since last visit. Hyperglycemia symptoms: vision Eye exam: June 2024-no retinopathy. Diabetic complications: neuropathy Which impacts his balance. Patient is referred to physical therapy for gait coordination and fall prevention. Patient's TSH level normalized. Screenings for type 1 diabetes are negative/normal. The patient had a CT of the abdomen and pelvis in January 2024 which showed no liver abnormalities. ROS: Constitutional: No fevers or chills Cardiovascular: No chest pain or pedal edema. Gastrointestinal: No anorexia, nausea, vomiting or diarrhea. No abdominal pain Neurologic: No headache, dizziness, syncope. +numbness and tingling in his feet Endocrine: No cold or heat intolerance. No polyuria or polydipsia. Physical exam: Constitutional: Alert, in no distress. Head: Normocephalic. Neck: Supple, Full range of motion. No lymphadenopathy. No palpable thyroid masses. Respiratory: Clear to auscultation. Cardiovascular: S1 S2 regular. No murmurs. Abdomen: Soft, nontender, no organomegaly or palpable masses, no rebound or guarding. : No CVA tenderness. Right foot: Warm and well perfused. No clubbing, cyanosis or edema. Intact DP pulse. moderately decreased vibratory sensation. Intact sensation to monofilament. No open wounds. Left foot: Warm and well perfused. No clubbing, cyanosis or edema. intact DP pulse. moderaly decreased vibratory sensation. Intact sensation to monofilament. No open wounds. COUNTS INCLUDE 234 BEDS AT THE [facility] Medical History GERD (gastroesophageal reflux disease) Hyperlipidemia Type II diabetes with retirement use of insulin Chronic SI joint pain Alcoholic pancreatitis Neuropathy Diabetes Anxiety Asthma Polysubstance abuse Gout HTN (hypertension) Surgical History H/O colonoscopy S/P insertion of spinal cord stimulator History of hip surgery Family History Other No pertinent family history Social History Household Members: Significant Other Housing: House Do you presently have visiting nurse or other home services: No Alcohol intake: never Patient Tobacco Use Status: Never used Tobacco e-Cigarette/Vaping Use: Never Used service: No Current occupational status: 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: Yes Hearing needs: No Vision needs: No Physical Exam Vital Signs: Last Vital Signs Pulse 66 10/09/24 08:39 BP 124/82 10/09/24 08:39 Pulse Ox 98 10/09/24 08:39 Oxygen Delivery Method Room Air 10/09/24 08:39 BMI result Body Mass Index 28.2 Results AMB Hemoglobin A1c AMB Hemoglobin A1c 5.8 % Last Edit by LATISHA Cummings on 10/09/24 08:56 Results Reviewed Results Reviewed: Laboratory Last Values Glucose (Clinic) 121 mg/dL (60-115) H 10/09/24 08:44 Hgb A1c (Clinic) 5.8 % (4.0-6.0) 10/09/24 08:56 Laboratory Tests 09/02/24 09/02/24 09:30 09:39 Plt Count 171 D Creatinine 0.82 Estimated GFR > 60 C-Peptide 2.18 AST 42 H ALT 28 TSH 1.27 Urine Creatinine 24.74 Urine Microalbumin < 5.0 Microalb/Creat Ratio TNP Islet Cell Ab Screen NEGATIVE TUNDE Antibody <5 Assessment & Plan Assessment & Plan (1) Type II diabetes mellitus: Code(s): E11.9 - Type 2 diabetes mellitus without complications Category: Medical Qualifiers: Diabetes mellitus complication detail: with autonomic neuropathy Diabetes mellitus complication status: with neurologic complications 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 Continue Tresiba and Humalog sliding scale. Defers referral to nutrition educator. He has a backup glucometer. He has glucose tablets. Submitted prescription for Jay 3+ as they are discontinuing the Jay 3. Patient says neuropathy is causing some balance issues. Refer to physical therapy for gait coordination and fall prevention. If you experience low blood sugar, treat this by eating a chewable fruit candy like skittles or jelly beans (about 8 pieces), 4 ounces (1/2 cup) of fruit juice (not diet), 1 tablespoon of honey or 4 glucose tablets. If your blood sugar is under 50, take double the amount of one of the above. Recheck your blood sugar in 15 minutes. Discussed pathophysiology of Type II Diabetes Mellitus with the patient in detail.? I explained the longshore equipment operator risks and complications associated with uncontrolled diabetes including nephropathy, neuropathy, peripheral vascular disease, retinopathy, increased risk of heart disease and stroke.? Plan Follow up in 3 months for type 2 diabetes. Orders: Orders AMB Hemoglobin A1c Today E11.43 - Type 2 diabetes mellitus with diabetic autonomic (poly)neuropathy, Z79.4 - penitentiary (current) use of insulin Medications: New blood-glucose sensor (FreeStyle Jay 3 Plus Sensor device) Apply 1 new sensor every 15 days as directed to monitor blood glucose continuously. 2 ea 11RF blood-glucose,director of restaurant operations,cont (FreeStyle Jay 3 Hanson) Use daily to monitor blood glucose levels continuously. 1 ea 0RF blood-glucose sensor (FreeStyle Jay 3 Plus Sensor device) Apply 1 new sensor every 15 days as directed to monitor blood glucose continuously. 2 ea 11RF E16.2 - Hypoglycemia, unspecified, R73.03 - Prediabetes Changed From insulin degludec (Tresiba FlexTouch U-100 insulin) Replaces Lantus. 25 units subcut BEDTIME To insulin degludec (Tresiba FlexTouch U-100 insulin) 25 units subcut BEDTIME Discontinued blood-glucose sensor (FreeStyle Jay 3 Sensor device) Discontinued Reason: Doctor's Order As directed, 28 days 2 ea 11RF E11.9 - Type 2 diabetes mellitus without complications, R73.9 - Hyperglycemia, unspecified Coding Level of Care Code Est Pt Level 4 (00117) Diagnoses Type 2 diabetes mellitus with diabetic autonomic neuropathy, with long-term current use of insulin E11.43; Z79.4 Diabetes mellitus complication detail: with autonomic neuropathy Diabetes mellitus complication status: with neurologic complications 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
[2024-10-09 08:39] VITALS: BP 124/82; PULSE 66; O2SAT 98; BMI 28.2
[2024-10-09 08:47] LABS: Glucose, Whole Blood 121 mg/dL (60-115)
== END 2024-10-09 09:13 | disposition home or self-care (01) ==
LOC: HO.ENCR 08:32
PROVIDERS: PCP Family Medicine; Visit Provider Physician Assistant Medical
DX: E11.43 Type 2 diabetes mellitus with diabetic autonomic (poly)neuropathy (principal); Z79.4 Long term (current) use of insulin

== ENCOUNTER → 2024-10-09 08:31 | Outpatient (BNVA) | payer OTHER, SELFPAY | PROVIDERS: PCP Family Medicine; Visit Provider Physician Assistant Medical | DX: E11.43 Type 2 diabetes mellitus with diabetic autonomic (poly)neuropathy (principal); E11.65 Type 2 diabetes mellitus with hyperglycemia; E78.5 Hyperlipidemia, unspecified; Z79.4 Long term (current) use of insulin | CPT/HCPCS: 82947; 83036; 99212 ==

== ENCOUNTER 2024-10-14 09:39 | Outpatient (AMB) | payer OTHER, SELFPAY ==
--- NOTE | 2024-10-14 09:51 | A.OFFPC_ITS ---
Vital Signs 10/14/24 09:55 Height 6 ft 0.7 in Weight 215 lb BMI 28.6 BP 120/80 Blood Pressure Location Rt brachial Position Sitting Respiration 12 Pulse 61 Pulse Source Pulse Oximeter Temp 97.5 F Temp Source Oral Pulse Oximetry (%) 97 Oxygen Delivery Method Room Air Intake Visit Reasons: Follow-up?acute?on?chronic?pain Intake Note: patient is scheduled for chronic pain follow up patent was seen in [id number] ago and would like a mri referral to get his pancreas checked Systems Software Specialist Required: No Allergies penicillin G [PENICILLIN G] Allergy (Severe, Verified 10/14/24 09:53) DIFFICULTY BREATHING Sulfa (Sulfonamide Antibiotics) [SULFA (SULFONAMIDE ANTIBIOTICS)] Allergy (Severe, Verified 10/14/24 09:53) ANAPHYLAXIS Tobacco use date assessed: 11/19/23 Dental Screening Dental Screen Date: 09/25/23 HPI Follow-up?acute?on?chronic?pain HPI Details Recent?hospital?visit?at?[facility]?with?discharge?on?09/28/2024 Patient?was?seen?for?abdominal?pain. CT?scan?showed?some?bladder?wall?thickening?consistent?with?history?of?cystitis. 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 Otherwise,?radiology?gave?recommendation?of?MRI?if?no?history?of?pancreatitis. Lipase?was?low?at?11 Patient?presents?with?concern?of?pancreatitis. Still?getting?a?right?upper?and?lower?quadrant?pain?and?epigastric?pain. No?diarrhea?or?constipation?currently [facility] Medical History GERD (gastroesophageal reflux disease) Hyperlipidemia Type II diabetes with intermediate manager use of insulin Chronic SI joint pain Alcoholic pancreatitis Neuropathy Diabetes Anxiety Asthma Polysubstance abuse Gout HTN (hypertension) Surgical History H/O colonoscopy S/P insertion of spinal cord stimulator History of hip surgery Family History Other No pertinent family history Social History Household Members: Significant Other Housing: House Do you presently have visiting nurse or other home services: No Alcohol intake: never Patient Tobacco Use Status: Never used Tobacco e-Cigarette/Vaping Use: Never Used service: No Current occupational status: 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: Yes Hearing needs: No Vision needs: No Questionnaire Thrive Questionnaire Date Thrive assessed: 05/15/24 I am a: Patient What is your living situation today?: I have a steady place to live Within the past 12 months, did the food you bought not last and you didn't have the money to get more?: Sometimes True Within the past 12 months, did you worry whether your food would run out before you got money to buy more?: Often true Do you have trouble paying for medicines?: No Do you have trouble getting transportation to medical appointments?: Yes Do you have trouble paying your heating and electricity bill?: Yes Do you have trouble taking care of your child, family member or friend?: I choose not to answer this question Do you have trouble with day-to-day activities such as bathing, preparing meals, shopping, managing finances, etc.?: Yes Are you currently unemployed and looking for a job?: Yes Are you interested in more education?: Yes Currently or been in a relationship where the following occur: No concerns reported THRIVE Score: 4 TUNDE-7 AMB Questionnaire TUNDE-7 Date TUNDE - 7 assessed: 09/25/23 Source: Developed by Drs. Dominick Miller, Koki Buck, Mohan Beavers and colleagues, with an educational nanette from [employer]. Review of Systems Const Denies chills, Denies fatigue, Denies fever(s), Denies headache(s) and Denies weakness ENT Denies dizziness and Denies headache(s) Card Denies chest pain, Denies lightheadedness, Denies dyspnea and Denies other (Palpitations) Resp Denies cough, Denies dyspnea, Denies wheezing and Denies other ( shortness of breath) GI Details: Epigastric?and?right?upper?and?lower?quadrants?pain, migratory?abdominal?pain Details: Urinary?retention Musc Details: Chronic back?and?hip?pain Denies numbness and Denies tingling Neuro Denies dizziness, Denies headache(s), Denies numbness, Denies tingling, Denies paresthesias and Denies weakness Psych Denies anxiety and Denies depression Endo Denies fatigue Aller/Immun Denies wheezing Physical exam (Primary Care) Vital Signs: Last Vital Signs Temp 97.5 F 10/14/24 09:55 Pulse 61 10/14/24 09:55 Resp 12 10/14/24 09:55 BP 120/80 10/14/24 09:55 Pulse Ox 97 10/14/24 09:55 Oxygen Delivery Method Room Air 10/14/24 09:55 BMI result Body Mass Index 28.6 Tobacco/Smoking Status: Tobacco use Status Tobacco use date assessed 11/19/23 10/14/24 09:54 Patient Tobacco Use Status Never used Tobacco 10/14/24 09:54 e-Cigarette/Vaping Use Never Used 10/14/24 09:54 Thrive Assessment: Date of Thrive Assessment Date Thrive assessed 05/15/24 10/14/24 09:54 Currently or been in a relationship where the following occur: No concerns reported Const General: no acute distress and well developed Nutritional Appearance: well nourished Orientation/consciousness: patient [facility]: Yes normocephalic and Yes atraumatic Eyes General: appearance normal, both eyes and all related structures Pupils: Equal, round and reactive pupils present EOM: EOMs intact bilaterally Resp Effort & Inspection: normal respiratory effort Auscultation: clear to auscultation bilaterally Cardio Rate: regular rate Rhythm: regular rhythm Heart sounds: S1 normal heart sound present, S2 normal heart sound present, no gallops, no murmurs and no rubs GI Other: Mild?epigastric?discomfort Right?abdominal?discomfort?without?Rahman's?sign?or?rebound?tenderness Back/Spine/Pelvis Other: Chronic?pain?with?range?of?motion Normal?straight?leg?raise Neuro General: patient oriented x3 and gait normal Cranial nerves: Yes Equal, round and reactive pupils present Psych Affect: normal affect Coding Level of Care Code Est Pt Level 4 (29938) Diagnoses Abdominal pain R10.9 Bladder wall thickening N32.89 Avascular necrosis of bones of both hips M87.051; M87.052 Chronic SI joint pain M53.3; G89.29 Assessment & Plan Assessment & Plan (1) Abdominal pain: Code(s): R10.9 - Unspecified abdominal pain Category: Medical Plan: Patient?with?history?of?pancreatitis?and?new?abdominal?pain?and?recent?hospital? visit CT?and?lab?work?unremarkable?and?strongly?suggest?no?active?pancreatitis Patient?does?have?abdominal?pain?however?and?I?will?refer?him?to?Gastroenterolog y?at?his?request Hydrate?well (2) Bladder wall thickening: Code(s): N32.89 - Other specified disorders of bladder Category: Medical Plan: Followed?by??Morris?and?I?recommended?he?follow- up?with?him?if?any?low?abdominal?or?pelvic?symptoms (3) Avascular necrosis of bones of both hips: Code(s): M87.051 - Idiopathic aseptic necrosis of right femur; M87.052 - Idiopathic aseptic necrosis of left femur Category: Medical (4) Chronic SI joint pain: Code(s): M53.3 - Sacrococcygeal disorders, not elsewhere classified; G89.29 - Other chronic pain Category: Medical Plan Chronic?low?back?pain?and?avascular?necrosis?of?bilateral?hips?with?severe?pain? controlled?with?tramadol Patient?is?compliant?with?medication He?will?get?a?urine?drug?screen?today?or?tomorrow Continue?current?medication?regimen Orders: Orders Drug Screen Urine Today F11.90 - Opioid use, unspecified, uncomplicated
[2024-10-14 09:55] VITALS: BP 120/80; PULSE 61; RESP 12; TEMP 36.4; O2SAT 97; BMI 28.6
--- OUTSIDE RECORDS SUMMARY | 2024-10-14 10:09 | XMS_ITS | Clinical Summary ---
Author Organization [facility] Address [address] [facility] [facility] [address] [place] [address] Phone Care Team Providers Care Machinist/Machine Builder Name Role Phone Alia Arellano NP Primary Care Provider [phone]- [phone] Medications ProAir HFA 108 (90 Base) MCG/ACT [...] 022 Influenza Vaccine (Season Ended) 2025 Insurance [place] [address] [place] [address] Medicaid [place] [id number] Care Teams Machinist/Machine Builder Relationship Specialty Start Date End Date Alia Arellano NP [address] [place] [phone] PCP - General Nurse Practitioner 12/22/20
== END 2024-10-14 10:55 | disposition home or self-care (01) ==
LOC: HO.HMCFM 09:40
PROVIDERS: PCP Family Medicine; Visit Provider Family Medicine
DX: R10.9 Unspecified abdominal pain (principal); N32.89 Other specified disorders of bladder; M87.051 Idiopathic aseptic necrosis of right femur; M87.052 Idiopathic aseptic necrosis of left femur; M53.3 Sacrococcygeal disorders, not elsewhere classified; G89.29 Other chronic pain

== ENCOUNTER → 2024-10-14 09:39 | Outpatient (BNVA) | payer OTHER, SELFPAY | PROVIDERS: PCP Family Medicine; Visit Provider Family Medicine | DX: G89.29 Other chronic pain (principal); R10.11 Right upper quadrant pain; R10.31 Right lower quadrant pain; N32.89 Other specified disorders of bladder; M87.051 Idiopathic aseptic necrosis of right femur; M87.052 Idiopathic aseptic necrosis of left femur; M53.3 Sacrococcygeal disorders, not elsewhere classified; F11.90 Opioid use, unspecified, uncomplicated | CPT/HCPCS: 99212 ==

== ENCOUNTER → 2024-10-15 10:32 | Outpatient (BNVA) | payer OTHER, SELFPAY | PROVIDERS: PCP Family Medicine ==

== ENCOUNTER 2024-12-08 08:53 | Outpatient (AMB) | payer OTHER, SELFPAY ==
[2024-12-08 08:59] VITALS: BP 128/78; PULSE 76; O2SAT 98; BMI 29.0
--- NOTE | 2024-12-08 08:59 | A.OFFVIS_ITS ---
<Statement entered by Roxana Sumner RN - 12/08/24 11:32> Holger presented for appointment today to inquire about inpatient detox for AUD, he has not been seen in the office since December of last year. He had trialed Naltrexone however felt that it was inconsistent in helping him with reduce alcohol use. While in office, TW called [facility] to inquire about IPLOC Ray at [facility] provided the informration for their facilit in [place] that accepted is insurance and had contacted [facility], who will also take his insurance. Holger was presented with the information to follow up with for when his affairs are in order. He was asked to update the office. Vital Signs 12/08/24 08:59 Height 6 ft 1 in Weight 220 lb BMI 29.0 BP 128/78 Pulse 76 Pulse Oximetry (%) 98 Intake Visit Reasons: MAT Intake Allergies penicillin G (PENICILLIN G) Allergy (Severe, Verified 12/08/24 09:01) DIFFICULTY BREATHING Sulfa (Sulfonamide Antibiotics) (SULFA (SULFONAMIDE ANTIBIOTICS)) Allergy (Severe, Verified 12/08/24 09:01) ANAPHYLAXIS HPI Comments Details: The patient is a 53-year-old male presents looking for a detox program for alcohol use disorder. The patient is on buprenorphine-naloxone patch for pain management prescribed by primary care provider. Reports naltrexone has not worked well for him in the past on his looking to enter an inpatient setting due to prior history of seizure activities. [facility] Medical History (Updated 12/08/24 @ 12:53 by Riya Lock, BOXING INSTRUCTOR-C) Lower extremity weakness Gait instability GERD (gastroesophageal reflux disease) Hyperlipidemia Type II diabetes with long term care phlebotomist use of insulin Chronic SI joint pain Alcoholic pancreatitis Neuropathy Diabetes Anxiety Asthma Polysubstance abuse Gout HTN (hypertension) Surgical History H/O colonoscopy S/P insertion of spinal cord stimulator History of hip surgery Family History Other No pertinent family history Social History Household Members: Significant Other Housing: House Do you presently have visiting nurse or other home services: No Alcohol intake: never Patient Tobacco Use Status: Never used Tobacco e-Cigarette/Vaping Use: Never Used service: No Current occupational status: 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 The patient reported he would be calling as soon as he is able to get care for cats. Encouraged to follow-up with [facility] post inpatient detox or to call with questions or concers. Patient Instructions: - Call [facility] as soon as possible. - Reduce alcohol consumption. - Follow up with [facility] post inpatient detox or with questions and concerns. - The patient verbalized understanding and agreed with plan of care. Coding Level of Care Code Est Pt Level 4 (11795) Diagnoses Alcohol use disorder F10.90
--- OUTSIDE RECORDS SUMMARY | 2024-12-08 09:09 | XMS_ITS | Clinical Summary ---
Author Organization [facility] Address [address] [facility] [address] [place] [address] Phone Care Team Providers Care Mirror Polisher Name Role Phone Alia Arellano NP Primary Care Provider [phone]- [phone] Medications ProAir HFA 108 (90 Base) MCG/ACT [...] of 1 - PCV) 022 Influenza Vaccine (#1) 2025 Insurance [place] [id number] [place] [address] Medicaid Care Teams Mirror Polisher Relationship Specialty Start Date End Date Alia Arellano NP [address] [place] [id number] PCP - General Nurse Practitioner 12/22/20
== END 2024-12-08 09:33 | disposition home or self-care (01) ==
LOC: HO.HCC 08:53
PROVIDERS: PCP Family Medicine; Visit Provider Clinical Nurse Specialist Psychiatric/Mental Health
DX: F10.90 Alcohol use, unspecified, uncomplicated (principal)
CPT/HCPCS: 99214

== ENCOUNTER → 2024-12-08 08:53 | Outpatient (BNVA) | payer OTHER, SELFPAY | PROVIDERS: PCP Family Medicine; Visit Provider Clinical Nurse Specialist Psychiatric/Mental Health | DX: F10.90 Alcohol use, unspecified, uncomplicated (principal); Y90.9 Presence of alcohol in blood, level not specified | CPT/HCPCS: 99212 ==

== ENCOUNTER 2024-12-28 13:38 | Outpatient (AMB) | payer OTHER, SELFPAY ==
--- NOTE | 2024-12-28 13:44 | A.OFFVISCC_ITS ---
<Statement entered by Roxana Sumner RN - 12/28/24 14:17> Called patient to see if he had gone to inpatient detox as discussed. He stated that he had gone to [facility] from 12/13-12/18 and has not had any alcohol since. He was open to Acamprosate which was prescribed while inpatient at [facility] however his pharmacy was not able to stock it. Telehealth appointment arranged and attended with TUBE BACKER Riya Lock same day. Intake Visit Reasons: MAT Allergies penicillin G (PENICILLIN G) Allergy (Severe, Verified 12/08/24 09:01) DIFFICULTY BREATHING Sulfa (Sulfonamide Antibiotics) (SULFA (SULFONAMIDE ANTIBIOTICS)) Allergy (Severe, Verified 12/08/24 09:01) ANAPHYLAXIS HPI Comments Details: The patient is a 54-year-old male presents for a telehealth follow-up visit r/t AUD. Reports inpatient detox at [facility] at the beginning of December and continues in remission, denies use of alcohol or other substances. Notes naltrexone tablets and disulfiram have not proven to be benefecial and is interested in a trial of acamprosate. 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 In the process of being connected with a addictions recovery specialist. Physical Exam Psych Attitude: cooperative Thought process: Normal thought process present Thought content: Normal thought content present Insight: Good insight present (Psych) Judgement: Good judgement present (Psych) [facility] Medical History (Updated 12/08/24 @ 12:53 by Riya Lock, TUBE BACKER-C) Lower extremity weakness Gait instability GERD (gastroesophageal reflux disease) Hyperlipidemia Type II diabetes with director long term care use of insulin Chronic SI joint pain Alcoholic pancreatitis Neuropathy Diabetes Anxiety Asthma Polysubstance abuse Gout HTN (hypertension) Surgical History H/O colonoscopy S/P insertion of spinal cord stimulator History of hip surgery Family History Other No pertinent family history Social History Household Members: Significant Other Housing: House Do you presently have visiting nurse or other home services: No Alcohol intake: never Patient Tobacco Use Status: Never used Tobacco e-Cigarette/Vaping Use: Never Used service: No Current occupational status: 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 Education provided re: side effects, purpose, and general medication information. Follow up in one months or sooner if needed. Medications: New acamprosate Take two tablets by mouth three times per day. 666 mg (2 x 333 mg) PO TID 180 tabs 0RF 30 days folic acid Take one tablet by mouth daily 1 mg PO DAILY 30 tabs 0RF 30 days thiamine mononitrate (vit B1) Take one tablet by mouth daily 100 mg PO DAILY 30 tabs 0RF 30 days Patient Instructions: - Start on acamprosate as prescribed. - Start on thiamine and folic acid daily. - Follow up in one month or sooner if needed. - Call with questions, concerns, or to report side effects/new onset of symptoms to [facility]. - The patient verbalized understanding and agreed with plan of care.
--- OUTSIDE RECORDS SUMMARY | 2024-12-28 14:32 | XMS_ITS | Clinical Summary ---
Author Organization [facility] Address [address] [facility] [address] [place] [address] Phone Care Team Providers Care Weight Loss Consultant Name Role Phone Alia Arellano NP Primary Care Provider [phone]- [phone] Medications ProAir HFA 108 (90 Base) MCG/ACT [...] PCV) 022 Influenza Vaccine (#1) 2025 Insurance [place] [id number] [place] [address] Medicaid Care Teams Weight Loss Consultant Relationship Specialty Start Date End Date Alia Arellano NP [address] [place] [id number] PCP - General Nurse Practitioner 12/22/20
== END 2024-12-28 13:50 | disposition home or self-care (01) ==
LOC: HO.HCC 13:38
PROVIDERS: PCP Family Medicine; Visit Provider Clinical Nurse Specialist Psychiatric/Mental Health
DX: F10.90 Alcohol use, unspecified, uncomplicated (principal)
CPT/HCPCS: 99213

== ENCOUNTER 2025-01-08 08:37 | Outpatient (AMB) | payer OTHER, SELFPAY ==
--- NOTE | 2025-01-08 08:39 | MHC.OFFVIS ---
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 Random Glucose: 107 mg/dl HgA1C: 6.9% 01/08/2025 Veterinary Epidemiologist Required: No Accompanied by: Self / Same As Patient Allergies penicillin G (PENICILLIN G) Allergy (Severe, Verified 01/08/25 08:42) DIFFICULTY BREATHING Sulfa (Sulfonamide Antibiotics) (SULFA (SULFONAMIDE ANTIBIOTICS)) Allergy (Severe, Verified 01/08/25 08:42) ANAPHYLAXIS Medication List - Last Reconciled 01/08/25 by KEILA Obregon acamprosate 666 mg (2 x 333 mg) PO TID 30 days adhesive remover As directed to remove adhesive from patches weekly albuterol sulfate 2.5 mg (3 mL) inhalation Q8H PRN 1 month albuterol sulfate 90 mcg/actuation 1 inh inhalation QID PRN amlodipine 10 mg PO DAILY 3 months atenolol 50 mg PO DAILY 90 days betamethasone dipropionate 0.05% 1 appl topical BID PRN blood sugar diagnostic (FreeStyle Lite Strips) use three times daily to check blood sugar blood-glucose meter (FreeStyle Lite Meter kit) To check glucose three times daily blood-glucose sensor (FreeStyle Jay 3 Plus Sensor device) Apply 1 new sensor every 15 days as directed to monitor blood glucose continuously. blood-glucose,hydration plant operator,cont (FreeStyle Jay 3 [place]) Use daily to monitor blood glucose levels continuously. buprenorphine 7.5 mcg/hour 1 patch transdermal Q7D 28 days cholecalciferol (vitamin D3) (Vitamin D3) 10 mcg PO DAILY citalopram 20 mg (2 x 10 mg) PO DAILY 30 days clonidine HCl 0.1 mg PO BID PRN 30 days cyclobenzaprine 10 mg PO BID PRN 90 days diclofenac potassium 50 mg PO BID PRN 90 days fluticasone propion-salmeterol 113 mcg-14 mcg/actuation 1 inh inhalation BID PRN fluticasone propionate 50 mcg/actuation 1 spray intranasal DAILY 1 month folic acid 1 mg PO DAILY 30 days FreeStyle Lite Meter (blood-glucose meter) TEST blood sugar 2-3 TIMES DAILY NS glucose (Dex4 Glucose) 16 grams (4 x 4 gram) PO Q15M PRN insulin degludec (Tresiba FlexTouch U-100 insulin) 25 units subcut BEDTIME insulin lispro (Humalog KwikPen (U-100) Insulin) Administer SC TID 15 minutes before meals per sliding scale: Blood sugar under 150 mg/dL take 0 units; Blood sugar 150-199 mg/dL take 2 units; Blood sugar 200-249 mg/dL take 4 units; Blood sugar 250-299 mg/dL take 6 units; Blood sugar 300-349 mg/dL take 8 units; Blood sugar 350-399 mg/dL take 10 units; Blood sugar >/=400 mg /dL take 12 units lancets (FreeStyle Lancets) USE TO TEST BLOOD SUGAR THREE TIMES A DAY DIRECTED lorazepam 1 mg PO BID PRN magnesium oxide 400 mg PO BIDPC omeprazole 20 mg PO DAILY@0630 pen needle, diabetic (Easy Touch) Use as directed to inject insulin 4 times daily. pen needle, diabetic (Comfort EZ Pen [place]) As directed to inject insulin 4 times daily tadalafil 5 mg PO DAILY 90 days tamsulosin (Flomax) 0.4 mg PO BEDTIME 90 days thiamine mononitrate (vit B1) 100 mg PO DAILY 30 days tramadol 50 mg PO DAILY PRN 30 days HPI Comments Details: This is a 53-year-old male with a past medical history of pyelonephritis, portal hypertension, type 2 diabetes, severe alcohol use disorder, avascular necrosis of the hips, hematuria, hyperlipidemia, GERD, pancreatitis, asthma and hypertension presenting for diabetic management. He was diagnosed with diabetes three years ago. Denies family history of diabetes. I reviewed today's CGM download x last 14 days: 88% active sensor GMI x 14 days is 6.9% Very high (>250): 2% High (181-250): 31% Target range (70-180): 66% Low (55-69): 1% Very low (<55): 0% Trend: postprandial hyperglycemia occasionally, but the majority of sugars are in target range Hemoglobin A1c today is 6.9%. Current medication regimen: Tresiba 25 units and Humalog sliding scale: Blood sugar under 150 mg/dL: take no Humalog Blood sugar 150-199 mg/dL take 2 units Blood sugar 200-249 mg/dL take 4 units Blood sugar 250-299 mg/dL take 6 units Blood sugar 300-349 mg/dL take 8 units Blood sugar 350-399 mg/dL take 10 units Blood sugar >/=400 mg /dL take 12 units Past medication: Metformin was discontinued due to excessive thirst. Lantus switch to Tresiba due to fluctuations in blood sugar on Lantus. He is currently sober. Hypoglycemia symptoms: Denies symptoms Hyperglycemia symptoms: vision Eye exam: June 2024-no retinopathy. Screenings for type 1 diabetes are negative/normal. The patient had a CT of the abdomen and pelvis in January 2024 which showed no liver abnormalities. He is a nonsmoker. He has bilateral varicose veins. There is mottling on the bottom of his feet and slow capillary refill on the right. He has chronic pain in his feet. His blood pressure is mildly elevated, but he did not take his amlodipine today. ROS: Constitutional: No fevers or chills Cardiovascular: No chest pain or pedal edema. Gastrointestinal: No anorexia, nausea, vomiting or diarrhea. No abdominal pain Neurologic: No headache, dizziness, syncope. +numbness and tingling in his feet Endocrine: No cold or heat intolerance. No polyuria or polydipsia. Physical exam: Constitutional: Alert, in no distress. Head: Normocephalic. Neck: Supple, Full range of motion. No lymphadenopathy. No palpable thyroid masses. Respiratory: Clear to auscultation. Cardiovascular: S1 S2 regular. No murmurs. Feet: distal plantar surfaces mottled and mildly cool to touch with slow capillary refill R>L. Intact dorsalis pedis pulses. Moderately decreased vibratory sensation and sensation to monofilament. No open wounds. 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 Chronic SI joint pain Alcoholic pancreatitis Neuropathy Diabetes Anxiety Asthma Polysubstance abuse Gout HTN (hypertension) Surgical History H/O colonoscopy S/P insertion of spinal cord stimulator History of hip surgery Family History Other No pertinent family history Social History Household Members: Significant Other Housing: House Do you presently have visiting nurse or other home services: No Alcohol intake: never Patient Tobacco Use Status: Never used Tobacco e-Cigarette/Vaping Use: Never Used service: No Current occupational status: 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 [id number] - Glucose monitoring, continuous-physician I&R Procedure code (CPT) selection complete Results AMB Hemoglobin A1c AMB Hemoglobin A1c 6.9 % Last Edit by LATISHA Phillips on 01/08/25 08:58 Results Reviewed Results Reviewed: Laboratory Last Values Glucose (Clinic) 107 mg/dL (60-115) 01/08/25 08:46 Laboratory Tests 09/02/24 09/02/24 09:30 09:39 Plt Count 171 D Creatinine 0.82 Estimated GFR > 60 C-Peptide 2.18 AST 42 H ALT 28 TSH 1.27 Urine Creatinine 24.74 Urine Microalbumin < 5.0 Microalb/Creat Ratio TNP Islet Cell Ab Screen NEGATIVE TUNDE Antibody <5 Assessment & Plan Assessment & Plan (1) Type II diabetes with salvage determiner use of insulin: Code(s): E11.9 - Type 2 diabetes mellitus without complications; Z79.4 - custodial (current) use of insulin Category: Medical Qualifiers: Diabetes mellitus complication status: with circulatory complication Diabetes mellitus complication detail: with other circulatory complications Qualified Code(s): E11.59 - Type 2 diabetes mellitus with other circulatory complications; Z79.4 - intermediate teacher (current) use of insulin (2) PVD (peripheral vascular disease): Code(s): I73.9 - Peripheral vascular disease, unspecified Category: Medical Plan In summary this is a 54-year-old male with type 2 diabetes which is controlled. Continue Tresiba and Humalog sliding scale. Defers referral to consumer educator. He has a backup glucometer. He has glucose tablets. Bring CGM to all appointments. We discussed neuropathy at his last visit and recommended physical therapy for gait coordination and fall prevention. He defers at this time. Patient agreeable to US RICKEY. If you experience low blood sugar, treat this by eating a chewable fruit candy like skittles or jelly beans (about 8 pieces), 4 ounces (1/2 cup) of fruit juice (not diet), 1 tablespoon of honey or 4 glucose tablets. If your blood sugar is under 50, take double the amount of one of the above. Recheck your blood sugar in 15 minutes. Discussed pathophysiology of Type II Diabetes Mellitus with the patient in detail.? I explained the fci risks and complications associated with uncontrolled diabetes including nephropathy, neuropathy, peripheral vascular disease, retinopathy, increased risk of heart disease and stroke.? Follow up in 3 months for type 2 diabetes. Orders: Orders AMB Hemoglobin A1c Today E11.43 - Type 2 diabetes mellitus with diabetic autonomic (poly)neuropathy, Z79.4 - intermediate teacher (current) use of insulin US RICKEY complete Today I73.9 - Peripheral vascular disease, unspecified AMB Glucose Monitoring Today E11.9 - Type 2 diabetes mellitus without complications Medications: New insulin degludec (Tresiba FlexTouch U-100 insulin) 25 units (0.25 mL) subcut BEDTIME 15 mL 5RF Refilled insulin lispro (Humalog KwikPen (U-100) Insulin) Administer SC TID 15 minutes before meals per sliding scale: Blood sugar under 150 mg/dL take 0 units; Blood sugar 150-199 mg/dL take 2 units; Blood sugar 200-249 mg/dL take 4 units; Blood sugar 250-299 mg/dL take 6 units; Blood sugar 300-349 mg/dL take 8 units; Blood sugar 350-399 mg/dL take 10 units; Blood sugar >/=400 mg /dL take 12 units 15 mL 5RF Coding Level of Care Code Est Pt Level 4 (77289) Diagnoses Type 2 diabetes mellitus with other circulatory complication, with long-term current use of insulin E11.59; Z79.4 Diabetes mellitus complication status: with circulatory complication Diabetes mellitus complication detail: with other circulatory complications PVD (peripheral vascular disease) I73.9 CPT Codes Details - CPT: 02421 - Glucose monitoring, continuous-physician I&R ([id number])
[2025-01-08 08:41] VITALS: BP 136/88; PULSE 88; O2SAT 97; BMI 29.1
[2025-01-08 08:51] LABS: Glucose, Whole Blood 107 mg/dL (60-115)
--- OUTSIDE RECORDS SUMMARY | 2025-01-08 09:34 | XMS_ITS | Clinical Summary ---
Author Organization [facility] Address [address] [facility] [address] [place] [address] Phone Care Team Providers Care Screening Unit Registered Nurse Name Role Phone Alia Arellano NP Primary Care Provider [phone] Medications ProAir HFA 108 (90 Base) MCG/ACT [...] PCV) 022 Influenza Vaccine (#1) 2025 Insurance [place] [id number] [place] [address] Medicaid Care Teams Screening Unit Registered Nurse Relationship Specialty Start Date End Date Alia Arellano NP [address] [place] [id number] PCP - General Nurse Practitioner 12/22/20
== END 2025-01-08 09:07 | disposition home or self-care (01) ==
LOC: HO.ENCR 08:38
PROVIDERS: PCP Family Medicine; Visit Provider Physician Assistant Medical
DX: E11.59 Type 2 diabetes mellitus with other circulatory complications (principal); Z79.4 Long term (current) use of insulin; I73.9 Peripheral vascular disease, unspecified; E11.43 Type 2 diabetes mellitus with diabetic autonomic (poly)neuropathy

== ENCOUNTER → 2025-01-08 08:37 | Outpatient (BNVA) | payer OTHER, SELFPAY | PROVIDERS: PCP Family Medicine; Visit Provider Physician Assistant Medical | DX: E11.43 Type 2 diabetes mellitus with diabetic autonomic (poly)neuropathy (principal); E11.59 Type 2 diabetes mellitus with other circulatory complications; I73.9 Peripheral vascular disease, unspecified; Z79.4 Long term (current) use of insulin | CPT/HCPCS: 82947; 83036; 99212 ==

== ENCOUNTER 2025-01-15 10:25 | Outpatient (REF) | payer OTHER, SELFPAY | END 2025-01-15 10:26 | disposition home or self-care (01) | LOC: HO.LAB 10:25 | PROVIDERS: PCP Family Medicine; Visit Provider Family Medicine | DX: Z00.00 Encounter for general adult medical examination without abnormal findings (principal); E11.9 Type 2 diabetes mellitus without complications; G89.29 Other chronic pain; G62.9 Polyneuropathy, unspecified; F10.90 Alcohol use, unspecified, uncomplicated; M25.519 Pain in unspecified shoulder; F11.90 Opioid use, unspecified, uncomplicated; Z87.39 Personal history of other diseases of the musculoskeletal system and connective tissue | CPT/HCPCS: 36415; 80307; 85025; 99212 ==

== ENCOUNTER 2025-01-15 10:25 | Outpatient (AMB) | payer OTHER, SELFPAY ==
--- NOTE | 2025-01-15 10:27 | MHC.PC.OV ---
Vital Signs 01/15/25 10:34 Height 6 ft 1 in Weight 220 lb 4 oz BMI 29.1 BP 120/78 Blood Pressure Location Rt brachial Position Sitting Respiration 12 Pulse 67 Pulse Source Pulse Oximeter Temp 97.8 F Temp Source Temporal Artery Scan Pulse Oximetry (%) 98 Oxygen Delivery Method Room Air Intake Visit Reasons: Follow up acute on chronic pain Intake Note: Holger presents in the office today to follow up to acute chronic pain. Patient needs refill of his Buprenorphine patches. Allergies penicillin G (PENICILLIN G) Allergy (Severe, Verified 01/15/25 10:30) DIFFICULTY BREATHING Sulfa (Sulfonamide Antibiotics) (SULFA (SULFONAMIDE ANTIBIOTICS)) Allergy (Severe, Verified 01/15/25 10:30) ANAPHYLAXIS Tobacco use date assessed: 01/15/25 Dental Screening Dental Screen Date: 01/15/25 Did you have a dental visit in the last 12 months?: Yes Did you have a dental problem in the last 6 months where you did not have access to dental care?: No Was dental information given to patient?: Patient has dentist HPI Follow up acute on chronic pain HPI Details 54 y/o male presents to f/u chronic pain. Had been following up with endocrinology. Recent A1c 6.9%. Continues to work on EtOH use. 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 Chronic SI joint pain Alcoholic pancreatitis Neuropathy Diabetes Anxiety Asthma Polysubstance abuse Gout HTN (hypertension) Surgical History H/O colonoscopy S/P insertion of spinal cord stimulator History of hip surgery Family History Other No pertinent family history Social History (Updated 01/15/25 @ 10:34 by Shefali Oneal MA) Household Members: Significant Other Housing: House Do you presently have visiting nurse or other home services: No Alcohol intake: never Patient Tobacco Use Status: Never used Tobacco e-Cigarette/Vaping Use: Never Used Use of substances other than those prescribed or required for medical reasons: Yes service: No Current occupational status: 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: Yes Hearing needs: No Vision needs: No Questionnaire Thrive Questionnaire Date Thrive assessed: 05/15/24 I am a: Patient What is your living situation today?: I have a steady place to live Within the past 12 months, did the food you bought not last and you didn't have the money to get more?: Sometimes True Within the past 12 months, did you worry whether your food would run out before you got money to buy more?: Often true Do you have trouble paying for medicines?: No Do you have trouble getting transportation to medical appointments?: Yes Do you have trouble paying your heating and electricity bill?: Yes Do you have trouble taking care of your child, family member or friend?: I choose not to answer this question Do you have trouble with day-to-day activities such as bathing, preparing meals, shopping, managing finances, etc.?: Yes Are you currently unemployed and looking for a job?: Yes Are you interested in more education?: Yes Currently or been in a relationship where the following occur: No concerns reported THRIVE Score: 4 TUNDE-7 AMB Questionnaire TUNDE-7 Date TUNDE - 7 assessed: 09/25/23 Source: Developed by Drs. Dominick Miller, Koki Buck, Mohan Beavers and colleagues, with an educational nanette from [employer]. Review of Systems Const Denies chills, Denies fatigue, Denies fever(s), Denies headache(s) and Denies weakness ENT Denies dizziness and Denies headache(s) Card Denies dyspnea Resp Denies cough, Denies dyspnea, Denies wheezing and Denies other (shortness of breath) Musc Denies numbness and Denies tingling Neuro Denies dizziness, Denies headache(s), Denies numbness, Denies tingling and Denies weakness Psych Denies anxiety and Denies depression Endo Denies fatigue Aller/Immun Denies wheezing Physical exam (Primary Care) Vital Signs: Last Vital Signs Temp 97.8 F 01/15/25 10:34 Pulse 67 01/15/25 10:34 Resp 12 01/15/25 10:34 BP 120/78 01/15/25 10:34 Pulse Ox 98 01/15/25 10:34 Oxygen Delivery Method Room Air 01/15/25 10:34 BMI result Body Mass Index 29.1 Tobacco/Smoking Status: Tobacco use Status Tobacco use date assessed 01/15/25 01/15/25 10:36 Patient Tobacco Use Status Never used Tobacco 01/15/25 10:36 e-Cigarette/Vaping Use Never Used 01/15/25 10:36 Thrive Assessment: Date of Thrive Assessment Date Thrive assessed 05/15/24 01/15/25 10:36 Currently or been in a relationship where the following occur: No concerns reported Const General: well developed; No acute distress Nutritional Appearance: well nourished Orientation/consciousness: patient oriented x3 HENMT Head: Yes normocephalic and Yes atraumatic Eyes General: appearance normal, both eyes and all related structures Pupils: Equal, round and reactive pupils present EOM: EOMs intact bilaterally Resp Effort & Inspection: normal respiratory effort Neuro General: patient oriented x3 and gait normal Cranial nerves: Yes Equal, round and reactive pupils present Psych Affect: normal affect Coding Level of Care Code Est Pt Level 4 (02776) Diagnoses Chronic pain G89.29 Diabetes E11.9 Alcohol use disorder F10.90 Shoulder pain M25.519 Assessment & Plan Assessment & Plan (1) Chronic pain: Code(s): G89.29 - Other chronic pain Category: Medical Plan: Patient is using buprenorphine and diclofenac as well as cyclobenzaprine Fair control of his pain though he does note more pain at right shoulder and right flank. Continue buprenorphine He can try celecoxib is that of diclofenac as he is getting some adverse effects from diclofenac Continue cyclobenzaprine Followed by Dr. Montemayor at [facility] and anticipates shoulder injection therapy next visit He will also discuss physical therapy Checking urine drug screen today. (2) Diabetes: Code(s): E11.9 - Type 2 diabetes mellitus without complications Category: Medical Plan: A1c remains controlled at 6.9% Follow-up with endocrinology as recommended (3) Alcohol use disorder: Code(s): F10.90 - Alcohol use, unspecified, uncomplicated Category: Medical Plan: [facility] He does note some indiscretions with alcohol but he says he is still working at this and I encouraged him (4) Shoulder pain: Code(s): M25.519 - Pain in unspecified shoulder Category: Medical Plan: As above, follow-up with Dr. Montemayor He can continue passive range of motion exercises Orders: Orders Opiates GCMS Expanded, Ur Today F11.90 - Opioid use, unspecified, uncomplicated Comprehensive Met. Panel Today Z87.39 - Personal history of other diseases of the musculoskeletal system and connective tissue Complete Blood Count Auto Diff Today Z00.00 - Encounter for general adult medical examination without abnormal findings, Z87.39 - Personal history of other diseases of the musculoskeletal system and connective tissue Buprenorphine Scr Today F1.90 - Opioid use, unspecified, uncomplicated Drug Screen Urine Today F1.90 - Opioid use, unspecified, uncomplicated Uric Acid Today Z87.39 - Personal history of other diseases of the musculoskeletal system and connective tissue TSH reflex Free T4 Today G62.9 - Polyneuropathy, unspecified, Z00.00 - Encounter for general adult medical examination without abnormal findings Medications: New allopurinol 100 mg PO BID 180 tabs 2RF 90 days celecoxib 200 mg PO BID PRN 180 caps 2RF pain 90 days Refilled buprenorphine 7.5 mcg/hour [facility] verified. Partial refill upon request. 1 patch transdermal Q7D 4 ea 0RF 28 days G62.9 - Polyneuropathy, unspecified
[2025-01-15 10:34] VITALS: BP 120/78; PULSE 67; RESP 12; TEMP 36.6; O2SAT 98; BMI 29.1
--- OUTSIDE RECORDS SUMMARY | 2025-01-15 11:28 | XMS_ITS | Clinical Summary ---
Author Organization [facility] Address [address] [facility] [address] [place] [address] Phone Care Team Providers Care Grainer Machine Name Role Phone Alia Arellano NP Primary Care Provider [phone]- [phone] Medications ProAir HFA 108 (90 Base) MCG/ACT [...] PCV) 022 Influenza Vaccine (#1) 2025 Insurance [place] [id number] [place] [address] Medicaid Care Teams Grainer Machine Relationship Specialty Start Date End Date Alia Arellano NP [address] [place] [id number] PCP - General Nurse Practitioner 12/22/20
== END 2025-01-15 11:45 | disposition home or self-care (01) ==
LOC: HO.HMCFM 10:26
PROVIDERS: PCP Family Medicine; Visit Provider Family Medicine
DX: G89.29 Other chronic pain (principal); E11.9 Type 2 diabetes mellitus without complications; F10.90 Alcohol use, unspecified, uncomplicated; M25.519 Pain in unspecified shoulder

== ENCOUNTER 2025-01-15 11:28 | Outpatient (REF) | payer OTHER, SELFPAY ==
[2025-01-15 14:28] LABS: Cannabinoid Screen Urine Not Detected (Not Detect)
[2025-01-16 09:51] LABS: MANUAL DIFF FLAG NO
[2025-01-16 09:53] LABS: Hematocrit 40.4 % (42.0-52.0); Hemoglobin 14.0 g/dl (14.0-18.0); Imm Gran Abs Auto 0.01 X10*3/uL (0.00-0.03); Imm Gran Pct Auto 0.1 % (0.0-0.4); Lymphocytes Absolute Auto 2.3 X10*3/uL (1.2-4.9); Mean Corpuscular HGB Conc 34.7 g/dl (31.0-36.0); Mean Corpuscular Hemoglobin 29.6 pg (27.0-33.0); Mean Corpuscular Volume 85.4 fL (80.0-98.0); NRBC Abs Auto 0.000 X10*3/uL (0.0-0.012); NRBC Pct Auto 0.0 /100WBC (0.0-0.2); Platelet Count 165 X10*3/uL (160-400); Red Blood Count 4.73 X10*6/uL (4.60-5.80); White Blood Count 6.7 X10*3/uL (4.8-10.8)
== END 2025-01-15 11:29 | disposition home or self-care (01) ==
LOC: HO.WFDLDS 11:28
PROVIDERS: Visit Provider Family Medicine
DX: Z13.89 Encounter for screening for other disorder (principal)
CPT/HCPCS: 36415; 80307; 85025

== ENCOUNTER 2025-03-08 11:06 | Outpatient (AMB) | payer OTHER, SELFPAY ==
--- NOTE | 2025-03-08 11:09 | A.OFFPC_ITS ---
Vital Signs 03/08/25 11:13 03/08/25 11:20 Height 6 ft 1 in Weight 224 lb 4 oz BMI 29.6 BP 134/96 H 124/90 H Blood Pressure Location Lt brachial Lt brachial Position Sitting Sitting Respiration 14 Pulse 61 Pulse Source Pulse Oximeter Temp 97.6 F Temp Source Oral Pulse Oximetry (%) 98 Oxygen Delivery Method Room Air Intake Visit Reasons: disability paperwork /swollen ankles Intake Note: Swollen ankles. Discuss disability paperwork. Takes Amlodipine and insulin as needed. Harp Regulator Required: No Allergies penicillin G (PENICILLIN G) Allergy (Severe, Verified 03/08/25 11:10) DIFFICULTY BREATHING Sulfa (Sulfonamide Antibiotics) (SULFA (SULFONAMIDE ANTIBIOTICS)) Allergy (Severe, Verified 03/08/25 11:10) ANAPHYLAXIS Medication List - Last Reconciled 03/08/25 by Rico Hope MD acamprosate 666 mg (2 x 333 mg) PO TID 30 days adhesive remover As directed to remove adhesive from patches weekly albuterol sulfate 2.5 mg (3 mL) inhalation Q8H PRN 1 month albuterol sulfate 90 mcg/actuation 1 inh inhalation QID PRN allopurinol 100 mg PO BID 90 days amlodipine 10 mg PO DAILY 3 months atenolol 50 mg PO DAILY 90 days blood sugar diagnostic (FreeStyle Lite Strips) use three times daily to check blood sugar blood-glucose meter (FreeStyle Lite Meter kit) To check glucose three times daily blood-glucose sensor (FreeStyle Jay 3 Plus Sensor device) Apply 1 new sensor every 15 days as directed to monitor blood glucose continuously. blood-glucose,commercial loan assistant,cont (FreeStyle Jay 3 [place]) Use daily to monitor blood glucose levels continuously. buprenorphine 7.5 mcg/hour 1 patch transdermal Q7D 28 days cholecalciferol (vitamin D3) (Vitamin D3) 10 mcg PO DAILY citalopram 20 mg (2 x 10 mg) PO DAILY 30 days clonidine HCl 0.1 mg PO BID PRN 30 days cyclobenzaprine 10 mg PO BID PRN 90 days diclofenac potassium 50 mg PO BID PRN 90 days fluticasone propionate 50 mcg/actuation 1 spray intranasal DAILY 1 month folic acid 1 mg PO DAILY 30 days FreeStyle Lite Meter (blood-glucose meter) TEST blood sugar 2-3 TIMES DAILY NS glucose (Dex4 Glucose) 16 grams (4 x 4 gram) PO Q15M PRN insulin degludec (Tresiba FlexTouch U-100 insulin) 25 units (0.25 mL) subcut BEDTIME insulin lispro (Humalog KwikPen (U-100) Insulin) Administer SC TID 15 minutes before meals per sliding scale: Blood sugar under 150 mg/dL take 0 units; Blood sugar 150-199 mg/dL take 2 units; Blood sugar 200-249 mg/dL take 4 units; Blood sugar 250-299 mg/dL take 6 units; Blood sugar 300-349 mg/dL take 8 units; Blood sugar 350-399 mg/dL take 10 units; Blood sugar >/=400 mg /dL take 12 units lancets (FreeStyle Lancets) USE TO TEST BLOOD SUGAR THREE TIMES A DAY DIRECTED lorazepam 1 mg PO BID PRN magnesium oxide 400 mg PO BIDPC omeprazole 20 mg PO DAILY@0630 pen needle, diabetic (Easy Touch) Use as directed to inject insulin 4 times daily. 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 A1c today 6.9%. BP today 124/90, 61p. He is on amlodipine 10mg, atenolol 50mg daily. Ongoing EtOH use disorder. Ongoing chronic pain, back, hips and diffuse polyarthralgia. 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 Chronic SI joint pain Alcoholic pancreatitis Neuropathy Diabetes Anxiety Asthma Polysubstance abuse Gout HTN (hypertension) Surgical History H/O colonoscopy S/P insertion of spinal cord stimulator History of hip surgery Family History Other No pertinent family history Social History (Updated 03/08/25 @ 11:26 by Chela Campo CMA) Household Members: Significant Other Housing: House Do you presently have visiting nurse or other home services: No Alcohol intake: current Alcohol intake frequency: does not drink Patient Tobacco Use Status: Never used Tobacco e-Cigarette/Vaping Use: Never Used service: No Current occupational status: 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: Yes Hearing needs: No Vision needs: No Questionnaire Thrive Questionnaire Date Thrive assessed: 05/15/24 I am a: Patient What is your living situation today?: I have a steady place to live Within the past 12 months, did the food you bought not last and you didn't have the money to get more?: Sometimes True Within the past 12 months, did you worry whether your food would run out before you got money to buy more?: Often true Do you have trouble paying for medicines?: No Do you have trouble getting transportation to medical appointments?: Yes Do you have trouble paying your heating and electricity bill?: Yes Do you have trouble taking care of your child, family member or friend?: I choose not to answer this question Do you have trouble with day-to-day activities such as bathing, preparing meals, shopping, managing finances, etc.?: Yes Are you currently unemployed and looking for a job?: Yes Are you interested in more education?: Yes Currently or been in a relationship where the following occur: No concerns reported THRIVE Score: 4 AUDIT C Alcohol Use Questionnaire (AUDIT-C) 1. How often do you have a drink containing alcohol?: 4 or more times a week 2. How many drinks containing alcohol do you have on a typical day when you are drinking?: 10 or more 3. How often do you have six or more drinks on one occasion?: Daily or almost daily Total Score: 12 TUNDE-7 AMB Questionnaire TUNDE-7 Date TUNDE - 7 assessed: 09/25/23 Source: Developed by Drs. Dominick Miller, Koki Buck, Mohan Beavers and colleagues, with an educational nanette from [employer]. Review of Systems Const Denies chills, Denies fatigue, Denies fever(s), Denies headache(s) and Denies weakness ENT Denies dizziness and Denies headache(s) Card Denies dyspnea Resp Denies cough, Denies dyspnea, Denies wheezing and Denies other (shortness of breath) Musc Denies numbness and Denies tingling Neuro Denies dizziness, Denies headache(s), Denies numbness, Denies tingling and Denies weakness Psych Reports anxiety and Reports depression Endo Denies fatigue Aller/Immun Denies wheezing Physical exam (Primary Care) Vital Signs: Last Vital Signs Temp 97.6 F 03/08/25 11:13 Pulse 61 03/08/25 11:13 Resp 14 03/08/25 11:13 BP 124/90 H 03/08/25 11:20 Pulse Ox 98 03/08/25 11:13 Oxygen Delivery Method Room Air 03/08/25 11:13 BMI result Body Mass Index 29.6 Tobacco/Smoking Status: Tobacco use Status Tobacco use date assessed 01/15/25 03/08/25 11:13 Patient Tobacco Use Status Never used Tobacco 03/08/25 11:26 e-Cigarette/Vaping Use Never Used 03/08/25 11:26 Thrive Assessment: Date of Thrive Assessment Date Thrive assessed 05/15/24 03/08/25 11:13 Currently or been in a relationship where the following occur: No concerns reported Const General: well developed; No acute distress Nutritional Appearance: well nourished Orientation/consciousness: patient oriented x3 [facility] Head: Yes normocephalic and Yes atraumatic Eyes General: appearance normal, both eyes and all related structures Pupils: Equal, round and reactive pupils present EOM: EOMs intact bilaterally Resp Effort & Inspection: normal respiratory effort Neuro General: patient oriented x3 and gait normal Cranial nerves: Yes Equal, round and reactive pupils present Psych Affect: normal affect Results AMB Hemoglobin A1c AMB Hemoglobin A1c 6.9 % Last Edit by Chela Campo CMA on 03/08/25 11:24 Results Reviewed Results Reviewed: Laboratory Last Values Hgb A1c (Clinic) 6.9 % (4.0-6.0) H 03/08/25 11:21 Coding Level of Care Code Est Pt Level 5 (04760) Diagnoses Essential hypertension I10 Hypertension type: essential hypertension Alcohol abuse F10.10 Anxiety with depression F41.8 Chronic SI joint pain M53.3; G89.29 Polyarthralgia M25.50 Assessment & Plan Assessment & Plan (1) HTN (hypertension): Code(s): I10 - Essential (primary) hypertension Category: Medical Qualifiers: Hypertension type: essential hypertension Qualified Code(s): I10 - Essential (primary) hypertension Plan: Blood pressure is fairly well controlled. Goal is less than 140/90 Continue current medications (2) Alcohol abuse: Code(s): F10.10 - Alcohol abuse, uncomplicated Category: Social Hx Plan: Recent detox in [facility] He feels that his alcohol dependence is quite tenuous right now regarding abstinence Agrees to a referral to the [facility] - referred (3) Anxiety with depression: Code(s): F41.8 - Other specified anxiety disorders Category: Medical Plan: Longstanding anxiety depression, affected by his alcohol abuse and also in underlying cause. Referring him to the comprehensive [facility] outpatient psychiatric consultation for further evaluation and treatment (4) Chronic SI joint pain: Code(s): M53.3 - Sacrococcygeal disorders, not elsewhere classified; G89.29 - Other chronic pain Category: Medical (5) Polyarthralgia: Code(s): M25.50 - Pain in unspecified joint Category: Medical Plan Ongoing chronic pain in back and hips as well as diffuse polyarthralgia He is currently on buprenorphine and breakthrough pain is treated with Tramadol Patient requesting increasing and dosing of his medications but I declined to do this at this time. Will refer him back to Dr. Montemayor at [facility] to request pain management Ultimately given patient's psychological issues, substance abuse issues and pain, patient is completely disabled and unable to maintain a gained from work. He will obtain paperwork for disability and will complete this together. Orders: Orders AMB Hemoglobin A1c Today E11.9 - Type 2 diabetes mellitus without complications Referrals Addiction Medicine Referral F10.90 - Alcohol use, unspecified, uncomplicated Pain Management Referral F11.90 - Opioid use, unspecified, uncomplicated, G89.29 - Other chronic pain, M53.3 - Sacrococcygeal disorders, not elsewhere classified, M54.9 - Dorsalgia, unspecified, M87.051 - Idiopathic aseptic necrosis of right femur, M87.052 - Idiopathic aseptic necrosis of left femur Psychiatry Outpatient Consultation Service F41.8 - Other specified anxiety disorders
[2025-03-08 11:13] VITALS: BP 134/96; PULSE 61; RESP 14; TEMP 36.4; O2SAT 98; BMI 29.6
[2025-03-08 11:20] VITALS: BP 124/90
--- OUTSIDE RECORDS SUMMARY | 2025-03-08 14:09 | XMS_ITS | Clinical Summary ---
Author Organization [facility] Address [address] [facility] [address] [place] [address] Phone Care Team Providers Care Rubber Stamp Die Inspector Name Role Phone Alia Arellano NP Primary Care Provider [phone] Medications ProAir HFA 108 (90 Base) MCG/ACT [...] PCV) 022 Influenza Vaccine (#1) 2025 Insurance [place] [phone] [place] [address] Medicaid Care Teams Rubber Stamp Die Inspector Relationship Specialty Start Date End Date Alia Arellano NP [address] [place] [id number] PCP - General Nurse Practitioner 12/22/20
== END 2025-03-08 11:46 | disposition home or self-care (01) ==
LOC: HO.HMCFM 11:07
PROVIDERS: PCP Family Medicine; Visit Provider Family Medicine
DX: I10 Essential (primary) hypertension (principal); E11.9 Type 2 diabetes mellitus without complications; F10.10 Alcohol abuse, uncomplicated; F41.8 Other specified anxiety disorders; M53.3 Sacrococcygeal disorders, not elsewhere classified; G89.29 Other chronic pain; M25.50 Pain in unspecified joint

== ENCOUNTER → 2025-03-08 11:06 | Outpatient (BNVA) | payer OTHER, SELFPAY | PROVIDERS: PCP Family Medicine; Visit Provider Family Medicine | DX: M53.3 Sacrococcygeal disorders, not elsewhere classified (principal); G89.29 Other chronic pain; M54.9 Dorsalgia, unspecified; M25.511 Pain in right shoulder; M25.552 Pain in left hip; I10 Essential (primary) hypertension; F10.10 Alcohol abuse, uncomplicated; F41.8 Other specified anxiety disorders; M25.50 Pain in unspecified joint; E11.9 Type 2 diabetes mellitus without complications; M87.052 Idiopathic aseptic necrosis of left femur; Z79.899 Other long term (current) drug therapy | CPT/HCPCS: 83036; 99212 ==

== ENCOUNTER 2025-03-19 13:47 | Outpatient (AMB) | payer OTHER, SELFPAY ==
--- NOTE | 2025-03-19 13:59 | MHC.OFFVIS ---
Intake Visit Reasons: 6M PVR Intake Note: Patient is Present for Follow Up Urology Medication: Tamsulosin, Tadalafil Antibiotic Allergies: Penicillin, Sulfa Blood Thinners: None PVR: 0ml Package Designer Required: No Accompanied by: Self / Same As Patient Allergies penicillin G (PENICILLIN G) Allergy (Severe, Verified 03/19/25 14:02) DIFFICULTY BREATHING Sulfa (Sulfonamide Antibiotics) (SULFA (SULFONAMIDE ANTIBIOTICS)) Allergy (Severe, Verified 03/19/25 14:02) ANAPHYLAXIS HPI Comments Details: Alpesh is a pleasant male. 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 Would like a letter allowing bathroom privileges He will contact us to tell us what date this is occurring so we can provide the Erectile dysfunction in setting of diabetes Initiate tadalafil Testosterone 07/07 744 Lower urinary tract symptoms Prior pyelonephritis Imaging shows thickened bladder wall with increased postvoid residual, mild hydro uretero nephrosis bilateral 30 cc prostate Cytology negative PFSH Medical History PVD (peripheral vascular disease) Lower extremity weakness Gait instability GERD (gastroesophageal reflux disease) Hyperlipidemia Type II diabetes with 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 use of insulin Chronic SI joint pain Alcoholic pancreatitis Neuropathy Diabetes Anxiety Asthma Polysubstance abuse Gout HTN (hypertension) Surgical History H/O colonoscopy S/P insertion of spinal cord stimulator History of hip surgery Family History Other No pertinent family history Social History Household Members: Significant Other Housing: House Do you presently have visiting nurse or other home services: No Alcohol intake: current Alcohol intake frequency: does not drink Patient Tobacco Use Status: Never used Tobacco e-Cigarette/Vaping Use: Never Used service: No Current occupational status: 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: Yes Hearing needs: No Vision needs: No Review of Systems Const Denies chills and Denies fever(s) Card Reports no additional complaints and Denies syncope Resp Denies cough GI Denies abdominal pain and Denies heartburn Reports as per HPI and Denies change in libido Neuro Denies syncope Psych Denies change in libido Endo Denies change in libido Physical Exam Const General: cooperative, healthy appearing, comfortable and no acute distress Orientation/consciousness: patient oriented x3 HEENT Face and sinus: Yes normal facial exam Mouth: moist mucous membranes Neck Neck: Yes normal visual inspection, Yes full ROM and Yes trachea midline Chest Chest palpation & inspection: normal inspection of the chest Resp Effort & Inspection: normal respiratory effort, able to speak in complete sentences and no respiratory distress GI Inspection: Yes normal to inspection Back/Spine/Pelvis Cervical Spine: normal cervical lordosis Thoracic/Lumbar Spine: thoracic and lumbar spine normal to inspection Skin General skin exam: no rashes or lesions noted Neuro General: patient oriented x3, gait normal, tone normal and moves all extremities Extrem General: Yes normal to inspection and Yes capillary refill normal Office Procedures Post Void Residual Post Residual Void Post Void Residual (PVR): 0 [id number]-[id number] Void Residual by ultrasound Results AMB Urinalysis, Automated UA Leukoctes 0 Corazon/uL Last Edit by Tyra Chiu [facility] on 03/19/25 14:12 UA Nitrite Negative Last Edit by Tyra Chiu [facility] on 03/19/25 14:12 UA Urobilinogen 0.2 mg/dL Last Edit by Tyra Chiu [facility] on 03/19/25 14:12 UA Protein 0 mg/dL Last Edit by Tyra Chiu [facility] on 03/19/25 14:12 UA pH 6.5 Last Edit by Tyra Chiu [facility] on 03/19/25 14:12 UA Blood 0 Justin/uL Last Edit by Tyra Chiu [facility] on 03/19/25 14:12 UA Specific [place] 1.000 Last Edit by Tyra Chiu [facility] on 03/19/25 14:12 UA Ketone Negative Last Edit by Tyra Chiu [facility] on 03/19/25 14:12 UA Bilirubin 0 mg/dL Last Edit by Tyra Chiu [facility] on 03/19/25 14:12 UA Glucose 0 mg/dL Last Edit by LATISHA Lora on 03/19/25 14:12 Results Reviewed Results Reviewed: Laboratory Last Values Urine pH (Auto) 6.5 03/19/25 14:11 Specific [place] (Auto) 1.000 03/19/25 14:11 Urine Protein (Auto) 0 mg/dL 03/19/25 14:11 Glucose (UA)(Auto) 0 mg/dL 03/19/25 14:11 Urine Ketones (Auto) Negative 03/19/25 14:11 Urine Blood (Auto) 0 Justin/uL 03/19/25 14:11 Urine Nitrite (Auto) Negative 03/19/25 14:11 Urine Bilirubin (Auto) 0 mg/dL 03/19/25 14:11 Urine Urobilinogen (Auto) 0.2 mg/dL 03/19/25 14:11 Leukocyte Esterase (Auto) 0 Corazon/uL 03/19/25 14:11 Assessment & Plan Assessment & Plan (1) Slow urinary stream: Code(s): R39.198 - Other difficulties with micturition Category: Medical (2) Incomplete bladder emptying: Code(s): R33.9 - Retention of urine, unspecified Category: Medical (3) Erectile dysfunction associated with type 2 diabetes mellitus: Code(s): E11.69 - Type 2 diabetes mellitus with other specified complication; N52.1 - Erectile dysfunction due to diseases classified elsewhere Category: Medical Plan Twelve month follow-up Orders: Orders AMB Urinalysis Automated Today Z13.9 - Encounter for screening, unspecified AMB Post Void Residual by ultrasound Today N32.0 - Bladder-neck obstruction Medications: Refilled tamsulosin (Flomax) 0.4 mg PO BEDTIME 90 caps 3RF 90 days N32.89 - Other specified disorders of bladder, R39.198 - Other difficulties with micturition tadalafil 5 mg PO DAILY 90 tabs 1RF 90 days N32.0 - Bladder-neck obstruction, N32.89 - Other specified disorders of bladder Patient Instructions: This note is constructed using voice recognition software. While every effort has been made to ensure accuracy veterinary science teacher errors may have been included. Imaging studies, laboratory and physical exam results were discussed and reviewed in detail. No major barriers to patient understanding were identified. An opportunity to ask questions regarding the treatment plan was provided. All questions were answered. The patient expressed understanding and agreement with the above treatment plan. The patient is aware they should contact our office by phone for worsening of their current condition or the appearance of new urologic symptoms. Compliance is encouraged with any medications and followup testing that is ordered. It is a privilege to participate in the urologic care of your patient. If you have any questions or concerns regarding treatment for the above conditions, or other urologic issues, please do not hesitate to contact me. The office telephone contact is [phone]. Sincerely, Dr Mac Caceres MD, [facility] - Urology Compassionate Specialist Care for the Genitourinary System Coding Level of Care Code Est Pt Level 3 (97210) Complex EM visit Add On G2211 Diagnoses Slow urinary stream R39.198 Incomplete bladder emptying R33.9 Erectile dysfunction associated with type 2 diabetes mellitus E11.69; N52.1 CPT Codes Post Residual Void - PVR CPT Code: 66642-[id number] Void Residual by ultrasound ([id number])
== END 2025-03-19 14:59 | disposition home or self-care (01) ==
LOC: HO.HUSH 13:48
PROVIDERS: PCP Family Medicine; Visit Provider Urology
DX: R39.198 Other difficulties with micturition (principal); R33.9 Retention of urine, unspecified; E11.69 Type 2 diabetes mellitus with other specified complication; N52.1 Erectile dysfunction due to diseases classified elsewhere; Z13.9 Encounter for screening, unspecified
CPT/HCPCS: 99213

== ENCOUNTER → 2025-03-19 13:47 | Outpatient (BNVA) | payer OTHER, SELFPAY | PROVIDERS: PCP Family Medicine; Visit Provider Urology | DX: R39.198 Other difficulties with micturition (principal); R33.9 Retention of urine, unspecified; E11.69 Type 2 diabetes mellitus with other specified complication; N52.1 Erectile dysfunction due to diseases classified elsewhere; Z13.9 Encounter for screening, unspecified | CPT/HCPCS: 51798; 81003; 99212 ==

== ENCOUNTER 2025-04-12 08:55 | Outpatient (REF) | payer OTHER, SELFPAY ==
--- NOTE | ~2025-04-12 | US_ITS ---
EXAMINATION: US NONINVASIVE ASSESSMENT OF THE BILATERAL LOWER EXTREMITY WITH ANKLE BRACHIAL INDICES (ABIS) CLINICAL INFORMATION: Peripheral vascular disease COMPARISON: None available. TECHNIQUE:Aankle pulse volume recordings, ankle pressure measurements and ankle brachial indices were obtained of the bilateral lower extremity arterial system. The study was performed only at rest. FINDINGS: NONINVASIVE ASSESSMENT OF THE ARTERIES OF BILATERAL LOWER EXTREMITIES WITH ABIs: RIGHT LEG: Ankle-brachial index: 1.18 Ankle PVR: Normal LEFT LEG: Ankle-brachial index: 1.16 Left ankle PVR: Normal RICKEY Reference: 0.9 - 1.4 = normal - no significant arterial disease 0.7 - 0.89 = mild peripheral arterial disease 0.51 - 0.69 = moderate peripheral arterial disease 0.50 = severe peripheral arterial disease US/US RICKEY complete IMPRESSION: Normal ankle brachial indices bilaterally. Electronically signed by: Carlota Palmer MD 04/12/2025 10:06 AM [facility]
--- OUTSIDE RECORDS SUMMARY | 2025-04-12 10:11 | XMS_ITS | Clinical Summary ---
Author Organization [facility] Address [address] [facility] [address] [place] [address] Phone Care Team Providers Care Tar Heater Name Role Phone Alia Arellano NP Primary Care Provider [phone]- [phone] Medications ProAir HFA 108 (90 Base) MCG/ACT [...] Influenza Vaccine (#1) 2025 Insurance [place] [id number] [place] [address] Medicaid Care Teams Tar Heater Relationship Specialty Start Date End Date Alia Arellano NP [address] [place] [id number] PCP - General Nurse Practitioner 12/22/20
== END 2025-04-12 08:56 | disposition home or self-care (01) ==
LOC: HO.US 08:55
PROVIDERS: PCP Family Medicine; Visit Provider Physician Assistant Medical
DX: I73.9 Peripheral vascular disease, unspecified (principal)
CPT/HCPCS: 93923

== ENCOUNTER → 2025-04-12 08:58 | Outpatient (BNV) | payer OTHER, SELFPAY | PROVIDERS: PCP Family Medicine; Visit Provider Radiology Diagnostic Radiology | DX: I73.9 Peripheral vascular disease, unspecified (principal) | CPT/HCPCS: 93923 ==

== ENCOUNTER 2025-04-16 10:34 | Outpatient (AMB) | payer OTHER, SELFPAY ==
--- NOTE | 2025-04-16 08:39 | MHC.OFFVIS ---
Intake Visit Reasons: T2DM Allergies penicillin G (PENICILLIN G) Allergy (Severe, Verified 03/19/25 14:02) DIFFICULTY BREATHING Sulfa (Sulfonamide Antibiotics) (SULFA (SULFONAMIDE ANTIBIOTICS)) Allergy (Severe, Verified 03/19/25 14:02) ANAPHYLAXIS Medication List - Last Reconciled 04/16/25 by KEILA Obregon acamprosate 666 mg (2 x 333 mg) PO TID 30 days albuterol sulfate 2.5 mg (3 mL) inhalation Q8H PRN 1 month albuterol sulfate 90 mcg/actuation 1 inh inhalation QID PRN allopurinol 100 mg PO BID 90 days amlodipine 10 mg PO DAILY 3 months atenolol 50 mg PO DAILY 90 days blood sugar diagnostic (FreeStyle Lite Strips) use three times daily to check blood sugar blood-glucose meter (FreeStyle Lite Meter kit) To check glucose three times daily blood-glucose sensor (FreeStyle Jay 3 Plus Sensor device) Apply 1 new sensor every 15 days as directed to monitor blood glucose continuously. blood-glucose,art appraiser,cont (FreeStyle Jay 3 [place]) Use daily to monitor blood glucose levels continuously. buprenorphine 7.5 mcg/hour 1 patch transdermal Q7D 28 days cholecalciferol (vitamin D3) (Vitamin D3) 10 mcg PO DAILY citalopram 20 mg (2 x 10 mg) PO DAILY 30 days clonidine HCl 0.1 mg PO BID PRN 30 days cyclobenzaprine 10 mg PO BID PRN 90 days diclofenac potassium 50 mg PO BID PRN 90 days fluticasone propionate 50 mcg/actuation 1 spray intranasal DAILY 1 month folic acid 1 mg PO DAILY 30 days FreeStyle Lite Meter (blood-glucose meter) TEST blood sugar 2-3 TIMES DAILY NS glucose (Dex4 Glucose) 16 grams (4 x 4 gram) PO Q15M PRN insulin degludec (Tresiba FlexTouch U-100 insulin) 28 units subcut BEDTIME insulin lispro (Humalog KwikPen (U-100) Insulin) Administer SC TID 15 minutes before meals per sliding scale: Blood sugar under 150 mg/dL take 0 units; Blood sugar 150-199 mg/dL take 2 units; Blood sugar 200-249 mg/dL take 4 units; Blood sugar 250-299 mg/dL take 6 units; Blood sugar 300-349 mg/dL take 8 units; Blood sugar 350-399 mg/dL take 10 units; Blood sugar >/=400 mg /dL take 12 units lancets (FreeStyle Lancets) USE TO TEST BLOOD SUGAR THREE TIMES A DAY DIRECTED lorazepam 1 mg PO BID PRN magnesium oxide 400 mg PO BIDPC omeprazole 20 mg PO DAILY@0630 pen needle, diabetic (Easy Touch) Use as directed to inject insulin 4 times daily. pen needle, diabetic (Comfort EZ Pen [place]) As directed to inject insulin 4 times daily tadalafil 5 mg PO DAILY 90 days tamsulosin (Flomax) 0.4 mg PO BEDTIME 90 days thiamine mononitrate (vit B1) 100 mg PO DAILY 30 days tramadol 50 mg PO DAILY PRN 30 days HPI Comments Details: This is a 54-year-old male with a past medical history of pancreatitis, portal hypertension, type 2 diabetes, severe alcohol use disorder, elevated liver enzymes, avascular necrosis of the hips, hematuria, hyperlipidemia, GERD, pancreatitis, asthma and hypertension presenting for diabetic management. He was diagnosed with diabetes three years ago. Denies family history of diabetes. He has laboratory proven type 2 diabetes. Patient has not been able to exercise very much because his back has been bothering him more so his GMI increased to 7.1%. His last hemoglobin A1c 03/08/2025 was 6.9%. Current medication regimen: Tresiba 26 units and Humalog sliding scale: Blood sugar under 150 mg/dL: take no Humalog Blood sugar 150-199 mg/dL take 2 units Blood sugar 200-249 mg/dL take 4 units Blood sugar 250-299 mg/dL take 6 units Blood sugar 300-349 mg/dL take 8 units Blood sugar 350-399 mg/dL take 10 units Blood sugar >/=400 mg /dL take 12 units Past medication: Metformin was discontinued due to excessive thirst. Lantus switch to Tresiba due to fluctuations in blood sugar on Lantus. He has a history of substance abuse. Hypoglycemia symptoms: Denies episodes Hyperglycemia symptoms: Denies symptoms Eye exam: June 2024-no retinopathy. The patient had a CT of the abdomen and pelvis in January 2024 which showed no liver abnormalities. At his last visit we discussed bilateral varicose veins, mottling on the bottom of his feet and slower capillary refill of the right foot. Bilateral RICKEY within normal limits, but he reports that his feet look the same, and he does get some cramping in his calves with exertion. Lower legs swell when feet are down for long periods. I reviewed his old labs because there is not a recent lipid profile. He has hyperlipidemia. Not currently on a statin. ROS: Constitutional: No fevers or chills Cardiovascular: No chest pain or pedal edema. Gastrointestinal: No anorexia, nausea, vomiting or diarrhea. No abdominal pain Neurologic: No headache, dizziness, syncope. +numbness and tingling in his feet Endocrine: No cold or heat intolerance. No polyuria or polydipsia. [facility] Medical History PVD (peripheral vascular disease) Lower extremity weakness Gait instability GERD (gastroesophageal reflux disease) Hyperlipidemia Type II diabetes with detention use of insulin Chronic SI joint pain Alcoholic pancreatitis Neuropathy Diabetes Anxiety Asthma Polysubstance abuse Gout HTN (hypertension) Surgical History H/O colonoscopy S/P insertion of spinal cord stimulator History of hip surgery Family History Other No pertinent family history Social History Household Members: Significant Other Housing: House Do you presently have visiting nurse or other home services: No Alcohol intake: current Alcohol intake frequency: does not drink Patient Tobacco Use Status: Never used Tobacco e-Cigarette/Vaping Use: Never Used service: No Current occupational status: 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: Yes Hearing needs: No Vision needs: No Telehealth Telehealth Telehealth Platform: Telephone Location of provider rendering services: practice address Location of patient: address on file Patient Identification confirmed using: Name, : Yes Telehealth method: voice only Patient verbally consented to treatment: Yes Patient verbally consented to billing insurance company: Yes Patient informed of any privacy concerns related to visit: Yes Minutes spent on Phone/Video with Pt.: 16 Results Reviewed Results Reviewed: Laboratory Tests 09/02/24 09/02/24 09:30 09:39 Plt Count 171 D Creatinine 0.82 Estimated GFR > 60 C-Peptide 2.18 AST 42 H ALT 28 TSH 1.27 Urine Creatinine 24.74 Urine Microalbumin < 5.0 Microalb/Creat Ratio TNP Islet Cell Ab Screen NEGATIVE TUNDE Antibody <5 Laboratory Tests 01/09/23 07/22/23 08:15 09:49 Triglycerides 208 H Cholesterol 229 H LDL Cholesterol Direct 103 H LDL Cholesterol, Calc 121 H HDL Cholesterol 67 Assessment & Plan Assessment & Plan (1) Type II diabetes with detention use of insulin: Code(s): E11.9 - Type 2 diabetes mellitus without complications; 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 Category: Medical Qualifiers: Diabetes mellitus complication status: with circulatory complication Diabetes mellitus complication detail: with other circulatory complications Qualified Code(s): E11.59 - Type 2 diabetes mellitus with other circulatory complications; 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 GMI has increased since he has not been able to exercise recently. Increase Tresiba to 28 units. Continue Humalog sliding scale. Defers referral to public health educator. He has a backup glucometer. He has glucose tablets. Bring CGM to all appointments. We discussed neuropathy at his last visit and recommended physical therapy for gait coordination and fall prevention. He deferred this referral. RICKEY normal, but he has symptoms concerning for peripheral vascular disease. I will refer him to vascular surgery for evaluation. If you experience low blood sugar, treat this by eating a chewable fruit candy like skittles or jelly beans (about 8 pieces), 4 ounces (1/2 cup) of fruit juice (not diet), 1 tablespoon of honey or 4 glucose tablets. If your blood sugar is under 50, take double the amount of one of the above. Recheck your blood sugar in 15 minutes. He is not on a statin, but he has a history of alcohol abuse and elevated liver enzymes so he may not be a good candidate for this. I will have him update his lipid and liver profile before his next appointment and consider prescribing Repatha or Praluent. Discussed pathophysiology of Type II Diabetes Mellitus with the patient in detail.? I explained the detention risks and complications associated with uncontrolled diabetes including nephropathy, neuropathy, peripheral vascular disease, retinopathy, increased risk of heart disease and stroke.? Follow up in 2 months. Orders: Orders Creatinine 2 Months E11.9 - Type 2 diabetes mellitus without complications, F10.10 - Alcohol abuse, uncomplicated Hemoglobin A1c 2 Months F10.10 - Alcohol abuse, uncomplicated, R73.9 - Hyperglycemia, unspecified Microalbumin, Random (w Creat) 2 Months E11.9 - Type 2 diabetes mellitus without complications, F10.10 - Alcohol abuse, uncomplicated Lipid Panel 2 Months E78.5 - Hyperlipidemia, unspecified, F10.10 - Alcohol abuse, uncomplicated Liver Panel 2 Months F10.10 - Alcohol abuse, uncomplicated Referrals Vascular Surgery Referral I73.9 - Peripheral vascular disease, unspecified Medications: Changed From insulin degludec (Tresiba FlexTouch U-100 insulin) 25 units (0.25 mL) subcut BEDTIME 15 mL 5RF To insulin degludec (Tresiba FlexTouch U-100 insulin) 28 units subcut BEDTIME Coding Level of Care Code Tele Est Pt Level 4 (09571) Complex visit Add On G2211 Diagnoses Type 2 diabetes mellitus with other circulatory complication, with long-term current use of insulin E11.59; Z79.4 Diabetes mellitus complication status: with circulatory complication Diabetes mellitus complication detail: with other circulatory complications PVD (peripheral vascular disease) I73.9 Alcohol abuse F10.10 Elevated liver enzymes R74.8
== END 2025-04-16 10:35 | disposition home or self-care (01) ==
LOC: HO.ENCR 10:34
PROVIDERS: PCP Family Medicine; Visit Provider Physician Assistant Medical
DX: E11.59 Type 2 diabetes mellitus with other circulatory complications (principal); Z79.4 Long term (current) use of insulin; I73.9 Peripheral vascular disease, unspecified; F10.10 Alcohol abuse, uncomplicated; R74.8 Abnormal levels of other serum enzymes

== ENCOUNTER 2025-04-22 09:17 | Outpatient (AMB) | payer OTHER, SELFPAY ==
--- NOTE | 2025-04-22 09:49 | A.OFFPC_ITS ---
Vital Signs 04/22/25 09:59 Height 6 ft 1 in Weight 221 lb 4 oz BMI 29.2 BP 118/78 Blood Pressure Location Lt brachial Position Sitting Respiration 18 Pulse 77 Pulse Source Pulse Oximeter Pulse Oximetry (%) 97 Oxygen Delivery Method Room Air Intake Visit Reasons: follow up disability paperwork Intake Note: Patient present for follow up on disability paperwork. 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 Hx of chronic pain, polyarthralgia. Blood pressure today 118/78, 77p. He is on amlodipine 10mg, atenolol 50mg daily. 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 Chronic SI joint pain Alcoholic pancreatitis Neuropathy Diabetes Anxiety Asthma Polysubstance abuse Gout HTN (hypertension) Surgical History H/O colonoscopy S/P insertion of spinal cord stimulator History of hip surgery Family History Other No pertinent family history Social History (Updated 04/22/25 @ 09:59 by Remigio Maldonado CMA) Household Members: Significant Other Housing: House Do you presently have visiting nurse or other home services: No Alcohol intake: current Alcohol intake frequency: does not drink Patient Tobacco Use Status: Never used Tobacco e-Cigarette/Vaping Use: Never Used service: No Current occupational status: 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: Yes Hearing needs: No Vision needs: No Questionnaire Thrive Questionnaire Date Thrive assessed: 05/15/24 I am a: Patient What is your living situation today?: I have a steady place to live Within the past 12 months, did the food you bought not last and you didn't have the money to get more?: Sometimes True Within the past 12 months, did you worry whether your food would run out before you got money to buy more?: Often true Do you have trouble paying for medicines?: No Do you have trouble getting transportation to medical appointments?: Yes Do you have trouble paying your heating and electricity bill?: Yes Do you have trouble taking care of your child, family member or friend?: I choose not to answer this question Do you have trouble with day-to-day activities such as bathing, preparing meals, shopping, managing finances, etc.?: Yes Are you currently unemployed and looking for a job?: Yes Are you interested in more education?: Yes Currently or been in a relationship where the following occur: No concerns reported THRIVE Score: 4 TUNDE-7 AMB Questionnaire TUNDE-7 Date TUNDE - 7 assessed: 09/25/23 Source: Developed by Drs. Dominick Miller, Koki Buck, Mohan Beavers and colleagues, with an educational nanette from [employer]. Review of Systems Const Denies chills, Denies fatigue, Denies fever(s), Denies headache(s) and Denies weakness ENT Denies dizziness and Denies headache(s) Card Denies dyspnea Resp Denies cough, Denies dyspnea, Denies wheezing and Denies other (shortness of breath) Musc Denies numbness and Denies tingling Neuro Denies dizziness, Denies headache(s), Denies numbness, Denies tingling and Denies weakness Psych Denies anxiety and Denies depression Endo Denies fatigue Aller/Immun Denies wheezing Physical exam (Primary Care) Vital Signs: Last Vital Signs Pulse 77 04/22/25 09:59 Resp 18 04/22/25 09:59 BP 118/78 04/22/25 09:59 Pulse Ox 97 04/22/25 09:59 Oxygen Delivery Method Room Air 04/22/25 09:59 BMI result Body Mass Index 29.2 Tobacco/Smoking Status: Tobacco use Status Tobacco use date assessed 01/15/25 04/22/25 09:50 Patient Tobacco Use Status Never used Tobacco 04/22/25 09:59 e-Cigarette/Vaping Use Never Used 04/22/25 09:59 Thrive Assessment: Date of Thrive Assessment Date Thrive assessed 05/15/24 04/22/25 09:50 Currently or been in a relationship where the following occur: No concerns reported Const General: well developed; No acute distress Nutritional Appearance: well nourished Orientation/consciousness: patient oriented x3 HENMT Head: Yes normocephalic and Yes atraumatic Eyes General: appearance normal, both eyes and all related structures Pupils: Equal, round and reactive pupils present EOM: EOMs intact bilaterally Resp Effort & Inspection: normal respiratory effort Neuro General: patient oriented x3 and gait normal Cranial nerves: Yes Equal, round and reactive pupils present Psych Affect: normal affect Coding Level of Care Code Est Pt Level 5 (39189) Diagnoses Essential hypertension I10 Hypertension type: essential hypertension Anxiety with depression F41.8 Chronic SI joint pain M53.3; G89.29 Polyarthralgia M25.50 Chronic, continuous use of opioids F1.90 Alcohol use disorder F10. Assessment & Plan Assessment & Plan (1) HTN (hypertension): Code(s): I10 - Essential (primary) hypertension Category: Medical Qualifiers: Hypertension type: essential hypertension Qualified Code(s): I10 - Essential (primary) hypertension Plan: Blood pressure is well controlled. Goal is less than 140/90 Continue current medications (2) Anxiety with depression: Code(s): F41.8 - Other specified anxiety disorders Category: Medical Plan: Taking citalopram and lorazepam as prescribed Also has clonidine available Patient was referred to [facility] but missed numerous appointments. Will ask the nurse navigator to help get him rescheduled (3) Chronic SI joint pain: Code(s): M53.3 - Sacrococcygeal disorders, not elsewhere classified; G89.29 - Other chronic pain Category: Medical Plan: Chronic polyarthralgia and severe chronic SI joint pain Patient is on long-term opioid treatment and fairly well controlled. Followed by ortho/physiatry Considering another nerve ablation Follow-up with physiatry as recommended (4) Polyarthralgia: Code(s): M25.50 - Pain in unspecified joint Category: Medical Plan: As above (5) Chronic, continuous use of opioids: Code(s): F11.90 - Opioid use, unspecified, uncomplicated Category: Medical Plan: As above (6) Alcohol use disorder: Code(s): F10.90 - Alcohol use, unspecified, uncomplicated Category: Medical Plan: Recent detox at [facility] Had [facility] Patient was given Acamprosate Attending AA meetings Follow-up with [facility] and a AA meetings Medications: Changed From buprenorphine 7.5 mcg/hour Mass[employer] verified. Partial refill upon request. 1 patch transdermal Q7D 28 days 4 ea 0RF G62.9 - Polyneuropathy, unspecified, G89.29 - Other chronic pain, M25.50 - Pain in unspecified joint, M53.3 - Sacrococcygeal disorders, not elsewhere classified, M87.051 - Idiopathic aseptic necrosis of right femur, M87.052 - Idiopathic aseptic necrosis of left femur To buprenorphine 10 mcg/hour MassPat verified. Partial refill upon request. 1 patch transdermal Q7D 4 ea 0RF 28 days G62.9 - Polyneuropathy, unspecified, G89.29 - Other chronic pain, M25.50 - Pain in unspecified joint, M53.3 - Sacrococcygeal disorders, not elsewhere classified, M87.051 - Idiopathic aseptic necrosis of right femur, M87.052 - Idiopathic aseptic necrosis of left femur From citalopram 20 mg (2 x 10 mg) PO DAILY 30 days 60 tabs 4RF To citalopram 30 mg (3 x 10 mg) PO DAILY 90 tabs 4RF 30 days Refilled lorazepam 1 mg PO BID PRN 60 tabs 0RF anxiety F41.9 - Anxiety disorder, unspecified
[2025-04-22 09:59] VITALS: BP 118/78; PULSE 77; RESP 18; O2SAT 97; BMI 29.2
== END 2025-04-22 12:35 | disposition home or self-care (01) ==
LOC: HO.HMCFM 09:18
PROVIDERS: PCP Family Medicine; Visit Provider Family Medicine
DX: I10 Essential (primary) hypertension (principal); F41.8 Other specified anxiety disorders; M53.3 Sacrococcygeal disorders, not elsewhere classified; M25.50 Pain in unspecified joint; F11.90 Opioid use, unspecified, uncomplicated; F10.90 Alcohol use, unspecified, uncomplicated

== ENCOUNTER → 2025-04-22 09:17 | Outpatient (BNVA) | payer OTHER, SELFPAY | PROVIDERS: PCP Family Medicine; Visit Provider Family Medicine | DX: I10 Essential (primary) hypertension (principal); F41.8 Other specified anxiety disorders; M53.3 Sacrococcygeal disorders, not elsewhere classified; G89.29 Other chronic pain; M25.50 Pain in unspecified joint; F11.90 Opioid use, unspecified, uncomplicated; F10.90 Alcohol use, unspecified, uncomplicated | CPT/HCPCS: 99212 ==

== ENCOUNTER 2025-05-12 08:59 | Outpatient (AMB) | payer OTHER, SELFPAY ==
[2025-05-12 09:01] VITALS: BMI 29.2
--- NOTE | 2025-05-12 09:01 | MHC.OFFVIS ---
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 Pt states he has bilateral cramping and swelling. Swelling started last october and cramping started a few years ago. Pt states the swelling worsened with sitting/driving. The swelling caused pain bilateral LE. 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 He reports developing diabetes around 2020 after [place] COVID-19, which was followed by pancreatitis. His most recent hemoglobin A1c was 6.9%, which he notes is higher than his usual levels, which have been as low as 5.5%. He attributes the increase in A1c to an inability to regulate it due to pain, which limits his physical activity. The patient has a lifelong history of sacroiliac joint back pain, which also modulates his activity level. For this, he has undergone nerve ablation and is scheduled for a second procedure. He has also had his hips replaced, but this did not improve his ability to walk as hoped. The patient denies any history of smoking. He recently discontinued using a Jay 2 device, feeling it was providing inaccurate readings of his blood sugar levels. 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 Chronic SI joint pain Alcoholic pancreatitis Neuropathy Diabetes Anxiety Asthma Polysubstance abuse Gout HTN (hypertension) Surgical History H/O colonoscopy S/P insertion of spinal cord stimulator History of hip surgery Family History Other No pertinent family history Social History Household Members: Significant Other Housing: House Do you presently have visiting nurse or other home services: No Alcohol intake: current Alcohol intake frequency: does not drink Patient Tobacco Use Status: Never used Tobacco e-Cigarette/Vaping Use: Never Used service: No Current occupational status: 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: Yes Hearing needs: No Vision needs: No Review of Systems Const All systems reviewed & are unremarkable except as noted in HPI and below Reports no additional complaints ENT Reports Normal hearing present Card Denies chest pain, Denies chest pain at rest, Denies chest pain with activity and Denies pedal edema Resp Denies cough GI Denies abdominal pain Musc Denies abnormal gait, Denies muscle cramps and Denies radiating pain into limb Skin/Breast Denies skin ulcer and Denies wounds Neuro Reports Normal hearing present and Denies abnormal gait Psych Reports no additional complaints Physical Exam Vital Signs: BMI result Body Mass Index 29.2 Const General: cooperative, healthy appearing and comfortable Orientation/consciousness: oriented to person, oriented to place and oriented to time HEENT Head: Yes normal to inspection Neck Neck: Yes normal visual inspection Carotids: no bruits Chest Chest palpation & inspection: normal inspection of the chest Resp Effort & Inspection: normal respiratory effort and able to speak in complete sentences Auscultation: clear to auscultation bilaterally, no crackles, no rales, no rhonchi and no wheezes Cardio Other: Palpable dorsalis pedis pulses Rate: regular rate Rhythm: regular rhythm Heart sounds: S1 normal heart sound present and S2 normal heart sound present Bruits: no carotid bruits Peripheral pulses: Peripheral pulses 2+ throughout GI Inspection: Yes normal to inspection Skin Wounds: no wounds Hair: normal Neuro General: oriented to person, oriented to place and oriented to time Cranial nerves: Yes CN's II-XII intact bilaterally and Yes Normal hearing present Cognition (Neuro): normal cognition Motor exam (neuro): 5/5 motor strength present throughout Extrem Other: venous exam: No significant superficial varicosities or spider telangiectasias, minimal edema General: No clubbing, No cyanosis and No edema Psych Appearance: grossly normal Mental Status: mental status grossly normal Speech and movement: Normal speech and movement present Results Reviewed Results Reviewed: Noninvasive arterial testing dated 04/12/2025 demonstrates RICKEY on the right of 1.18 and on the left of 1.16. Written report and images were reviewed. Assessment & Plan Assessment & Plan (1) PAD (peripheral artery disease): Code(s): I73.9 - Peripheral vascular disease, unspecified Category: Medical Plan: I informed the patient that based on my examination, his lower extremity pain does not appear to be caused by a vascular issue. I palpated his leg pulses, which were strong and normal, indicating good blood flow. I explained that the pain is likely neuropathic, stemming from a combination of his diabetes and chronic back issues. I clarified that high blood sugars can damage nerve endings, which is a component of his symptoms. I noted that his prior vascular testing was near-normal, which supports this assessment. Therefore, no vascular intervention is recommended at this time. Patient will follow up with us on an as-needed basis. Thank you for allowing us to assist in his care. If there are any questions or concerns please do not hesitate to contact us Coding Level of Care Code New Pt Level 4 (35762) Diagnoses PAD (peripheral artery disease) I73.9
== END 2025-05-12 09:31 | disposition home or self-care (01) ==
LOC: HO.HVS 09:00
PROVIDERS: PCP Family Medicine; Visit Provider Surgery Vascular Surgery
DX: I73.9 Peripheral vascular disease, unspecified (principal)
CPT/HCPCS: 99204

== ENCOUNTER → 2025-05-12 08:59 | Outpatient (BNVA) | payer OTHER, SELFPAY | PROVIDERS: PCP Family Medicine; Visit Provider Surgery Vascular Surgery | DX: E11.51 Type 2 diabetes mellitus with diabetic peripheral angiopathy without gangrene (principal); M79.605 Pain in left leg; M79.604 Pain in right leg | CPT/HCPCS: 99202 ==